=== PATIENT | female | born 1940 | race Caucasian/White ===

== ENCOUNTER → 2017-08-20 09:57 | Outpatient (CLI) | payer MEDICARE, BC, SELFPAY ==
[2017-08-20 11:43] LABS: AST(SGOT) 16 U/L (15-37); Alanine Aminotransfer ALT/SGPT 16 U/L (12-78); Albumin, Serum 3.6 g/dL (3.4-5.0); Alkaline Phosphatase 76 U/L (45-117); Anion Gap 8 (5-15); BUN 19 mg/dL (7-18); BUN/Creat Ratio 19.6 RATIO (10-20); Bilirubin, Direct 0.24 mg/dL (0.00-0.30); Calcium,Total 8.6 mg/dL (8.5-10.1); Chloride 110 mmol/L (98-107); Cholesterol 121 mg/dL (200); Creatinine, Serum 0.97 mg/dL (0.55-1.02); EST Glomerular Filtration Rate 59 mL/min (>60); Est Glom Filt Rate - Afr Amer 72 mL/min (>60); Glucose 93 mg/dL (70-110); High Density Lipoprotein 52 mg/dL; Potassium 3.4 mmol/L (3.5-5.1); Protein, Total 6.6 g/dL (6.4-8.2); Sodium Level 145 mmol/L (136-145); Triglycerides 177 mg/dL; Very Low Density Lipoprotein 35 mg/dL (5-40)
== END ==
PROVIDERS: Family Provider Family Medicine; PCP Family Medicine; Visit Provider Physician Assistant Medical
DX: I25.10 Atherosclerotic heart disease of native coronary artery without angina pectoris (principal); I25.5 Ischemic cardiomyopathy; I10 Essential (primary) hypertension; E78.5 Hyperlipidemia, unspecified; I25.2 Old myocardial infarction; I21.3 ST elevation (STEMI) myocardial infarction of unspecified site; Z95.5 Presence of coronary angioplasty implant and graft
CPT/HCPCS: 36415; 80048; 80061; 80076; 93798

== ENCOUNTER → 2017-09-30 09:55 | Outpatient (CLI) | payer MEDICARE, BC, SELFPAY ==
[2017-08-19 15:29] VITALS: BP 180/94; BMI 28.8
== END ==
PROVIDERS: Family Provider Family Medicine; PCP Family Medicine; Visit Provider Physician Assistant Medical
DX: Q21.1 Atrial septal defect (principal); R93.1 Abnormal findings on diagnostic imaging of heart and coronary circulation; I25.5 Ischemic cardiomyopathy
CPT/HCPCS: 93312; 93320; 93325; A4216

== ENCOUNTER → 2017-10-16 05:57 | Outpatient (CLI) | payer MEDICARE, BC, SELFPAY ==
--- NOTE | 2017-10-16 10:03 | STRESSREP ---
Stress Test Report Date: 10/16/2017 Procedure: Exercise tolerance test/imaging study Indications: Shortness of breath/dyspnea; CAD; status post MN; status post PCI Consent: Per the patient Procedure: The patient exercised on a Modified Willie protocol for 10 minutes 30 seconds completing stage III and I minute 30 seconds of stage IV minutes achieving a peak heart rate of 120 bpm (85 % predicted maximal heart rate) with a peak blood pressure 174/76 mmHg and a peak MET capacity of 6 METs. The baseline ECG demonstrated sinus rhythm; anterior MN of indeterminate age; nonspecific T-wave abnormality. The peak exercise ECG demonstrated somatic/motion artifact with no obvious ECG changes. There was a rare PAC, PVC, and ventricular couplet during exercise and a rare PAC/PVC during recovery. The functional capacity was considered average. There was [no complaint of chest discomfort during exercise or recovery]. The examination was discontinued secondary to dyspnea. Impression: 1. Technically adequate (percent predicted maximal heart rate greater than 85%) exercise tolerance test 2. Peak exercise ECG with somatic/motion artifact with no obvious ECG changes 3. Rare PAC, PVC, and ventricular couplet during exercise and rare PAC/PVC during recovery. 4. Nuclear images pending Myocardial perfusion imaging study: Technique: The patient was injected with 11.5 mCi of technetium 99m Cardiolite and subsequently rest SPECT Cardiolite nuclear imaging was obtained in the horizontal long, vertical long, and short axis views. The patient exercised on a Modified Willie protocol for 10 minutes 30 seconds minutes completing stage 3 and 1 minute 30 seconds of stage IV achieving a peak heart rate of 120 bpm (85 % predicted maximal heart rate) with a peak blood pressure 174/76 mmHg and a peak MET capacity of 6 METs. The patient was injected with 32.6 mCi of technetium 99m Cardiolite and subsequently stress SPECT Cardiolite nuclear imaging was obtained in the horizontal long, vertical long, and short axis views. A gated Cardiolite study at peak stress was obtained. Interpretation: Rest and stress SPECT Cardiolite nuclear imaging status post realignment, normalization, and attenuation correction, demonstrates the appearance of diminished absence of myocardial perfusion/tracer uptake in portions of the distal anterior, mid to distal anteroseptal, and apical segments without significant change between rest and stress. There is diminished end systolic thickening and brightening in the aforementioned areas. The gated Cardiolite study demonstrates diminished myocardial thickening and inward wall motion in the aforementioned areas. The reported LVEF is 53 %. Impression: 1. Rest and stress SPECT Cardiolite nuclear imaging demonstrate a cardio perfusion changes appearing compatible with an area of previous myocardial injury/infarction involving portions of the distal anterior, mid to distal anteroseptal, and apical segments with no myocardial perfusion changes consider diagnostic for associated stress-induced myocardial ischemia. 2. The gated Cardiolite study reports an LVEF of 53 %. This note was generated with better[employer]ation software. It may contain incorrect words, spelling, and punctuation that were not noted in checking the note before signing.
--- NOTE | 2017-10-16 10:09 | STRESSREP_ITS ---
Stress Test Report Date: 10/16/2017 Procedure: Exercise tolerance test/imaging study Indications: Shortness of breath/dyspnea; CAD; status post MT; status post PCI Consent: Per the patient Procedure: The patient exercised on a Modified Willie protocol for 10 minutes 30 seconds completing stage III and I minute 30 seconds of stage IV minutes achieving a peak heart rate of 120 bpm (85 % predicted maximal heart rate) with a peak blood pressure 174/76 mmHg and a peak MET capacity of 6 METs. The baseline ECG demonstrated sinus rhythm; anterior MT of indeterminate age; nonspecific T-wave abnormality. The peak exercise ECG demonstrated somatic/ motion artifact with no obvious ECG changes. There was a rare PAC, PVC, and ventricular couplet during exercise and a rare PAC/PVC during recovery. The functional capacity was considered average. There was [no complaint of chest discomfort during exercise or recovery]. The examination was discontinued secondary to dyspnea. Impression: 1. Technically adequate (percent predicted maximal heart rate greater than 85% ) exercise tolerance test 2. Peak exercise ECG with somatic/motion artifact with no obvious ECG changes 3. Rare PAC, PVC, and ventricular couplet during exercise and rare PAC/PVC during recovery. 4. Nuclear images pending Myocardial perfusion imaging study: Technique: The patient was injected with 11.5 mCi of technetium 99m Cardiolite and subsequently rest SPECT Cardiolite nuclear imaging was obtained in the horizontal long, vertical long, and short axis views. The patient exercised on a Modified Willie protocol for 10 minutes 30 seconds minutes completing stage 3 and 1 minute 30 seconds of stage IV achieving a peak heart rate of 120 bpm (85 % predicted maximal heart rate) with a peak blood pressure 174/76 mmHg and a peak MET capacity of 6 METs. The patient was injected with 32.6 mCi of technetium 99m Cardiolite and subsequently stress SPECT Cardiolite nuclear imaging was obtained in the horizontal long, vertical long, and short axis views. A gated Cardiolite study at peak stress was obtained. Interpretation: Rest and stress SPECT Cardiolite nuclear imaging status post realignment, normalization, and attenuation correction, demonstrates the appearance of diminished absence of myocardial perfusion/tracer uptake in portions of the distal anterior, mid to distal anteroseptal, and apical segments without significant change between rest and stress. There is diminished end systolic thickening and brightening in the aforementioned areas. The gated Cardiolite study demonstrates diminished myocardial thickening and inward wall motion in the aforementioned areas. The reported LVEF is 53 %. Impression: 1. Rest and stress SPECT Cardiolite nuclear imaging demonstrate a cardio perfusion changes appearing compatible with an area of previous myocardial injury/infarction involving portions of the distal anterior, mid to distal anteroseptal, and apical segments with no myocardial perfusion changes consider diagnostic for associated stress-induced myocardial ischemia. 2. The gated Cardiolite study reports an LVEF of 53 %. This note was generated with [employer] software. It may contain incorrect words, spelling, and punctuation that were not noted in checking the note before signing.
== END ==
PROVIDERS: Family Provider Family Medicine; PCP Family Medicine; Visit Provider Internal Medicine Cardiovascular Disease
DX: I25.10 Atherosclerotic heart disease of native coronary artery without angina pectoris (principal); R06.02 Shortness of breath; R53.83 Other fatigue
CPT/HCPCS: 78452; 93017; A9500; A4216

== ENCOUNTER → 2018-04-14 09:13 | Outpatient (CLI) | payer MEDICARE, BC, SELFPAY ==
[2018-04-14 10:34] LABS: BUN 22 mg/dL (7-18); Creatinine, Serum 1.13 mg/dL (0.55-1.02); Glucose 94 mg/dL (74-106)
[2018-04-14 10:35] LABS: ALB/GLOB Ratio 1.1 RATIO (0.9-2.4); AST(SGOT) 18 U/L (15-37); Alanine Aminotransfer ALT/SGPT 17 U/L (13-56); Albumin, Serum 3.4 g/dL (3.2-5.0); Alkaline Phosphatase 79 U/L (45-117); Anion Gap 10 (5-15); BUN/Creat Ratio 19.5 RATIO (10-20); Bilirubin, Direct 0.15 mg/dL (0.00-0.30); Chloride 111 mmol/L (98-107); Cholesterol 212 mg/dL (200); EST Glomerular Filtration Rate 49 mL/min (>60); Est Glom Filt Rate - Afr Amer 60 mL/min (>60); Globulin 3.2 g/dL (2.2-4.2); High Density Lipoprotein 39 mg/dL; Potassium 3.9 mmol/L (3.5-5.1); Protein, Total 6.6 g/dL (6.4-8.2); Sodium Level 145 mmol/L (136-145); Triglycerides 309 mg/dL; Very Low Density Lipoprotein 62 mg/dL (5-40)
== END ==
PROVIDERS: Family Provider Family Medicine; PCP Family Medicine; Visit Provider Physician Assistant Medical
DX: I10 Essential (primary) hypertension (principal); I21.3 ST elevation (STEMI) myocardial infarction of unspecified site; I25.10 Atherosclerotic heart disease of native coronary artery without angina pectoris; I25.5 Ischemic cardiomyopathy; E78.5 Hyperlipidemia, unspecified
CPT/HCPCS: 36415; 80053; 80061; 82248

== ENCOUNTER 2018-08-23 13:36 | Emergency (ER) | payer MEDICARE, BC, SELFPAY ==
[2018-08-23 13:37] VITALS: BP 169/79; PULSE 61; RESP 14; TEMP 37; O2SAT 98; BMI 27.3
--- NOTE | 2018-08-23 13:49 | CT_ITS ---
STUDY: CT ABDOMEN AND PELVIS WITHOUT CONTRAST REASON FOR EXAM: Female, 78 years old. Right lower quadrant abdominal pain. History of colon and uterine cancer. Multiple small bowel obstruction secondary to adhesions. Radiation therapy. Partial colectomy. Appendectomy. Hernia repair with patch. Cholecystectomy. Hysterectomy. RADIATION DOSAGE (If Supplied By Facility): CTDIvol = ( 11.73 ) mGy, DLP = ( 562.46 ) mGycm TECHNIQUE: Transaxial images were obtained from the dome of the diaphragm to the symphysis pubis without oral contrast, and without intravenous contrast. Sagittal and coronal images were reconstructed. Individualized dose optimization techniques were used for this CT. COMPARISON: CT abdomen and pelvis 05/18/2017. FINDINGS: Body wall soft tissues: There are 2 small fat filled ventral midline abdominal wall hernias supraumbilical. Containing a small amount of omental fat. Healed midline ventral abdominal wall incision infraumbilical. Osseous structures: Multilevel lumbar degenerative disc disease, associated with at least mild foraminal narrowing at several levels. Mild scoliosis. No acute osseous process. Inferior chest: Lung bases clear. Mild elevation of left hemidiaphragm. Normal distal esophagus. Mild cardiomegaly without pericardial effusion. Mild aortic valve calcifications and RCA calcifications are visible. Hepatobiliary: No acute process. Pancreas: Moderately severe pancreatic atrophy. Spleen: Normal. Adrenal glands: Normal. Urogenital: Unremarkable kidneys, collecting systems, ureters, urinary bladder. Uterus is absent. There is no adnexal mass or cyst. No cul-de-sac free fluid. Pelvic floor and sidewalls and retroperitoneum: No mass or adenopathy. Vasculature: Mild atherosclerosis. Stomach: No acute process. Small bowel and mesentery: There is dilatation of a cluster of small bowel loops in the lower abdomen and pelvis, ileum distribution, proximal to mid. Associated with mild wall thickening. Greatest diameter 4.9 cm. Associated with mild induration/hyperemia in the adjacent mesenteric fat. Associated with more than one focus of bird beaking in the bowel, suggesting adhesions. Associated with 2 unusual oval foreign bodies within adjacent dilated loops of small bowel. These foreign bodies are oval, smoothly circumscribed, measuring 3.6 x 3.6 x 2.6 cm, and 4.1 x 3.1 x 2.3 cm. In the center of each of these, there are longitudinal radiodensities measuring approximately 15 mm in length. Surrounding this, a homogeneous soft tissue density. Uncertain etiology but I suspect these reflect intact pieces of fruit containing pits, ingested whole. Other etiology is not excluded. These do not appear to be causing the partial small bowel obstruction. The distal ileum is decompressed and normal. Large bowel: The appendix is surgically absent. The large bowel exhibits no acute unreality. Free fluid or free air: None. CT/Abdomen/Pelvis without Cont IMPRESSION: Partial small bowel obstruction involving the proximal to mid ileum, with an appearance favoring adhesive disease. Foreign bodies within the dilated loops of ileum are discussed above, uncertain etiology. These are centered on axial image 96 and axial image 130. Electronically Signed: Aric Osorio MD at 16:08 EST Tel , Service support ,
[2018-08-23 13:55] VITALS: BP 169/79; PULSE 61; RESP 14; TEMP 37; O2SAT 98
[2018-08-23 14:33] LABS: Absolute Lymphocyte Count 0.86 X10^3/ul (0.83-4.51); Absolute Neutrophil Count 5.2 X10^3/uL (2.0-7.7); Basophil# 0.03 X10^3/uL; Basophil% 0.5 % (0-1); Eosinophil# 0.05 X10^3/uL; Eosinophils% 0.8 % (0-5); Hematocrit 40.2 % (37-47); Hemoglobin 12.9 g/dl (12.0-15.0); Lymphocyte # 0.86 X10^3/ul (4.0); Lymphocyte % 13.5 % (19-41); Mean Corp Hgb Conc 32.1 g/gl (32-36); Mean Corpuscular Hgb 27.8 pg (27.0-32.0); Mean Corpuscular Volume 86.6 fL (81-99); Mean Platelet Vol. 10.3 fl (6.2-12.0); Monocyte# 0.28 X10^3/uL; Monocyte% 4.4 % (0-10); Neutrophil # 5.16 X10^3/uL (2.7-7.7); Neutrophil % 80.6 % (47-70); Platelet Count 241 K/mm3 (150-450); RBC Distribution Width CV 15.2 % (11.6-14.6); RBC Distribution Width SD 47.8 fl (35.1-43.9); Red Blood Count 4.64 M/mm3 (4.2-5.4); White Blood Count 6.4 K/mm3 (4.4-11.0)
[2018-08-23 14:34] LABS: POSITIVE COUNT NO; POSITIVE DIFFERENTIAL NO; POSITIVE MORPHOLOGY NO
[2018-08-23 14:45] LABS: ALB/GLOB Ratio 1.1 RATIO (0.9-2.4); AST(SGOT) 15 U/L (15-37); Alanine Aminotransfer ALT/SGPT 18 U/L (13-56); Albumin, Serum 3.5 g/dL (3.2-5.0); Alkaline Phosphatase 90 U/L (45-117); Anion Gap 8 (5-15); BUN 15 mg/dL (7-18); BUN/Creat Ratio 14.2 RATIO (10-20); Calcium,Total 8.9 mg/dL (8.5-10.1); Chloride 109 mmol/L (98-107); Creatinine, Serum 1.06 mg/dL (0.55-1.02); EST Glomerular Filtration Rate 53 mL/min (>60); Est Glom Filt Rate - Afr Amer 64 mL/min (>60); Estimated Creatinine Clearance 37.16 ml/min; Globulin 3.3 g/dL (2.2-4.2); Glucose 111 mg/dL (74-106); Lipase 81 U/L (73-393); Potassium 3.3 mmol/L (3.5-5.1); Protein, Total 6.8 g/dL (6.4-8.2); Sodium Level 144 mmol/L (136-145)
[2018-08-23 15:25] LABS: Bacteria 0 SEEN /hpf (None Seen)
[2018-08-23] MEDS: Morphine 4 MG/ML Syringe IV ×2 (15:26→18:37)
[2018-08-23] MEDS: Ondansetron 4 MG/2 ML Vial IV (15:27)
[2018-08-23 15:28] VITALS: BP 189/72; PULSE 51; RESP 18; TEMP 37; O2SAT 100
[2018-08-23 15:33] LABS: Color, Urine Yellow (Yellow); Glucose, Dipstick Normal (Normal); Ketone-Dipstick 5 mg/dl (Negative); Leukocyte Esterase-Dipstick 100 /ul (Negative); Nitrite-Dipstick Negative (Negative); Occult Blood-Urine 25 /ul (Negative); Protein-Dipstick 30 mg/dl (Negative); Specific Gravity, Urine 1.025 (1.002-1.030); Urine Bilirubin Dipstick 1 mg/dL (Negative); Urine Clarity Clear (Clear); Urine Urobilinogen 1 mg/dl (Normal)
[2018-08-23 15:43] LABS: Red Blood Cells-Urine 0-5 SEEN /hpf (0-5); Squamous Epithelial Cells - UA 0-5 SEEN /hpf (5-10); White Blood Cells 0-5 SEEN /hpf (0-5)
[2018-08-23 15:44] LABS: Hyaline Cast 0-5 SEEN /lpf (0-5); Mucous, Urine 2+ /hpf (<or=2+)
--- NOTE | 2018-08-23 15:47 | ED.DCSUM_ITS ---
- ER Visit Summary Date of Service: 08/23/18 Chief Complaint: Abdominal pain History of Present Illness: The patient is a 78 F with abdominal pain for the past 6 days. It is described as cramping, had some loose stools up until yesterday, she has some nausea and she passed gas last night but not this morni ng. She has no noted fever or chills no urinary symptoms or flank pain. Pain is mild to moderate. Physical Examination: Not appear in acute distress. She does not appear toxic. Moist mucous membranes, no obvious facial deformity No C-spine tenderness supple neck. Regular rate and rhythm without any obvious murmurs Clear lungs bilaterally speaking in full sentences without any obvious respiratory distress Abdomen soft, she has diffuse tenderness throughout her entire abdomen, no focal tenderness. There is no guarding or rebound. She has bowel sounds but there is slightly decreased. No CVA tenderness. Moves all extremities without any difficulty or pain. Skin does not show any obvious rashes or lesions, no trauma. Alert oriented ?3 with no gross focal deficit Emergency Department Course and Treatment: Patient is found to have a partial small bowel obstruction. There is no leukocytosis. She does not appear toxic. She is does have bowel sounds although they are somewhat diminished. Patient had seen Dr. Veloz and Dr. Lowe in the past. I discussed the patient with Dr. Rosalie Garcia, as well as Dr. Washington. Apparent believe patient has a very complicated surgical course, and both surgeons preferred on admitting the patient saying he was too complicated for this institution, I will attempt to transfer her. Disposition: Transfer in guarded condition Impression: partial small bowel obstruction This note was generated with [employer] dictation software. It may contain incorrect words, spelling, and punctuation that were not noted in review of the chart prior to signing ED Disposition - Plan for ED Patient: Chief Complaint: Abd Pain Referrals: Dominic Solis DO [Primary Care Provider] -
[2018-08-23 18:09] VITALS: BP 176/75; PULSE 64; RESP 18; O2SAT 95
--- NOTE | 2018-08-23 18:28 | ED.RN ---
After a long discussion, PT wants to hold off on NG placement now. Pros and cons were discussed. PT has not vomited during her stay.
[2018-08-23 19:18] VITALS: BP 176/75; PULSE 65; RESP 14; O2SAT 97
== END 2018-08-23 19:19 | disposition short-term general hospital (02) ==
PROVIDERS: Emergency Provider Emergency Medicine; Family Provider Family Medicine; PCP Family Medicine
DX: K56.600 Partial intestinal obstruction, unspecified as to cause (principal); I25.10 Atherosclerotic heart disease of native coronary artery without angina pectoris; I10 Essential (primary) hypertension; Z85.038 Personal history of other malignant neoplasm of large intestine; Z79.82 Long term (current) use of aspirin; Z79.899 Other long term (current) drug therapy
CPT/HCPCS: 74176; 80053; 81001; 83690; 85025; 96374; 96375; 96376; 99285; A4216; J2405

== ENCOUNTER → 2018-09-09 10:51 | Outpatient (CLI) | payer MEDICARE, BC, SELFPAY ==
[2018-08-23 13:37] VITALS: BMI 27.3
[2018-09-09 12:26] LABS: Anion Gap 8 (5-15); BUN 27 mg/dL (7-18); BUN/Creat Ratio 23.7 RATIO (10-20); Calcium,Total 8.9 mg/dL (8.5-10.1); Chloride 103 mmol/L (98-107); Creatinine, Serum 1.14 mg/dL (0.55-1.02); EST Glomerular Filtration Rate 49 mL/min (>60); Est Glom Filt Rate - Afr Amer 59 mL/min (>60); Glucose 118 mg/dL (74-106); Sodium Level 142 mmol/L (136-145)
--- OUTSIDE RECORDS SUMMARY | 2018-11-14 06:36 | XMS RPT_ITS ---
:1940 Author Organization [place] Support Name Relationship Address Phone SAMIR WAYNE Unavailable [address] + [place] [address] JUANITA ROTH Unavailable Unavailable + [place] [address] R Unavailable Unavailable Unavailable DOMERMARCIASAMIR Unavailable [address] + [place] [address] MARCO ROTHIN Unavailable Unavailable + [place] [address] R Unavailable Unavailable Unavailable DOMER SAMIR Unavailable [address] + [place] [address] ELDERMARCOIN Unavailable 1 + [place] [address] R Unavailable Unavailable Unavailable DOMER SAMIR Unavailable [address] + [place] [address] ELDERMARCOIN Unavailable Unavailable + [place] [address] R Unavailable Unavailable Unavailable DOMER, SAMIR Unavailable [address] + [place] [address] ELDERMARCOIN Unavailable / + [place] [address] R Unavailable Unavailable Unavailable DOMER SAMIR Unavailable [address] + [place] [address] ELDER JUANITA Unavailable / + [place] [address] R Unavailable Unavailable Unavailable DOMER, SAMIR Unavailable [address] + [place] [address] ELDERMARCOIN Unavailable / + [place] [address] R Unavailable Unavailable Unavailable DOMER, SAMIR Unavailable [address] + [place] [address] JUANITA ROTH Unavailable / + [place] [address] R Unavailable Unavailable Unavailable SAMIR WAYNE Unavailable [address] + [place] [address] JUANITA ROTH Unavailable / + [place] [address] R Unavailable Unavailable Unavailable SAMIR WAYNE Unavailable NA + [place], [place] JUANITA ROTH Unavailable NA + [place], [place] R Unavailable Unavailable Unavailable Care Team Providers Name Role Phone Carolynn Lala Attending Unavailable Carolynn Lala Referring Unavailable Dominic Solis Primary Care Unavailable MoodCarlos min Attending Unavailable Will, Dominic Primary Care Unavailable MoodCarlos min Referring Unavailable MoodCarlos min Attending Unavailable Carlos Greene Referring Unavailable Carlos Greene Attending Unavailable Carlos Greene Referring Unavailable Carolynn Lala Attending Unavailable Dominic Solis Referring Unavailable Will, Dominic Primary Care Unavailable Carolynn Lala Attending Unavailable Carolynn Lala Referring Unavailable Will, Dominic Primary Care Unavailable Carolynn Lala Attending Unavailable WillDominic hutchins Referring Unavailable Will, Dominic Primary Care Unavailable Will, Dominic Primary Care Unavailable Carlos Duncan Attending Unavailable WillDominic Attending Unavailable Will, Dominic Primary Care Unavailable Carolynn Lala Attending Unavailable WillDominic hutchins Referring Unavailable Will, Dominic Primary Care Unavailable VINCENT VOERT S Admitting Unavailable AWENDERVINCENTJORGE S Attending Unavailable CARLOS DUNCAN Referring Unavailable AWENDER, H S Admitting Unavailable AWENDER, H S Attending Unavailable MD CARLOS DUNCAN Referring Unavailable IMCA Primary Care Unavailable PROBLEMS PROBLEMS DATE TYPE CONDITION / CODE ATTENDING STATUS SOURCE 09/09/2018 Unknown E87.6 - Hypokalemia Dominic Solis Active [facility] / E87.6(ICD-10) [facility] Hospital Repository 08/23/2018 Active Unknown / AWENDER, Active [place] UNK(Unknown) JORGE S [facility] Other [place] Repository 08/23/2018 Admitting Unknown / AWENDER, H S Active [place] Pool General diagnosis UNK(Unknown) Health System Repository 04/14/2018 Unknown I21.3 - ST elevation Dai, Active [facility] (STEMI) myocardial [facility] infarction of Hospital unspecified site / Repository I21.3(ICD-10) 04/14/2018 Unknown E78.5 - Dai, Active [facility] Hyperlipidemia, Carolynn Pending Sale To [facility] unspecified / Hospital E78.5(ICD-10) Repository 04/14/2018 Unknown I10 - Essential Dai, Active Pool (primary) [facility] hypertension / Hospital I10(ICD-10) Repository 04/14/2018 Unknown I25.2 - Old Dai, Active [facility] myocardial [facility] infarction / Hospital I25.2(ICD-10) Repository 11/13/2017 Unknown Q21.1 - Atrial Dai, Active [facility] septal defect / [facility] Q21.1(ICD-10) Hospital Repository 11/13/2017 Unknown 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 R06.02(ICD-10) Hospital Repository PROCEDURES PROCEDURES No Procedure Records FoundRESULTS RESULTS BASIC METABOLIC Collected: 09/09/2018 Status: F Source: POOL PROFILE (BMP) 10:53 AM [facility] HOSPITAL REPOSITORY TYPE CODE TESTS RESULT OUT OF RANGE REFERENCE UNITS LAB L501.0100 74-106 mg/dL High GLU 118 Result Comment: Fasting Glucose result from 100 to 125 mg/dL suggests IMPAIRED HOMEOSTASIS per A.D.A. criteria. Please note revised GLUCOSE reference range effective 2017. LAB L501.1000 7-18 mg/dL High BUN 27 LAB L501.1100 0.55-1.02 mg/dL High CREAT,SERUM 1.14 Result Comment: The validity of the calculated GFR AND GFRAA in patients over 70 years has not been determined. Clinical correlation is essential. LAB L501.1110 >60 mL/min Low EST GFR 49 Result Comment: Non- GFR Calc LAB L501.1115 >60 mL/min Low EST GFR - AA 59 Result Comment: GFR Calc LAB L501.1300 10-20 RATIO High BUN/CRE 23.7 LAB L501.2200 8.5-10.1 mg/dL CA Normal 8.9 LAB L501.5300 136-145 mmol/L NA Normal 142 LAB L501.5600 3.5-5.1 mmol/L Low K 3.0 LAB L501.5900 98-107 mmol/L CL Normal 103 LAB L501.6100 21.0-32.0 mmol/L Normal CO2 31.0 LAB L501.6200 5-15 Normal GAP 8 Performed By: #### L500.2500 #### [facility] [address] [place], [address] EDWARDO Observed: 08/31/2018 Status: COMPLETED Source: [facility] 12:00 AM CLINIC OTHER CAMPUS REPOSITORY Telephone (AKPRAD) CLEMENCIA WAYNE ([id number]) 1940 F Date Time Provider Department 08/31/18 ILSA KIMBLE (SUNI) KARLA During your visit today, we recorded the following information about you: Ilsa Kimble APRN.CNP 08/31/2018 4:36 PM Signed A second attempt to call and speak with Ms. Wayne this evening to answer any questions or concerns regarding her recent hospitalization. A message was left on her voice mail. Pt advised to call her physician if she has any questions. No further attempts to call will be made at this time. Ilsa Kimble APRN.CNP Emergency General Surgery 4:36 PM 08/31/2018 Allergies As of Date: 08/31/2018 (No Known Allergies) Date Reviewed: 08/23/2018 Reviewed by: Itzel Pino) CHARO Espinal - Fully Assessed Reason for Visit: Post-hospitalization follow-up [Other] Prescriptions as of 08/31/2018 Sig: ATORVASTATIN 80 MG TABLET LOSARTAN 50 MG TABLET once daily. METOPROLOL TARTRATE 50 MG TAB* twice daily. ASPIRIN 81 MG TABLET,DELAYED * Take 81 mg by mouth once luis* Problem List As Of Date 08/31/2018 Noted Resolved Pure Hypercholesterolemia [E78.00] 05/01/2012 Malignant Neoplasm of Uterus, Part Unspecified * More... 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 Blood in Stool [K92.1] 12/15/2009 Diarrhea [R19.7] 12/15/2009 More... Routine Gynecological Examination [Z01.419] INVALID FOR* Class: Chronic More... Radiation Proctitis [K62.7] INVALID FOR* More... Hx SBO [Z87.19] INVALID FOR* More... 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 Wayne this evening to follow up after her recent hospitalization. Left message, will attempt to call again in near future. Ilsa Kimble APRN.CNP Emergency General Surgery 4:02 PM 08/29/2018 Allergies As of Date: 08/29/2018 (No Known Allergies) Date Reviewed: 08/23/2018 Reviewed by: Itzel SandovalRn) CHARO sEpinal - Fully Assessed Reason for Visit: Post hospitalization follow up [Other] Prescriptions as of 08/29/2018 Sig: ATORVASTATIN 80 MG TABLET LOSARTAN 50 MG TABLET once daily. METOPROLOL TARTRATE 50 MG TAB* twice daily. ASPIRIN 81 MG TABLET,DELAYED * Take 81 mg by mouth once luis* Problem List As Of Date 08/29/2018 Noted Resolved Pure Hypercholesterolemia [E78.00] 05/01/2012 Malignant Neoplasm of Uterus, Part Unspecified * More... 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 Blood in Stool [K92.1] 12/15/2009 Diarrhea [R19.7] 12/15/2009 More... Routine Gynecological Examination [Z01.419] INVALID FOR* Class: Chronic More... Radiation Proctitis [K62.7] INVALID FOR* More... Hx SBO [Z87.19] INVALID FOR* More... 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 Patient to use [facility] Bedside Delivery - YES 2. If fax, patient would like us to fax prescriptions to Pharmacy of choice a. Pharmacy: b. Location: c. Phone: 3. Insurance card on file - NO 4. Credit card for payment - N/A No prescriptions yet. Please call Pharmacy Bedside Delivery at extension [phone] or [phone] upon discharge. CNDS Observed: 08/26/2018 Status: COMPLETED Source: [facility] 12:14 PM [facility] REPOSITORY HNO ID: [id number] Author: Ilsa ([facility]) Patricio Service: General Surgery Author Type: Nurse Practitioner Type: Discharge Summaries Filed: 08/26/2018 12:16 PM Note Text: DISCHARGE SUMMARY PATIENT NAME: Clemencia Wayne Code Status: Not on file Highest Readmission Risk Score: 8 The 30 day readmissions risk score is derived from an internally validated risk model which evaluates patient level characteristics, utilization history, medication orders and lab results up until the day of discharge. Patients with a score of 40 or above are considered highest risk for readmission. Specific patient level drivers will be listed at the bottom of the summary. Admission Information Admission Information ADMIT DATE: 08/23/2018 DISCHARGE DATE: 08/26/2018 MY DOCTORS AND MEDICAL TEAM: My Main Hospital Doctor: Joshua Vo Primary Care Provider: Dominic Solis DO My Medical Team Members: Treatment Team: Attending Provider: Joshua Vo MY CONDITION AT DISCHARGE: Stable REASON I WAS IN THE HOSPITAL: Small bowel obstruction (SBO) SUMMARY OF WHAT HAPPENED WHILE I WAS IN THE HOSPITAL: Ms. Wayne presented with RLQ abdominal pain and was diagnosed with a partial SBO at [facility]. She has an extensive past medical and surgical history including but not limited to: Appendectomy 1998: Sigmoidectomy 2/2 sigmoid s/p chemo/radiation and resection, 2003: TAHBSO s/p uterine cancer 2004: Laparoscopic Kugel mesh repair (mesh from pubis to xyphoid) 2006: Lap mal 2011: Ex lap with release of SBO and partial removal of mesh 2013: multiple admissions for pSBOs but no surgical intervention 2014: Dr Dino Knight at [facility] main performed exploratory laparotomy with very extensive lysis of adhesions and removal pf previous kugel mesh. 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 DATA: Radiology: CT AP: There is a dilation of a cluster of a small bowel loops in the lower abdomen and pelvis, ileum distribution, proximal to mid. Associated with mild wall thickening. Greatest diameter 4.9cm. Associated with mild induration/hyperemia in the adjacent mesenteric fat. Associated with more than one focus of bird beaking in the bowel suggesting adhesions. Associated with 2 unusual foreign bodies within adjacent dilated loops of small bowel. These foreign bodies are oval, smoothly circumscribed, measuring 3.6 x 3.6x 2.6cm and 4.1 x 3.1x 2.3cm. In the center of each of these, there are longitudinal radiodensities measuring 15mm in length. Surrounding this, a homogenous soft tissue density. Uncertain etiology but I suspect these reflect intact pieces of fruit containing pits, ingested whole. Other etiology is not excluded. These do not appear to be causing the partial small bowel obstruction. The distal ileum is decompressed and normal. Ms. Wayne was provided pain and nausea control, NG tube was not utilized during this admission. Small bowel follow through xray on 08/25/2018 revealed normal gas pattern, no dilated loops of small bowel. Diet slowly advanced and Ms. Wayne was passing multiple bowel movements. Ms. Wayne has complete resolution of abdominal symptoms and is stable for discharge on hospital day #308/26/2018. OTHER PROBLEMS/DIAGNOSIS: Active Problems: * No active hospital problems. * Resolved Problems: SBO (small bowel obstruction) (HCC) OPERATIONS PERFORMED WHILE IN THE HOSPITAL: None IMPORTANT TEST/PROCEDURES: No procedures performed TEST RESULTS NOT AVAILABLE AT THIS TIME: No pending results Discharge Disposition Discharge Disposition: Home With Self Care Discharge Disposition Discharge Disposition: Home With Self Care Activity When You Leave the Hospital No prolonged bedrest, longer than 8 hours in a 24 hour period Resume pre-hospital activity Diet Instructions Resume your pre-hospital diet Call Your Doctor If Other: Return of abdominal symptoms. Follow Up Appointments Follow-Up Appointment With: Primary Care provider When: In 1 week Patient/Parents to call for appointment?: Yes Additional Provider to Provider Information: No notes on file Transitions of Care Critical Issues: None LABS AND PROCEDURES PENDING AT DISCHARGE: No pending results. FOLLOW-UP APPOINTMENTS ALREADY SCHEDULED WITH A [facility] PROVIDER: No future appointments. ALLERGIES No Known Allergies DISCHARGE MEDICATION: Current Discharge Medication List CONTINUE these medications which have NOT CHANGED aspirin, enteric coated (ASPIRIN, ENTERIC COATED) 81 mg Take 81 mg by mouth once daily. losartan (COZAAR) 50 mg tablet once daily. metoprolol tartrate, short acting, (LOPRESSOR) 50 mg tablet twice daily. atorvastatin (LIPITOR) 80 mg tablet Exam: GENERAL: No distress, Alert NEURO: AANDOx3, CN II-XII grossly intact HEENT: normocephalic, atraumatic LUNGS: Unlabored breathing CARDIAC: Regular rate and rhythm as above ABDOMEN: Soft, non-tender, non-distended EXTREMITIES: ARREDONDO, No deformities, No edema SKIN: Skin color, texture, turgor normal, No rashes or lesions The patient's risk for 30-day readmission is determined using the following contributing factors: Pt variables contributing to increased readmission risk: 12 Active Medication Orders 9 Most Recent BUN Result 7.7 First Resulted Calcium During Admission 1 Insurance - Medicare 1 Discharge Disposition - Home 1 Active Anticoagulant TIME OF CARE: Discharge Management: I personally spent greater than 30 minutes involved in the discharge management of this patient. SIGNATURE: Ilsa Kimble APRN.CNP PAGER/CONTACT #: DATE: August 26, 2018 TIME: 12:15 PM PROGRESS Observed: 08/26/2018 Status: COMPLETED Source: [facility] 7:32 AM CLINIC OTHER CAMPUS REPOSITORY HNO ID: [id number] Author: Ilsa Kimble Service: General Surgery Author Type: Nurse Practitioner Type: Progress Notes Filed: 08/26/2018 7:36 AM Note Text: Emergency General Surgery Progress Note SERVICE DATE: 08/26/2018 Time: 0645 SUBJECTIVE: Feeling well this morning. No N/V. Passing flatus with multiple bowel movements. Feels bowel obstruction has resolved. Feels ready for discharge. Tolerating diet DIET GASTRO INTESTINAL Nausea No Emesis No Flatus Yes Bowel movement Yes Pain Controlled Yes Ambulating Yes OBJECTIVE: Vitals: Temp (24hrs), Av.3 ?C (97.4 ?F), Min:36 ?C (96.8 ?F), Max:36.8 ?C (98.2 ?F) BP 176/63 Pulse (!) 53 Temp 36 ?C (96.8 ?F) (Temporal Artery) Resp 18 Ht 162.6 cm (5' 4) Wt 73.7 kg (162 lb 8 oz) SpO2 96% BMI 27.89 kg/m? O2 Therapy: Room Air IANDO: Date 08/25/18699 - 08/26/1865808/26/18699 - 08/27/18 0659 Shift 4094-2725 7491-9183 0461-2306 24 Hour Total 7325-8699 4147-4525 5844-3962 24 Hour Total I N T A K E IV 250 250 Potassium Phosphate 250 250 Shift Total 250 250 O U T P U T Shift Total Weight (kg) 73.7 73.7 73.7 73.7 73.7 73.7 73.7 73.7 MEDICATIONS Current Facility-Administered Medications: acetaminophen 650 mg tab(s) (TYLENOL) 650 mg ORAL q 4 H PRN aspirin, enteric coated 81 mg tab(s) 81 mg ORAL DAILY atorvastatin 80 mg tab(s) (LIPITOR) 80 mg ORAL AT BEDTIME enoxaparin 40 mg injection (LOVENOX) 40 mg SUBCUTANEOUS DAILY hydrALAZINE 25 mg tab(s) (APRESOLINE) 25 mg ORAL q 6 H PRN losartan 50 mg tab(s) (COZAAR) 50 mg ORAL DAILY metoprolol tartrate (short acting) 50 mg tab(s) (LOPRESSOR) 50 mg ORAL q 12 H morphine 2 mg injection 2 mg INTRAVENOUS q 4 H PRN NaCl 0.9% 3-5 mL 3-5 mL INTRAVENOUS q 12 H ondansetron 4 mg tab(s) (ZOFRAN) 4 mg ORAL q 6 H PRN Or ondansetron (PF) 4 mg injection (ZOFRAN) 4 mg INTRAVENOUS q 6 H PRN oxyCODONE IR 5-10 mg tab(s) (ROXICODONE) 5-10 mg ORAL q 6 H PRN Labs: Recent Labs 08/26/18 0406 08/25/18 0339 08/24/18 0508 NA 143 147* 146* K 3.6 3.2* 3.2* CHLOR 113* 116* 111* CO2 24 26 29 BUN 9 7 13 CREAT 0.85 0.85 1.01* GLUC 89 113* 130* ANION 10 8 9 CA 8.3* 7.9* 7.7* MG -- -- 2.0 P -- -- 3.3 WBC 5.08 4.13 4.07 HB 11.2 10.7* 11.7 HCT 36.8 34.8 37.1 PLT 125* 208 220 LACT -- -- 1.5 Exam: GENERAL: No distress, Alert NEURO: AANDOx3, CN II-XII grossly intact HEENT: normocephalic, atraumatic LUNGS: Unlabored breathing CARDIAC: Regular rate and rhythm as above ABDOMEN: Soft, non-tender, non-distended EXTREMITIES: ARREDONDO, No deformities, No edema SKIN: Skin color, texture, turgor normal, No rashes or lesions ASSESSMENT AND PLAN: Active Hospital Problems Diagnosis Date Noted - SBO (small bowel obstruction) (HCC) 08/23/2018 78 year old female with SBO - GI soft diet - DVT ppx: Lovenox, SCD's, ambulation - Discharge home today Will discuss assessment and plan with attending, Dr. Kirk. SIGNATURE: Ilsa Kimble APRN.CNP PATIENT NAME: Clemencia Wayne DATE: August 26, 2018 TIME: 7:32 AM Pager: Emergency General Surgery Service Pager: For questions or concerns Mon-Fri 6a-5p please page [phone]. After 5pm and on Weekends and Holidays, please page [phone] if in ICU or [phone] if on RNF. MDRD GFR Collected: 08/26/2018 Status: F Source: [facility] 4:06 AM HEALTH SYSTEM REPOSITORY TYPE CODE TESTS RESULT OUT OF RANGE REFERENCE UNITS LAB GFRFN(LOINC >60mL/min/1.73m ) 2 eGFR >60 Result Comment: If the patient is , multiply the result by 1.210. Performed By: #### GFR #### [place] [address] HEMOGRAM Collected: 08/26/2018 Status: F Source: [facility] 4:06 AM HEALTH SYSTEM REPOSITORY TYPE CODE TESTS RESULT OUT OF REFERENCE UNITS RANGE LAB WBC(LOINC) 3.98-10.04 thou/cmm WBC 5.08 LAB RBC(LOINC) 3.93-5.22 mil/cmm RBC 4.03 LAB HGB(LOINC) 11.2-15.7 g/dL Hgb 11.2 LAB HCT(LOINC) 34.1-44.9 % Hct 36.8 LAB MCV(LOINC) 79.4-94.8 fl MCV 91.3 LAB MCH(LOINC) 25.6-32.2 pg MCH 27.8 LAB MCHC(LOINC) 31.6-34.8 % Low MCHC 30.4 LAB RDW(LOINC) 11.7-14.4 % High RDW 15.2 LAB RDWSD(LOINC 36.4-46.3 fl ) High RDW SD 50.7 LAB PLT(LOINC) 182-369 thou/cmm Low Platelet 125 LAB MPV(LOINC) 9.4-12.3 fl MPV 11.3 Performed By: #### CBC1 #### [place] [id number] BASIC PANEL Collected: 08/26/2018 Status: F Source: [facility] 4:06 [facility] SYSTEM REPOSITORY TYPE CODE TESTS RESULT OUT OF REFERENCE UNITS RANGE LAB NA(LOINC) 136-145 mEq/L Sodium Blood 143 LAB K(LOINC) 3.5-5.1 mEq/L Potassium Blood 3.6 LAB CL(LOINC) 98-107 mEq/L Chloride High Blood 113 LAB CO2(LOINC) 21-32 mEq/L CO2 Blood 24 LAB GLU(LOINC) 70-99 mg/dL Glucose Blood 89 LAB BUN(LOINC) 7-18 mg/dL BUN Blood 9 LAB CREA(LOINC 0.51-0.95 mg/dL ) Creatinine Blood 0.85 LAB CA(LOINC) 8.5-10.1 mg/dL Low Calcium Blood 8.3 LAB ANGAP(LOIN 8-16 C) Anion Gap 10 Performed By: #### P8 #### [facility] [address] [place], [place] [address] NURSING PROG Observed: 08/25/2018 Status: COMPLETED Source: [facility] 9:14 PM CLINIC OTHER CAMPUS REPOSITORY HNO ID: [id number] Author: Adriana SandovalRn) CHARO Soliman Service: Nursing Author Type: Registered Nurse Type: Nursing Progress Note Filed: 08/25/2018 9:19 PM Note Text: This nurse paged surgery doctor regarding elevated blood pressure low heart rate awaiting call back. [phone] Werner regarding above will order medication for elevated blood pressure. NURSING PROG Observed: 08/25/2018 Status: COMPLETED Source: [facility] 4:59 PM [facility] REPOSITORY HNO ID: [id number] Author: Loyda (Rn) CHARO Mead Service: (none) Author Type: Registered Nurse Type: Nursing Progress Note Filed: 08/25/2018 5:01 PM Note Text: Nursing Progress Note Patient Name: Clemencia Wayne Patient Location: [place] [address] [address]* RN notified Dr. Werner that patient's blood pressure is 187/72. HR-55. Dr. Werner states he will enter new orders. This note was completed by: Loyda Mead RN ABDOMEN 1 VIEW Observed: 08/25/2018 Status: F Source: [facility] 9:05 AM HEALTH SYSTEM REPOSITORY Performed at [facility] APPROVED BY: Koffi Mcdoanld MD EXAM TITLE: ABDOMEN 1 VIEW DATE: 08/25/2018 08:58 COMPARISON: August 24, 2018 CLINICAL INDICATION/HISTORY: The patient is a 78-year-old female with nausea and vomiting. The patient is had previous findings of small bowel obstruction which were subsequently relieved on most recent abdominal film. TECHNIQUE: A single view of the abdomen is presented. FINDINGS: No abnormality dilated bowel loops are noted. Right-sided surgical clips are unchanged. Contrast opacifies the left: Which is decompressed. There is no abnormal calcifications. Lumbar spondylosis is evident. IMPRESSION: The abdominal bowel gas pattern remains normal. PROGRESS Observed: 08/25/2018 Status: COMPLETED Source: [facility] 8:05 AM CLINIC OTHER CAMPUS REPOSITORY O ID: [id number] Author: Gi Kirk Service: General Surgery Author Type: Physician Type: Progress Notes Filed: 08/25/2018 3:30 PM Note Text: Emergency General Surgery (EGS) Progress Note SERVICE DATE: 08/25/2018 Emergency General Surgery Service Pager: For questions or concerns Mon-Fri 6a-5p please page [phone]. After 5pm and on Weekends and Holidays, please page [phone] if in ICU or [phone] if on RNF. SUBJECTIVE: Feeling well Multiple BMs yesterday Tolerating diet DIET NPO Nausea No Emesis No Flatus Yes Bowel movement Yes Pain Controlled Yes Ambulating Yes OBJECTIVE: Vitals: Temp (24hrs), Av.4 ?C (97.6 ?F), Min:36.3 ?C (97.3 ?F), Max:36.6 ?C (97.9 ?F) BP 142/50 Pulse (!) 51 Temp 36.3 ?C (97.3 ?F) (Temporal Artery) Resp 16 Ht 162.6 cm (5' 4) Wt 73.7 kg (162 lb 8 oz) SpO2 94% BMI 27.89 kg/m? O2 Therapy: Room Air IANDO: Date 08/24/18699 - 08/25/18 0659 08/25/18 07 - 08/26/18 0659 Shift 1680-1428 4240-6336 1804-5481 24 Hour Total 1831-8643 5861-4995 6691-8813 24 Hour Total I N T A K E IV 800 1000 1800 D5 NS 800 1000 1800 Shift Total 800 1000 1800 O U T P U T Urine 225 225 Void (ml) 225 225 Urine Not Saved. 3 x 2 x 5 x # of BMs Stool Incontinence 3 x 3 x Number of BMs 1 x 1 x Shift Total 225 225 Weight (kg) 72.8 72.8 73.7 73.7 73.7 73.7 73.7 73.7 MEDICATIONS Current Facility-Administered Medications: aspirin, enteric coated 81 mg tab(s) 81 mg ORAL DAILY atorvastatin 80 mg tab(s) (LIPITOR) 80 mg ORAL AT BEDTIME dextrose 5% in LR infusion (D5-LR) 75 mL/hr INTRAVENOUS CONTINUOUS enoxaparin 40 mg injection (LOVENOX) 40 mg SUBCUTANEOUS DAILY losartan 50 mg tab(s) (COZAAR) 50 mg ORAL DAILY metoprolol tartrate (short acting) 50 mg tab(s) (LOPRESSOR) 50 mg ORAL q 12 H morphine 2-4 mg injection 2-4 mg INTRAVENOUS q 2 H PRN NaCl 0.9% 3-5 mL 3-5 mL INTRAVENOUS q 12 H ondansetron 4 mg tab(s) (ZOFRAN) 4 mg ORAL q 6 H PRN Or ondansetron (PF) 4 mg injection (ZOFRAN) 4 mg INTRAVENOUS q 6 H PRN potassium phosphate 30 mmol in NaCl 0.9% 250 mL 30 mmol INTRAVENOUS ONCE Labs: Recent Labs 08/25/18 0339 08/24/18 0508 NA 147* 146* K 3.2* 3.2* CHLOR 116* 111* CO2 26 29 BUN 7 13 CREAT 0.85 1.01* GLUC 113* 130* ANION 8 9 CA 7.9* 7.7* MG -- 2.0 P -- 3.3 WBC 4.13 4.07 HB 10.7* 11.7 HCT 34.8 37.1 PLT 208 220 LACT -- 1.5 Exam: GENERAL: No distress, Alert NEURO: AANDOx3, CN II-XII grossly intact HEENT: normocephalic, atraumatic LUNGS: Unlabored breathing CARDIAC: Regular rate and rhythm as above ABDOMEN: Soft, non-tender, non-distended EXTREMITIES: ARREDONDO, No deformities, No edema SKIN: Skin color, texture, turgor normal, No rashes or lesions ASSESSMENT AND PLAN: Active Hospital Problems Diagnosis Date Noted - SBO (small bowel obstruction) (FORMERLY [facility]) 08/23/2018 78 year old female with SBO - pain control - CLD/IVF - labs stable - KUB yesterday with air in colon - dispo planning SIGNATURE: Gianluca Tovar MD PATIENT NAME: Clemencia Wayne DATE: August 25, 2018 TIME: 8:05 AM Pager: Emergency General Surgery Service Pager: For questions or concerns Mon-Fri 6a-5p, please page [phone]. After 5pm and on Weekends and Holidays, please page [phone] if in ICU or [phone] if on RNF. I saw and evaluated/examined the patient with the resident and personally participated in the garcía components. I have reviewed the resident's note and discussed the case and management of the patient's care with the resident. I agree with the above assessment and plan unless otherwise noted below. - The patient is progressing well. She is experiencing multiple bowel movements, endorses complete resolution of abdominal pain and tenderness. - FLD this AM, will allow soft mechanical diet for dinner if she tolerates FLD - Consider discharge home today or tomorrow if she continues to remain pain free with bowel function and diet advancement. EMERGENCY DEPARTMENT Observed: 08/25/2018 Status: F Source: [place] SUMMARY 7:03 AM [facility] [place], [place] REPOSITORY [facility] Medical Records Department [address] [place] [address] Emergency Department Summary 08/23/18 1546 MR#: [id number] Acct: [id number] Name: CLEMENCIA WAYNE Rep #: [id number] : [id number] 78 From: Carlos Duncan MD PCP: Dominic Solis DO Status: DEP ER - ER Visit Summary Date of Service: 08/23/18 Chief Complaint: Abdominal pain History of Present Illness: The patient is a 78 F with abdominal pain for the past 6 days. It is described as cramping, had some loose stools up until yesterday, she has some nausea and she passed gas last night but not this morning. She has no noted fever or chills no urinary symptoms or flank pain. Pain is mild to moderate. Physical Examination: Not appear in acute distress. She does not appear toxic. Moist mucous membranes, no obvious facial deformity No C-spine tenderness supple neck. Regular rate and rhythm without any obvious murmurs Clear lungs bilaterally speaking in full sentences without any obvious respiratory distress Abdomen soft, she has diffuse tenderness throughout her entire abdomen, no focal tenderness. There is no guarding or rebound. She has bowel sounds but there is slightly decreased. No CVA tenderness. Moves all extremities without any difficulty or pain. Skin does not show any obvious rashes or lesions, no trauma. Alert oriented 3 with no gross focal deficit Emergency Department Course and Treatment: Patient is found to have a partial small bowel obstruction. There is no leukocytosis. She does not appear toxic. She is does have bowel sounds although they are somewhat diminished. Patient had seen Dr. Veloz and Dr. Lowe in the past. I discussed the patient with Dr. Rosalie Garcia, as well as Dr. Washington. Apparent believe patient has a very complicated surgical course, and both surgeons preferred on admitting the patient saying he was too complicated for this institution, I will attempt to transfer her. Disposition: Transfer in guarded condition Impression: partial small bowel obstruction This note was generated with Surfingbird dictation software. It may contain incorrect words, spelling, and punctuation that were not noted in review of the chart prior to signing ED Disposition - Plan for ED Patient: Chief Complaint: Abd Pain Referrals: Dominic Solis, DO [Primary Care Provider] - What to do if you have Problems For any increased pain, shortness of breath, bleeding, nausea or vomiting, chest pain, or any unexpected problems, contact your Primary Care Provider. Call [facility] ([phone]) or report to the closest Emergency Room. Call 911 if necessary. 08/25/18 0703 <Electronically signed by Carlos Duncan MD> Date Carlos Duncan MD Cosigner Signature (If Indicated): Date CC: Dominic Solis DO HEMOGRAM Collected: 08/25/2018 Status: F Source: [facility] 3:39 AM HEALTH SYSTEM REPOSITORY TYPE CODE TESTS RESULT OUT OF REFERENCE UNITS RANGE LAB WBC(LOINC) 3.98-10.04 thou/cmm WBC 4.13 LAB RBC(LOINC) 3.93-5.22 mil/cmm Low RBC 3.90 LAB HGB(LOINC) 11.2-15.7 g/dL Low Hgb 10.7 LAB HCT(LOINC) 34.1-44.9 % Hct 34.8 LAB MCV(LOINC) 79.4-94.8 fl MCV 89.2 LAB MCH(LOINC) 25.6-32.2 pg MCH 27.4 LAB MCHC(LOINC) 31.6-34.8 % Low MCHC 30.7 LAB RDW(LOINC) 11.7-14.4 % High RDW 15.2 LAB RDWSD(LOINC 36.4-46.3 fl ) High RDW SD 50.0 LAB PLT(LOINC) 182-369 thou/cmm Platelet 208 LAB MPV(LOINC) 9.4-12.3 fl MPV 10.8 Performed By: #### CBC1 #### [facility] [address] [address] BASIC PANEL Collected: 08/25/2018 Status: F Source: [facility] 3:39 AM HEALTH SYSTEM REPOSITORY TYPE CODE TESTS RESULT OUT OF REFERENCE UNITS RANGE LAB NA(LOINC) 136-145 mEq/L Sodium High Blood 147 LAB K(LOINC) 3.5-5.1 mEq/L Low Potassium Blood 3.2 LAB CL(LOINC) 98-107 mEq/L Chloride High Blood 116 LAB CO2(LOINC) 21-32 mEq/L CO2 Blood 26 LAB GLU(LOINC) 70-99 mg/dL Glucose High Blood 113 LAB BUN(LOINC) 7-18 mg/dL BUN Blood 7 LAB CREA(LOINC 0.51-0.95 mg/dL ) Creatinine Blood 0.85 LAB CA(LOINC) 8.5-10.1 mg/dL Low Calcium Blood 7.9 LAB ANGAP(LOIN 8-16 C) Anion Gap 8 Performed By: #### P8 #### [place] [address] NUTRITION Observed: 08/24/2018 Status: COMPLETED Source: [facility] 4:09 PM CLINIC OTHER CAMPUS REPOSITORY HNO ID: [id number] Author: Anjelica Downey RD Service: Nutrition Therapy Author Type: Registered Dietitian Type: Nutrition Filed: 08/24/2018 4:19 PM Note Text: NUTRITION THERAPY SCREENING NOTE SERVICE DATE: 08/24/2018 SERVICE TIME: 4:10 PM Screening referral for MST of 2. NUTRITION CARE PLAN Current wts are not available. She is currently NPO. Patient is at mild risk for malnutrition at this time. Intervention: Will follow up once diet starts or on 08/26/18. Per HPI: This is a 78 year old female who presents with RLQ abdominal pain and a pSBO diagnosed at [facility]. She has seen Dr Kebede in the past for this issue. She has an extensive past medical and surgical history including but not limited to: Appendectomy 1998: Sigmoidectomy 2/2 sigmoid s/p chemo/radiation and resection, 2003: TAHBSO s/p uterine cancer 2004: Laparoscopic Kugel mesh repair (mesh from pubis to xyphoid) 2006: Lap mal 2011: Ex lap with release of SBO and partial removal of mesh 2013: multiple admissions for pSBOs but no surgical intervention 2014: Dr Dino Knight at [facility] main performed exploratory laparotomy with very extensive lysis of adhesions and removal pf previous kugel mesh. 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 ? Noted by Dr Kebede 05/2017: She has been evaluated by all three surgeons in the past and our recommendation has been to avoid surgical intervention given the presumed complexity and risks. ?She currently states that her quality of life is significantly worsening with the increasing frequency and severity of her symptoms. ?She is asking again about possible removal of the mesh. ? This evening she admits to RLQ pain worse with motion, better with rest and medication. She denies fevers/chills/n/v/c/d/cp/sob/palp muscle weakness paresthesias, urinary difficulty. She states she had two normal BM on Tuesday 08/21 and was passing flatus yesterday 08/22. Denies flatus or BM today. Current Diet Order DIET NPO Order Specific Question: NPO Restrictions Answer: EXCEPT MEDS Nutritional Intake Prior to Admission: 0-25% estimated energy needs over the past 2 day(s) Anthropometrics: Height: 162.6 cm (5' 4) Admission Weight: 72.8 kg (160 lb 9.6 oz) Current Weight: 72.8 kg (160 lb 9.6 oz) Body mass index is 27.57 kg/m?. normal Weight: unable to determine weight loss; not enough current records. Last Wt 08/23/18 : 72.8 kg (160 lb 9.6 oz) 02/23/15 : 78.2 kg (172 lb 6.4 oz) 09/08/14 : 73.9 kg (163 lb) 09/01/14 : 73.5 kg (162 lb) 08/09/14 : 82.2 kg (181 lb 3.5 oz) 07/11/14 : 74.6 kg (164 lb 7.4 oz) 07/11/14 : 74.6 kg (164 lb 8 oz) 06/02/14 : 76.5 kg (168 lb 9.6 oz) 01/04/14 : 78.5 kg (173 lb) 10/04/13 : 78.5 kg (173 lb) 09/06/13 : 81.2 kg (179 lb) 06/23/13 : 80.7 kg (178 lb) 10/06/12 : 82.1 kg (181 lb) 09/28/12 : 81.6 kg (180 lb) 09/21/12 : 81.6 kg (180 lb) 08/31/12 : 81.2 kg (179 lb) 05/01/12 : 83.5 kg (184 lb) 03/31/12 : 80.7 kg (178 lb) 01/24/12 : 81.6 kg (180 lb) 11/22/11 : 81 kg (178 lb 8 oz) Recent Labs 08/24/18 0508 GLUC 130* BUN 13 CREAT 1.01* NA 146* K 3.2* CHLOR 111* CO2 29 P 3.3 HB 11.7 HCT 37.1 WBC 4.07 MG 2.0 MNT Billing Type: Initial Assess/15 min 1 unit SIGNATURE: Anjelica Downey RD PATIENT NAME: Clemencia Wayne DATE: August 24, 2018 TIME: 4:10 PM PAGER: [phone] ABDOMEN 1 VIEW Observed: 08/24/2018 Status: F Source: [facility] 8:53 AM HEALTH SYSTEM REPOSITORY Performed at [facility] APPROVED BY: VISHAL JASSO MD ABDOMEN , ONE VIEW DATE: 08/24/2018 08:42 HISTORY: Nausea and vomiting. ENCOUNTER: Not applicable COMPARISON: CT examination of the abdomen and pelvis without contrast from outside hospital dated 08/23/2018. TECHNIQUE: Supine abdomen, 1 image(s) FINDINGS: No discrete dilated bowel loops noted on present examination. No discrete intraperitoneal gas. Again noted are scattered surgical clips within the abdomen and pelvis. Surgical anastomotic material compatible with colorectal anastomosis again noted at the mid aspect of the pelvis. No suspicious calcifications. Previously identified indeterminate small bowel intraluminal radiopaque foci on CT examination dated 08/23/2018 likely contributing to patient's small bowel obstruction not well-visualized on this examination. Multilevel degenerative changes of the lower thoracic and lumbar spine. Sacroiliac and hip joint spaces appear to be maintained. IMPRESSION: INTERVAL IMPROVEMENT IN SMALL BOWEL DILATION SUGGESTIVE OF OBSTRUCTION SINCE PREVIOUS EXAMINATION. NO DISCRETE DILATED SMALL BOWEL LOOPS CURRENTLY IDENTIFIED. PROGRESS Observed: 08/24/2018 Status: COMPLETED Source: [facility] 6:51 AM CLINIC OTHER CAMPUS REPOSITORY HNO ID: [id number] Author: Gi Kirk Service: General Surgery Author Type: Physician Type: Progress Notes Filed: 08/24/2018 2:42 PM Note Text: Emergency General Surgery Progress Note SERVICE DATE: 08/24/2018 SUBJECTIVE: Pt monitored overnight without any actute events documented. Pt reports her pain has improved greatly. She has been up to the bathroom to urinate multiple times. Tolerating diet DIET NPO Nausea No Emesis No Flatus No Bowel movement No Pain Controlled Yes Ambulating Yes OBJECTIVE: Vitals: Temp (24hrs), Av.1 ?C (97 ?F), Min:36 ?C (96.8 ?F), Max:36.2 ?C (97.2 ?F) BP 139/50 Pulse (!) 54 Temp 36 ?C (96.8 ?F) (Temporal Artery) Resp 16 Ht 162.6 cm (5' 4) Wt 72.8 kg (160 lb 9.6 oz) SpO2 95% BMI 27.57 kg/m? O2 Therapy: Room Air IANDO: Date 08/23/18 0700 - 08/24/18 0659 08/24/18 0700 - 08/25/18 0659 Shift 4432-8283 5270-0585 2274-5308 24 Hour Total 3839-0226 9042-4489 7805-5480 24 Hour Total I N T A K E Shift Total O U T P U T Urine Urine Not Saved. 1 x 1 x Shift Total Weight (kg) 72.8 72.8 72.8 72.8 72.8 72.8 72.8 MEDICATIONS Current Facility-Administered Medications: aspirin, enteric coated 81 mg tab(s) 81 mg ORAL DAILY atorvastatin 80 mg tab(s) (LIPITOR) 80 mg ORAL AT BEDTIME dextrose 5% in NaCl 0.9% iv infusion 100 mL/hr INTRAVENOUS CONTINUOUS enoxaparin 40 mg injection (LOVENOX) 40 mg SUBCUTANEOUS DAILY losartan 50 mg tab(s) (COZAAR) 50 mg ORAL DAILY metoprolol tartrate (short acting) 50 mg tab(s) (LOPRESSOR) 50 mg ORAL q 12 H morphine 2-4 mg injection 2-4 mg INTRAVENOUS q 2 H PRN NaCl 0.9% 3-5 mL 3-5 mL INTRAVENOUS q 12 H ondansetron 4 mg tab(s) (ZOFRAN) 4 mg ORAL q 6 H PRN Or ondansetron (PF) 4 mg injection (ZOFRAN) 4 mg INTRAVENOUS q 6 H PRN potassium chloride iv piggyback 20 mEq/100 mL 20 mEq INTRAVENOUS ONCE Labs: Recent Labs 08/24/18 0508 NA 146* K 3.2* CHLOR 111* CO2 29 BUN 13 CREAT 1.01* GLUC 130* ANION 9 CA 7.7* MG 2.0 P 3.3 WBC 4.07 HB 11.7 HCT 37.1 PLT 220 LACT 1.5 Exam: GENERAL: No distress, Alert NEURO: AANDOx3, CN II-XII grossly intact HEENT: normocephalic, atraumatic LUNGS: Unlabored breathing CARDIAC: Regular rate and rhythm as above ABDOMEN: Soft, generalized tenderness greater centrally, non-distended. No rebound, no guarding EXTREMITIES: ARREDONDO, No deformities, No edema SKIN: Skin color, texture, turgor normal, No rashes or lesions ASSESSMENT AND PLAN: Active Hospital Problems Diagnosis Date Noted - SBO (small bowel obstruction) ([facility]) 08/23/2018 78 year old female with adhesive small bowel obstruction ? - Continue NPO/IVF - Placement of NGT to LIWS if develops emesis - Pain control - AM labs - Hypokalemia - repleting - Serial exams - SBFT after decompressed - Surgical admission - Discussed with Dr. Kirk who agrees with plan SIGNATURE: Esequiel Aguilar MD PATIENT NAME: Clemencia Wayne DATE: August 24, 2018 TIME: 6:51 AM Pager: [phone] I saw and evaluated/examined the patient with the resident and personally participated in the garcía components. I have reviewed the resident's note and discussed the case and management of the patient's care with the resident. I agree with the above assessment and plan unless otherwise noted below. Upon exam the patient demonstrates very minimal abdominal tenderness - overall, much improved from her admission exam. She endorses multiple episodes of explosive bowel movements in the last few hours. She is currently drinking dye in preparation for her SBFT. Will continue to monitor serial abdominal exams. HEMOGRAM Collected: 08/24/2018 Status: F Source: [facility] 5:08 AM HEALTH SYSTEM REPOSITORY TYPE CODE TESTS RESULT OUT OF REFERENCE UNITS RANGE LAB WBC(LOINC) 3.98-10.04 thou/cmm WBC 4.07 LAB RBC(LOINC) 3.93-5.22 mil/cmm RBC 4.18 LAB HGB(LOINC) 11.2-15.7 g/dL Hgb 11.7 LAB HCT(LOINC) 34.1-44.9 % Hct 37.1 LAB MCV(LOINC) 79.4-94.8 fl MCV 88.8 LAB MCH(LOINC) 25.6-32.2 pg MCH 28.0 LAB MCHC(LOINC) 31.6-34.8 % Low MCHC 31.5 LAB RDW(LOINC) 11.7-14.4 % High RDW 15.0 LAB RDWSD(LOINC 36.4-46.3 fl ) High RDW SD 48.8 LAB PLT(LOINC) 182-369 thou/cmm Platelet 220 LAB MPV(LOINC) 9.4-12.3 fl MPV 10.3 Performed By: #### CBC1 #### [place] [address] BASIC PANEL Collected: 08/24/2018 Status: F Source: [facility] 5:08 HEALTH SYSTEM REPOSITORY TYPE CODE TESTS RESULT OUT OF REFERENCE UNITS RANGE LAB NA(LOINC) 136-145 mEq/L Sodium High Blood 146 LAB K(LOINC) 3.5-5.1 mEq/L Low Potassium Blood 3.2 LAB CL(LOINC) 98-107 mEq/L Chloride High Blood 111 LAB CO2(LOINC) 21-32 mEq/L CO2 Blood 29 LAB GLU(LOINC) 70-99 mg/dL Glucose High Blood 130 LAB BUN(LOINC) 7-18 mg/dL BUN Blood 13 LAB CREA(LOINC 0.51-0.95 mg/dL ) High Creatinine Blood 1.01 LAB CA(LOINC) 8.5-10.1 mg/dL Low Calcium Blood 7.7 LAB ANGAP(LOIN 8-16 C) Anion Gap 9 Performed By: #### P8 #### [facility] [address] [address] MAGNESIUM BLOOD Collected: 08/24/2018 Status: F Source: [facility] 5:08 HEALTH SYSTEM REPOSITORY TYPE CODE TESTS RESULT OUT OF REFERENCE UNITS RANGE LAB MAG(LOINC) 1.6-2.6 mg/dL Magnesium Blood 2.0 Performed By: #### MAG #### [facility] [address] [address] PHOSPHORUS BLOOD Collected: 08/24/2018 Status: F Source: [facility] 5:08 AM HEALTH SYSTEM REPOSITORY TYPE CODE TESTS RESULT OUT OF REFERENCE UNITS RANGE LAB PHOS(LOINC 2.5-4.9 mg/dL ) Phosphorus Blood 3.3 Performed By: #### PHOS #### [place] [address] LACTIC ACID Collected: 08/24/2018 Status: F Source: [facility] 5:[facility] REPOSITORY TYPE CODE TESTS RESULT OUT OF REFERENCE UNITS RANGE LAB LAC(LOINC) 0.4-2.0 mEq/L Lactic Acid 1.5 Performed By: #### LAC #### [place] [address] PROCALCITONIN Collected: 08/24/2018 Status: F Source: [facility] 5:[facility] REPOSITORY TYPE CODE TESTS RESULT OUT OF REFERENCE UNITS RANGE LAB PRCAS(LOIN ng/mL C) Procalcitonin 0.11 Result Comment: Levels <0.50 ng/mL represent a low risk of severe sepsis and/or septic shock, while levels >2.00 ng/mL represent an elevated risk of severe sepsis and/or septic shock. Levels <0.50 ng/mL do not exclude infection, as infections or systemic infections in early stages (<6hrs) can be associated with low concentrations. Levels between 0.50-2.00 ng/mL should be interpreted in the clinical context of the patient, as a variety of conditions such as garner, trauma, surgery and severe cardiogenic shock can cause procalcitonin elevations. Performed By: #### PRCAS #### [place] [address] HISTORY PHYSICAL Observed: 08/23/2018 Status: COMPLETED Source: [facility] 9:14 PM CLINIC OTHER CAMPUS REPOSITORY HNO ID: [id number] Author: Alex Werner DO Service: General Surgery Author Type: Resident Type: HANDP Filed: 08/23/2018 10:48 PM Note Text: Attestation signed by Evelio Ram at 08/24/2018 12:54 PM Discussed with the resident and agree with resident's findings and plan as documented in the resident's note. Evelio Ram MD, FACS August 24, 2018 12:54 PM SURGERY HANDP #SBO PROTOCOL Patient: Clemencia Wayne : 1940 SUBJECTIVE CHIEF COMPLAINT: SBO HPI: This is a 78 year old female who presents with RLQ abdominal pain and a pSBO diagnosed at [facility]. She has seen Dr Kebede in the past for this issue. She has an extensive past medical and surgical history including but not limited to: Appendectomy 1998: Sigmoidectomy 2/2 sigmoid s/p chemo/radiation and resection, 2003: TAHBSO s/p uterine cancer 2004: Laparoscopic Kugel mesh repair (mesh from pubis to xyphoid) 2006: Lap mal 2011: Ex lap with release of SBO and partial removal of mesh 2013: multiple admissions for pSBOs but no surgical intervention 2014: Dr Dino Knight at [facility] main performed exploratory laparotomy with very extensive lysis of adhesions and removal pf previous kugel mesh. 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 Noted by Dr Kebede 05/2017: She has been evaluated by all three surgeons in the past and our recommendation has been to avoid surgical intervention given the presumed complexity and risks. She currently states that her quality of life is significantly worsening with the increasing frequency and severity of her symptoms. She is asking again about possible removal of the mesh. ? This evening she admits to RLQ pain worse with motion, better with rest and medication. She denies fevers/chills/n/v/c/d/cp/sob/palp muscle weakness paresthesias, urinary difficulty. She states she had two normal BM on Tuesday 08/21 and was passing flatus yesterday 08/22. Denies flatus or BM today. PAST SURGICAL HISTORY Procedure Laterality Date - COLONOSCOP W/ OR W/O BRSH SPEC 02/21/00 Colonoscopy - COLONOSCOP W/ OR W/O BRSH SPEC 09/19/03 Colonoscopy - COLONOSCOP W/ OR W/O BRSH SPEC 09/27/03 Colonoscopy - COLONOSCOP W/ OR W/O BRSH SPEC 04/21/06 [place] - DOBUTAMINE STRESS ECHO_*FL 10/25 - FREEING BOWEL ADHESION,ENTEROLYSIS 07-08-11 - LAP CHOLECYSTECT/CHOLANGIOGRAPHY 07/01/06 - PART REMOVAL COLON W ANASTOMOSIS 05/04/99 Excision, large bowel - PAST SURGICAL HISTORY OF 2003 hernia repair - REMOVAL MESH ABD WALL 08/09/2014 - REPAIR INCISIONAL HERNIA,REDUCIBLE 10/11/03 Hernia repair, incisional - STEREO LOC FOR CORE BRST BX LT 5-4-10 BILATERAL - TOTAL ABDOM HYSTERECTOMY 2002 Hysterectomy, VERO/USO -- for cervical cancer PAST MEDICAL HISTORY Diagnosis Date - Abdominal pain, unspecified site - Blood in stool - Bowel obstruction (HCC) - Chest pain, unspecified - Diarrhea - HTN (hypertension) - Malignant neoplasm of colon, unspecified site SIGMOID - Malignant neoplasm of corpus uteri, except isthmus (HCC) Uterine cancer 2002 - Malignant neoplasm of rectosigmoid junction (HCC) 1998 - Nausea and vomiting - Nonspecific (abnormal) findings on radiological and other examination of lung field - Partial small bowel obstruction (HCC) 2016 - Pure hypercholesterolemia - Severe vulvar dysplasia FAMILY HISTORY Problem Relation Age of Onset - Diabetes Mother - Diabetes Sister X-2 - Heart Father CHF - Heart Mother CHF - Heart Sister - Hypertension Mother - Hypertension Father - other (Lung Cancer [Other]) Brother Social History Marital status: Spouse name: Samir Years of education: 12 Number of children: 2 Occupational History Occupation Employer Comment Retired Social History Main Topics Smoking status: Never Smoker Smokeless tobacco: Never Used Alcohol use: No Drug use: No Sexual activity: Yes Partners with: Male control/protection: Surgical Comment: hysterectomy Review of Systems: 10 point review of systems was performed and negative unless otherwise noted in the HPI. No current facility-administered medications for this encounter. ALLERGIES No Known Allergies OBJECTIVE PHYSICAL EXAM: VITALS: BP 178/78 Pulse 70 Temp (Src) 97.2 (Temporal Artery) Resp 18 Ht 5' 4 (1.63m) Wt 160 lb 9.6 oz (72.8kg) SpO2 97% BMI 27.55 kg/(m2). GENERAL: resting comfortably, NAD HEENT: normocephaic atraumatic EOMI CHEST: RRR no MGR ABD: soft minimal tenderness RLQ no rebound or guarding, masses or organomegaly. Well healed surgical scars. No peritoneal signs. Facial sutures palpated midline and lower quadrants - umbilical or inguinal hernia not present EXT: ARREDONDO no edema DATA: Radiology: CT AP: There is a dilation of a cluster of a small bowel loops in the lower abdomen and pelvis, ileum distribution, proximal to mid. Associated with mild wall thickening. Greatest diameter 4.9cm. Associated with mild induration/hyperemia in the adjacent mesenteric fat. Associated with more than one focus of bird beaking in the bowel suggesting adhesions. Associated with 2 unusual foreign bodies within adjacent dilated loops of small bowel. These foreign bodies are oval, smoothly circumscribed, measuring 3.6 x 3.6x 2.6cm and 4.1 x 3.1x 2.3cm. In the center of each of these, there are longitudinal radiodensities measuring 15mm in length. Surrounding this, a homogenous soft tissue density. Uncertain etiology but I suspect these reflect intact pieces of fruit containing pits, ingested whole. Other etiology is not excluded. These do not appear to be causing the partial small bowel obstruction. The distal ileum is decompressed and normal. Laboratory: CBC, Coags, BMP, Mg, Phos Lactate: (p) Procalcitonin: (p) ASSESSMENT AND PLAN 78 year old female with adhesive small bowel obstruction - NPO/IVF - Placement of NGT to LIWS if develops emesis - Pain control - AM labs - Serial exams - SBFT after decompressed - Surgical admission - Discussed with the staff surgeon, Dr. Ram SIGNATURE: Alex Werner DO PATIENT NAME: Clemencia Wayne DATE: August 23, 2018 TIME: 9:16 PM Pager: below Emergency General Surgery Service Pager: For questions or concerns Mon-Fri 6a-5p please page [phone]. After 5pm and on Weekends and Holidays, please page [phone]. Adhesive Small Bowel Obstruction Protocol Presentation: Plan Obstipation: No passage of gas or bowel movements>24 hours Abdominal surgical history AND any of the following ? Nausea/Vomiting ? Distension ? Abdominal pain CBC, CMP, Magnesium, Phosphate, Lactate Procalcitonin Acute Abdominal Series: KUB, lateral decubitus, upright CXR vs CT with IV contrast Surgical consult Placement of Nasogastric Tube per surgical discretion (No evidence to show benefit in a patient without active vomiting) Armenta catheter per surgical discretion to monitor for adequate resuscitation Surgical evaluation to decide appropriateness for surgical admission Day 1 (0-24 hours) Admission for surgical observation and non-operative management if clinically appropriate* Consider placement of NGT to LIWS for distension and or vomiting Consider placement of armenta for strict I/O Pain and nausea control, limit narcotics if possible Update MRF including replacement of critical PO meds by IV route Serial abdominal exams Day 2 (24-48 hours) Assuming clinical condition NOT worsening* Repeat laboratory testing: CBC, CMP, Magnesium, Phosphate, Lactate (if abnormal) Monitor NGT output, confirm position and functionality if necessary Monitor for adequate resuscitation via UOP Water soluble contrast follow through: Administer 100 cc WSCA (gastrografin preferred) mixed with 50 cc NS then clamp NG (unless vomiting). KUB at 12 and 24 hours looking for transit of contrast into cecum Day 3 (48-72 hours) Clinical improvement as evidenced by passage of gas or bowel movement or radiographic evidence of contrast in the colon at or before 24 hours Repeat laboratory testing: CBC, CMP, Magnesium, Phosphate, Lactate (if abnormal) IF NGT adequately functioning/placed and output is accurate: ? Consider NGT removal if output <200 cc/24 hours ? Consider clamping trial if >200 but <500 cc/24 hours ? May need continued decompression if > 500 cc/24 hours IF NGT DCed: Start liquid diet ADAT IF: No gas or bowel movements. No passage of contrast to the colon after 24 hours or worsening clinical condition * Strongly consider CT imaging if not yet completed and/or early surgical intervention Continue NG decompression *Any of the following criteria Possible Surgical Intervention Pain and/or distension > 24 hours Fever Peritonitis Tachycardia Acidosis History of IBD, abdominal trauma No prior abdominal surgery History of RNY gastric bypass, intestinal transplant, radiation enteritis, known malignancy, abdominal surgery <30 days Abdominal series negative for SBO Consider CT scan with IV and PO contrast as initial study May need emergent operative intervention, especially with the following findings: ? Volvulus or internal hernia ? Portal venous gas ? Mesenteric thrombus ? Pneumoperitoneum NURSING PROG Observed: 08/23/2018 Status: COMPLETED Source: [place] 9:13 PM [facility] REPOSITORY HNO ID: [id number] Author: Alex Werner DO Service: General Surgery Author Type: Resident Type: Nursing Progress Note Filed: 08/24/2018 12:03 AM Note Text: 2112 - General Surgery paged to notify that the patient is on the floor and awaiting admission orders. 2113 - General Surgery called back and was notified. No orders received. Orders received after I thoroughly evaluated the patient, formulated an assessment and plan, and staffed patient with eduardo resident and attending. Alex Werner DO PGY-1 General Surgery 08/24/2018 12:02 AM URINALYSIS, COMPLETE Collected: 08/23/2018 Status: F Source: [place] 3:15 PM [facility] [place], [place] REPOSITORY Order Comment: Order Date: 08/23/18 How was Urine Obtained? CLEAN CATCH TYPE CODE TESTS RESULT OUT OF RANGE REFERENCE UNITS LAB L400.3000 Yellow COLOR Normal Yellow LAB L400.3050 Clear Normal CLARITY Clear LAB L400.3200 Normal mg/dl Normal GLUCOSE, UR Normal LAB L400.3300 Negative mg/dL High BILIRUBIN URINE 1 Result Comment: COLOR OF URINE MAY AFFECT DIPSTICK RESULTS. LAB L400.3400 Negative mg/dl High KETONE UR 5 LAB L400.3465 1.002-1.030 Normal SP.GR. DIPSTX 1.025 LAB L400.3550 5.0 - 8.0 pH Normal UR 5.0 LAB L400.3600 Negative mg/dl High PROT DIPSTX 30 LAB L400.3700 Normal mg/dl High UROBILI 1 LAB L400.3750 Negative Normal NITRITE UR Negative LAB L400.3780 Negative /ul High OCCULT 25 BLOOD-UR LAB L400.3800 Negative /ul High LEUK ESTERASE 100 LAB L400.4050 0-5 /hpf Normal WBC 0-5 SEEN LAB L400.4100 0-5 /hpf Normal RBC-UA 0-5 SEEN LAB L400.4150 5-10 /hpf Normal SQUAM EPI 0-5 SEEN LAB L400.4300 None Seen /hpf Normal BACTERIA 0 SEEN LAB L400.4350 <or=2+ /hpf Normal MUCUS, URINE 2+ LAB L400.4400 0-5 /lpf Normal HYALINE CAST 0-5 SEEN Performed By: #### L400.0001 #### [facility] [address] [place], [address] CBC W/DIFF, AUTOMATED Collected: 08/23/2018 Status: F Source: [place] 2:20 PM [facility] [place] [place] REPOSITORY TYPE CODE TESTS RESULT OUT OF RANGE REFERENCE UNITS LAB L100.1000 4.4-11.0 K/mm3 Normal WBC 6.4 LAB L100.1200 4.2-5.4 M/mm3 Normal RBC 4.64 LAB L100.1300 12.0-15.0 g/dl Normal HGB 12.9 LAB L100.1400 37-47 % Normal HCT 40.2 LAB L100.1500 81-99 fL Normal MCV 86.6 LAB L100.1600 27.0-32.0 pg Normal MCH 27.8 LAB L100.1700 32-36 g/gl Normal MCHC 32.1 LAB L100.1810 11.6-14.6 % High RDW CV 15.2 LAB L100.1820 35.1-43.9 fl High RDW SD 47.8 LAB L100.1900 150-450 K/mm3 Normal PLT 241 LAB L100.2000 6.2-12.0 fl Normal MPV 10.3 LAB L100.2100 47-70 % High NEUT% 80.6 LAB L100.2200 19-41 % Low LY% 13.5 LAB L100.2300 0-10 % Normal MONO% 4.4 LAB L100.2400 0-5 % Normal EO% 0.8 LAB L100.2500 0-1 % Normal BASO% 0.5 LAB L100.2550 0.0-0.9 % Normal IM GRAN % 0.200 Result Comment: IG% - Immature Granulocytes (promyelocytes, myelocytes and metamyelocytes) > 1% indicates that a LEFT SHIFT is Present. LAB L100.2620 2.0-7.7 X10 3/uL Normal Absolute Neut 5.2 LAB L100.2720 0.83-4.51 X10 3/ul Normal Absolute Lymph 0.86 Performed By: #### L100.0100 #### [facility] [address] [place], [address] COMPREHENSIVE METABOLIC Collected: 08/23/2018 Status: F Source: [facility] 2:20 PM [facility] [place] [place] REPOSITORY TYPE CODE TESTS RESULT OUT OF RANGE REFERENCE UNITS LAB L501.0100 74-106 mg/dL High GLU 111 Result Comment: Fasting Glucose result from 100 to 125 mg/dL suggests IMPAIRED HOMEOSTASIS per A.D.A. criteria. Please note revised GLUCOSE reference range effective 2017. LAB L501.1000 7-18 mg/dL Normal BUN 15 LAB L501.1100 0.55-1.02 mg/dL High CREAT,SERUM 1.06 Result Comment: The validity of the calculated GFR AND GFRAA in patients over 70 years has not been determined. Clinical correlation is essential. LAB L501.1110 >60 mL/min Low EST GFR 53 Result Comment: Non- GFR Calc LAB L501.1115 >60 mL/min Normal EST GFR - AA 64 Result Comment: GFR Calc LAB L501.1255 ml/min Normal Estimated CRCL 37.16 LAB L501.1300 10-20 RATIO Normal BUN/CRE 14.2 LAB L501.1500 6.4-8. g/dL Normal 2 T PROT 6.8 LAB L501.1800 3.2-5. g/dL Normal 0 ALB 3.5 LAB L501.1950 2.2-4. g/dL Normal 2 GLOB 3.3 LAB L501.2000 0.9-2. RATIO Normal 4 A/G 1.1 LAB L501.2200 8.5-10 mg/dL Normal .1 CA 8.9 LAB L501.4100 15-37 U/L Normal AST 15 LAB L501.4305 45-117 U/L Normal ALK P 90 LAB L501.4405 13-56 U/L Normal ALT 18 LAB L501.4600 0.20-1 mg/dL Normal .00 T BILI 1.00 LAB L501.5300 136-14 mmol/L Normal 5 NA 144 LAB L501.5600 3.5-5. mmol/L Low 1 K 3.3 LAB L501.5900 98-107 mmol/L High CL 109 LAB L501.6100 21.0-3 mmol/L Normal 2.0 CO2 27.0 LAB L501.6200 5-15 Normal GAP 8 Performed By: #### L500.4050, L501.2450 #### [facility] [address] [place], [address] LIPASE Collected: 08/23/2018 Status: F Source: [place] 2:20 PM [facility] [place] [place] REPOSITORY TYPE CODE TESTS RESULT OUT OF RANGE REFERENCE UNITS LAB L501.2450 73-393 U/L Normal LIPASE 81 Performed By: #### L500.4050, L501.2450 #### [facility] [address] [place], [address] ABDOMEN/PELVIS WITHOUT Observed: 08/23/2018 Status: F Source: [place] 1:49 PM [facility] [place] [place] REPOSITORY [facility] [address] [place] [address] Abdomen/Pelvis without Cont MR#: [id number] Acct: [id number] Name: CLEMENCIA WAYNE Rep #: [id number] : 1940 F 78 From: Aric Osorio MD PCP: Dominic Solis DO Status: REG ER Study: Abdomen/Pelvis without Cont Date of Exam: 08/23/18 Exam# [id number] Ordering Dr: Carlos Duncan MD STUDY: CT ABDOMEN AND PELVIS WITHOUT CONTRAST REASON FOR EXAM: Female, 78 years old. Right lower quadrant abdominal pain. History of colon and uterine cancer. Multiple small bowel obstruction secondary to adhesions. Radiation therapy. Partial colectomy. Appendectomy. Hernia repair with patch. Cholecystectomy. Hysterectomy. RADIATION DOSAGE (If Supplied By Facility): CTDIvol = ( 11.73 ) mGy, DLP = ( 562.46 ) mGycm TECHNIQUE: Transaxial images were obtained from the dome of the diaphragm to the symphysis pubis without oral contrast, and without intravenous contrast. Sagittal and coronal images were reconstructed. Individualized dose optimization techniques were used for this CT. COMPARISON: CT abdomen and pelvis 05/18/2017. FINDINGS: Body wall soft tissues: There are 2 small fat filled ventral midline abdominal wall hernias supraumbilical. Containing a small amount of omental fat. Healed midline ventral abdominal wall incision infraumbilical. Osseous structures: Multilevel lumbar degenerative disc disease, associated with at least mild foraminal narrowing at several levels. Mild scoliosis. No acute osseous process. Inferior chest: Lung bases clear. Mild elevation of left hemidiaphragm. Normal distal esophagus. Mild cardiomegaly without pericardial effusion. Mild aortic valve calcifications and RCA calcifications are visible. Hepatobiliary: No acute process. Pancreas: Moderately severe pancreatic atrophy. Spleen: Normal. Adrenal glands: Normal. Urogenital: Unremarkable kidneys, collecting systems, ureters, urinary bladder. Uterus is absent. There is no adnexal mass or cyst. No cul-de-sac free fluid. Pelvic floor and sidewalls and retroperitoneum: No mass or adenopathy. Vasculature: Mild atherosclerosis. Stomach: No acute process. Small bowel and mesentery: There is dilatation of a cluster of small bowel loops in the lower abdomen and pelvis, ileum distribution, proximal to mid. Associated with mild wall thickening. Greatest diameter 4.9 cm. Associated with mild induration/hyperemia in the adjacent mesenteric fat. Associated with more than one focus of bird beaking in the bowel, suggesting adhesions. Associated with 2 unusual oval foreign bodies within adjacent dilated loops of small bowel. These foreign bodies are oval, smoothly circumscribed, measuring 3.6 x 3.6 x 2.6 cm, and 4.1 x 3.1 x 2.3 cm. In the center of each of these, there are longitudinal radiodensities measuring approximately 15 mm in length. Surrounding this, a homogeneous soft tissue density. Uncertain etiology but I suspect these reflect intact pieces of fruit containing pits, ingested whole. Other etiology is not excluded. These do not appear to be causing the partial small bowel obstruction. The distal ileum is decompressed and normal. Large bowel: The appendix is surgically absent. The large bowel exhibits no acute unreality. Free fluid or free air: None. CT/Abdomen/Pelvis without Cont IMPRESSION: Partial small bowel obstruction involving the proximal to mid ileum, with an appearance favoring adhesive disease. Foreign bodies within the dilated loops of ileum are discussed above, uncertain etiology. These are centered on axial image 96 and axial image 130. Electronically Signed: Aric Osorio MD at 16:08 EST Tel , Service support , CC: Dominic Solis DO; Carlos Duncan MD Machine Veneer Repairer: Signed CARDIOLOGY VISIT Observed: 04/28/2018 Status: F Source: [place] RE[place] 1:05 PM [facility] [place] [place] REPOSITORY [facility] [address] [place] [address]. [address] [place] [address] OFFICE VISIT Date of Service: 04/28/18 MR#: [id number] Acct: [id number] Name: CLEMENCIA WAYNE Rep #: [id number] : 1940 Provider: Carolynn Lala Age/Sex: 77/F Location: [facility] [place] Status: Signed HPI HPI Details: CLEMENCIA WAYNE, is a 77 F who presents to the office today for a history of coronary artery disease with stenting to her LAD in April 2017. She was also noted to have nonischemic cardiomyopathy at the time of her myocardial infarction. She also has a history of hypertension, PFO and chronic SOB. From a cardiac standpoint, patient is doing well. She does not have any chest discomfort/heaviness/tightness. Her exercise tolerance is stable for her age. She does not have any worsening symptoms of shortness of breath. She does not have any orthopnea. She denies PND. She does not have any symptoms of congestive heart failure. She does not have any palpitations that she is aware of. She does not have any lightheadedness or dizziness. She does not have any near-syncope or syncope. She does not have any lower extremity edema. She does not have any symptoms of claudication. She does complain of being fatigued. She does feel that this is related to depression. She notes that she has significant body aches, she does take her statin every other day. When she stopped if for a few weeks she did feel better. She would like to stop her prasugrel as it is expensive and she had her stent one year ago. Intake Vital Signs04/28/18 Height 5 ft 4 in 04/28/18 Weight: 167 lb 04/28/18 Body Mass Index (BMI) 28.6 04/28/18 Blood Pressure 128/58 04/28/18 Blood Pressure Location Lt brachial Intake Visit Reasons: 6 M Manager Graphic Required: No Accompanied by: Is patient in pain?: No Allergies clopidogrel [From Plavix] Allergy (Severe, Verified 04/28/18 10:00) hives ragweed pollen Allergy (Verified 04/28/18 10:00) sneezing lisinopril Adverse Reaction (Severe, Verified 04/28/18 10:00) nausea ticagrelor [From Brilinta] Adverse Reaction (Severe, Verified 04/28/18 10:00) sob, eye bled Medications Aspirin E.C. [Ecotrin] 81 mg PO DAILY@0800 tab 04/28/17 [Rx Confirmed 04/28/18] losartan 100 mg tablet 100 mg PO QDAY #90 tab 11/27/17 [Rx Confirmed 04/28/18] amlodipine 5 mg tablet 5 mg PO QDAY #90 tab 04/28/18 [Rx Confirmed 04/28/18] metoprolol tartrate 25 mg tablet 25 mg PO BID #180 tab 04/28/18 [Rx Confirmed 04/28/18] simvastatin 20 mg tablet 20 mg PO QPM #90 tab 04/28/18 [Rx Confirmed 04/28/18] Ejection fraction %: 50 to 54 PFSH Medical History Patent foramen ovale (Chronic) Acute ST elevation myocardial infarction (Resolved) Hyperlipidemia (Chronic) Atherosclerotic heart disease of [place] coronary artery without angina pectoris (Chronic) Hypokalemia (Acute) Ischemic cardiomyopathy (Chronic) History of endometrial cancer (Chronic) History of colon cancer (Chronic) H/O small bowel obstruction (Inactive) HTN (hypertension) (Chronic) STEMI (ST elevation myocardial infarction) (Chronic) Surgical History History of PTCA (Chronic 04/25/17) Status post partial colectomy (Inactive) H/O hernia repair (Chronic) History of cholecystectomy (Resolved) History of hysterectomy (Resolved) Family History Father Heart disease Mother Heart disease Brother Heart disease Sister Heart disease Social History Smoking Status: Never smoker alcohol intake: never substance use type: does not use caffeine: Yes Type: coffee Number of servings: 1 what type of physical activity do you participate in: none seatbelt use: always do you feel safe at home: Yes ROS Const Const: Negative for weakness, fatigue, fever(s) or headache(s) Eyes Eyes: Negative for blind spots, loss of peripheral vision or transient loss of vision ENT ENT: Negative for headache(s), dizziness, tinnitus or Nosebleed/epistaxis Cardio Chest Pain: No Palpitations: No Edema: None Muscle aches with walking: None Resp Respiratory: Negative for SOB with activity, SOB at rest, SOB orthopnea\SOB lying down or Cough GI GI: Negative nausea, vomiting, heartburn or vomiting blood/hematemesis : Negative for hematuria Musc Musc: Negative for muscle aches/ myalgia Neuro Neuro: Negative for weakness, headache(s), dizziness, near syncope, syncope, lightheadedness or orthostatic symptoms Richard Hematologic/Lymphatic: Negative for easy bleeding Endo Endo: Negative for fatigue Cardiology Exam Const Appearance: cooperative, no acute distress and well developed Orientation: alert, awake and oriented x3 Head Head: normocephalic and atraumatic Mouth: moist mucous membranes Eyes General: appearance normal, both eyes and all related structures Conjunctivae: conjunctivae normal Pupils: PERRL EOM: EOM intact bilaterally Neck Neck: normal visual inspection, no lymphadenopathy and no JVD Carotids: Negative bruit Neck Mass: Negative Neck mass Chest Chest inspection: normal inspection of the chest and symmetric chest movement Auscultation: Bilateral: Clear to Auscultation Cardio Palpation: normal PMI Rate: regular rate Rhythm: regular rhythm Heart sounds: S1 normal and S2 normal; negative rub, gallop or murmur GI GI: normal to inspection, soft, no hepatosplenomegaly and bowel sounds present; negative tender Neuro General: alert, awake, oriented x3, CN's II-XI intact bilaterally and moves all extremities Extremities Pulses: Normal: Right Posterior Tibial Pulse, Left Posterior Tibial Pulse, Right Radial Pulse, Left Radial Pulse Lower Extremity Edema: None: Bilateral Psych Psychological: normal affect Supplemental Info Echocardiogram in August 2017 demonstrated mild segmental systolic dysfunction (see wall motion). The estimated ejection fraction is 40 %. The left atrium is mildly enlarged. Trivial mitral valve insufficiency. Trivial tricuspid valve insufficiency. Mild focal aortic valve thickening. Right ventricular systolic pressure estimated to be 35 mmHg. Color flow doppler appearing c/w a left to right interatrial shunt c/w a PFO vs. ASD. Bubble contrast study negative for right to left interatrial shunt. Consider further evaluation of interatrial septal anatomy with ZOEY if clinically indicated. ZOEY was done which did demonstrate an ejection fraction of 50% with a PFO. Stress test in September 2017 done for shortness of breath demonstrated cardio perfusion changes appearing compatible with an area of previous myocardial injury/infarction involving portions of the distal anterior, mid to distal anteroseptal, and apical segments with no myocardial perfusion changes consider diagnostic for associated stress- induced myocardial ischemia. Assessment AND Plan 1. Atherosclerosis of [place] coronary artery of [place] heart without angina pectoris I25.10 Plan Stable, from a cardiac standpoint patient does not have any symptoms of angina. We recommend that they continue with current aggressive medical management and risk factor modification. It has been greater than 1 year since patient has had her procedure done. She was intolerant to Brilinta and Plavix. Prasugrel will is expensive for her. She would like to discontinue this. Okay to discontinue and instructed to remain on aspirin Patient Instructions Stop the prasugrel and remain on your ASA. 2. Pure hypercholesterolemia E78.00 Plan Recent lipid profile demonstrates a total cholesterol 212, HDL 39, LDL 111. These are less than ideal. Patient does admit to stopping her lovastatin prior to having her labs completed. She did this because of myalgias. We will switch her to simvastatin. She was instructed to take this on an every other day basis Patient Instructions When you have finished the lovastatin, we will switch you to Simvastatin 20 mg every other day. Look at [facility] for all your prescriptions for coupons 3. Essential hypertension I10 Plan Adequately controlled on current medications. Will not make any adjustments. Plan Detail Other Medications New: Refilled: Discontinued: Additional Comments In regards to patient's depression did encourage her to establish with a primary care doctor. She declines at this time. Thank you for allowing us to participate in patient's plan of care, if you have any questions please do not hesitate to call. This note was generated using a voice recognition system and there may be incorrect words, spelling or punctuation errors that were not noted when reviewing the office note prior to saving. Follow Up 6 Months (MMM) 1 Year (PFM) Coding Level of Care Code Off vis,est,level 3 Diagnoses Atherosclerosis of [place] coronary artery of [place] heart without angina pectoris I25.10 [place] vs. transplanted heart: [place] heart Pure hypercholesterolemia E78.00 Hyperlipidemia type: pure hypercholesterolemia Essential hypertension I10 Hypertension type: essential hypertension Coding Level of Care Code Off vis,est,level 3 Diagnoses Atherosclerosis of [place] coronary artery of [place] heart without angina pectoris I25.10 [place] vs. transplanted heart: [place] heart Pure hypercholesterolemia E78.00 Hyperlipidemia type: pure hypercholesterolemia Essential hypertension I10 Hypertension type: essential hypertension 04/28/18 1305 <Electronically signed by Carolynn GIPSON> Date Carolynn GIPSON Cosigner Signature: Date (if applicable) CC: Dominic Solis DO COMPREHENSIVE METABOLIC Collected: 04/14/2018 Status: F Source: [place] 9:27 AM [facility] [place], [place] REPOSITORY TYPE CODE TESTS RESULT OUT OF RANGE REFERENCE UNITS LAB L501.0100 74-106 mg/dL Normal GLU 94 Result Comment: Please note revised GLUCOSE reference range effective 2017. LAB L501.1000 7-18 mg/dL High BUN 22 LAB L501.1100 0.55-1.02 mg/dL High CREAT,SERUM 1.13 Result Comment: The validity of the calculated GFR AND GFRAA in patients over 70 years has not been determined. Clinical correlation is essential. LAB L501.1110 >60 mL/min Low EST GFR 49 Result Comment: Non- GFR Calc LAB L501.1115 >60 mL/min Normal EST GFR - AA 60 Result Comment: GFR Calc LAB L501.1300 10-20 RATIO Normal BUN/CRE 19.5 LAB L501.1500 6.4-8.2 g/dL T Normal PROT 6.6 LAB L501.1800 3.2-5.0 g/dL Normal ALB 3.4 LAB L501.1950 2.2-4.2 g/dL Normal GLOB 3.2 LAB L501.2000 0.9-2.4 RATIO Normal A/G 1.1 LAB L501.2200 8.5-10.1 mg/dL CA Normal 9.0 LAB L501.4100 15-37 U/L Normal AST 18 LAB L501.4305 45-117 U/L Normal ALK P 79 LAB L501.4405 13-56 U/L Normal ALT 17 LAB L501.4600 0.20-1.00 mg/dL T Normal BILI 0.90 LAB L501.5300 136-145 mmol/L NA Normal 145 LAB L501.5600 3.5-5.1 mmol/L K Normal 3.9 LAB L501.5900 98-107 mmol/L High CL 111 LAB L501.6100 21.0-32.0 mmol/L Normal CO2 24.0 LAB L501.6200 5-15 Normal GAP 10 Performed By: #### L500.4050, L500.4100, L501.4700 #### [facility] [address] [place], [address] LIPID PROFILE Collected: 04/14/2018 Status: F Source: [place] 9:27 AM [facility] [place] [place] REPOSITORY TYPE CODE TESTS RESULT OUT OF RANGE REFERENCE UNITS LAB L501.4900 200 mg/dL High CHOL 212 Result Comment: <200 mg/dL Desirable 200-240 mg/dL Borderline >240 mg/dL High Risk LAB L501.5000 mg/dL High TRIG 309 Result Comment: The drugs N-Acetylcysteine and Metamizole may falsely depress this assay. Serum Triglycerides Reference Interval Normal <150 mg/dL Borderline high 150 - 199 mg/dL High 200 - 499 mg/dL Very High > or = 500 mg/dL LAB L501.6400 mg/dL Low HDL 39 Result Comment: The drugs N-Acetylcysteine and Metamizole may falsely depress this assay. Reference Range HDL <40 mg/dL Low HDL Cholesterol HDL >or= 60 mg/dL High HDL Cholesterol LAB L501.6500 0-130 mg/dL Normal LDL 111 LAB L501.6600 5-40 mg/dL High VLDL 62 Performed By: #### L500.4050, L500.4100, L501.4700 #### [facility] [address] [place], [address] BILIRUBIN, DIRECT Collected: 04/14/2018 Status: F Source: POOL 9:27 AM [facility] - [place], [place] REPOSITORY TYPE CODE TESTS RESULT OUT OF RANGE REFERENCE UNITS LAB L501.4700 0.00-0.30 mg/dL Normal D BILI 0.15 Performed By: #### L500.4050, L500.4100, L501.4700 #### [facility] [address] [place], [address] CARDIOLOGY VISIT Observed: 11/13/2017 Status: F Source: POOL REPORT 1:31 PM [facility] [place], [place] REPOSITORY [facility] [address] [place] [address] OFFICE VISIT Date of Service: 11/13/17 MR#: [id number] Acct: [id number] Name: CLEMENCIA WAYNE Rep #: [id number] : 1940 Provider: Carolynn Lala Age/Sex: 77/F Location: [facility] [place] Status: Signed HPI HPI Details: CLEMENCIA WAYNE, is a 77 F who presents to the office today for a history of coronary artery disease with stenting to her LAD in April 2017. She was also noted to have nonischemic cardiomyopathy at the time of her myocardial infarction. She also has a history of hypertension, PFO and chronic SOB. At her last office visit we adjusted her medications for her high blood pressure. Pt does continue to have SOB but feels that this is now worse that previous. It has been ongoing for years. She does not have any chest pain/heaviness/tightness. She does not have have any palpitations. She does not have any lightheadedness/dizziness/syncope. She does not have any edema. She does not have any claudication. Since patient was in last she had multiple tests done. It did review all testing with patient. Intake Vital Signs11/13/17 Height 5 ft 4 in 11/13/17 Weight: 166 lb 11/13/17 Body Mass Index (BMI) 28.5 11/13/17 Blood Pressure 120/54 11/13/17 Blood Pressure Location Lt brachial Intake Visit Reasons: 3 M FU Manager Graphic Required: No Accompanied by: Is patient in pain?: No Allergies clopidogrel [From Plavix] Allergy (Severe, Verified 11/13/17 11:16) hives ragweed pollen Allergy (Verified 11/13/17 11:16) sneezing lisinopril Adverse Reaction (Severe, Verified 11/13/17 11:16) nausea ticagrelor [From Brilinta] Adverse Reaction (Severe, Verified 11/13/17 11:16) sob, eye bled Medications Aspirin E.C. [Ecotrin] 81 mg PO DAILY@0800 tab 04/28/17 [Rx Confirmed 11/13/17] prasugrel 10 mg tablet 10 mg PO QDAY 08/14/17 [History Confirmed 11/11/17] famotidine 20 mg tablet 20 mg PO QDAY #30 tab 08/19/17 [Rx Confirmed 11/13/17] methylprednisolone 4 mg tablet 4 mg PO .Take as Directed tab 11/11/17 [History Confirmed 11/11/17] amlodipine 5 mg tablet 5 mg PO QDAY #90 tab 11/13/17 [Rx Confirmed 11/13/17] losartan 100 mg tablet 100 mg PO QDAY #90 tab 11/13/17 [Rx Confirmed 11/13/17] lovastatin 20 mg tablet 20 mg PO QPM #90 tab 11/13/17 [Rx Confirmed 11/13/17] metoprolol tartrate 25 mg tablet 25 mg PO BID #180 tab 11/13/17 [Rx Confirmed 11/13/17] Ejection fraction %: 50 to 54 PFSH Medical History SOB (shortness of breath) (Acute) Fatigue (Acute) Acute ST elevation myocardial infarction (Resolved) Hyperlipidemia (Chronic) Atherosclerotic heart disease of [place] coronary artery without angina pectoris (Chronic) Hypokalemia (Acute) Ischemic cardiomyopathy (Chronic) History of endometrial cancer (Chronic) History of colon cancer (Chronic) H/O small bowel obstruction (Inactive) HTN (hypertension) (Chronic) STEMI (ST elevation myocardial infarction) (Chronic) Surgical History History of PTCA (Chronic 04/25/17) Status post partial colectomy (Inactive) H/O hernia repair (Chronic) History of cholecystectomy (Resolved) Family History Father Heart disease Mother Heart disease Brother Cancer Sister Cancer Social History Smoking Status: Never smoker alcohol intake: never substance use type: does not use caffeine: Yes Type: coffee what type of physical activity do you participate in: none seatbelt use: always do you feel safe at home: Yes ROS Const Const: Negative for weakness, fatigue, fever(s) or headache(s) Eyes Eyes: Negative for blind spots, loss of peripheral vision or transient loss of vision ENT ENT: Negative for headache(s), dizziness, tinnitus or Nosebleed/epistaxis Cardio Chest Pain: No Palpitations: No Edema: None Muscle aches with walking: None Resp Respiratory: Positive for SOB with activity; negative for SOB at rest, SOB orthopnea\SOB lying down or Cough GI GI: Negative nausea, vomiting, heartburn or vomiting blood/hematemesis : Negative for hematuria Musc Musc: Negative for muscle aches/ myalgia Neuro Neuro: Negative for weakness, headache(s), dizziness, near syncope, syncope, lightheadedness or orthostatic symptoms Richard Hematologic/Lymphatic: Negative for easy bleeding Endo Endo: Negative for fatigue Cardiology Exam Const Appearance: cooperative, no acute distress and well developed Orientation: alert, awake and oriented x3 Head Head: normocephalic and atraumatic Mouth: moist mucous membranes Eyes General: appearance normal, both eyes and all related structures Conjunctivae: conjunctivae normal Pupils: PERRL EOM: EOM intact bilaterally Neck Neck: normal visual inspection, no lymphadenopathy and no JVD Carotids: Negative bruit Neck Mass: Negative Neck mass Chest Chest inspection: normal inspection of the chest and symmetric chest movement Auscultation: Bilateral: Clear to Auscultation Cardio Palpation: normal PMI Rate: regular rate Rhythm: regular rhythm Heart sounds: S1 normal and S2 normal; negative rub, gallop or murmur GI GI: normal to inspection, soft, no hepatosplenomegaly and bowel sounds present; negative tender Neuro General: alert, awake, oriented x3, CN's II-XI intact bilaterally and moves all extremities Extremities Pulses: Normal: Right Posterior Tibial Pulse, Left Posterior Tibial Pulse, Right Radial Pulse, Left Radial Pulse Lower Extremity Edema: None: Bilateral Psych Psychological: normal affect Supplemental Info Echocardiogram in August 2017 demonstrated mild segmental systolic dysfunction (see wall motion). The estimated ejection fraction is 40 %. The left atrium is mildly enlarged. Trivial mitral valve insufficiency. Trivial tricuspid valve insufficiency. Mild focal aortic valve thickening. Right ventricular systolic pressure estimated to be 35 mmHg. Color flow doppler appearing c/w a left to right interatrial shunt c/w a PFO vs. ASD. Bubble contrast study negative for right to left interatrial shunt. Consider further evaluation of interatrial septal anatomy with ZOEY if clinically indicated. ZOEY was done which did demonstrate an ejection fraction of 50% with a PFO. Stress test in September 2017 done for shortness of breath demonstrated cardio perfusion changes appearing compatible with an area of previous myocardial injury/infarction involving portions of the distal anterior, mid to distal anteroseptal, and apical segments with no myocardial perfusion changes consider diagnostic for associated stress- induced myocardial ischemia. Assessment AND Plan 1. Atherosclerosis of [place] coronary artery of [place] heart without angina pectoris I25.10 Mele - BRANDAN Huitron Patient does not have any symptoms of angina. She is completed cardiac rehab. Will continue with aggressive medical management. Will consider stopping her Prasugrel at her next office visit since her annual been 1 year since her procedure as this medication is costly for her. Orders Orders: 2. Cardiomyopathy, ischemic I25.5 BRANDAN Walker Recent ZOEY demonstrated an ejection fraction of 50%. Patient will continue with aggressive medical management. We will continue to monitor by history, exam and echocardiograms as deemed appropriate Orders Orders: 3. Essential hypertension I10 BRANDAN Walker Blood pressure is well controlled on current medications, we do not recommend any changes at this time. Orders Orders: 4. Hyperlipidemia LDL goal <70 E78.5 Plan - BRANDAN Huitron Patient will continue with current medical management. Recent lipid profile demonstrates total cholesterol 121, HDL 52, LDL 34. Will not make any adjustments. Orders Orders: 5. Patent foramen ovale Q21.1 Plan - BRANDAN Huitron We will continue to monitor with periodic echocardiograms. 6. Hypokalemia E87.6 Plan - BRANDAN Huitron Patient does have a history of hypokalemia. She is hesitant to start the medication that I gave her. Did discuss dietary modifications that she can make to increase her potassium. We will continue to monitor. If it is still low she is agreeable to resume her potassium. Plan Detail Other Orders Orders: Other Medications Changed: Refilled: Additional Comments - BRANDAN Huitron The above patient was discussed with Dr. Gregorio in Dr. Greene's absence, he agrees with plan of care. Thank you for allowing us to participate in patient's plan of care, if you have any questions please do not hesitate to call. This note was generated using a voice recognition system and there may be incorrect words, spelling or punctuation errors that were not noted when reviewing the office note prior to saving. Follow Up 6 Months (MMM) Coding Level of Care Code Off vis,est,level 4 Diagnoses Atherosclerosis of [place] coronary artery of [place] heart without angina pectoris I25.10 [place] vs. transplanted heart: stockbridge heart Cardiomyopathy, ischemic I25.5 Essential hypertension I10 Hypertension type: essential hypertension Hyperlipidemia LDL goal <70 E78.5 Patent foramen ovale Q21.1 Hypokalemia E87.6 Coding Level of Care Code Off vis,est,level 4 Diagnoses Atherosclerosis of [place] coronary artery of [place] heart without angina pectoris I25.10 [place] vs. transplanted heart: [place] heart Cardiomyopathy, ischemic I25.5 Essential hypertension I10 Hypertension type: essential hypertension Hyperlipidemia LDL goal <70 E78.5 Patent foramen ovale Q21.1 Hypokalemia E87.6 11/13/17 1308 <Electronically signed by Carolynn GIPSON> Date Carolynn GIPSON 11/13/17 1331<Electronically signed by Juan Gregorio MD> Cosigner Signature: Date (if applicable) Juan Gregorio MD CC: Dominic Solis DO STRESS REPORT Observed: 10/16/2017 Status: F Source: [place] 10:09 AM [facility] - [place], [place] REPOSITORY [facility] [address] [place] [address] MR#: [id number] Acct: [id number] Name: CLEMENCIA WAYNE Rep #: [id number] : 1940 77 From: Carlos Greene MD Primary Care: Dominic Solis DO Status: REG CLI Ordering Dr: Sex: F C Stress Test Report Date: 10/16/2017 Procedure: Exercise tolerance test/imaging study Indications: Shortness of breath/dyspnea; CAD; status post VA; status post PCI Consent: Per the patient Procedure: The patient exercised on a Modified Willie protocol for 10 minutes 30 seconds completing stage III and I minute 30 seconds of stage IV minutes achieving a peak heart rate of 120 bpm (85 % predicted maximal heart rate) with a peak blood pressure 174/76 mmHg and a peak MET capacity of 6 METs. The baseline ECG demonstrated sinus rhythm; anterior VA of indeterminate age; nonspecific T-wave abnormality. The peak exercise ECG demonstrated somatic/motion artifact with no obvious ECG changes. There was a rare PAC, PVC, and ventricular couplet during exercise and a rare PAC/PVC during recovery. The functional capacity was considered average. There was [no complaint of chest discomfort during exercise or recovery]. The examination was discontinued secondary to dyspnea. Impression: 1. Technically adequate (percent predicted maximal heart rate greater than 85%) exercise tolerance test 2. Peak exercise ECG with somatic/motion artifact with no obvious ECG changes 3. Rare PAC, PVC, and ventricular couplet during exercise and rare PAC/PVC during recovery. 4. Nuclear images pending Myocardial perfusion imaging study: Technique: The patient was injected with 11.5 mCi of technetium 99m Cardiolite and subsequently rest SPECT Cardiolite nuclear imaging was obtained in the horizontal long, vertical long, and short axis views. The patient exercised on a Modified Willie protocol for 10 minutes 30 seconds minutes completing stage 3 and 1 minute 30 seconds of stage IV achieving a peak heart rate of 120 bpm (85 % predicted maximal heart rate) with a peak blood pressure 174/76 mmHg and a peak MET capacity of 6 METs. The patient was injected with 32.6 mCi of technetium 99m Cardiolite and subsequently stress SPECT Cardiolite nuclear imaging was obtained in the horizontal long, vertical long, and short axis views. A gated Cardiolite study at peak stress was obtained. Interpretation: Rest and stress SPECT Cardiolite nuclear imaging status post realignment, normalization, and attenuation correction, demonstrates the appearance of diminished absence of myocardial perfusion/tracer uptake in portions of the distal anterior, mid to distal anteroseptal, and apical segments without significant change between rest and stress. There is diminished end systolic thickening and brightening in the aforementioned areas. The gated Cardiolite study demonstrates diminished myocardial thickening and inward wall motion in the aforementioned areas. The reported LVEF is 53 %. Impression: 1. Rest and stress SPECT Cardiolite nuclear imaging demonstrate a cardio perfusion changes appearing compatible with an area of previous myocardial injury/infarction involving portions of the distal anterior, mid to distal anteroseptal, and apical segments with no myocardial perfusion changes consider diagnostic for associated stress- induced myocardial ischemia. 2. The gated Cardiolite study reports an LVEF of 53 %. This note was generated with [employer] Interactive[employer] software. It may contain incorrect words, spelling, and punctuation that were not noted in checking the note before signing. 10/16/17 1009 <Electronically signed by Carlos Greene MD> Date Carlos Greene MD CC: Dominic Solis DO; Carlos Greene MD Date Dictated: 10/16/171002 Date Transcribed: 10/16/17 100 Machine Veneer Repairer: PM Signed CARDIOLOGY VISIT Observed: 10/06/2017 Status: F Source: POOL REPORT 4:47 PM [facility] [place], [place] REPOSITORY [facility] [address] [place] [address] OFFICE VISIT Date of Service: 08/19/17 MR#: [id number] Acct: [id number] Name: CLEMENCIA WAYNE Rep #: [id number] : 1940 Provider: Carolynn Lala Age/Sex: 77/F Location: [facility] Status: Signed HPI 3 M FU: Details: CLEMENCIA WAYNE, is a 77 F who presents to the office today for a history of coronary artery disease with stenting to her LAD in April 2017. She was also noted to have nonischemic cardiomyopathy at the time of her myocardial infarction. She also has a history of hypertension. Pt does complain of being fatigued. She sts that this has been going on since her VA. She is in cardiac rehab. She also has an upset stomach. She is not having any chest pain/heaviness. She does not have any worsening SOB. She does not have orthopnea. She does not have any palpitations. She does not have any near syncope/syncope. She does not have any claudication or edema. 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 Patient's blood pressure is elevated today. She is notes it is been elevated in cardiac rehab. She is also concerned about the cost of her medications and wonders if we could adjust some of them. Intake Vital Signs08/19/17 Height 5 ft 4 in 08/19/17 Weight: 168 lb 08/19/17 Body Mass Index (BMI) 28.8 08/19/17 Blood Pressure 180/94 08/19/17 Blood Pressure Location Lt brachial 08/19/17 Pulse Rate 72 Intake Visit Reasons: 3 M FU Allergies clopidogrel [From Plavix] Allergy (Severe, Verified 08/14/17 17:37) hives ragweed pollen Allergy (Verified 08/15/17 19:57) sneezing lisinopril Adverse Reaction (Severe, Verified 08/14/17 17:33) nausea ticagrelor [From Brilinta] Adverse Reaction (Severe, Verified 08/14/17 17:33) sob, eye bled Medications Aspirin E.C. [Ecotrin] 81 mg PO DAILY@0800 tab 04/28/17 [Rx Confirmed 08/15/17] Ondansetron [Zofran Odt] 4 mg PO Q6H PRN PRN #10 tab.rapdis 05/21/17 [Rx Confirmed 08/15/17] losartan 50 mg tablet 50 mg PO BID tab 08/14/17 [History Confirmed 08/19/17] metoprolol tartrate 50 mg tablet 25 mg PO BID tab 08/14/17 [History Confirmed 08/15/17] prasugrel 10 mg tablet 10 mg PO QDAY 08/14/17 [History Confirmed 08/15/17] famotidine 20 mg tablet 20 mg PO QDAY #30 tab 08/19/17 [Rx Confirmed 08/19/17] lovastatin 20 mg tablet 20 mg PO QPM #30 tab 08/19/17 [Rx Confirmed 08/19/17] potassium chloride ER 10 mEq tablet,extended release 10 meq PO QDAY #30 tab 08/21/17 [Rx] amlodipine 5 mg tablet 5 mg PO QDAY #30 tab 09/01/17 [Rx] Ejection fraction %: 45 to 49 PFSH Medical History SOB (shortness of breath) (Acute) Fatigue (Acute) Acute ST elevation myocardial infarction (Resolved) Hyperlipidemia (Chronic) Atherosclerotic heart disease of stock[place] coronary artery without angina pectoris (Chronic) Hypokalemia (Acute) Ischemic cardiomyopathy (Chronic) History of endometrial cancer (Chronic) History of colon cancer (Chronic) H/O small bowel obstruction (Inactive) HTN (hypertension) (Chronic) STEMI (ST elevation myocardial infarction) (Chronic) Surgical History History of PTCA (Chronic 04/25/17) Status post partial colectomy (Inactive) H/O hernia repair (Chronic) Family History Father Heart disease Mother Heart disease Brother Cancer Sister Cancer Social History Smoking Status: Never smoker alcohol intake: never substance use type: does not use what type of physical activity do you participate in: none ROS Const Const: Positive for fatigue; negative for weakness, fever(s) or headache(s) Eyes Eyes: Negative for blind spots, loss of peripheral vision or transient loss of vision ENT ENT: Negative for headache(s), Negative for dizziness, Negative for tinnitus, Negative for Nosebleed/epistaxis Cardio Chest Pain: No Palpitations: Positive for No Edema: None Muscle aches with walking: None Resp Respiratory: Negative for SOB with activity, SOB at rest or SOB orthopnea\SOB lying down GI GI: Positive for nausea and heartburn; negative vomiting or vomiting blood/hematemesis : Negative for hematuria Musc Musc: Negative for muscle aches/ myalgia Neuro Neuro: Negative for weakness, Negative for headache(s), Negative for dizziness, Negative for near syncope, Negative for syncope, Negative for lightheadedness Richard Hematologic/Lymphatic: Negative for easy bleeding Endo Endo: Positive for fatigue Assessment AND Plan 1. Coronary artery disease involving stockbridge coronary artery of [place] heart without angina pectoris I25.10; I25.10; I25.10 Plan - BRANDAN Huitron Stable, from a cardiac standpoint patient does not have any symptoms of angina. We recommend that they continue with current aggressive medical management and risk factor modification. With all patients medications she may be having an upset stomach with this. We will start her on Famotidine. Orders Orders: 2. Essential hypertension I10; I10; I10 Plan - BRANDAN Huitron Blood pressure is elevated today. Will start patient on Norvasc. She does have a history of hypokalemia. Hesitant to start her on hydrochlorothiazide. Patient does have a history of frequent small bowel obstructions. If this gives her GI upset will consider switching this to Coreg and stopping her metoprolol. Would also consider starting her on isosorbide. She will call us in 2 weeks with an update on what her blood pressure readings have been. Patient Instructions - BRANDAN Huitron I am starting Norvasc for your BP, call us in 2 weeks with an update on what they are running. If the medication is costly, let us know and I try to change it. Orders Orders: 3. Cardiomyopathy, ischemic I25.5 Plan - BRANDAN Huitron Would like to obtain an echocardiogram to reevaluate LV function. It has been greater than 3 months since she has had this assessed from her myocardial infarction. Orders Orders: 4. Pure hypercholesterolemia E78.00; E78.00; E78.00; E78.0 Plan - BRANDAN Huitron Due to cost, will switch her atorvastatin to a less expensive medication. We will continue to monitor labs. Patient Instructions - BRANDAN Huitron Stop your Atorvastatin and start Lovastatin. Plan Detail Other Orders Orders: Other Medications New: Discontinued: Additional Comments - BRANDAN Huitron The above patient was discussed with Dr. Gregorio in Dr. Greene's absence, he agrees with plan of care. Thank you for allowing us to participate in patient's plan of care, if you have any questions please do not hesitate to call. This note was generated using a voice recognition system and there may be incorrect words, spelling or punctuation errors that were not noted when reviewing the office note prior to saving. Follow Up 3 Months (MMM) Coding Level of Care Code Off vis,est,level 4 Diagnoses Coronary artery disease involving [place] coronary artery of [place] heart without angina pectoris I25.10; I25.10; I25.10 Associated angina: without angina Coronary Disease-Associated Artery/Lesion type: [place] artery [place] vs. transplanted heart: [place] heart Essential hypertension I10; I10; I10 Hypertension type: essential hypertension Cardiomyopathy, ischemic I25.5 Pure hypercholesterolemia E78.00; E78.00; E78.00; E78.0 Hyperlipidemia type: pure hypercholesterolemia Coding Level of Care Code Off vis,est,level 4 Diagnoses Coronary artery disease involving [place] coronary artery of [place] heart without angina pectoris I25.10; I25.10; I25.10 Associated angina: without angina Coronary Disease-Associated Artery/Lesion type: [place] artery [place] vs. transplanted heart: [place] heart Essential hypertension I10; I10; I10 Hypertension type: essential hypertension Cardiomyopathy, ischemic I25.5 Pure hypercholesterolemia E78.00; E78.00; E78.00; E78.0 Hyperlipidemia type: pure hypercholesterolemia 10/06/17 1635 <Electronically signed by Carolynn GIPSON> Date Carolynn GIPSON 10/06/17 1647<Electronically signed by Juan Gregorio MD> Cosigner Signature: Date (if applicable) Juan Gregorio MD CC: Dominic Solis DO ALLERGIES ALLERGIES DATE TYPE / CODE NAME / CODE REACTION SEVERITY SOURCE 08/23/2018 Drug lisinopril/F0060 Nausea [facility] Allergy/416 48208(RXNORM) Hospital 816866(SNOM Repository ED CT) 08/23/2018 Drug clopidogrel/F006 Hives [facility] Allergy/416 293076(RXNORM) Hospital 281922(SNOM Repository ED CT) 08/23/2018 Drug ticagrelor/F0060 sob, eye bled [facility] Allergy/416 16335(RXNORM) Hospital 454163(SNOM Repository ED CT) 08/23/2018 Drug ragweed SNEEZING Unknown [facility] Allergy/416 pollen/[id number] Hospital 899009(SNOM 2(RXNORM) Repository ED CT) Drug NO KNOWN [facility] Class/69057 ALLERGIES Other [place] 1003(SNOMED Repository CT) [id number] NO KNOWN [place] [facility] 6(SNOMED ALLERGIES Health [facility] CT) Repository ENCOUNTERS ENCOUNTERS ADMIT/DISCHARGE ACCOUNT NUMBER ADMITTING ENCOUNTER LOCATION SOURCE CLASS 09/09/2018 [id number] Ambulatory [facility] ding:[facility] Repository 08/23/2018/08/26/19 [id number] AWENDER, Inpatient [place] 19 JORGE S Encounter Clinic Other [place] Repository 08/23/2018/08/26/19 [id number] AWENDER, H S Inpatient [place] [facility]counter [facility] Repository [facility] nRoom: 5108Bed: 08/23/2018/08/23/20 [id number] Emergency [address] ding:ED Repository 04/28/2018/04/28/20 [id number] Ambulatory [facility] Repository 04/14/2018 [id number] Ambulatory [facility] ding:LAB Repository 11/13/2017/11/14/19 [id number] Ambulatory [facility]: [facility] Repository 10/16/2017 [id number] Ambulatory [facility] ding:[facility] Repository 10/16/2017 [id number] Ambulatory [facility] Repository 09/30/2017 [id number] Ambulatory [facility] ding:[facility] Repository 09/30/2017 [id number] Ambulatory [facility] Repository 08/19/2017/08/19/20 [id number] Ambulatory [facility]: [facility] Repository PAYERS PAYERS ENCOUNTER GUARANTOR PAYER SUBSCRIBER SOURCE 09/09/2018 CLEMENCIA Ba Primary CLEMENCIA Ba [place] [id number] Insurance:MEDICARE DOMERDOB: [facility] PART A BPolicy Number: [id number] [id number] Repository 21817Lns: 330) Date:2018-09-09 [phone] ([phone]) 09/09/2018 Secondary CLEMENCIA Lanza Insurance:ANTHEMPolicy DOMERDOB: [facility] Number: [id number] Hospital [id number] Repository Date:0592-65-48SL[address] [address]IM: 09/09/2018 Tertiary NOT GIVENUNK [place] Insurance:SELF PAY [facility] Number: Effective Repository Date:2018-09-09 08/23/2018 CLEMENCIA Ba Primary CLEMENCIA Ba [place] Pool General DOMERDOB: Insurance:MEDICARE A DOMERDOB: [facility] [id number] AND BPolicy Number: [id number] [facility] [id number] [facility] Date: [address]Pos: () 08/23/2018 Secondary CLEMENCIA [facility] Insurance:ANTHEM DOMERDOB: [facility] MEDICARE [id number] Repository SUPPLEMENTPolicy Number: [id number] Date: 08/23/2018 CLEMENCIA Ba Primary CLEMENCIA [place] [id number] Insurance:MEDICARE DOMERDOB: [facility] PART A BPolicy Number: [id number] Rehabilitation HospitalKevinjenner, [place] [id number] Repository [address]Zis: 330) Date:2018-08-23 [phone] () 08/23/2018 Secondary CLEMENCIA Lanza Insurance:ANTHEMPolicy DOMERDOB: [facility] Number: [id number] Hospital [id number] Repository Date:7200-21-62[address], [place] [address]WR: 08/23/2018 Tertiary NOT GIVENUNK Pool Insurance:SELF PAY [facility]: Effective Repository Date:2018-08-23 04/28/2018 CLEMENCIA Ba Primary CLEMENCIA Ba Pool [id number] Insurance:MEDICARE DOMERDOB: [facility] PART A BPolicy Number: [id number], [place] [id number] Repository 33434Bvt: ([phone]) Date:2017-11-13 [phone] () 04/28/2018 Secondary CLEMENCIA Ba Pool Insurance:ANTHEMPolicy DOMERDOB: [facility] Number: [id number] Hospital [id number] Repository Date:1092-05-97[address], [place] [address]EE: 04/28/2018 Tertiary NOT GIVENUNK Pool Insurance:SELF PAY [facility] Number: Effective Repository Date:2018-04-28 04/14/2018 CLEMENCIA Ba Primary CLEMENCIA Ba [place] [id number] Insurance:MEDICARE DOMERDOB: [facility] [place] PART A BPolicy Number: [id number], [place] [id number] Repository [address]Nja: ([phone]) Date:2018-04-14 [phone] () 04/14/2018 Secondary CLEMENCIA Ba Pool Insurance:ANTHEMPolicy DOMERDOB: [facility] Number: [id number] Hospital [id number] Repository Date:6191-60-53[address] [address]RW: 04/14/2018 Tertiary NOT GIVENUNK Pool Insurance:SELF PAY [facility] Number: Effective Repository Date:2018-04-14 11/13/2017 CLEMENCIA Ba Primary CLEMENCIA Ba Pool [id number] Insurance:MEDICARE DOMERDOB: [facility] [place] PART A BPolicy Number: [id number], [place] [id number] Repository [address]Sod: (330) Date:2017-08-19 [phone] () 11/13/2017 Secondary CLEMENCIA Lanza Insurance:ANTHEMPolicy DOMERDOB: Community Number: [id number] Hospital [id number] Repository Date:2116-92-47[address]X, [place] [address]QG: 11/13/2017 Tertiary NOT GIVENUNK [place] Insurance:SELF PAY [facility] Number: Effective Repository Date:2017-11-13 10/16/2017 CLEMENCIA Ba Primary CLEMENCIA Lanza [id number] Insurance:MEDICARE DOMERDOB: [facility] [place] PART A BPolicy Number: [id number], [place] [id number] Repository [address]Pey: (330) Date:2017-10-02 [phone] () 10/16/2017 Secondary CLEMENCIA Lanza Insurance:ANTHEMPolicy DOMERDOB: [facility] Number: [id number][facility] [id number] Repository Date:2349-19-86[address] [address]DI: 10/16/2017 Tertiary NOT GIVENUNK Pool Insurance:SELF PAY [facility] Number: Effective Repository Date:2017-10-02 10/16/2017 CLEMENCIA Ba Primary CLEMENCIA Cavazososter [id number] Insurance:MEDICARE DOMERDOB: [facility] [place] PART A BPolicy Number: [id number], [place] [id number] Repository [address]Pwa: (330) Date:2017-10-02 [phone] () 10/16/2017 Secondary CLEMENCIA Ba Pool Insurance:ANTHEMPolicy DOMERDOB: [facility] Number: [id number]' Colfax Medical [id number] Repository Date:5042-91-11[address], [place] [address]BR: 10/16/2017 Tertiary NOT GIVENUNK [place] Insurance:SELF PAY [facility] Number: Effective Repository Date:2017-10-16 09/30/2017 CLEMENCIA Ba Primary CLEMENCIA Lanza [id number] Insurance:MEDICARE DOMERDOB: [facility] [place] PART A BPolicy Number: [id number], [place] [id number] Repository [address]Akp: (330) Date:2017-09-01 [phone] () 09/30/2017 Secondary CLEMENCIA Lanza Insurance:ANTHEMPolicy DOMERDOB: Community Number: [id number]' Colfax Medical [id number] Repository Date:7525-96-92[address], [place] [address]AY: 09/30/2017 Tertiary NOT GIVENUNK Pool Insurance:SELF PAY [facility] Number: Effective Repository Date:2017-09-01 09/30/2017 CLEMENCIA Ba Primary CLEMENCIA Cavaz[place]oster [id number] Insurance:MEDICARE DOMERDOB: [facility] [place] PART A BPolicy Number: [id number], [place] [id number] Repository [address]Iez: (330) Date:2017-09-01 [phone] () 09/30/2017 Secondary CELMENCIA Lanza Insurance:ANTHEMPolicy DOMERDOB: Community Number: [id number]' Colfax Medical [id number] Repository Date:5987-68-36VY [address]AEHJQYB, [place] [address]XA: 09/30/2017 Tertiary NOT GIVENUNK [place] Insurance:SELF PAY [facility] Number: Effective Repository Date:2017-09-30 08/19/2017 CLEMENCIA Ba Primary CLEMENCIA Lanza [id number] Insurance:MEDICARE DOMERDOB: [facility] [place] PART A olicy Number: [id number], [place] [id number] Repository [address]Rxg: (330) Date:2017-07-26 [phone] () 08/19/2017 Secondary CLEMENCIA Lanza Insurance:ANTHEMPolicy DOMERDOB: Community Number: [id number]' Colfax Medical [id number] Repository Date:1386-80-30[address]KBCJRIQ, [place] [address]FQ: 08/19/2017 Tertiary NOT GIVENUNK Pool Insurance:SELF PAY [facility] Number: Effective Repository Date:2017-07-26
== END ==
PROVIDERS: Family Provider Family Medicine; PCP Family Medicine; Visit Provider Family Medicine
DX: E87.6 Hypokalemia (principal)
CPT/HCPCS: 36415; 80048

== ENCOUNTER → 2018-09-26 11:50 | Outpatient (CLI) | payer MEDICARE, BC, SELFPAY ==
[2018-09-26 13:21] LABS: AST(SGOT) 16 U/L (15-37); Alanine Aminotransfer ALT/SGPT 16 U/L (13-56); Albumin, Serum 3.3 g/dL (3.2-5.0); Alkaline Phosphatase 83 U/L (45-117); Bilirubin, Direct 0.19 mg/dL (0.00-0.30); Cholesterol 185 mg/dL (200); Globulin 3.6 g/dL (2.2-4.2); High Density Lipoprotein 40 mg/dL; Protein, Total 6.9 g/dL (6.4-8.2); Triglycerides 348 mg/dL; Very Low Density Lipoprotein 70 mg/dL (5-40)
[2018-09-28 11:46] LABS: Anion Gap 9 (5-15); BUN 28 mg/dL (7-18); BUN/Creat Ratio 19.3 RATIO (10-20); Chloride 105 mmol/L (98-107); Creatinine, Serum 1.45 mg/dL (0.55-1.02); EST Glomerular Filtration Rate 37 mL/min (>60); Est Glom Filt Rate - Afr Amer 45 mL/min (>60); Glucose 110 mg/dL (74-106); Potassium 3.7 mmol/L (3.5-5.1); Sodium Level 140 mmol/L (136-145)
== END ==
PROVIDERS: Physician Assistant Medical; Family Provider Family Medicine; PCP Family Medicine; Referring Provider Family Medicine; Visit Provider Family Medicine
DX: I10 Essential (primary) hypertension (principal); E78.5 Hyperlipidemia, unspecified; I25.10 Atherosclerotic heart disease of native coronary artery without angina pectoris; I25.5 Ischemic cardiomyopathy
CPT/HCPCS: 36415; 80048; 80061; 80076

== ENCOUNTER 2018-11-02 12:21 | Inpatient (IN) | payer MEDICARE, BC, SELFPAY ==
[2018-10-26 10:56] VITALS: BP 151/68; PULSE 49; RESP 17; TEMP 37.3; O2SAT 99; BMI 25.5
--- NOTE | 2018-10-26 11:23 | SDCEKG_ITS ---
Test Reason : Blood Pressure : / mmHG Vent. Rate : 048 BPM Atrial Rate : 048 BPM P-R Int : 174 ms QRS Dur : 096 ms QT Int : 460 ms P-R-T Axes : 095 -31 111 degrees QTc Int : 410 ms Marked sinus bradycardia Left axis deviation Pulmonary disease pattern Nonspecific ST and T wave abnormality Abnormal ECG Confirmed by MARY ANN MENDES, YOAN ([id number]), school photograph editor ANA ZAMORANO ([id number]) on 10/27/2018 12:56:35 PM Referred By: Aric Kebede Confirmed By:YOAN REESE MD
[2018-10-26 13:52] VITALS: BMI 25.5
--- NOTE | 2018-10-31 09:43 | HP.PCM_ITS ---
History and Physical Date of Admission: 11/02/18 HISTORY AND PHYSICAL ? Clemencia Wayne 1940 ? ? ? CHIEF COMPLAINT:???Recurrent SBO ? HPI:?Clemencia is a patient I am following for ?increasingly frequent recurring small bowel obstructions and increasingly frequent pain episodes. ?The patient had a large laparoscopic Kugel mesh repair in [address] Sam Lowe. ??Her mesh extends from just above the pubis to nearly the xyphoid area. ? ? She had a previous history of sigmoid cancer treated in 1998 with resection followed with chemotherapy and radiation. ?In 2002 she had uterine cancer with a total hysterectomy. ???She had a laparoscopic cholecystectomy by Dr Dennis in 2005 which was noted to be quite difficult ? She was having intermittent symptoms of abdominal distention, pain, nausea and vomiting starting in the mid 2005 period. ?Recently, she notes abdominal distention, nausea, vomiting almost weekly. ?She has multiple admissions for recurrent small bowel obstructions. ? ? CT scan demonstrated the large mesh to be in place, but curled at both lateral margins. ?The right colon seems to be in contact with the mesh. ?The left margin seems to be contacting only fat. ?There does not seem to be separation inferiorly, but on prior CT scans, this seems to be the area of small bowel transition during her partial SBO episodes. ? She has been evaluated by all three surgeons in the past and our recommendation has been to avoid surgical intervention given the presumed complexity and risks. ?She currently states that her quality of life is significantly worsening with the increasing frequency and severity of her symptoms. ?She is asking again about possible removal of the mesh. ? On July 08, 2011, she underwent an exploratory laparotomy with release of small bowel obstruction and removal of fraying and partial excision of mesh by Dr. Sam Lowe with me assisting. ?I recall this being quite challenging but the patient did well postoperatively. ? More recently, she's had recurrent hospital admissions for intermittent small bowel obstructions. ?She notes she has symptoms every third to every other day. ?She is at the point where she is ready for repeat surgical intervention. ? She was admitted on June 07, 2013 to [facility]. 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 ?She was discharged on June 10, 2013. ?She noted additional episodes of abdominal discomfort and distention every other day since discharge ? She had seen a wildfire prevention specialist at [facility]. ?He recommended medicines for constipation predominant IBS. ?She read that this was not recommended for patients with intestinal obstruction and did not take this medication. ?She does have an appointment to see a surgeon at [facility]-Dr. Price. ? I obtained a CT enteroclysis in June 2013 given her previous reading of potential radiation changes in the small bowel. ?This study was read as normal small bowel. ? She has had additional admissions for abdominal pain/bowel obstruction which have resolved with conservative treatment in [place], but she generally notes abdominal pain and bloating more days and not. 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 ?Given the challenges of her previous surgical intervention locally, were recommending referral to a tertiary care center. ?I had spoken with Dr. Dino Knight at [facility] who is willing to evaluate the patient. ? On August 09, 2014 Dr. Knight performed an exploratory laparotomy with a very extensive lysis of adhesions and removal of the previous Kugel mesh. ?He noted: ? we spent well over 2-1/2 hours doing on this. Once we freed up the entire small bowel, we had no enterotomies. There were two small serosal injuries and these had occurred as inherent to the disease, as we had to resect part of this as it had guarded part of the polypropylene mesh that had rolled over onto the bowel. 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 The bowel was about 50% in diameter. In the remaining bowel, there was really no obvious proximal dilatation and I was able to get contents through. I spent a lot of time considering whether or not to resect this. Unfortunately, if I did resect this, it would require two anastomosis. Just to reiterate, the most proximal stricture was 180 cm from the ligament of Treitz and 120 cm to the next structure, which was the terminal ileum, ? The patient presented to [facility] on August 26 with a recurrent partial small bowel obstruction. ?She responded to conservative treatment and was able to be discharged on August 29. ?She noted a large bowel movement a day or 2 after discharge and noted improvement in her symptoms. ?She followup with Dr. Knight on September 01. ?She noted abdominal pain last night again but this seems to have improved today. ? She then noted she was doing well for most of last year area did she follow up with Dr. Knight in February and had no specific complaints at that time. ?For the last few months, she is noted episodic abdominal discomfort and a bloating sensation. ?She has not had to present to the hospital with a true obstruction but notes milder but similar symptoms to her previous issues. ?She recalls that she was told by Dr. Knight that she would likely need a small bowel resection in the future. ? I obtained a CT scan of the abdomen and pelvis when she wasn't having symptoms to assess her small bowel. ?CT scan of the abdomen and pelvis from October 05, 2015 demonstrated: ? ? IMPRESSION: 1. There is thickening of the folds in the distal small bowel probably due to previous radiation. See discussion under results. 2. There are 2 anterior abdominal wall hernias as discussed 3. Rounded soft tissue density with rim-like calcification adjacent to the hernia in the epigastric region. This is probably postsurgical in nature. It appears slightly smaller than on the previous study. 4. There is be some thickening of the rectal wall and the urinary bladder may be due to previous radiation. 5. 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 ? Results-Findings? ? * * *Final Report* * * DATE OF EXAM: Oct 05 2015 10:17AM [facility] 0425 - CT ABD PEL W CONTRAST / PROCEDURE REASON: * * * * Physician Interpretation * * * * CT abdomen and pelvis with oral and IV contrast: HISTORY: 75 years old Clinical information: hx of colon obstruction, prior colon and uterine cancer, colon resection appy,mal,umb hernia repair,chris,bso, post rad tx,chemo TECHNIQUE: Images: Multiplanar reconstructed images at 3 mm thickness in the axial and coronal planes were provided. Contrast information: Contrast1: Omnipaque 300 Contrast Dose1: 145 ContrastAdminRoute1: IV Contrast2: 50ML Omnipaque 240 W 850ML Water ContrastDose2 : 900 ContrastAdminRoute2: Oral CT Ionizing Radiation: CT Dose-Length Product (DLP): 534 mGy*cm CT Dose Reduction Employed: Yes Comparison: 08/26/2012 outside study RESULT: FINDINGS: Lung bases: Unremarkable CT ABDOMEN FINDINGS: The liver or spleen and pancreas are unremarkable. No intrahepatic bile duct dilatation is seen. Postsurgical scar in the midline abdomen and pelvis midline. There is a anterior wall epigastric hernia containing fat image 51. There is an adjacent soft tissue nodule with peripheral calcification adjacent to this area has a calcific rim. Probably postsurgical scar It measures 1.2 cm. There is also an umbilical hernia containing a loop of colon The adrenal glands are normal in size. Marked atherosclerotic changes throughout the abdominal aorta. Multiple peripelvic cysts are seen in the LEFT kidney. Both kidneys are seen to function and show no obstruction. Marked degenerative changes lower lumbar spine. CT PELVIS FINDINGS: There is thickening of the rectal wall. This also thickening of the bladder wall. Findings similar to the previous study The thickening of the folds in the distal small bowel is also some moderate dilatation of several loops. No definite site of transition is seen. Bone findings:No acute changes. ? ?The patient still has recurring episodes of lower abdominal pain and obstructive-type symptoms. ?She was most recently admitted to [facility] with a recurrent SBO on November 04, 2016. ?The patient did have resolution of her symptoms and improvement when she was tolerating oral liquids. ?She had an additional admission for bowel obstruction on May 20, 2017 this resolved promptly with conservative treatment. - That was the last time I had seen her until today. ? The patient notes she is still having intermittent small bowel obstructions and these are happening now more frequently. ?She presented to [facility] emergency department on August 23. ?I was out of town at that time and she was transferred to [facility]. ?CT scan imaging was obtained which again demonstrated initially a partial small bowel obstruction. ?Of interest, the patient now has 2 areas that appeared to be consistent with enteroliths/small bowel bezoars. ??- The more proximal appearing 1 measures 24 x 38 mm, ?apparently more distal measures 37 x 35 mm. ?These seem partially calcified and somewhat laminated in appearance. ? The patient states that since discharge in early August, she had persistent abdominal discomfort and is poorly tolerating anything other than liquids. ?She understands in the past that we have discussed that she would likely eventually need a procedure possibly including a bowel resection but that given her degree of radiation enteritis?at previous operative procedures, they were trying to avoid this as much as possible. ? I discussed the patient's findings with surgeons a tertiary care centers in [facility] in [place] and all agreed she should have an exploration with removal of these enteroliths and likely resection of the stenosed segments. ?It was felt to be no difference in surgical risk or differing abilities at a tertiary care center versus local operation. ?In discussion with the patient she would prefer to have this procedure performed locally. ? PAST?MEDICAL?HISTORY PAST MEDICAL HISTORY Diagnosis Date ? Abdominal pain, unspecified site ? ? Blood in stool ? ? Bowel obstruction (HCC) ? ? Chest pain, unspecified ? ? Diarrhea ? ? HTN (hypertension) ? ? Malignant neoplasm of colon, unspecified site ? ? SIGMOID ? Malignant neoplasm of corpus uteri, except isthmus (HCC) ? ? Uterine cancer 2002 ? 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 Nausea and vomiting ? ? Nonspecific (abnormal) findings on radiological and other examination of lung field ? ? Partial small bowel obstruction (HCC) 2016 ? Pure hypercholesterolemia ? ? Severe vulvar dysplasia ? ? ? PAST?SURGICAL?HISTORY PAST SURGICAL HISTORY Procedure Laterality Date ? COLONOSCOP W/ OR W/O BRSH SPEC ? 02/21/00 ? Colonoscopy ? COLONOSCOP W/ OR W/O BRSH SPEC ? 09/19/03 ? Colonoscopy ? COLONOSCOP W/ OR W/O BRSH SPEC ? 09/27/03 ? Colonoscopy ? COLONOSCOP W/ OR W/O BRSH SPEC ? 04/21/06 ? [place] ? DOBUTAMINE STRESS ECHO_*FL ? 10/25 ? FREEING BOWEL ADHESION,ENTEROLYSIS ? 07-08-11 ? LAP CHOLECYSTECT/CHOLANGIOGRAPHY ? 07/01/06 ? PART REMOVAL COLON W ANASTOMOSIS ? 05/04/99 ? Excision, large bowel ? PAST SURGICAL HISTORY OF ? 2003 ? hernia repair ? REMOVAL MESH ABD WALL ? 08/09/2014 ? REPAIR INCISIONAL HERNIA,REDUCIBLE ? 2/17/04 ? Hernia repair, incisional ? STEREO LOC FOR CORE BRST BX LT ? 5-4-10 ? ?BILATERAL ? TOTAL ABDOM HYSTERECTOMY ? 2002 ? Hysterectomy, CHRIS/USO -- for cervical cancer ? ? CURRENT?MEDICATIONS ? Current Outpatient Medications: hydroCHLOROthiazide (HYDRODIURIL, ESIDRIX) 25 mg tablet Take 25 mg by mouth once daily. amLODIPine (NORVASC) 5 mg tablet Take 5 mg by mouth once daily. simvastatin (ZOCOR) 20 mg tablet Take 20 mg by mouth daily at bedtime. ondansetron orally disintegrating (ZOFRAN ODT) 4 mg disintegrating tablet Take 1 tablet by mouth every 4 hours as needed for Nausea/Vomiting. (Patient not taking: Reported on 10/15/2018 ) atorvastatin (LIPITOR) 80 mg tablet ? losartan (COZAAR) 50 mg tablet once daily. metoprolol tartrate, short acting, (LOPRESSOR) 50 mg tablet twice daily. aspirin, enteric coated (ASPIRIN, ENTERIC COATED) 81 mg EC tablet Take 81 mg by mouth once daily. ? No current facility-administered medications for this visit.? ? ALLERGIES:?Plavix [Clopidogrel Bisulfate] ? PERSONAL HISTORY:? SOCIAL?HISTORY Social History ??Socioeconomic History ?Marital status: ?Spouse name: Carmelo ?Number of children: 2 ?Years of education: 12 ?Highest education level: Not on file ??Social Needs ?Financial resource strain: Not on file ?Food insecurity - worry: Not on file ?Food insecurity - inability: Not on file ?Transportation needs - medical: Not on file ?Transportation needs - non-medical: Not on file ??Occupational History ?Occupation: Retired ??Tobacco Use ?Smoking status: Never Smoker ?Smokeless tobacco: Never Used ??Substance and Sexual Activity ?Alcohol use: No ?Drug use: No ?Sexual activity: Yes ?Partners: Male ? control/protection: Surgical ?Comment: hysterectomy ??Other Topics ?Concerns: ?Not on file ??Social History Narrative ?Not on file ? FAMILY HISTORY:? FAMILY?HISTORY FAMILY HISTORY Problem Relation Age of Onset ? Diabetes Mother ? ? Heart Mother ?CHF ? Hypertension Mother ? ? Heart Father ?CHF ? Hypertension Father ? ? Diabetes Sister ?X-2 ? Heart Sister ? other (Lung Cancer) Brother ? ? REVIEW OF SYMPTOMS: ??The review of systems data was entered by the nurse and reviewed by me ? There are no exam notes on file for this visit. ? ? PHYSICAL EXAMINATION: ? General: ?The patient is 78 year old female, well nourished, well hydrated in no acute distress. ?The patient is oriented to time, place, and person. ? VITALS:?There were no vitals taken for this visit. ? HEENT: ?Normal cephalic, ataumatic, pupils are equally round, sclera are anicteric, mucous membranes are moist, oropharynx is clear. ?Neck has no masses, asymmetry or lymphadenopathy. ?Thyroid is unremarkable. ? Respiratory: ?Clear to auscultation and percussion. ?Normal respiratory excursion and pattern. ? Cardiac: ?Examination is regular rate and rhythm. ? Abdominal exam: ?Soft, nontender, ?With no?palpable masses. ?No hepatosplenomegaly. ??palpable midline incisional hernias. ? Rectal exam:?exam deferred ? Extremities: ?no clubbing, cyanosis or edema. ?No adenopathy. ? Other: ? ? LABORATORY VALUES: As Noted ? RADIOLOGIC STUDIES: ?As Noted ? Assessment ? 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 PLAN: ??My plan is to perform exploratory laparotomy with resection versus bypass of this no segments and removal of the 2 anterolisthesis. ? The planned surgical procedure was discussed extensively with the patient. The risks, benefits and anticipated outcomes of the procedure, the risks and benefits of the alternatives to the procedure, and the roles and tasks of the personnel to be involved, were discussed with the patient. ?My staff has also explained the procedure in understandable terms and the patient was given the option to take printed material concerning the planned procedure. ?The patient had the opportunity to ask questions concerning the planned procedure. ?The patient freely consents to the planned procedure. ?She again understands that this is a generally risky procedure given her surgical history of multiple complicated procedures and radiation injury. ?We agreed the best and perform this procedure is between obstructed events. ? The patient can continue her enteric aspirin.?? ? Anticipated Surgical Procedure/ CPT Code:?Laparotomy - Resection of Small Bowel - 26909 and Laparotomy - Multiple Resections of Small Bowel - 08323 ? Anticipated Anesthetic:?General ? Patient weight:??There were no vitals taken for this visit.?BMI: ?There is no height or weight on file to calculate BMI. ? Planned antibiotic:?clindamycin 900mg IVPB electrical & instrumentation supervisor to OR ? SCDs needed -?Yes ? Gifted Teacher Needed -?Yes ? 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 My findings have been communicated to Dr.??Dominic Solis, DO?via shared medical record. ?This note will be forwarded to Dr. Dominic Solis, DO. ? Return to Clinic: The patient is instructed to follow-up with me?1 week post operatively. ? This note was partially generated using [employer] voice recognition system, and there may be some incorrect words, spellings, and punctuation that were not noted in checking the note before saving.? Aric Kebede MD
[2018-11-02] VITALS (10 sets, daily range): BP systolic 104–156; BP diastolic 46–68; PULSE 43–52; RESP 16–18; TEMP 36–36.9; O2SAT 96–100; BMI 24.7; BMI 26.4; BMI 26.5
--- NOTE | 2018-11-02 20:34 | PCM.OPRPT ---
Report of Operation Date of Procedure: 11/02/18 Pre-Operative Diagnosis: recurrent small bowel obstruction - entroliths x2 Post-Operative Diagnosis: recurrent small bowel obstruction - entroliths x2 - very dense adhesions Surgery/Procedure Performed:: exploratory laparotomy, extensive3 lysis of adhesions >2.5, small bowel resection tube cutter: Debra Chadwick Type of Anesthesia:: General Anesthesiologist: Keven Diop ASA3 Specimen's removed: small bowel with entroliths Drains: NG, Layne 400cc Estimated Blood Loss (mL): 150 Fluids Replaced: 1700 Description of Procedure: The patient was brought to the operating suite. Sign in was performed verifying patient, site, procedure, position, and DVT prophylaxis with SCDs. Patient received Clindamycin 900mg antibiotic prophylaxis. CT scan was reviewed which demonstrated the two area in the RLQ with dilated bowel and 4 cm enteroliths. Following induction of general anesthetic, the patient?s abdomen was prepped and draped in the usual fashion. A Layne catheter was placed. Timeout was performed verifying patient, site, position. A linear incision was made in the midline below the umbilicus along the infraumbilical incision and dissection carried down to the posterior sheath. The peritoneal cavity was carefully entered and then extension of the incision was made both sharply and using electrocautery. The patient was found very dense adhesions within the midline and all quadrants. Great care was taken dissecting bowel off the midline and then dissection extended sharply to the right lower quadrant right upper quadrant and beyond the midline in the lower abdomen. Total dissection time was approximately 2 and after hours. The palpable aenteroliths were able to be palpated after extensive dissection and the loops of bowel that were grossly distended with the pelvis were freed up and brought in the operative field. Enterotomies were made in those sections during the act of dissecting and these were temporally closed with 3-0 Vicryl sutures. Once this area of bowel was fully mobilized and nondistended bowel going into and out of the area of abnormality was identified, windows were made in the mesentery. the small bowel mesentery. The planned resection margin was sequentially divided and ligated with 0 Vicryl stick ties. Once this was completed, bowel clamps were placed proximal and distal in the small bowel small bowel was transected. A handsewn 2 layer anastomosis with interrupted 3-0 silk sutures and running 3-0 Vicryl suture was completed. the remaining areas of dissected bowel were examined and no injuries were noted. Due to very dense adhesions, no dissection was performed in the extended left lower quadrant or upper abdomen. A nasogastric tube was placed. This was in a motor vehicle examined by palpation. Following this, the abdominal cavity was irrigated with copious amounts of saline. Fascia was closed with interrupted [id number] 0 PDS sutures. Subcutaneous site was irrigated. Skin was closed with mahesh. After all sponge and instrument counts were correct. Dressing was applied. - Admit VTE Documentation VTE Present on Admission: No VTE Mechan Device Prophylaxis: SCD's VTE Pharm Prophylaxis ordered?: No
--- NOTE | 2018-11-02 20:38 | OP.PCM_ITS ---
Report of Operation Date of Procedure: 11/02/18 Pre-Operative Diagnosis: recurrent small bowel obstruction - entroliths x2 Post-Operative Diagnosis: recurrent small bowel obstruction - entroliths x2 - very dense adhesions Surgery/Procedure Performed:: exploratory laparotomy, extensive3 lysis of adhesions >2.5, small bowel resection vamp marker: Debra Chadwick Type of Anesthesia:: General Anesthesiologist: Keven Diop ASA3 Specimen's removed: small bowel with entroliths Drains: NG, Layne 400cc Estimated Blood Loss (mL): 150 Fluids Replaced: 1700 Description of Procedure: The patient was brought to the operating suite. Sign in was performed verifying patient, site, procedure, position, and DVT prophylaxis with SCDs. Patient received Clindamycin 900mg antibiotic prophylaxis. CT scan was reviewed which demonstrated the two area in the RLQ with dilated bowel and 4 cm enteroliths. Following induction of general anesthetic, the patient?s abdomen was prepped and draped in the usual fashion. A Layne catheter was placed. Timeout was performed verifying patient, site, position. A linear incision was made in the midline below the umbilicus along the infraumbilical incision and dissection carried down to the posterior sheath. The peritoneal cavity was carefully entered and then extension of the incision was made both sharply and using electrocautery. The patient was found very dense adhesions within the midline and all quadrants. Great care was taken dissecting bowel off the midline and then dissection extended sharply to the right lower quadrant right upper quadrant and beyond the midline in the lower abdomen. Total dissection time was approximately 2 and after hours. The palpable aenteroliths were able to be palpated after extensive dissection and the loops of bowel that were grossly distended with the pelvis were freed up and brought in the operative field. Enterotomies were made in those sections during the act of dissecting and these were temporally closed with 3-0 Vicryl sutures. Once this area of bowel was fully mobilized and nondistended bowel going into and out of the area of abnormality was identified, windows were made in the mesentery. the small bowel mesentery. The planned resection margin was sequentially divided and ligated with 0 Vicryl stick ties. Once this was completed, bowel clamps were placed proximal and distal in the small bowel small bowel was transected. A handsewn 2 layer anastomosis with interrupted 3-0 silk sutures and running 3-0 Vicryl suture was completed. the remaining areas of dissected bowel were examined and no injuries were noted. Due to very dense adhesions, no dissection was performed in the extended left lower quadrant or upper abdomen. A nasogastric tube was placed. This was in a motor vehicle examined by palpation. Following this, the abdominal cavity was irrigated with copious amounts of saline. Fascia was closed with interrupted [id number] 0 PDS sutures. Subcutaneous site was irrigated. Skin was closed with mahseh. After all sponge and instrument counts were correct. Dressing was applied. - Admit VTE Documentation VTE Present on Admission: No VTE Mechan Device Prophylaxis: SCD's VTE Pharm Prophylaxis ordered?: No
--- NOTE | 2018-11-02 20:40 | RAD_ITS ---
HISTORY: ng tube placement EXAM:KUB COMPARISON: CT abdomen and pelvis 08/23/2018 FINDINGS: XR Abdomen 1 View: Portable NG tube in place with the tube tip within the stomach. Nonobstructive bowel gas pattern. Small and large bowel are nondilated. MAGO anastomotic mahesh within the pelvis. Right lower quadrant vertical row of skin mahesh. Atherosclerotic calcifications. RAD/Abdomen Single View (Portable) IMPRESSION: 1. Good position of the NG tube. 2. Nonobstructive bowel gas pattern. at 2311 Reported and signed by: Td Garcia MD Electronically Signed: Td Garcia, at 23:10 EDT Tel , Service support ,
[2018-11-02] MEDS: Morphine 2 MG/ML Syringe IV ×2 (21:32→22:35)
[2018-11-02] MEDS: Lactated Ringers 1,000 ML 100 ML IV (22:44)
[2018-11-03] VITALS (15 sets, daily range): BP systolic 102–166; BP diastolic 48–77; PULSE 47–80; RESP 16; TEMP 36.6–37; O2SAT 93–100; BMI 26.5
--- NOTE | 2018-11-03 | MISC_PTH ---
PATIENT: DANAE HALL LOC: MS2 U#:[id number] AGE/SX: 78/F ROOM: MS213 RE11/02/[address]: Dr. Aric Kebede MD : [id number] BED: 1 DIS: 11/10/2018 SPEC #: [id number] RECD: 11/03/18 14:31 STATUS: BERNABE REPayton #: [id number] JOSEFINA: 11/03/18 00:[address]: Aric Kebede DEPT: SURGICAL PATHOLOGY RECD BY: Marcelo Barnes ENTERED: 11/03/18 14:31 SP TYPE: MISC EDGAR DR: Dr. Dominic Solis, Tissues: Small intestine biopsy Procedures: Surgery Specimen Level V HEADER OPERATION: Laparotomy, small bowel resection PRE-OP DIAGNOSIS: Recurrent SBO TISSUE SUBMITTED: Small bowel MICROSCOPIC DIAGNOSIS Small bowel, segmental resection: Serosal fibrous adhesions with fibrinoid material and vascular ectasia. Focal mucosal ischemic change with associated denudation of mucosa and mild acute inflammation. Three out of three lymph nodes with no pathologic change. Fecaliths. AM:collin 11/05/18 MICROSCOPIC DESCRIPTION Slides are reviewed. GROSS DESCRIPTION Received in fixative is one container labeled with the patient's name and designated small bowel. The specimen consists of a segment of small bowel measuring 55 cm in length. The attached mesentery measures up to 4 cm in width. Both resection margins are not stapled. The serosal surface is ragged. A focal area of congestion is also noted. Focally they are covered with atkinson, purulent material. A focal area in the middle also shows adjacent loop with adhesions. No mucosal lesion is identified. Also present in the container are four yellowish pieces of stone consistent with fecalith measuring in aggregate 8 x 6 x 4 cm and 3 to 4 cm in greatest dimension. A focal area of linear defect is also noted in the bowel wall 15 cm away from the one margin. Sections of the mesenteric tissue show a focal area of hemorrhage. Records Management Director sections are submitted in six cassettes as follows: 1 - resection margin, 2-4 - small bowel full thickness section (cassette 4 contains the section adjacent to the area of defect), 5 & 6 - mesenteric tissue. / POONAM:collin 11/04/18 TC: 2 CPT: 06154
[2018-11-03] MEDS: Morphine 4 MG/ML Syringe IV ×6 (01:08→06:37)
[2018-11-03 06:29] LABS: Absolute Lymphocyte Count 0.51 X10^3/ul (0.83-4.51); Absolute Neutrophil Count 9.3 X10^3/uL (2.0-7.7); Hematocrit 37.6 % (37-47); Hemoglobin 12.1 g/dl (12.0-15.0); Lymphocyte # 0.51 X10^3/ul (4.0); Lymphocyte % 4.9 % (19-41); Mean Corp Hgb Conc 32.2 g/gl (32-36); Mean Corpuscular Hgb 28.3 pg (27.0-32.0); Mean Corpuscular Volume 87.9 fL (81-99); Mean Platelet Vol. 10.3 fl (6.2-12.0); Monocyte# 0.47 X10^3/uL; Monocyte% 4.5 % (0-10); Neutrophil # 9.34 X10^3/uL (2.7-7.7); Neutrophil % 90.5 % (47-70); Platelet Count 203 K/mm3 (150-450); RBC Distribution Width CV 14.8 % (11.6-14.6); RBC Distribution Width SD 47.2 fl (35.1-43.9); Red Blood Count 4.28 M/mm3 (4.2-5.4); White Blood Count 10.3 K/mm3 (4.4-11.0)
[2018-11-03 06:42] LABS: ALB/GLOB Ratio 1.1 RATIO (0.9-2.4); AST(SGOT) 23 U/L (15-37); Alanine Aminotransfer ALT/SGPT 21 U/L (13-56); Albumin, Serum 2.7 g/dL (3.2-5.0); Alkaline Phosphatase 79 U/L (45-117); Anion Gap 13 (5-15); BUN 11 mg/dL (7-18); BUN/Creat Ratio 11.2 RATIO (10-20); Chloride 108 mmol/L (98-107); Creatinine, Serum 0.99 mg/dL (0.55-1.02); EST Glomerular Filtration Rate 58 mL/min (>60); Est Glom Filt Rate - Afr Amer 70 mL/min (>60); Estimated Creatinine Clearance 39.79 ml/min; Globulin 2.5 g/dL (2.2-4.2); Glucose 146 mg/dL (74-106); Potassium 3.6 mmol/L (3.5-5.1); Protein, Total 5.2 g/dL (6.4-8.2); Sodium Level 147 mmol/L (136-145)
[2018-11-03 06:47] LABS: Differential Indicated SCAN CRITERIA MET; POSITIVE COUNT NO; POSITIVE DIFFERENTIAL YES; POSITIVE MORPHOLOGY NO
[2018-11-03] MEDS: 0.9% NaCl Peripheral Flush Adult/Peds IV ×4 (08:15→23:09)
[2018-11-03] MEDS: Ondansetron 4 MG/2 ML Vial IV (08:15)
[2018-11-03] MEDS: Lactated Ringers 1,000 ML 100 ML IV ×2 (08:15→18:35)
[2018-11-03] MEDS: HYDROmorphone 1 MG/ML Syringe IV ×5 (08:16→23:10)
--- NOTE | 2018-11-03 11:20 | CASEMGMT ---
RN CM Face to Face with patient for initial transition planning/care coordination assessment. RN CM introduced self and role at [facility]. Patient lying in bed, alert and oriented, at bedside. Patient willing to participate in assessment and is able to answer all questions appropriately. Care providers, pharmacy, and demographics verified. Patient wishes to discharge home, denies need for home health at this time, may like outpatient therapy if needed. Patient states she has no further needs or concerns at this time. CM to follow for discharge planning needs that may arise. PCP: Will Specialists: Yandy, surgeon; Jc, data migration lead Preferred Pharmacy: [facility] Insurance: [employer] Prescription Benefit: None Living Will/HPOA: Yes, Carmelo Wayne LNOK: Living Arrangements: Patient lives with in 2 story home with bed and bath on first floor. 3 steps with railing to enter the home. Patient states she was independent at home. Transportation: Self/ DME/HHC: Patient states she has raised toilet and cane. Disposition Plan: Patient to discharge home with family support and follow-up plans in place. Becki JOHNSON, RN, CM
--- NOTE | 2018-11-03 12:17 | NURSING ---
daughter Kylee Reddy provided phone number for any further updates. [phone]
--- NOTE | 2018-11-03 18:26 | PCM.PN.SRG ---
Subjective: incisional pain, Dilaudid worked better than morphine in the past - Physical Exam General: Alert, Oriented x3, Cooperative Lungs: Clear to auscultation, Normal air movement Cardiovascular: Regular rate, No murmurs Abdomen: Soft, Bowel Sounds Not Present, Tender - along the incisions Vital Signs Temp Pulse Resp BP Pulse Ox 98.4 F 67 16 102/48 L 99 11/03/18 12:21 11/03/18 18:00 11/03/18 12:21 11/03/18 12:21 11/03/18 12:21 Oxygen Flow Rate (L/min) 2 Oxygen Delivery Method Room Air Weight: 70.3 kg Body Mass Index (BMI) 26.4 Intake and Output for Last 24 Hours 11/01/18 11/02/18 11/03/18 23:59 23:59 23:59 Intake Total 2700 / 2700 1363 / 1363 Output Total 540 / 540 675 / 675 Balance 2160 / 2160 688 / 688 Laboratory Tests Past 24 Hrs 11/03/18 11/03/18 05:25 05:25 WBC 10.3 RBC 4.28 Hgb 12.1 Hct 37.6 MCV 87.9 MCH 28.3 MCHC 32.2 RDW 14.8 H RDW Differential 47.2 H Plt Count 203 MPV 10.3 Immature Gran % (Auto) 0.100 Neut % (Auto) 90.5 H Lymph % (Auto) 4.9 L [place] % (Auto) 4.5 Eos % (Auto) 0.0 Baso % (Auto) 0.0 Absolute Neuts (auto) 9.3 H Absolute Lymphs (auto) 0.51 L Total Counted Not Reportable Sodium 147 H Potassium 3.6 Chloride 108 H Carbon Dioxide 26.0 Anion Gap 13 BUN 11 Creatinine 0.99 Estim Creat Clear Calc 39.79 Est GFR (MDRD) Af Amer 70 Est GFR (MDRD) Non-Af 58 L BUN/Creatinine Ratio 11.2 Glucose 146 H Calcium 8.0 L Total Bilirubin 1.40 H AST 23 ALT 21 Alkaline Phosphatase 79 Total Protein 5.2 L Albumin 2.7 L Globulin 2.5 Albumin/Globulin Ratio 1.1 Medical Necessity - Tobacco Use Smoking Status: Never smoker Assessment/Plan All Active Problems (Last Reviewed 11/13/17 @ 11:13 by Harumi DeFinis) SOB (shortness of breath) (Acute) Fatigue (Acute) Acute ST elevation myocardial infarction (Resolved) Hypokalemia (Acute) recurring small bowel obstructions-postoperative day #1 status post 3 hour lysis of adhesions and resection of chronically involved bowel with 2 - 4 cm enteroliths/bowel stones felt to be causing her obstructive symptoms. Patient overall is doing well. She notes incisional pain which is controlled with pain medication. We will maintain Layne catheter until ambulating better and to follow urinary output. Continue IV fluids. Encourage incentive spirometry. 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
[2018-11-03] MEDS: Lactated Ringers 500 ML 999 ML IV (19:42)
[2018-11-04] VITALS (12 sets, daily range): BP systolic 125–153; BP diastolic 45–61; PULSE 70–87; RESP 16–18; TEMP 37.1–38.1; O2SAT 87–97
[2018-11-04] MEDS: HYDROmorphone 1 MG/ML Syringe IV ×3 (04:10→21:24)
[2018-11-04] MEDS: 0.9% NaCl Peripheral Flush Adult/Peds IV ×2 (04:10→09:24)
[2018-11-04] MEDS: Lactated Ringers 1,000 ML 100 ML IV ×2 (05:57→15:22)
--- NOTE | 2018-11-04 09:16 | NURSING ---
armenta catheter removed at this time. Pt encouraged to ambulate. Refused yesterday 11/03 due to pain but states she is going to get up more today.
--- NOTE | 2018-11-04 11:43 | CASEMGMT ---
LW/POA forms in echart, stating Carmelo Wayne is POA, forms from 2013. SW reported to admitting RN her POA is indeed Carmelo Wayne. SW printed forms and placed in paper chart. TAWANDA Beauchamp, ACCOUNTS PAYABLE PROCESSOR
[2018-11-04 17:01] LABS: Bedside Glucose 70 mg/dL (70-110)
--- NOTE | 2018-11-04 17:25 | RAD_ITS ---
STUDY: X-RAY CHEST REASON FOR EXAM: Female, 78 years old. Fever TECHNIQUE: Single frontal view COMPARISON: May 08, 2017 FINDINGS: Nasogastric tube extends into the abdomen. The lungs are expanded. Focal right basilar infiltrate/atelectasis. Left basilar infiltrate and mild effusion. A left retrocardiac spiculated lesion cannot be excluded Normal size heart. Normal mediastinum and jaye. Normal visualized pulmonary arteries. Normal visualized aortic arch and descending thoracic aorta. Mild degenerative changes of the thoracic spine. Normal visualized ribs, clavicles, and shoulders. There is no demonstrated abnormality of the visualized soft tissue structures of the upper abdomen. RAD/Chest 1 View (Portable) IMPRESSION: Bibasilar infiltrates/atelectasis. Small left effusion. Possible spiculated lesion in the left retrocardiac space. Correlate with CT is recommended. Electronically Signed: Shar Ramos DO at 23:59 EDT Tel [phone], Service support ,
[2018-11-04 18:11] LABS: Absolute Lymphocyte Count 0.54 X10^3/ul (0.83-4.51); Absolute Neutrophil Count 7.5 X10^3/uL (2.0-7.7); Basophil# 0.02 X10^3/uL; Basophil% 0.2 % (0-1); Eosinophil# 0.02 X10^3/uL; Eosinophils% 0.2 % (0-5); Hematocrit 31.8 % (37-47); Hemoglobin 9.9 g/dl (12.0-15.0); Lymphocyte # 0.54 X10^3/ul (4.0); Lymphocyte % 6.4 % (19-41); Mean Corp Hgb Conc 31.1 g/gl (32-36); Mean Corpuscular Hgb 27.8 pg (27.0-32.0); Mean Corpuscular Volume 89.3 fL (81-99); Mean Platelet Vol. 9.9 fl (6.2-12.0); Monocyte# 0.44 X10^3/uL; Monocyte% 5.2 % (0-10); Neutrophil # 7.45 X10^3/uL (2.7-7.7); Neutrophil % 87.9 % (47-70); Platelet Count 152 K/mm3 (150-450); RBC Distribution Width CV 15.6 % (11.6-14.6); RBC Distribution Width SD 50.5 fl (35.1-43.9); Red Blood Count 3.56 M/mm3 (4.2-5.4); White Blood Count 8.5 K/mm3 (4.4-11.0)
[2018-11-04 18:13] LABS: Differential Indicated SCAN CRITERIA MET; POSITIVE COUNT NO; POSITIVE DIFFERENTIAL YES; POSITIVE MORPHOLOGY NO
[2018-11-04 18:21] LABS: Bacteria 0 SEEN /hpf (None Seen); Mucous, Urine 0 SEEN /hpf (<or=2+)
[2018-11-04 18:25] LABS: Differential Comment SCANNED
[2018-11-04 18:34] LABS: ALB/GLOB Ratio 0.8 RATIO (0.9-2.4); AST(SGOT) 13 U/L (15-37); Alanine Aminotransfer ALT/SGPT 12 U/L (13-56); Albumin, Serum 2.2 g/dL (3.2-5.0); Alkaline Phosphatase 70 U/L (45-117); Anion Gap 6 (5-15); BUN 14 mg/dL (7-18); BUN/Creat Ratio 16.6 RATIO (10-20); Calcium,Total 7.9 mg/dL (8.5-10.1); Chloride 106 mmol/L (98-107); Creatinine, Serum 0.84 mg/dL (0.55-1.02); EST Glomerular Filtration Rate 69 mL/min (>60); Est Glom Filt Rate - Afr Amer 84 mL/min (>60); Estimated Creatinine Clearance 46.89 ml/min; Globulin 2.6 g/dL (2.2-4.2); Glucose 86 mg/dL (74-106); Potassium 3.6 mmol/L (3.5-5.1); Protein, Total 4.8 g/dL (6.4-8.2); Sodium Level 139 mmol/L (136-145)
[2018-11-04 18:49] LABS: Color, Urine Yellow (Yellow); Glucose, Dipstick Normal (Normal); Ketone-Dipstick 50 mg/dl (Negative); Leukocyte Esterase-Dipstick 25 /ul (Negative); Nitrite-Dipstick Negative (Negative); Occult Blood-Urine 10 /ul (Negative); Protein-Dipstick 15 mg/dl (Negative); Urine Bilirubin Dipstick Negative (Negative); Urine Clarity Sl. Cloudy (Clear); Urine Urobilinogen Normal (Normal)
[2018-11-04 19:13] LABS: Red Blood Cells-Urine 0-5 SEEN /hpf (0-5); Squamous Epithelial Cells - UA 0-5 SEEN /hpf (5-10); White Blood Cells 0-5 SEEN /hpf (0-5)
[2018-11-05] VITALS (12 sets, daily range): BP systolic 120–164; BP diastolic 50–60; PULSE 63–70; RESP 18; TEMP 36.8–37.4; O2SAT 94–100
[2018-11-05] MEDS: HYDROmorphone 1 MG/ML Syringe IV ×3 (00:33→21:09)
--- NOTE | 2018-11-05 17:06 | PN.SURG_ITS ---
Subjective: no flatus - Physical Exam General: Alert, Oriented x3, Cooperative Lungs: Clear to auscultation, Diminished Cardiovascular: Regular rate, Regular Rhythm Abdomen: Bowel Sounds Present, Soft, Hypoactive Bowel Sounds, Tender - at incisions Vital Signs Temp Pulse Resp BP Pulse Ox 98.6 F 65 18 146/50 H 94 11/05/18 13:45 11/05/18 14:00 11/05/18 13:45 11/05/18 13:45 11/05/18 13:45 Oxygen Flow Rate (L/min) 2 Oxygen Delivery Method Nasal Cannula Weight: 70.3 kg Body Mass Index (BMI) 26.4 Intake and Output for Last 24 Hours 11/03/18 11/04/18 11/05/18 23:59 23:59 23:59 Intake Total 3168 / 3168 2268 / 2268 1508 / 1508 Output Total 1050 / 1050 815 / 815 615 / 615 Balance 2118 / 2118 1453 / 1453 893 / 893 Laboratory Tests Past 24 Hrs 11/04/18 11/04/18 11/04/18 17:55 17:55 18:00 WBC 8.5 RBC 3.56 L Hgb 9.9 L Hct 31.8 L MCV 89.3 MCH 27.8 MCHC 31.1 L RDW 15.6 H RDW Differential 50.5 H Plt Count 152 MPV 9.9 Immature Gran % (Auto) 0.100 Neut % (Auto) 87.9 H Lymph % (Auto) 6.4 L [place] % (Auto) 5.2 Eos % (Auto) 0.2 Baso % (Auto) 0.2 Absolute Neuts (auto) 7.5 Absolute Lymphs (auto) 0.54 L Total Counted Not Reportable Differential Comment SCANNED Sodium 139 Potassium 3.6 Chloride 106 Carbon Dioxide 27.0 Anion Gap 6 BUN 14 Creatinine 0.84 Estim Creat Clear Calc 46.89 Est GFR (MDRD) Af Amer 84 Est GFR (MDRD) Non-Af 69 BUN/Creatinine Ratio 16.6 Glucose 86 Calcium 7.9 L Total Bilirubin 1.40 H AST 13 L ALT 12 L Alkaline Phosphatase 70 Total Protein 4.8 L Albumin 2.2 L Globulin 2.6 Albumin/Globulin Ratio 0.8 L Urine Color Yellow Urine Clarity Sl. Cloudy Urine pH 6.0 Ur Specific [place] 1.020 Urine Protein 15 H Urine Glucose (UA) Normal Urine Ketones 50 H Urine Occult Blood 10 H Urine Nitrite Negative Urine Bilirubin Negative Urine Urobilinogen Normal Ur Leukocyte Esterase 25 H Urine RBC 0-5 SEEN Urine WBC 0-5 SEEN Ur Squamous Epith Cells 0-5 SEEN Urine Bacteria 0 SEEN Urine Mucus 0 SEEN Medical Necessity - Tobacco Use Smoking Status: Never smoker Assessment/Plan All Active Problems (Last Reviewed 11/13/17 @ 11:13 by Austin Lee) SOB (shortness of breath) (Acute) Fatigue (Acute) Acute ST elevation myocardial infarction (Resolved) Hypokalemia (Acute) recurring small bowel obstructions-postoperative day #3 status post 3 hour lysis of adhesions and resection of chronically involved bowel with 2 - 4 cm e nteroliths/bowel stones felt to be causing her obstructive symptoms. Patient overall is doing well. She notes incisional pain which is controlled with pain medication. We will maintain Layne catheter until ambulating better and to follow urinary output. Continue IV fluids. Encourage incentive spirometry. 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
--- NOTE | 2018-11-05 17:09 | PN.SURG_ITS ---
Subjective: missed note for 11/04 - some fatigue - Physical Exam General: Alert, Oriented x3 Lungs: Clear to auscultation, Diminished Cardiovascular: Regular rate, Regular Rhythm Abdomen: Bowel Sounds Not Present, Tender Vital Signs Temp Pulse Resp BP Pulse Ox 98.6 F 65 18 146/50 H 94 11/05/18 13:45 11/05/18 14:00 11/05/18 13:45 11/05/18 13:45 11/05/18 13:45 Oxygen Flow Rate (L/min) 2 Oxygen Delivery Method Nasal Cannula Weight: 70.3 kg Body Mass Index (BMI) 26.4 Intake and Output for Last 24 Hours 11/03/18 11/04/18 11/05/18 23:59 23:59 23:59 Intake Total 3168 / 3168 2268 / 2268 1508 / 1508 Output Total 1050 / 1050 815 / 815 615 / 615 Balance 2118 / 2118 1453 / 1453 893 / 893 Laboratory Tests Past 24 Hrs 11/04/18 11/04/18 11/04/18 17:55 17:55 18:00 WBC 8.5 RBC 3.56 L Hgb 9.9 L Hct 31.8 L MCV 89.3 MCH 27.8 MCHC 31.1 L RDW 15.6 H RDW Differential 50.5 H Plt Count 152 MPV 9.9 Immature Gran % (Auto) 0.100 Neut % (Auto) 87.9 H Lymph % (Auto) 6.4 L [place] % (Auto) 5.2 Eos % (Auto) 0.2 Baso % (Auto) 0.2 Absolute Neuts (auto) 7.5 Absolute Lymphs (auto) 0.54 L Total Counted Not Reportable Differential Comment SCANNED Sodium 139 Potassium 3.6 Chloride 106 Carbon Dioxide 27.0 Anion Gap 6 BUN 14 Creatinine 0.84 Estim Creat Clear Calc 46.89 Est GFR (MDRD) Af Amer 84 Est GFR (MDRD) Non-Af 69 BUN/Creatinine Ratio 16.6 Glucose 86 Calcium 7.9 L Total Bilirubin 1.40 H AST 13 L ALT 12 L Alkaline Phosphatase 70 Total Protein 4.8 L Albumin 2.2 L Globulin 2.6 Albumin/Globulin Ratio 0.8 L Urine Color Yellow Urine Clarity Sl. Cloudy Urine pH 6.0 Ur Specific [place] 1.020 Urine Protein 15 H Urine Glucose (UA) Normal Urine Ketones 50 H Urine Occult Blood 10 H Urine Nitrite Negative Urine Bilirubin Negative Urine Urobilinogen Normal Ur Leukocyte Esterase 25 H Urine RBC 0-5 SEEN Urine WBC 0-5 SEEN Ur Squamous Epith Cells 0-5 SEEN Urine Bacteria 0 SEEN Urine Mucus 0 SEEN Medical Necessity - Tobacco Use Smoking Status: Never smoker Assessment/Plan All Active Problems (Last Reviewed 11/13/17 @ 11:13 by Austin Lee) SOB (shortness of breath) (Acute) Fatigue (Acute) Acute ST elevation myocardial infarction (Resolved) Hypokalemia (Acute) recurring small bowel obstructions-postoperative day #2 status post 3 hour lysis of adhesions and resection of chronically involved bowel with 2 - 4 cm enteroliths/bowel stones felt to be causing her obstructive symptoms. Patient overall is doing well. She notes incisional pain which is controlled with pain medication. We will maintain Layne catheter until ambulating better a nd to follow urinary output. Continue IV fluids. Encourage incentive spirometry. 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
[2018-11-05] MEDS: Lactated Ringers 500 ML IV (19:28)
[2018-11-06] VITALS (12 sets, daily range): BP systolic 134–169; BP diastolic 68–79; PULSE 55–81; RESP 18; TEMP 36.9–37.2; O2SAT 93–99
[2018-11-06] MEDS: HYDROmorphone 1 MG/ML Syringe IV ×2 (10:02→15:18)
--- NOTE | 2018-11-06 14:45 | CASEMGMT ---
RN CM Note: Intro role of CM to patient. Discussed PT/OT recommendation for further therapy with patient. She states she ambulated around [facility] and thought weaker than baseline, does not feel she will need therapy. Declining home health at this time. Nita PAYNEN RN ACM
[2018-11-07] VITALS (11 sets, daily range): BP systolic 153–164; BP diastolic 63–84; PULSE 60–159; RESP 16–18; TEMP 36.9–37.2; O2SAT 93–96
--- NOTE | 2018-11-07 06:01 | PN.SURG_ITS ---
Subjective: missed note 11/06 - feeling somewhat better - Physical Exam General: Alert, Oriented x3, Cooperative Lungs: Clear to auscultation, Normal air movement Cardiovascular: Regular rate, Regular Rhythm Abdomen: Soft, Hypoactive Bowel Sounds, Tender - at incision Vital Signs Temp Pulse Resp BP Pulse Ox 99 F 74 18 155/68 H 93 11/07/18 02:20 11/07/18 02:46 11/07/18 02:20 11/07/18 02:20 11/07/18 02:20 Oxygen Flow Rate (L/min) 2 Oxygen Delivery Method Room Air Weight: 70.3 kg Body Mass Index (BMI) 26.4 Intake and Output for Last 24 Hours 11/05/18 11/06/18 11/07/18 23:59 23:59 23:59 Intake Total 2017 2945 / 2945 163 / 163 Output Total 995 / 995 1600 / 1600 350 / 350 Balance 1023 / 1023 1345 / 1345 -187 / -187 Medical Necessity - Tobacco Use Smoking Status: Never smoker Assessment/Plan All Active Problems (Last Reviewed 11/13/17 @ 11:13 by Austin Lee) SOB (shortness of breath) (Acute) Fatigue (Acute) Acute ST elevation myocardial infarction (Resolved) Hypokalemia (Acute) recurring small bowel obstructions-postoperative day #4 status post 3 hour lysis of adhesions and resection of chronically involved bowel with 2 - 4 cm enteroliths/bowel stones felt to be causing her obstructive symptoms. Patient overall is doing well. She notes incisional pain which is controlled with pain medication. We will maintain Layne catheter until ambulating better and to follow urinary output. Continue IV fluids. Encourage incentive spirome try. 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
--- NOTE | 2018-11-07 07:16 | PCM.PN.SRG ---
Subjective: past flatus 4 times overnight - Physical Exam General: Alert, Oriented x3, Cooperative Lungs: Clear to auscultation, Normal air movement Cardiovascular: Regular rate, No murmurs Abdomen: Bowel Sounds Present, Soft, Passing Flatus, Tender - at incisions Vital Signs Temp Pulse Resp BP Pulse Ox 99 F 74 18 155/68 H 93 11/07/18 02:20 11/07/18 02:46 11/07/18 02:20 11/07/18 02:20 11/07/18 02:20 Oxygen Flow Rate (L/min) 2 Oxygen Delivery Method Room Air Weight: 70.3 kg Body Mass Index (BMI) 26.4 Intake and Output for Last 24 Hours 11/05/18 11/06/18 11/07/18 23:59 23:59 23:59 Intake Total 2017 / 2017 2945 / 2945 667 / 667 Output Total 995 / 995 1600 / 1600 1000 / 1000 Balance 1023 / 1023 1345 / 1345 -333 / -333 Medical Necessity - Tobacco Use Smoking Status: Never smoker Assessment/Plan All Active Problems (Last Reviewed 11/13/17 @ 11:13 by Austin Lee) SOB (shortness of breath) (Acute) Fatigue (Acute) Acute ST elevation myocardial infarction (Resolved) Hypokalemia (Acute) recurring small bowel obstructions-postoperative day #5 status post 3 hour lysis of adhesions and resection of chronically involved bowel with 2 - 4 cm enteroliths/bowel stones felt to be causing her obstructive symptoms. Patient overall is doing well. She notes incisional pain which is controlled with pain medication. passing flatus currently improved bowel sounds. 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 Encourage ambulation.
[2018-11-07] MEDS: Ensure Clear 120 ML Liquid PO ×4 (08:44→20:48)
[2018-11-07] MEDS: oxyCODONE 5 MG Tablet PO ×3 (08:44→19:15)
[2018-11-07] MEDS: Pantoprazole Sodium 40 MG Tablet PO (08:44)
[2018-11-08] VITALS (7 sets, daily range): BP systolic 151–184; BP diastolic 52–81; PULSE 65–68; RESP 16–18; TEMP 36.7–37.3; O2SAT 94–100
[2018-11-08] MEDS: oxyCODONE 5 MG Tablet PO (06:07)
[2018-11-08 06:08] LABS: ALB/GLOB Ratio 0.6 RATIO (0.9-2.4); AST(SGOT) 15 U/L (15-37); Alanine Aminotransfer ALT/SGPT 12 U/L (13-56); Albumin, Serum 1.8 g/dL (3.2-5.0); Alkaline Phosphatase 57 U/L (45-117); Anion Gap 4 (5-15); BUN 4 mg/dL (7-18); BUN/Creat Ratio 4.9 RATIO (10-20); Calcium,Total 7.6 mg/dL (8.5-10.1); Chloride 107 mmol/L (98-107); Creatinine, Serum 0.82 mg/dL (0.55-1.02); EST Glomerular Filtration Rate 71 mL/min (>60); Est Glom Filt Rate - Afr Amer 86 mL/min (>60); Estimated Creatinine Clearance 48.04 ml/min; Globulin 3.1 g/dL (2.2-4.2); Glucose 111 mg/dL (74-106); Potassium 3.3 mmol/L (3.5-5.1); Protein, Total 4.9 g/dL (6.4-8.2); Sodium Level 141 mmol/L (136-145)
[2018-11-08 06:09] LABS: Absolute Lymphocyte Count 0.71 X10^3/ul (0.83-4.51); Absolute Neutrophil Count 3.8 X10^3/uL (2.0-7.7); Basophil# 0.02 X10^3/uL; Basophil% 0.4 % (0-1); Eosinophil# 0.28 X10^3/uL; Eosinophils% 5.3 % (0-5); Hematocrit 28.4 % (37-47); Hemoglobin 8.9 g/dl (12.0-15.0); Lymphocyte # 0.71 X10^3/ul (4.0); Lymphocyte % 13.4 % (19-41); Mean Corp Hgb Conc 31.3 g/gl (32-36); Mean Corpuscular Hgb 27.2 pg (27.0-32.0); Mean Corpuscular Volume 86.9 fL (81-99); Mean Platelet Vol. 9.9 fl (6.2-12.0); Monocyte# 0.46 X10^3/uL; Monocyte% 8.7 % (0-10); Neutrophil % 71.8 % (47-70); Platelet Count 179 K/mm3 (150-450); Red Blood Count 3.27 M/mm3 (4.2-5.4); White Blood Count 5.3 K/mm3 (4.4-11.0)
[2018-11-08 06:18] LABS: POSITIVE COUNT NO; POSITIVE DIFFERENTIAL NO; POSITIVE MORPHOLOGY NO
[2018-11-08] MEDS: Pantoprazole Sodium 40 MG Tablet PO (08:18)
[2018-11-08] MEDS: Ensure Clear 120 ML Liquid PO ×4 (08:18→21:09)
--- NOTE | 2018-11-08 09:51 | PN.SURG_ITS ---
Subjective: passing flatus and bowel movement feeling more energy today - Physical Exam General: Alert, Oriented x3, Cooperative Lungs: Clear to auscultation, Normal air movement Cardiovascular: Regular rate, No murmurs Abdomen: Bowel Sounds Present, Soft, Tender - at incisions Vital Signs Temp Pulse Resp BP Pulse Ox 98.1 F 68 18 151/75 H 96 11/08/18 08:14 11/08/18 09:28 11/08/18 08:14 11/08/18 08:14 11/08/18 08:14 Oxygen Flow Rate (L/min) 2 Oxygen Delivery Method Room Air Weight: 70.3 kg Body Mass Index (BMI) 26.4 Intake and Output for Last 24 Hours 11/06/18 11/07/18 11/08/18 23:59 23:59 23:59 Intake Total 2945 / 2945 2003 / 2003 522 / 522 Output Total 1600 / 1600 2151 / 2151 1200 / 1200 Balance 1345 / 1345 -147 / -147 -678 / -678 Laboratory Tests Past 24 Hrs 11/08/18 11/08/18 05:18 05:18 WBC 5.3 RBC 3.27 L Hgb 8.9 L Hct 28.4 L MCV 86.9 MCH 27.2 MCHC 31.3 L RDW 15.0 H RDW Differential 48.0 H Plt Count 179 MPV 9.9 Immature Gran % (Auto) 0.400 Neut % (Auto) 71.8 H Lymph % (Auto) 13.4 L [place] % (Auto) 8.7 Eos % (Auto) 5.3 H Baso % (Auto) 0.4 Absolute Neuts (auto) 3.8 Absolute Lymphs (auto) 0.71 L Total Counted Not Reportable Sodium 141 Potassium 3.3 L Chloride 107 Carbon Dioxide 30.0 Anion Gap 4 L BUN 4 L Creatinine 0.82 Estim Creat Clear Calc 48.04 Est GFR (MDRD) Af Amer 86 Est GFR (MDRD) Non-Af 71 BUN/Creatinine Ratio 4.9 L Glucose 111 H Calcium 7.6 L Total Bilirubin 1.20 H AST 15 ALT 12 L Alkaline Phosphatase 57 Total Protein 4.9 L Albumin 1.8 L Globulin 3.1 Albumin/Globulin Ratio 0.6 L Medical Necessity - Tobacco Use Smoking Status: Never smoker Assessment/Plan All Active Problems (Last Reviewed 11/13/17 @ 11:13 by Austin Lee) SOB (shortness of breath) (Acute) Fatigue (Acute) Acute ST elevation myocardial infarction (Resolved) Hypokalemia (Acute) recurring small bowel obstructions-postoperative day #6 status post 3 hour lysis of adhesions and resection of chronically involved bowel with 2 - 4 cm enteroliths/bowel stones felt to be causing her obstructive symptoms. Patient overall is doing well. She notes incisional pain which is controlled with pain medication. passing flatus and bowel movements. Tolerating clear liquids and ensure clear. we will advance to low residue diet due to patient's history of radiation enteritis Encourage incentive spirometry. Encourage ambulation.
[2018-11-09 02:40] VITALS: BP 153/58; PULSE 65; RESP 18; TEMP 37.2; O2SAT 98
[2018-11-09 06:14] LABS: Absolute Lymphocyte Count 0.69 X10^3/ul (0.83-4.51); Basophil# 0.02 X10^3/uL; Basophil% 0.4 % (0-1); Eosinophil# 0.29 X10^3/uL; Eosinophils% 5.2 % (0-5); Hemoglobin 9.1 g/dl (12.0-15.0); Lymphocyte # 0.69 X10^3/ul (4.0); Lymphocyte % 12.5 % (19-41); Mean Corp Hgb Conc 31.4 g/gl (32-36); Mean Corpuscular Volume 89.2 fL (81-99); Mean Platelet Vol. 10.3 fl (6.2-12.0); Monocyte# 0.53 X10^3/uL; Monocyte% 9.6 % (0-10); Neutrophil # 3.97 X10^3/uL (2.7-7.7); Neutrophil % 71.8 % (47-70); Platelet Count 203 K/mm3 (150-450); RBC Distribution Width CV 14.8 % (11.6-14.6); RBC Distribution Width SD 47.4 fl (35.1-43.9); Red Blood Count 3.25 M/mm3 (4.2-5.4); White Blood Count 5.5 K/mm3 (4.4-11.0)
[2018-11-09 06:27] LABS: POSITIVE COUNT NO; POSITIVE DIFFERENTIAL NO; POSITIVE MORPHOLOGY NO
[2018-11-09 06:39] LABS: ALB/GLOB Ratio 0.6 RATIO (0.9-2.4); AST(SGOT) 14 U/L (15-37); Alanine Aminotransfer ALT/SGPT 12 U/L (13-56); Albumin, Serum 1.9 g/dL (3.2-5.0); Alkaline Phosphatase 56 U/L (45-117); Anion Gap 6 (5-15); BUN 5 mg/dL (7-18); BUN/Creat Ratio 5.7 RATIO (10-20); Calcium,Total 7.9 mg/dL (8.5-10.1); Chloride 108 mmol/L (98-107); Creatinine, Serum 0.88 mg/dL (0.55-1.02); EST Glomerular Filtration Rate 66 mL/min (>60); Est Glom Filt Rate - Afr Amer 80 mL/min (>60); Estimated Creatinine Clearance 44.76 ml/min; Globulin 3.1 g/dL (2.2-4.2); Glucose 92 mg/dL (74-106); Potassium 3.2 mmol/L (3.5-5.1); Sodium Level 142 mmol/L (136-145)
[2018-11-09 07:30] VITALS: BP 147/68; PULSE 60; RESP 18; TEMP 36.9; O2SAT 94
[2018-11-09] MEDS: Pantoprazole Sodium 40 MG Tablet PO (09:21)
[2018-11-09] MEDS: Ensure Clear 120 ML Liquid PO ×3 (09:22→20:51)
[2018-11-09] MEDS: oxyCODONE 5 MG Tablet PO (09:26)
[2018-11-09 14:00] VITALS: BP 150/70; PULSE 61; RESP 18; TEMP 37.1; O2SAT 97
--- NOTE | 2018-11-09 16:36 | PCM.PN.SRG ---
Subjective: still feeling somewhat weak, appetite improving but still poor - Physical Exam General: Alert, Oriented x3 Lungs: Clear to auscultation, Normal air movement Cardiovascular: Regular rate, No murmurs Abdomen: Bowel Sounds Present, Soft, Tender - at incisions Vital Signs Temp Pulse Resp BP Pulse Ox 98.8 F 61 18 150/70 H 97 11/09/18 14:00 11/09/18 14:00 11/09/18 14:00 11/09/18 14:00 11/09/18 14:00 Oxygen Flow Rate (L/min) 2 Oxygen Delivery Method Room Air Weight: 70.3 kg Body Mass Index (BMI) 26.4 Intake and Output for Last 24 Hours 11/07/18 11/08/18 11/09/18 23:59 23:59 23:59 Intake Total 2003 2230 / 2230 640 / 640 Output Total 2151 / 2151 3300 / 3300 1200 / 1200 Balance -147 / -147 -1070 / -1070 -560 / -560 Laboratory Tests Past 24 Hrs 11/09/18 11/09/18 05:25 05:25 WBC 5.5 RBC 3.25 L Hgb 9.1 L Hct 29.0 L MCV 89.2 MCH 28.0 MCHC 31.4 L RDW 14.8 H RDW Differential 47.4 H Plt Count 203 MPV 10.3 Immature Gran % (Auto) 0.500 Neut % (Auto) 71.8 H Lymph % (Auto) 12.5 L [place] % (Auto) 9.6 Eos % (Auto) 5.2 H Baso % (Auto) 0.4 Absolute Neuts (auto) 4.0 Absolute Lymphs (auto) 0.69 L Total Counted Not Reportable Sodium 142 Potassium 3.2 L Chloride 108 H Carbon Dioxide 28.0 Anion Gap 6 BUN 5 L Creatinine 0.88 Estim Creat Clear Calc 44.76 Est GFR (MDRD) Af Amer 80 Est GFR (MDRD) Non-Af 66 BUN/Creatinine Ratio 5.7 L Glucose 92 Calcium 7.9 L Total Bilirubin 1.20 H AST 14 L ALT 12 L Alkaline Phosphatase 56 Total Protein 5.0 L Albumin 1.9 L Globulin 3.1 Albumin/Globulin Ratio 0.6 L Medical Necessity - Tobacco Use Smoking Status: Never smoker Assessment/Plan All Active Problems (Last Reviewed 11/13/17 @ 11:13 by Austin Lee) SOB (shortness of breath) (Acute) Fatigue (Acute) Acute ST elevation myocardial infarction (Resolved) Hypokalemia (Acute) recurring small bowel obstructions-postoperative day #7 status post 3 hour lysis of adhesions and resection of chronically involved bowel with 2 - 4 cm enteroliths/bowel stones felt to be causing her obstructive symptoms. Patient overall is doing well. She notes incisional pain which is controlled with pain medication. passing flatus and bowel movements. 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 Encourage ambulation.
[2018-11-09 20:39] VITALS: BP 141/56; PULSE 60; RESP 17; TEMP 37; O2SAT 97
[2018-11-10 05:00] VITALS: BP 163/60; PULSE 53; RESP 17; TEMP 36.8; O2SAT 98
--- NOTE | 2018-11-10 06:24 | DCINST_ITS ---
You will use the following diet at home:: Other - low reidue, advance as tolerated May shower in (days): 0 May resume sexual activity in: No Restrictions Call your doctor if your incision/area has: Continuous Slow Oozing, Increased Pain/ Swelling, Increased Redness, Foul Smelling Discharge, Swelling at the incision site Call your doctor if you observe: Fever of 101 or Higher, Inability to have a bowel movement Allergies/Adverse Reactions: Allergies clopidogrel [From Plavix] Allergy (Severe, Verified 11/02/18 13:07) hives ragweed pollen Allergy (Verified 11/02/18 13:07) sneezing ticagrelor [From Brilinta] Adverse Reaction (Severe, Verified 11/02/18 13:07) sob, eye bled lisinopril Adverse Reaction (Mild, Verified 11/02/18 13:07) Other COUGH Medications to take at Discharge Amlodipine Besylate [Norvasc] 5 mg PO QDAY 10/26/18 Aspirin E.C. [Ecotrin] 81 mg PO DAILY@0800 10/26/18 Metoprolol Tartrate 25 mg PO BID 10/26/18 Oxycodone [Oxyir] 5 mg PO Q6H PRN PRN 7 Days #12 tab 11/10/18 The following prescriptions were given: Oxycodone [Oxyir] 5 mg PO Q6H PRN PRN 7 Days #12 tab PRN Reason: Severe Pain (6-06/03) Primary Care Physician: Dominic Solis DO [Primary Care Provider] - Test Results: Test results from this visit will be discussed in further detail at your follow- up appointment, if applicable. Please Follow Up With: Aric Kebede MD - one week
[2018-11-10 07:31] VITALS: BP 161/57; PULSE 60; RESP 18; TEMP 36.8; O2SAT 98
[2018-11-10] MEDS: Ensure Clear 120 ML Liquid PO (08:38)
[2018-11-10] MEDS: oxyCODONE 5 MG Tablet PO (08:38)
[2018-11-10] MEDS: Pantoprazole Sodium 40 MG Tablet PO (08:40)
[2018-11-10 09:10] VITALS: BP 161/57; PULSE 60; RESP 18; TEMP 36.8; O2SAT 98
--- NOTE | 2018-11-11 16:34 | CASEMGMT ---
CHARO OROPEZA Discharge Follow-Up Phone Call. [place]: Karl Strata: 3 Discharge Date: 11/10/18 Adm Dx: SP SB resection for recurring SBO Call to pt to inquire about how she has been doing since being discharged from the hospital. Pt states she is recovering slowly. States she is taking it easy. Pt states she has the prescription for the Oxy but has not filled it yet, stating she has been taking Tylenol for now but that she plans to get the Oxy soon. She states she has made an appt with Dr Kebede for 11/12. She states she has no questions about the discharge instructions, stating, they're pretty simple. Denies having any other questions or concerns. Instructed to contact her PCP or Dr Kebede if she would have any further concerns. Also made aware she can contact CM @ [facility] for further questions as well. She voices understanding. CHARO OROPEZA thanked pt for choosing [facility]. Sasha JOHNSON RN, CM
--- NOTE | 2018-11-13 11:45 | DS.PCM_ITS ---
Discharge Date and Diagnosis Date of Admission: 11/02/18 Date of Discharge: 11/10/18 - Primary Discharge Diagnosis recurrent small bowel obstruction - Secondary Discharge Diagnosis Chronic Problems (Last Reviewed 11/13/17 @ 11:13 by Austin Lee) Patent foramen ovale (Chronic) Hyperlipidemia (Chronic) Atherosclerotic heart disease of [place] coronary artery without angina pectoris (Chronic) Ischemic cardiomyopathy (Chronic) History of PTCA (Chronic 04/25/17) PTCA/LOPEZ to LAD History of endometrial cancer (Chronic) History of colon cancer (Chronic) HTN (hypertension) (Chronic) STEMI (ST elevation myocardial infarction) (Chronic) Hospital Course and Treatment Operations: - - exploratory laparotomy with extensive lysis of adhesions and resection of small bowel with impacted enteroliths Summary of Care Provided: The patient is a 78 year old F with a prior history of 2 courses of pelvic radiation who 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 The patient also had multiple incisional hernia repairs vomiting with a large 20 x 30 cm piece of mesh placed. The mesh was removed in 2013 but the patient started recurring bowel obstructions. Serial CAT scans demonstrated 2 areas of chronic stenosis with what appeared to be increasing sized stones/anterolisthesis prior to those areas. With her most recent obstruction and CAT scan the patient had approximately 4 cm stones prior to this chronically narrowed areas area She is brought to the operative suite on November 02 and with extensive greater than throughout her lysis of adhesions the affected areas were able to be isolated and resected with a primary anastomosis. Postoperatively the patient had a prolonged ileus as expected. She had return of bowel function and ability be discharged on November 10. - Physical Exam General: Alert, Oriented x3, Cooperative Lungs: Clear to auscultation, Normal air movement Cardiovascular: Regular rate, No murmurs Abdomen: Bowel Sounds Present, Soft, Non Tender, Passing Flatus Vital Signs Temp Pulse Resp BP Pulse Ox 98.2 F 60 18 161/57 H 98 11/10/18 09:10 11/10/18 09:10 11/10/18 09:10 11/10/18 09:10 11/10/18 09:10 Oxygen Flow Rate (L/min) 2 Oxygen Delivery Method Room Air Weight: 70.3 kg Body Mass Index (BMI) 26.4 Discharge Diet: Light diet - advance as tolerated May shower in (days): 0 May resume sexual activity in: No Restrictions Call your doctor if your incision/area has: Continuous Slow Oozing, Increased Pain/ Swelling, Increased Redness, Foul Smelling Discharge, Swelling at the incision site Call your doctor if you observe: Fever of 101 or Higher, Inability to have a bowel movement Home Medications: Medications to take at Discharge Amlodipine Besylate [Norvasc] 5 mg PO QDAY 10/26/18 Aspirin E.C. [Ecotrin] 81 mg PO DAILY@0800 10/26/18 Metoprolol Tartrate 25 mg PO BID 10/26/18 Oxycodone [Oxyir] 5 mg PO Q6H PRN PRN 7 Days #12 tab 11/10/18 Following Prescrptions Were Given to Patient: Oxycodone [Oxyir] 5 mg PO Q6H PRN PRN 7 Days #12 tab PRN Reason: Severe Pain (-06/03) Primary Care Physician: Dominic Solis DO [Primary Care Provider] - Please Follow Up With: Aric Kebede MD - one week Medical Necessity - Tobacco Use Smoking Status: Never smoker Meaningful Use Info Meaningful Use Diagnoses (Choose all that apply): None applicable
== END 2018-11-10 09:10 | disposition home or self-care (01) | DRG 330 ==
LOC: ACINP 12:22 → MS2 12:47
PROVIDERS: Admitting Provider Surgery; Family Provider Family Medicine; PCP Family Medicine; Referring Provider Surgery; Visit Provider Surgery
PROC: 0DT80ZZ Resection of Small Intestine, Open Approach (ICD-10-PCS; CPT 49000; principal; 2018-11-02 13:45)
DX: K56.50 Intestinal adhesions [bands], unspecified as to partial versus complete obstruction (principal); K52.0 Gastroenteritis and colitis due to radiation; Q21.1 Atrial septal defect; K56.49 Other impaction of intestine; K56.7 Ileus, unspecified; I25.10 Atherosclerotic heart disease of native coronary artery without angina pectoris; Y84.2 Radiological procedure and radiotherapy as the cause of abnormal reaction of the patient, or of later complication, without mention of misadventure at the time of the procedure; I10 Essential (primary) hypertension; E78.5 Hyperlipidemia, unspecified; Z85.42 Personal history of malignant neoplasm of other parts of uterus; Z85.038 Personal history of other malignant neoplasm of large intestine; Z92.21 Personal history of antineoplastic chemotherapy; Z92.3 Personal history of irradiation; Z90.49 Acquired absence of other specified parts of digestive tract; I25.2 Old myocardial infarction; Z95.5 Presence of coronary angioplasty implant and graft; I25.5 Ischemic cardiomyopathy
CPT/HCPCS: 36415; 71045; 74018; 80053; 81001; 82962; 85025; 88305; 88307; 93005; 97110; 97116; 97162; 97166; 97530; 97535; J7120; A4216; J2405

== ENCOUNTER 2019-06-13 16:30 | Inpatient (IN) | payer MEDICARE, BC, SELFPAY ==
[2019-04-07 11:18] VITALS: BMI 25.9
[2019-06-13 16:31] VITALS: BP 164/63; PULSE 80; RESP 15; TEMP 36.7; O2SAT 97; BMI 30.8
[2019-06-13 16:35] VITALS: BP 164/63; PULSE 82; RESP 16; O2SAT 100
--- NOTE | 2019-06-13 16:40 | CT_ITS ---
STUDY: CT BRAIN WITHOUT CONTRAST REASON FOR EXAM: Female, 78 years old. Fall. No loss of consciousness. RADIATION DOSAGE (If Supplied By Facility): CTDIvol = ( 44.99 ) mGy, DLP = ( 745.49 ) mGycm TECHNIQUE: Transaxial CT imaging of the brain was performed without administration of intravenous contrast material. Individualized dose optimization techniques were used for this CT. COMPARISON: No relevant priors. FINDINGS: Normal soft tissue structures. Normal calvarium. Normal size ventricles and extra-axial spaces for the patient's age. Normal white matter tracts of the cerebral hemispheres. Normal basal ganglia and thalami. Normal brainstem. Normal cerebellum. There is no intracranial hemorrhage. There are no findings of an acute ischemic infarction. Normal visualized paranasal sinuses. CT/Brain/Head without Contrast IMPRESSION: No acute intracranial or calvarial abnormality. Electronically Signed: Liam Avelar DO at 17:31 EDT Tel [phone], Service support ,
--- NOTE | 2019-06-13 16:40 | EKG12_ITS ---
Test Reason : HEAD INJRY Blood Pressure : / mmHG Vent. Rate : 073 BPM Atrial Rate : 073 BPM P-R Int : 174 ms QRS Dur : 076 ms QT Int : 370 ms P-R-T Axes : 048 -26 117 degrees QTc Int : 407 ms Normal sinus rhythm Left ventricular hypertrophy with repolarization abnormality Abnormal ECG Confirmed by MARY ANN MENDES, YOAN ([id number]), website/blog editor ANA ZAMORANO ([id number]) on 06/18/2019 10:21:48 AM Referred By: Confirmed By:YOAN REESE MD
--- NOTE | 2019-06-13 16:41 | RAD_ITS ---
STUDY: X-RAY - PELVIS REASON FOR EXAM: Female, 78 years old. TECHNIQUE: One view of the pelvis was obtained. COMPARISON: Left femur, June 13, 2019. FINDINGS: There is a non-specific bowel gas pattern. Normal visualized soft tissue structures. Normal bilateral iliac wings, sacroiliac joints and visualized sacrum. Normal visualized bilateral superior and inferior pubic rami. Normal pubic symphysis. Normal ischial tuberosities. Normal visualized right femoral head. There is osteoarthritic spur formation of the right acetabular rim. There is mild articular joint space narrowing of the right hip. There is a displaced intertrochanteric fracture left hip. The femoral head remains in normal alignment with the acetabulum. Normal left acetabulum. There is mild articular joint space narrowing of the left hip. RAD/Pelvis 1 or 2 Views IMPRESSION: 1. Displaced intratrochanteric fracture of the left femur. 2. Degenerative changes of bilateral hips. Electronically Signed: Liam Avelar DO at 18:16 EDT Tel [phone], Service support ,
--- NOTE | 2019-06-13 16:41 | RAD_ITS ---
STUDY: X-RAY - LEFT FEMUR REASON FOR STUDY: Female, 78 years old. Fall. TECHNIQUE: 4 view(s) of the femur. COMPARISON: Pelvis, June 13, 2019. FINDINGS: There is a displaced intertrochanteric fracture of the left hip. The remainder of the femoral shaft appears intact. There are degenerative changes of both the hip and knee. Normal visualized soft tissue structure. RAD/Femur Min 2 Views IMPRESSION: Displaced intertrochanteric fracture of the left femur. Electronically Signed: Liam Avelar DO at 18:14 EDT Tel [phone], Service support ,
[2019-06-13] MEDS: HYDROmorphone 1 MG/ML Syringe IV ×2 (16:51→18:08)
[2019-06-13 17:06] LABS: Absolute Lymphocyte Count 1.16 X10^3/uL (0.83-4.51); Absolute Neutrophil Count 9.6 X10^3/uL (2.0-7.7); Basophil# 0.08 X10^3/uL; Basophil% 0.7 % (0-1); Eosinophil# 0.15 X10^3/uL; Eosinophils% 1.3 % (0-5); Hematocrit 40.5 % (37-47); Hemoglobin 12.6 g/dL (12.0-15.0); Lymphocyte # 1.16 X10^3/ul (4.0); Mean Corp Hgb Conc 31.1 g/dL (32-36); Mean Corpuscular Hgb 28.1 pg (27.0-32.0); Mean Corpuscular Volume 90.2 fL (81-99); Mean Platelet Vol. 10.7 fl (6.2-12.0); Monocyte# 0.54 X10^3/uL; Monocyte% 4.7 % (0-10); NRBC Flagged by Analyzer 0 % (0-5); Neutrophil # 9.55 X10^3/uL (2.7-7.7); Neutrophil % 82.4 % (47-70); Platelet Count 189 K/mm3 (150-450); RBC Distribution Width CV 16.4 % (11.6-14.6); RBC Distribution Width SD 54.4 fl (35.1-43.9); Red Blood Count 4.49 M/mm3 (4.2-5.4); White Blood Count 11.6 K/mm3 (4.4-11.0)
[2019-06-13 17:23] LABS: AST(SGOT) 18 U/L (15-37); Alanine Aminotransfer ALT/SGPT 20 U/L (13-56); Albumin, Serum 3.2 g/dL (3.2-5.0); Alkaline Phosphatase 80 U/L (45-117); Anion Gap 7 (5-15); BUN 28 mg/dL (7-18); BUN/Creat Ratio 26.7 RATIO (10-20); Calcium,Total 8.5 mg/dL (8.5-10.1); Chloride 113 mmol/L (98-107); Creatinine, Serum 1.05 mg/dL (0.55-1.02); EST Glomerular Filtration Rate 54 mL/min (>60); Est Glom Filt Rate - Afr Amer 65 mL/min (>60); Estimated Creatinine Clearance 37.52 ml/min; Globulin 3.1 g/dL (2.2-4.2); Glucose 124 mg/dL (74-106); Potassium 3.9 mmol/L (3.5-5.1); Protein, Total 6.3 g/dL (6.4-8.2); Sodium Level 143 mmol/L (136-145)
[2019-06-13 17:29] LABS: Prothrombin Time (Protime)PT. 12.6 SECONDS (11.7-14.9)
--- NOTE | 2019-06-13 17:37 | ED.DCSUM_ITS ---
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 Patient states that she was carrying wan through her garage. States that her garage door was long-term up and she did not notice. She hit the door and then fell to the ground. She landed on her left side. She struck her head but did not lose consciousness. She was unable to get herself up. She had significant pain in the left hip and difficulty moving. Prior similar symptoms: No Recent Illness/Hospitalization: Yes Past Medical History - Allergies and Home Meds Allergies/Adverse Reactions: Allergies clopidogrel [From Plavix] Adverse Reaction (Severe, Verified 06/13/19 16:35) hives ragweed pollen Adverse Reaction (Severe, Verified 06/13/19 16:35) Other cough lisinopril Adverse Reaction (Mild, Verified 06/13/19 16:35) Other COUGH Prior records reviewed: Yes Past Medical History: - Surgical History: cholecystectomy, colectomy, herniorrhaphy, hysterectomy Smoking Status: Never smoker - Family History Paternal Family History: Family History (Last Updated 04/07/19 @ 11:15 by Disha Yuan) Father Heart disease Mother Heart disease Brother Heart disease Lung cancer Sister Heart disease Sister Lung cancer Family History: Reports: No pertinent history Maternal Family History: Family History (Last Updated 04/07/19 @ 11:15 by Disha Yuan) Father Heart disease Mother Heart disease Brother Heart disease Lung cancer Sister Heart disease Sister Lung cancer Family History: Reports: No pertinent history Review of Systems General: Denies: Chills, Fever, Sweats Eyes: Denies: Visual changes - bilaterally, Diplopia ENT: Denies: Rhinorrhea, Sore throat Cardiovascular: Denies: Chest pain, Palpitations Respiratory: Denies: Dyspnea, Cough, Dyspnea on exertion Gastrointestinal: Denies: Abdominal pain, Nausea, Vomiting, Diarrhea, Melena, Hematochezia Genitourinary: Denies: Dysuria, Hematuria, Frequency Musculoskeletal: Denies: Back pain, Extremity Pain Skin: Denies: Rash, Wounds Neurological: Denies: Headache, Weakness, Numbness Physical Exam Vital Signs/Narrative: Vital Signs Temp Pulse Resp BP Pulse Ox 06/13/19 16:35 82 16 164/63 H 100 06/13/19 16:31 98.1 F 80 15 164/63 H 97 Inital Vital Signs reviewed: Yes General: Well nourished, Well developed, No Acute Distress Head: Normocephalic, Atraumatic Eyes: Perrl, EOMI ENT: Moist mucous membranes, No rhinorrhea Neck: Supple, Nontender Cardiovascular: Regular rate, Regular rhythm, No murmurs Respiratory: No distress, CTA bilaterally, Chest nontender Abdomen: Soft, Nontender, Nondistended, Normal bowel sounds Back: Nontender, Normal Inspection Extremities: No edema, Tenderness - Positive logroll of the left hip. Normal pulses. Sensation preserved to light touch. Skin intact. Skin: Normal color, No rash Neurological: Alert, Oriented x3, Cranial nerves II-XII grossly intact, Normal Strength, Normal Sensation Psychological: Normal affect, Normal Mood Diagnostic/Tx/Re-eval Clinical Impression(s) from Imaging Studies Brain CT 06/13/19 16:40 IMPRESSION: No acute intracranial or calvarial abnormality. Electronically Signed: Liam Avelar DO at 17:31 EDT Tel [phone], Service support , Femur X-Ray 06/13/19 16:41 IMPRESSION: Displaced intertrochanteric fracture of the left femur. Electronically Signed: Liam Avelar DO at 18:14 EDT Tel [phone], Service support , Pelvis X-Ray 06/13/19 16:41 IMPRESSION: 1. Displaced intratrochanteric fracture of the left femur. 2. Degenerative changes of bilateral hips. Electronically Signed: Liam Avelar DO at 18:16 EDT Tel [phone], Service support , Chest X-Ray 06/13/19 17:39 IMPRESSION: Borderline cardiomegaly without acute pulmonary disease. Electronically Signed: Lima Avelar DO at 18:16 EDT Tel [phone], Service support , Abnormal Lab Results 06/13/19 06/13/19 06/13/19 16:50 16:50 16:50 WBC 11.6 H RBC 4.49 Hgb 12.6 Hct 40.5 MCV 90.2 MCH 28.1 MCHC 31.1 L RDW Std Deviation 54.4 H RDW Coeff of Sam 16.4 H Plt Count 189 MPV 10.7 Immature Gran % (Auto) 0.900 Neut % (Auto) 82.4 H Lymph % (Auto) 10.0 L [place] % (Auto) 4.7 Eos % (Auto) 1.3 Baso % (Auto) 0.7 Absolute Neuts (auto) 9.6 H Absolute Lymphs (auto) 1.16 Nucleated RBC % 0 PT 12.6 INR 1.0 Sodium 143 Potassium 3.9 Chloride 113 H Carbon Dioxide 23.0 Anion Gap 7 BUN 28 H Creatinine 1.05 H Estim Creat Clear Calc 37.52 Est GFR (MDRD) Af Amer 65 Est GFR (MDRD) Non-Af 54 L BUN/Creatinine Ratio 26.7 H Glucose 124 H Calcium 8.5 Total Bilirubin 0.50 AST 18 ALT 20 Alkaline Phosphatase 80 Total Protein 6.3 L Albumin 3.2 Globulin 3.1 Albumin/Globulin Ratio 1.0 - Medical Decision Making The patient presents after mechanical fall. She does have pain in her left hip. She has shortening and external rotation. She was given analgesics. X-rays do confirm intertrochanteric hip fracture. The patient was discussed with Dr. Mayo. Metabolic work-up was unremarkable. She will be admitted to the hospitalist for pain control, medical clearance and operative fixation. Impression 1. Closed left displaced intertrochanteric hip fracture ED Disposition - Plan for ED Patient: Disposition: Acute Care [facility]
--- NOTE | 2019-06-13 17:39 | RAD_ITS ---
STUDY: X-RAY CHEST REASON FOR EXAM: Female, 78 years old. Pre-op. Fall. TECHNIQUE: Single AP portable view of the chest. COMPARISON: November 04, 2018. FINDINGS: There is absence of the NG tube noted on the prior study. The lungs are mildly hypoexpanded. There is no focal mass or infiltrate. There is continued mild elevation of the right hemidiaphragm. There is no demonstrated pleural abnormality. There is borderline cardiomegaly. Normal mediastinum and jaye. Normal visualized pulmonary arteries. Normal visualized aortic arch and descending thoracic aorta. There are diffuse degenerative changes of the visualized thoracic spine. There is degenerative osteoarthritis of the bilateral shoulders. There is no demonstrated abnormality of the visualized soft tissue structures of the upper abdomen. RAD/Chest 1 View IMPRESSION: Borderline cardiomegaly without acute pulmonary disease. Electronically Signed: Liam Avelar DO at 18:16 EDT Tel [phone], Service support ,
[2019-06-13 18:48] VITALS: BP 156/71; PULSE 72; RESP 16; O2SAT 98
--- NOTE | 2019-06-13 19:26 | PCM.HP.STD ---
Problem List (1) Presence of stent in coronary artery Status: Chronic Comment: PTCA/LOPEZ to LAD 04/25/17 (2) Essential hypertension Status: Chronic (3) Sarcoma of vulva Status: Acute (4) Hyperlipidemia Status: Chronic Qualifiers: Hyperlipidemia type: pure hypercholesterolemia Qualified Code(s): E78.00 - Pure hypercholesterolemia, unspecified; E78.00 - Pure hypercholesterolemia, unspecified; E78.00 - Pure hypercholesterolemia, unspecified; E78.0 - Pure hypercholesterolemia (5) Atherosclerotic heart disease of [place] coronary artery without angina pectoris Status: Chronic Qualifiers: [place] vs. transplanted heart: [place] heart Qualified Code(s): I25.10 - Atherosclerotic heart disease of [place] coronary artery without angina pectoris (6) History of endometrial cancer Status: Chronic (7) History of colon cancer Status: Chronic (8) Femoral fracture Status: Acute Qualifiers: Encounter type: initial encounter Femur location: intertrochanteric Fracture type: closed Fracture alignment: displaced Laterality: left Qualified Code(s): S72.142A - Displaced intertrochanteric fracture of left femur, initial encounter for closed fracture History of Present Illness Date of Admission: 06/13/19 Chief Complaint: Fall, left hip pain - 1 day The patient is a 78 year old F with past medical history of colon CA, status post chemotherapy, endometrial CA status post total abdominal hysterectomy, bilateral salpingectomy, left oophorectomy, status post adjuvant radiotherapy, history of vulvar CA, recent recurrent small bowel obstruction status post surgery comes in after a fall and sustained left hip pain. Patient was bringing some plants in from the outside to get ready to send them to the cemetry when she bumped into her half-open garage door. She felt relatively well prior to this incident. Denied any dizziness or palpitations. She had recently had a biopsy for her vulvar CA as well as cauterization for vaginal bleeding. This was done by her oncology group in [place]. At the time of the exam, patient complains of pain in her left hip being 8 out of 10, worse with movement. She also complains of some substernal chest pain that is intermittent, sometimes is worse with exertion. Vitals in the ED showed temperature 98.1 F, heart rate 80, blood pressure 164/63, respiratory rate is 15, SPO2 is 97% on room air. BC count is 11.6, hemoglobin 12.6, platelet count is 189, INR is 1.0, sodium 143, potassium 3.9, chloride 113, bicarbonate 20, BUN 28, creatinine 1.05, baseline creatinine 0.88. LFTs are unremarkable. Chest x-ray shows borderline cardiomegaly without acute pulmonary disease. Past Medical History Past Medical History (Chronic Problems): Chronic Problems (Last Updated 05/10/19 @ 11:05 by Carolynn Nicole) Presence of stent in coronary artery (Chronic ~04/25/17) PTCA/LOPEZ to LAD 04/25/17 Essential hypertension (Chronic) Patent foramen ovale (Chronic) Hyperlipidemia (Chronic) Atherosclerotic heart disease of [place] coronary artery without angina pectoris (Chronic) Ischemic cardiomyopathy (Chronic) History of endometrial cancer (Chronic) History of colon cancer (Chronic) Medical History: Medical History (Last Updated 05/10/19 @ 11:05 by Carolynn Nicole) Presence of stent in coronary artery (Chronic) Onset Date: ~04/25/17 Z95.5 PTCA/LOPEZ to LAD 04/25/17 Essential hypertension (Chronic) I10 Patent foramen ovale (Chronic) Q21.1 Hyperlipidemia (Chronic) E78.5 Atherosclerotic heart disease of [place] coronary artery without angina pectoris (Chronic) I25.10 Ischemic cardiomyopathy (Chronic) I25.5 History of endometrial cancer (Chronic) Z85.42 History of colon cancer (Chronic) Z85.038 Colon cancer C18.[address] elevation myocardial infarction I21.3 H/O small bowel obstruction Z87.19 Hypokalemia (Resolved) E87.6 Allergies clopidogrel [From Plavix] Adverse Reaction (Severe, Verified 06/13/19 16:35) hives ragweed pollen Adverse Reaction (Severe, Verified 06/13/19 16:35) Other cough lisinopril Adverse Reaction (Mild, Verified 06/13/19 16:35) Other COUGH Home Medications: Ambulatory Orders Medication Instructions Recorded Amlodipine Besylate [Norvasc] 5 mg PO DAILY 10/26/18 Aspirin E.C. 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, endometrial cancer - Status post hysterectomy in remission Lives: Spouse/ Significant Other Smoking Status: Never smoker Tobacco Use: Non-smoker Alcohol: None Drugs: None - *Family History Paternal Family History: Family History (Last Updated 04/07/19 @ 11:15 by Disha Yuan) Father Heart disease Mother Heart disease Brother Heart disease Lung cancer Sister Heart disease Sister Lung cancer History Items: Heart Disease Maternal Family History: Family History (Last Updated 04/07/19 @ 11:15 by Disha Yuan) Father Heart disease Mother Heart disease Brother Heart disease Lung cancer Sister Heart disease Sister Lung cancer History Items: Heart Disease Review of Systems Constitutional: Denies: Anorexia, Chills, Fever, Malaise, Weakness, Weight Change Eyes: Denies: Blurred vision, Cataracts, Conjunctivae Inflammation, Double vision HEENT: Reports: Nasal Congestion. Denies: Difficulty Hearing, Difficulty Swallowing, Dysphasia, Head Aches, Hearing Changes, Nasal bleeding, Sinus Congestion, Sinus Drainage Cardiovascular: Denies: Chest Pain, Claudication, Orthopnea, Palpitations, Paroxysmal Noc. Dyspnea Respiratory: Denies: Cough, Hemoptysis, Shortness of breath at rest, Shortness of breath upon exertion, Sputum production Gastrointestinal: Denies: Abdominal Pain, Constipation, Hematemesis, Hematochezia, Nausea, Melena, Vomiting Genitourinary: Denies: Dysuria, Incontinence Gynecological: Denies: Breast symptoms, Excessively long or heavy periods Musculoskeletal: Reports: Joint Pain - hip, Joint swelling, Joint Tenderness Skin: Denies: Rash, Wounds Neurological: Denies: Numbness, Tingling, Focal weakness Psychiatric: Denies: Anxiety, Depression, Homicidal Ideations, Suicidal Ideations Hematologic/ Lymphatic: Denies: Easy Bruising, Easy Bleeding VTE Information - Inpt Only VTE Present on Admission: No VTE Pharm Prophylaxis ordered?: Yes Patient Problems: Active and Suspected Problems (Last Updated 05/10/19 @ 11:05 by Carolynn Nicole) Femoral fracture (Acute) - Physical Exam General: Alert, Oriented x3, Cooperative, No apparent distress HEENT: Atraumatic, PERRLA, EOMI, Normocephalic Oral: Moist Mucosa Neck: Supple Lungs: Clear to auscultation, Normal air movement Cardiovascular: Regular rate, Regular Rhythm, Normal S1, Normal S2, No murmurs Abdomen: Bowel Sounds Present, Soft, Non Tender, Non-Distended, No Hepato-splenomegaly Extremities: No edema Skin: No rashes, No breakdown Musculoskeletal: No Tenderness to Palpation of Joints or Extremities Lymphatic: No Cervical, Supraclavicular, or Inguinal Adenopathy Neurological: Cranial nerves II-XII grossly intact, Neuro grossly intact Psych/Mental Status: Normal Affect, Appropriate Vital Signs Temp Pulse Resp BP Pulse Ox 98.1 F 72 16 156/71 H 98 06/13/19 16:31 06/13/19 18:48 06/13/19 18:48 06/13/19 18:48 06/13/19 18:48 Oxygen Flow Rate (L/min) 2 Oxygen Delivery Method Nasal Cannula Weight: 81.4 kg Body Mass Index (BMI) 30.8 Intake and Output for Last 24 Hours 06/11/19 06/12/19 06/13/19 23:59 23:59 23:59 Intake Total 500 / 500 Balance 500 / 500 Laboratory Tests Past 24 Hrs 06/13/19 06/13/19 06/13/19 16:50 16:50 16:50 WBC 11.6 H RBC 4.49 Hgb 12.6 Hct 40.5 MCV 90.2 MCH 28.1 MCHC 31.1 L RDW Std Deviation 54.4 H RDW Coeff of Sam 16.4 H Plt Count 189 MPV 10.7 Immature Gran % (Auto) 0.900 Neut % (Auto) 82.4 H Lymph % (Auto) 10.0 L [place] % (Auto) 4.7 Eos % (Auto) 1.3 Baso % (Auto) 0.7 Absolute Neuts (auto) 9.6 H Absolute Lymphs (auto) 1.16 Nucleated RBC % 0 PT 12.6 INR 1.0 Sodium 143 Potassium 3.9 Chloride 113 H Carbon Dioxide 23.0 Anion Gap 7 BUN 28 H Creatinine 1.05 H Estim Creat Clear Calc 37.52 Est GFR (MDRD) Af Amer 65 Est GFR (MDRD) Non-Af 54 L BUN/Creatinine Ratio 26.7 H Glucose 124 H Calcium 8.5 Total Bilirubin 0.50 AST 18 ALT 20 Alkaline Phosphatase 80 Total Protein 6.3 L Albumin 3.2 Globulin 3.1 Albumin/Globulin Ratio 1.0 Assessment/Plan All Active Problems (Last Updated 05/10/19 @ 11:05 by Carolynn Nicole) Femoral fracture (Acute) Thyroid nodule (Acute) Sarcoma of vulva (Acute) Fatigue (Acute) SOB (shortness of breath) (Acute) Hypokalemia (Resolved) 78 year old F with past medical history of colon CA, status post chemotherapy, endometrial CA status post total abdominal hysterectomy, bilateral salpingectomy, left oophorectomy, status post adjuvant radiotherapy, history of vulvar CA, recent recurrent small bowel obstruction status post surgery comes in after a fall and sustained left hip pain. 1. Acute left displaced femoral fracture, traumatic, secondary to fall Patient's pain is uncontrolled Orthopedics consulted from the ED Patient has history of CAD status post OK/stents in 2017; with Dr. Greene in the outpatient Patient complains of intermittent chest discomfort. EKG shows no acute ST-T changes. Will request for cardiology consult for preoperative risk stratification, 2D echo Plan: Admit to MedSurg, pain control, follow-up on orthopedics recommendations, PT and OT to evaluate 2. CAD status post OK/stents,continue on aspirin, metoprolol 3. Hypertension, controlled, on metoprolol and amlodipine, continue with home regimen, continue to monitor vitals 4. History of colon CA, endometrial CA, s/p surgery and radiation therapy Current vulvar CA status post biopsy, radiation therapy Will need to follow-up with oncology in the outpatient 5. Dehydration, elevation of creatinine to 1.05 from baseline 0.88 We will continue on IV fluids, labs in a.m. 6. DVT Prophylaxis with heparin subcu Code Visit Inpatient E&M: 14141 Init Hosp L2
[2019-06-13 19:30] VITALS: BP 170/71; PULSE 71; RESP 18; TEMP 37.1; O2SAT 98
[2019-06-13 19:38] VITALS: BMI 27.4
[2019-06-13 19:57] VITALS: BMI 27.5
[2019-06-13] MEDS: 0.9% Normal Saline 1,000 ML 100 ML IV (20:50)
[2019-06-13] MEDS: Morphine 2 MG/ML Syringe IV (20:51)
[2019-06-13] MEDS: Ondansetron 4 MG/2 ML Vial IV (22:17)
[2019-06-13] MEDS: Heparin Injection (Vial) 5,000 UNIT/ML VIAL 5000 UNIT SC (23:09)
[2019-06-13] MEDS: Acetaminophen 500 MG Tablet 1000 MG PO (23:10)
[2019-06-13 23:11] VITALS: BP 175/75; PULSE 73
[2019-06-13] MEDS: Metoprolol Tartrate 25 MG Tablet PO (23:11)
[2019-06-14] VITALS (18 sets, daily range): BP systolic 138–167; BP diastolic 52–82; PULSE 52–72; RESP 16–18; TEMP 36.4–37.3; O2SAT 92–100; BMI 27.4; BMI 27.5
[2019-06-14] MEDS: Morphine 2 MG/ML Syringe IV ×5 (01:05→20:01)
[2019-06-14 06:05] LABS: Absolute Lymphocyte Count 1.01 X10^3/uL (0.83-4.51); Absolute Neutrophil Count 4.9 X10^3/uL (2.0-7.7); Basophil# 0.03 X10^3/uL; Basophil% 0.5 % (0-1); Eosinophil# 0.03 X10^3/uL; Eosinophils% 0.5 % (0-5); Hematocrit 33.5 % (37-47); Hemoglobin 10.4 g/dL (12.0-15.0); Lymphocyte # 1.01 X10^3/ul (4.0); Lymphocyte % 15.5 % (19-41); Mean Corpuscular Volume 90.3 fL (81-99); Mean Platelet Vol. 10.6 fl (6.2-12.0); Monocyte# 0.54 X10^3/uL; Monocyte% 8.3 % (0-10); NRBC Flagged by Analyzer 0 % (0-5); Neutrophil # 4.87 X10^3/uL (2.7-7.7); Neutrophil % 74.9 % (47-70); Platelet Count 159 K/mm3 (150-450); RBC Distribution Width CV 16.3 % (11.6-14.6); RBC Distribution Width SD 54.3 fl (35.1-43.9); Red Blood Count 3.71 M/mm3 (4.2-5.4); White Blood Count 6.5 K/mm3 (4.4-11.0)
[2019-06-14 06:24] LABS: AST(SGOT) 14 U/L (15-37); Alanine Aminotransfer ALT/SGPT 16 U/L (13-56); Albumin, Serum 2.7 g/dL (3.2-5.0); Alkaline Phosphatase 64 U/L (45-117); Anion Gap 5 (5-15); BUN 22 mg/dL (7-18); BUN/Creat Ratio 23.1 RATIO (10-20); Chloride 115 mmol/L (98-107); Creatinine, Serum 0.95 mg/dL (0.55-1.02); EST Glomerular Filtration Rate 60 mL/min (>60); Est Glom Filt Rate - Afr Amer 72 mL/min (>60); Estimated Creatinine Clearance 41.46 ml/min; Globulin 2.7 g/dL (2.2-4.2); Glucose 119 mg/dL (74-106); Potassium 4.2 mmol/L (3.5-5.1); Protein, Total 5.4 g/dL (6.4-8.2); Sodium Level 145 mmol/L (136-145)
[2019-06-14 06:38] LABS: Partial Thromboplast Time 30.8 Seconds (24.1-36.2)
[2019-06-14] MEDS: 0.9% Normal Saline 1,000 ML 100 ML IV (06:56)
--- NOTE | 2019-06-14 07:00 | ECHOCS_ITS ---
Reason For Study: Preop Procedure This was a 2D Doppler, Color Flow transthoracic echocardiogram. The study was technically difficult. Contrast injection was performed. Patient was scanned supine due to left hip fracture. Exam performed portable in patient room. Left Ventricle Normal LV size. The estimated ejection fraction is 40 %. Moderate segmental systolic dysfunction (see wall motion). Cranks : Akinetic. Mid-Anterior : Hypokinetic. Mid-Inferior: Hypokinetic. Anterio- Basal: Normal. Posterior-Basal: Normal. Right Ventricle Normal RV size. Normal systolic function. Atria Normal left atrium. Normal right atrium. Tricuspid Valve Normal tricuspid valve. Mild (1+) tricuspid valve insufficiency. Pulmonary artery systolic pressure is 45 mmHg. Aortic Valve Trisinus/trileaflet aortic valve. Moderate diffuse aortic valve calcification. Lambls excrescence. Pulmonic Valve Normal pulmonic valve. Great Vessels Normal aortic root. The pulmonary artery is normal size. Normal inferior vena cava. Pericardium/Pleural No pericardial effusion. Medication Diluted definity 4ml given slow IV push to enhance endocardial definition. MMode/2D Measurements & Calculations LVIDd: 4.8 cm IVSd: 1.5 cm Ao root diam: 2.9 cm LVIDs: 3.1 cm LVPWd: 1.1 cm RVDd: 3.9 cm FS: 36.2 % LAV(MOD-bp): 52.6 ml LVAd ap4: 28.5 cm2 SV(MOD-sp4): 36.8 ml LAV(MOD-bp) Indexed: 29.5 ml/m2 EDV(MOD-sp4): 82.4 ml LAV(MOD-sp2): 55.1 ml EDV(sp4-el): 84.4 ml LAV(MOD-sp4): 48.0 ml LVAs ap4: 20.5 cm2 ESV(MOD-sp4): 45.6 ml ESV(sp4-el): 47.8 ml EF(MOD-sp4): 44.6 % EF(sp4-el): 43.4 % SV(sp4-el): 36.6 ml LA A4 area: 19.8 cm2 LA dimension(2D): 3.7 cm RA A4 area: 17.9 cm2 Doppler Measurements & Calculations MV E max charlie: 64.2 cm/sec Lat Peak E' Charlie: 6.9 cm/sec Med Peak E' Charlie: 5.2 cm/sec MV A max charlie: 112.5 cm/sec E/E' lat: 9.3 E/E' med: 12.4 MV E/A: 0.57 Ao V2 max: 174.7 cm/sec LV V1 max: 126.1 cm/sec PA V2 max: 103.5 cm/sec Ao max P.2 mmHg LV V1 max P.4 mmHg Ao V2 mean: 119.1 cm/sec Ao mean P.2 mmHg Ao V2 VTI: 41.8 cm TR max charlie: 320.7 cm/sec TR max P.1 mmHg Interpretation Summary Normal LV size. The estimated ejection fraction is 40 %. Moderate segmental systolic dysfunction (see wall motion). Moderate diffuse aortic valve calcification. Lambls excrescence Compared to previous study, the left ventricular systolic function is the same.. Ordering Physician: Wendi Mcelroy Referring Physician: Dominic Solis Performed By: Jing Bush, JONI, RVT
[2019-06-14] MEDS: amLODIPine 5 MG Tablet PO (09:20)
[2019-06-14] MEDS: Metoprolol Tartrate 25 MG Tablet PO ×2 (09:21→22:03)
--- NOTE | 2019-06-14 10:30 | CASEMGMT ---
RN CM Face to Face with patient for initial transition planning/care coordination assessment. RN CM introduced self and role at [facility]. Patient lying in bed, alert and oriented, at bedside. Patient willing to participate in assessment and is able to answer all questions appropriately. Care providers, pharmacy, and demographics verified. Patient unsure of disposition at discharge, reviewed options of SNF vs HHC. Will re-evaluate after surgery. Patient states she has no further needs or concerns at this time. CM to follow for discharge planning needs that may arise. PCP: Will Specialists: Yandy, surgeon; Jc, remanufacturing technician; Gentry, oncologist Preferred Pharmacy: [facility] Insurance: [facility] Prescription Benefit: no Living Will/HPOA: yes, Carmelo Wayne LNOK: Living Arrangements: Patient lives with in 2 story home with bed and bath on the first floor. 2 steps and railing to enter the home. Transportation: self/ DME/HHC: Patient denies any DME at home. No previous HHC or SNF. Disposition Plan: SNF vs HHC. Will monitor after surgery Becki JOHNSON, RN, CM
--- NOTE | 2019-06-14 11:05 | PN_ITS ---
Patient Problems: Active and Suspected Problems (Last Updated 05/10/19 @ 11:05 by Carolynn Nicole) Femoral fracture (Acute) Subjective: CC left hip pain Patient is a 78-year-old lady who presented to the emergency department following a traumatic fall. She was apparently knocked down by her garage door. She did sustain hip pain imaging studies demonstrated acute Displaced intertrochanteric fracture of the left femur. Consult placed orthopedic surgery patient scheduled to undergo intervention this afternoon Objective: GENERAL: cooperative HEENT: Atraumatic; EYES; Anicteric, Normal Conjunctiva NECK; supple, normal thyroid, . RESPIRATORY: Diminished to auscultation CARDIOVASCULAR: Regular S1 S2, GI: soft, non-tender, normoactive bowel sounds, : No Renal angle tenderness; EXTREMITIES: No edema, no clubbing, MUSCULOSKELETAL: Restricted in the left hip NEURO: Awake; no lateralizing signs. SKIN: No Rash PSYCH; Normal affect Vitals/I&O's: Vital Signs Temp Pulse Resp BP Pulse Ox 98.2 F 56 L 16 138/82 H 96 06/14/19 07:51 06/14/19 09:21 06/14/19 07:51 06/14/19 07:51 06/14/19 09:00 Oxygen Flow Rate (L/min) 2 Oxygen Delivery Method Room Air Weight: 73 kg Body Mass Index (BMI) 27.4 Intake and Output for Last 24 Hours 06/12/19 06/13/19 06/14/19 23:59 23:59 23:59 Intake Total 500 / 700 1400 / 1400 Output Total 1675 / 1675 Balance 500 / 0 -275 / -275 Laboratory Results 06/13/19 16:50: WBC 11.6 H, RBC 4.49, Hgb 12.6, Hct 40.5, MCV 90.2, MCH 28.1, MCHC 31.1 L, RDW Std Deviation 54.4 H, RDW Coeff of Sam 16.4 H, Plt Count 189, MPV 10.7, Immature Gran % (Auto) 0.900, Neut % (Auto) 82.4 H, Lymph % (Auto) 10.0 L, [place] % (Auto) 4.7, Eos % (Auto) 1.3, Baso % (Auto) 0.7, Absolute Neuts (auto) 9.6 H, Absolute Lymphs (auto) 1.16, Nucleated RBC % 0 06/13/19 16:50: PT 12.6, INR 1.0 06/13/19 16:50: Sodium 143, Potassium 3.9, Chloride 113 H, Carbon Dioxide 23.0, Anion Gap 7, BUN 28 H, Creatinine 1.05 H, Estim Creat Clear Calc 37.52, Est GFR (MDRD) Af Amer 65, Est GFR (MDRD) Non-Af 54 L, BUN/Creatinine Ratio 26.7 H, Glucose 124 H, Calcium 8.5, Total Bilirubin 0.50, AST 18, ALT 20, Alkaline Phosphatase 80, Total Protein 6.3 L, Albumin 3.2, Globulin 3.1, Albumin/Globulin Ratio 1.0 06/14/19 05:46: WBC 6.5, RBC 3.71 L, Hgb 10.4 L, Hct 33.5 L, MCV 90.3, MCH 28.0, MCHC 31.0 L, RDW Std Deviation 54.3 H, RDW Coeff of Sam 16.3 H, Plt Count 159, MPV 10.6, Immature Gran % (Auto) 0.300, Neut % (Auto) 74.9 H, Lymph % (Auto) 15.5 L, [place] % (Auto) 8.3, Eos % (Auto) 0.5, Baso % (Auto) 0.5, Absolute Neuts (auto) 4.9, Absolute Lymphs (auto) 1.01, Nucleated RBC % 0 06/14/19 05:46: Sodium 145, Potassium 4.2, Chloride 115 H, Carbon Dioxide 25.0, Anion Gap 5, BUN 22 H, Creatinine 0.95, Estim Creat Clear Calc 41.46, Est GFR (MDRD) Af Amer 72, Est GFR (MDRD) Non-Af 60, BUN/Creatinine Ratio 23.1 H, Glucose 119 H, Calcium 8.0 L, Total Bilirubin 0.90, AST 14 L, ALT 16, Alkaline Phosphatase 64, Total Protein 5.4 L, Albumin 2.7 L, Globulin 2.7, Albumin/Gl obulin Ratio 1.0 06/14/19 05:46: Blood Type A NEGATIVE, Antibody Screen NEGATIVE 06/14/19 05:46: APTT 30.8 06/14/19 05:46: Crossmatch See Detail Current Medications Acetaminophen (Tylenol) 1,000 mg PO TID [facility] Last Admin: 06/14/19 05:59 Dose: Not Given Documented by: Albuterol Sulfate (Ventolin Aerosols) 2.5 mg INHALATION Q2H PRN PRN PRN Reason: Shortness of Breath/Wheezing Amlodipine Besylate (Norvasc) 5 mg PO DAILY [facility] Last Admin: 06/14/19 09:20 Dose: 5 mg Documented by: Heparin Sodium (Porcine) (Heparin Na) 5,000 unit SC Q8 [facility] Last Admin: 06/14/19 07:21 Dose: Not Given Documented by: Sodium Chloride () 1,000 mls @ 100 mls/hr IV .Q10H [facility] Stop: 06/14/19 11:18 Last Admin: 06/14/19 06:56 Dose: 100 mls/hr Documented by: Metoprolol Tartrate (Lopressor (Beta Imani)) 25 mg PO BID [facility] Last Admin: 06/14/19 09:21 Dose: 25 mg Documented by: Morphine Sulfate () 2 mg IV Q3H PRN PRN PRN Reason: Severe pain (7-10/10) Last Admin: 06/14/19 09:15 Dose: 2 mg Documented by: Ondansetron HCl (Zofran) 4 mg IV Q8H PRN PRN PRN Reason: NAUSEA/VOMITING Last Admin: 06/13/19 22:17 Dose: 4 mg Documented by: Oxycodone HCl (Oxyir) 5 mg PO Q4H PRN PRN PRN Reason: Moderate Pain (4-6/10) STROKE Vital Signs/Narrative: Vital Signs Temp Pulse Resp BP Pulse Ox 06/14/19 09:21 56 L 06/14/19 09:00 57 L 96 06/14/19 07:51 98.2 F 52 L 16 138/82 H 98 Medical Necessity - Tobacco Use Smoking Status: Never smoker Tobacco Use: Non-smoker Assessment/Plan All Active Problems (Last Updated 05/10/19 @ 11:05 by Carolynn Nicole) Femoral fracture (Acute) Thyroid nodule (Acute) Sarcoma of vulva (Acute) Fatigue (Acute) SOB (shortness of breath) (Acute) Hypokalemia (Resolved) Patient is a 78-year-old lady who presented to the emergency department following a traumatic fall. She was apparently knocked down by her garage door. She did sustain hip pain imaging studies demonstrated acute Displaced intertrochanteric fracture of the left femur. 1. Acute Displaced intertrochanteric fracture of the left femur. - Admitted to regular nursing floor currently being managed with immobilization. Consult placed orthopedic surgery plan is for patient to undergo intervention later on this afternoon. Patient has history of CAD with previous stent placement in 2016. EKG on admission did not demonstrate any ST T segment changes. Consult was placed to cardiology on admission to assist with risk stratification. 2D echo was also ordered prior to patient's procedure 2. Coronary artery disease ?With previous MA with subsequent stent placement patient is on aspirin and metoprolol. EKG obtained on admission was unremarkable 3. Hypertension - blood pressure controlled, home medications continued with dose adjustment as needed 4. 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 5. History of endometrial CA status - status post total abdominal hysterectomy, bilateral salpingectomy and left oophorectomy followed by adjuvant radiation therapy: 2002. 6. History of colon CA ?patient underwent low anterior resection with subsequent chemotherapy in 1998 7. DVT prophylaxis - SC heparin for now Active Medications Acetaminophen (Tylenol) 1,000 mg PO TID [facility] Last Admin: 06/14/19 05:59 Dose: Not Given Documented by: Albuterol Sulfate (Ventolin Aerosols) 2.5 mg INHALATION Q2H PRN PRN PRN Reason: Shortness of Breath/Wheezing Amlodipine Besylate (Norvasc) 5 mg PO DAILY [facility] Last Admin: 06/14/19 09:20 Dose: 5 mg Documented by: Heparin Sodium (Porcine) (Heparin Na) 5,000 unit SC Q8 [facility] Last Admin: 06/14/19 07:21 Dose: Not Given Documented by: Sodium Chloride () 1,000 mls @ 100 mls/hr IV .Q10H [facility] Stop: 06/14/19 11:18 Last Admin: 06/14/19 06:56 Dose: 100 mls/hr Documented by: Metoprolol Tartrate (Lopressor (Beta Imani)) 25 mg PO BID [facility] Last Admin: 06/14/19 09:21 Dose: 25 mg Documented by: Morphine Sulfate () 2 mg IV Q3H PRN PRN PRN Reason: Severe pain (7-10/10) Last Admin: 06/14/19 09:15 Dose: 2 mg Documented by: Ondansetron HCl (Zofran) 4 mg IV Q8H PRN PRN PRN Reason: NAUSEA/VOMITING Last Admin: 06/13/19 22:17 Dose: 4 mg Documented by: Oxycodone HCl (Oxyir) 5 mg PO Q4H PRN PRN PRN Reason: Moderate Pain (4-6/10) Clinical Impression(s) from Imaging Studies Brain CT 06/13/19 16:40 IMPRESSION: No acute intracranial or calvarial abnormality. Electronically Signed: Liam Avelar DO at 17:31 EDT Tel [phone], Service support , Femur X-Ray 06/13/19 16:41 IMPRESSION: Displaced intertrochanteric fracture of the left femur. Electronically Signed: Liam Avelar DO at 18:14 EDT Tel [phone], Service support , Pelvis X-Ray 06/13/19 16:41 IMPRESSION: 1. Displaced intratrochanteric fracture of the left femur. 2. Degenerative changes of bilateral hips. Electronically Signed: Liam Avelar DO at 18:16 EDT Tel [phone], Service support , Chest X-Ray 06/13/19 17:39 IMPRESSION: Borderline cardiomegaly without acute pulmonary disease. Electronically Signed: Liam Avelar DO at 18:16 EDT Tel [phone], Service support , Code Visit Inpatient E&M: 84990 Subs Hosp L3
--- NOTE | 2019-06-14 12:05 | CASEMGMT ---
Social Work Note RN SANDIP Richardson updated this worker that pt's discharge plan is TBD pending pt's surgery and PT/OT. PT may be good candidate for RU as pt was previously independent at home. SW placed a call to referral line and provided referral to [facility]. [facility] states she has one bed and will put pt on RU list. Plan: TBD pending surgery and PT/OT Becki [place] FLATCAR WHACKER, PERSONAL CLOTHING LAUNDRY AIDE
--- NOTE | 2019-06-14 14:00 | NURSING ---
Off unit to OR.
--- NOTE | 2019-06-14 15:15 | HIP_PTH ---
PATIENT: DANAE HALL LOC: MS3 U#:[id number] AGE/SX: 78/F ROOM: [facility] RE06/13/[address]: Dr. Brery Ellison MD : 1940 BED: 1 DIS: 06/16/2019 SPEC #: [id number] RECD: 06/15/19 11:31 STATUS: BERNABE REQ #: [id number] JOSEFINA: 06/14/19 15:[address]: Dino Mayo DEPT: SURGICAL PATHOLOGY RECD BY: Kathy Rivera ENTERED: 06/15/19 11:59 SP TYPE: TOTAL HIP OTHR DR: MD Dr. Berry Burgess MD Dr. Mark Stutzman, DO Tissues: Hip, NOS Procedures: Decalcification bone/plaque Surgery Specimen Level IV HEADER OPERATION: ORIF, hip, gamma nail PRE-OP DIAGNOSIS: Fractured left hip TISSUE SUBMITTED: Left femoral bone reamings MICROSCOPIC DIAGNOSIS Left femoral bone reamings: Pieces of bone, fibroadipose tissue, fibroconnective tissue and skeletal muscle tissue with focal hemorrhage. Negative for malignancy. POONAM:collin 06/18/19 MICROSCOPIC DESCRIPTION Slides are reviewed. GROSS DESCRIPTION Received in fixative is one container labeled with the patient's name and designated left femoral bone reamings. The specimen consists of multiple fragments of bone reaming that in aggregate measure 3 x 2.5 x 0.3 cm. The entire specimen is submitted in one cassette after decalcification. / Rosy 06/15/19 TC: 5 CPT: 81219, 44989
--- NOTE | 2019-06-14 15:20 | RAD_ITS ---
STUDY: X-RAY - PELVIS AND LEFT HIP REASON FOR EXAM: Female, 78 years old. Left hip fracture. TECHNIQUE: 5 intraoperative views of the pelvis and hip. COMPARISON: Pelvic abscess, June 13, 2019. FINDINGS: The initial image demonstrates realignment of the intertrochanteric fracture. Subsequent images demonstrate placement of this short medullary ochoa within the femoral shaft. There is a transfixing gamma nail extending into the femoral head and neck. Please refer to the operative report for further details. RAD/Hip Min 2 Views (Portable) IMPRESSION: Internal fixation of a left intertrochanteric fracture in the OR. Electronically Signed: Liam Avelar DO at 16:58 EDT Tel [phone], Service support ,
[2019-06-14] MEDS: Cefazolin 2 GM in 0.9% Normal Saline 100 ML IV (15:40)
--- NOTE | 2019-06-14 16:28 | PCM.OPRPT ---
Report of Operation Date of Procedure: 06/14/19 Pre-Operative Diagnosis: Intertrochanteic fracture left hip Post-Operative Diagnosis: same Surgery/Procedure Performed:: Gamma nail internal fixation left hip service coordinator elderly facility: [facility] Type of Anesthesia:: General Anesthesiologist: Moiz Healy Estimated Blood Loss (mL): 75 cc - Admit VTE Documentation VTE Present on Admission: No VTE Mechan Device Prophylaxis: SCD's VTE Pharm Prophylaxis ordered?: Yes
[2019-06-14] MEDS: Acetaminophen 500 MG Tablet 1000 MG PO (22:04)
[2019-06-14] MEDS: 0.9% Saline Lock 10 ML Syringe IV (22:04)
[2019-06-15] VITALS (7 sets, daily range): BP systolic 121–139; BP diastolic 51–65; PULSE 59–68; RESP 16–18; TEMP 36.7–37.2; O2SAT 93–97
[2019-06-15] MEDS: oxyCODONE 5 MG Tablet PO ×3 (02:53→18:49)
[2019-06-15] MEDS: Enoxaparin 40 MG/0.4 ML Syringe SC (05:45)
[2019-06-15] MEDS: Acetaminophen 500 MG Tablet 1000 MG PO ×3 (05:45→21:28)
--- NOTE | 2019-06-15 07:27 | PCM.PN.HOSP ---
Patient Problems: Active and Suspected Problems (Last Updated 05/10/19 @ 11:05 by Carolynn Nicole) Femoral fracture (Acute) Subjective: CC left hip pain Patient underwent Gamma nail internal fixation left hip on 06/14/2019 on account of Intertrochanteic fracture left hip Objective: GENERAL: cooperative HEENT: Atraumatic; EYES; Anicteric, Normal Conjunctiva NECK; supple, normal thyroid, . RESPIRATORY: Diminished to auscultation CARDIOVASCULAR: Regular S1 S2, GI: soft, non-tender, normoactive bowel sounds, : No Renal angle tenderness; EXTREMITIES: No edema, no clubbing, MUSCULOSKELETAL: Restricted in the left hip NEURO: Awake; no lateralizing signs. SKIN: No Rash PSYCH; Normal affect Vitals/I&O's: Vital Signs Temp Pulse Resp BP Pulse Ox 98.0 F 59 L 16 121/51 H 93 06/15/19 02:46 06/15/19 02:46 06/15/19 02:46 06/15/19 02:46 06/15/19 02:46 Oxygen Flow Rate (L/min) 2 Oxygen Delivery Method Room Air Weight: 73 kg Body Mass Index (BMI) 27.4 Intake and Output for Last 24 Hours 06/13/19 06/14/19 06/15/19 23:59 23:59 23:59 Intake Total 500 / 700 2295.75 / 2295.75 150 / 150 Output Total 2525 / 2525 150 / 150 Balance 500 / 0 -229.25 / -229.25 0 / 0 Laboratory Results 06/14/19 05:46: Blood Type A NEGATIVE, Antibody Screen NEGATIVE 06/14/19 05:46: Crossmatch See Detail Current Medications Acetaminophen (Tylenol) 1,000 mg PO TID [facility] Last Admin: 06/15/19 05:45 Dose: 1,000 mg Documented by: Albuterol Sulfate (Ventolin Aerosols) 2.5 mg INHALATION Q2H PRN PRN PRN Reason: Shortness of Breath/Wheezing Amlodipine Besylate (Norvasc) 5 mg PO DAILY [facility] Last Admin: 06/14/19 09:20 Dose: 5 mg Documented by: Enoxaparin Sodium (Lovenox) 40 mg SC DAILY@0600 [facility] Last Admin: 06/15/19 05:45 Dose: 40 mg Documented by: Sodium Chloride () 250 mls @ 15 mls/hr IV .[id number] PRN PRN Reason: Saline Flush Metoprolol Tartrate (Lopressor (Beta Imani)) 25 mg PO BID [facility] Last Admin: 06/14/19 22:03 Dose: 25 mg Documented by: Morphine Sulfate () 2 mg IV Q3H PRN PRN PRN Reason: Severe pain (7-10/10) Last Admin: 06/14/19 20:01 Dose: 2 mg Documented by: Ondansetron HCl (Zofran) 4 mg IV Q8H PRN PRN PRN Reason: NAUSEA/VOMITING Last Admin: 06/13/19 22:17 Dose: 4 mg Documented by: Oxycodone HCl (Oxyir) 5 mg PO Q4H PRN PRN PRN Reason: Moderate Pain (4-6/10) Last Admin: 06/15/19 02:53 Dose: 5 mg Documented by: Sodium Chloride () 5 - 15 ml IV UD PRN PRN Reason: SALINE FLUSH Last Admin: 06/14/19 22:04 Dose: 10 ml Documented by: Medical Necessity - Tobacco Use Smoking Status: Never smoker Tobacco Use: Non-smoker Assessment/Plan All Active Problems (Last Updated 05/10/19 @ 11:05 by Carolynn Nicole) Femoral fracture (Acute) Thyroid nodule (Acute) Sarcoma of vulva (Acute) Fatigue (Acute) SOB (shortness of breath) (Acute) Hypokalemia (Resolved) Patient is a 78-year-old lady who presented to the emergency department following a traumatic fall. She was apparently knocked down by her garage door. She did sustain hip pain imaging studies demonstrated acute Displaced intertrochanteric fracture of the left femur. 1. Acute Displaced intertrochanteric fracture of the left femur. - Admitted to regular nursing floor currently being managed with immobilization. Consult placed orthopedic surgery plan is for patient to undergo intervention later on this afternoon. Patient has history of CAD with previous stent placement in 2017. EKG on admission did not demonstrate any ST T segment changes. Consult was placed to cardiology on admission to assist with risk stratification. 2D echo was also ordered prior to patient's procedure ~06/15/2019; patient underwent gamma nail internal fixation left hip on 06/14/2019 on account of Intertrochanteic fracture left hip 2. Coronary artery disease ?With previous AK with subsequent stent placement patient is on aspirin and metoprolol. EKG obtained on admission was unremarkable 3. Hypertension - blood pressure controlled, home medications continued with dose adjustment as needed 4. 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 5. History of endometrial CA status - status post total abdominal hysterectomy, bilateral salpingectomy and left oophorectomy followed by adjuvant radiation therapy: 2002. 6. History of colon CA ?patient underwent low anterior resection with subsequent chemotherapy in 1998 7. DVT prophylaxis - SC lovenox Advance planning; did discuss with the patient and family ()regarding advanced directives as well as CODE STATUS. Did explain the various scenarios involved ( FULL CODE, DNR CCA, DNR CCA with no intubation, and DNR CC and what each meant) patient elected to be DNR CCA no intubation. Order was placed. Time spent on discussion 18 minutes. Code Visit Inpatient E&M: 81727 Subs Hosp L2 Procedures: 01360 Advncd Care Plan 30 Min
--- NOTE | 2019-06-15 07:35 | PCM.PN.ORT ---
Patient Problems: Active and Suspected Problems (Last Updated 05/10/19 @ 11:05 by Carolynn Nicole) Femoral fracture (Acute) Subjective: Patient sleeping comfortably in bed. Patient easy to awake. Patient is alert and oriented. Patient states her pain is well controlled. Patient denies chest pain, shortness of breath, calf pain, nausea vomiting. Patient has no other complaints. Patient states that she would like to return home after discharge, and possibly do outpatient therapy. Objective: Dressing is clean dry intact. Patient's vitals and labs within normal limits. Patient is afebrile. Patient has good plantar flexion dorsiflexion of the left foot. No signs and symptoms of DVT, no calf pain. Patient is in no respiratory distress, speaking in full sentences. - Physical Exam Vitals/I&O's: Vital Signs Temp Pulse Resp BP Pulse Ox 98.0 F 59 L 16 121/51 H 93 06/15/19 02:46 06/15/19 02:46 06/15/19 02:46 06/15/19 02:46 06/15/19 02:46 Oxygen Flow Rate (L/min) 2 Oxygen Delivery Method Room Air Weight: 73 kg Body Mass Index (BMI) 27.4 Intake and Output for Last 24 Hours 06/13/19 06/14/19 06/15/19 23:59 23:59 23:59 Intake Total 500 / 700 2295.75 / 2295.75 150 / 150 Output Total 2525 / 2525 150 / 150 Balance 500 / 0 -229.25 / -229.25 0 / 0 General: Alert, Oriented x3, Cooperative HEENT: PERRLA Oral: Moist Mucosa Cardiovascular: Regular rate Neurological: Cranial nerves II-XII grossly intact Psych/Mental Status: Normal Affect, Alert and oriented to time, place, person, mood and affect Laboratory Results 06/14/19 05:46: Blood Type A NEGATIVE, Antibody Screen NEGATIVE 06/14/19 05:46: Crossmatch See Detail Current Medications Acetaminophen (Tylenol) 1,000 mg PO TID [facility] Last Admin: 06/15/19 05:45 Dose: 1,000 mg Documented by: Albuterol Sulfate (Ventolin Aerosols) 2.5 mg INHALATION Q2H PRN PRN PRN Reason: Shortness of Breath/Wheezing Amlodipine Besylate (Norvasc) 5 mg PO DAILY [facility] Last Admin: 06/14/19 09:20 Dose: 5 mg Documented by: Enoxaparin Sodium (Lovenox) 40 mg SC DAILY@0600 [facility] Last Admin: 06/15/19 05:45 Dose: 40 mg Documented by: Sodium Chloride () 250 mls @ 15 mls/hr IV .[id number] PRN PRN Reason: Saline Flush Metoprolol Tartrate (Lopressor (Beta Imani)) 25 mg PO BID [facility] Last Admin: 06/14/19 22:03 Dose: 25 mg Documented by: Morphine Sulfate () 2 mg IV Q3H PRN PRN PRN Reason: Severe pain (7-10/10) Last Admin: 06/14/19 20:01 Dose: 2 mg Documented by: Ondansetron HCl (Zofran) 4 mg IV Q8H PRN PRN PRN Reason: NAUSEA/VOMITING Last Admin: 06/13/19 22:17 Dose: 4 mg Documented by: Oxycodone HCl (Oxyir) 5 mg PO Q4H PRN PRN PRN Reason: Moderate Pain (4-6/10) Last Admin: 06/15/19 02:53 Dose: 5 mg Documented by: Sodium Chloride () 5 - 15 ml IV UD PRN PRN Reason: SALINE FLUSH Last Admin: 06/14/19 22:04 Dose: 10 ml Documented by: Medical Necessity - Tobacco Use Smoking Status: Never smoker Tobacco Use: Non-smoker Assessment/Plan All Active Problems (Last Updated 05/10/19 @ 11:05 by Carolynn Nicole) Femoral fracture (Acute) Thyroid nodule (Acute) Sarcoma of vulva (Acute) Fatigue (Acute) SOB (shortness of breath) (Acute) Hypokalemia (Resolved) Status post ORIF left hip subtrochanteric fracture, with a short gamma nail. Plan 1. Continue all pain medications as prescribed 2. Continue anticoagulation as directed by medicine. 3. Begin physical therapy, 50% weightbearing with walker. 4. Encourage incentive spirometry 5. Possible discharge tomorrow to [facility] rehab unit versus discharge home with outpatient therapy.
[2019-06-15] MEDS: Metoprolol Tartrate 25 MG Tablet PO ×2 (10:30→21:28)
[2019-06-15] MEDS: amLODIPine 5 MG Tablet PO (10:30)
--- NOTE | 2019-06-15 11:59 | CASEMGMT ---
Addendum entered by Becki [place] 06/15/19 13:09: SW attempted to meet with pt and pt's still not at [facility]. Pt states her should be at [facility] after 3:00pm Original Note: Social Work Note SW spoke with PT/OT who are recommending pt go to [facility] at discharge. SW met with pt and introduced self and role at [facility]. Pt is alert and orientated x3. SW explained to pt that PT/OT are recommending [facility] at discharge and educated pt on RU. Pt states that this worker will need to come back and talk to her when her is present so he can give the ok. Pt states that her Carmelo will be at [facility] later today. SW informed pt that this worker will stop back later today. Becki Colorado CRANE CHASER, HARNESS TIER
--- NOTE | 2019-06-15 14:59 | CHAPLAIN ---
Type of Pastoral Visit _x__ Initial Visit ___ Follow-up Visit ___ On-call Visit ___ General Patient Visit ___ Spiritual Assessment ___ Family Conference ___ Bereavement ___ Rapid Response ___ Code Blue ___ Other (describe below) Pastoral Care Referral From _x__ Patient ___ Family ___ Nurse ___ Physician ___ Pool Nurse ___ Pattern Changer ___ Other (describe below) Sacrament/Intervention _x__ Active listening ___ Anointing ___ Holiness ___ Bereavement ___ Communion ___ Viviane exploration ___ ___ Life review _x__ Prayer ___ Reconciliation ___ Sacrament of Sick ___ Supportive presence ___ Wedding ___ Other (describe below) Pastoral Comments
--- NOTE | 2019-06-15 15:11 | CASEMGMT ---
Addendum entered by Becki [place] 06/15/19 15:30: DR. Valencia not Dr. Barnett Original Note: Social Work Note SW met with pt and pt's Carmelo. SW introduced self and role at [facility]. SW educated Carmelo on RU. Pt and Carmelo are agreeable to RU at discharge. RICKIE placed a call to Diana with RU and updated her that pt and pt's are agreeable to RU and physician is hoping for discharge tomorrow. Diana states understanding and will discuss case with Dr. Bronson. Plan: RU tomorrow Becki Colorado VERIFIER OPERATOR, RECOOPERER
[2019-06-16 02:47] VITALS: BP 127/60; PULSE 65; RESP 18; TEMP 37.1; O2SAT 95
[2019-06-16] MEDS: Acetaminophen 500 MG Tablet 1000 MG PO (05:39)
[2019-06-16] MEDS: Enoxaparin 40 MG/0.4 ML Syringe SC (05:40)
--- NOTE | 2019-06-16 07:22 | PCM.PN.HOSP ---
Patient Problems: Active and Suspected Problems (Last Updated 05/10/19 @ 11:05 by Carolynn Nicole) Femoral fracture (Acute) Subjective: CC follow-up femoral neck fracture next Patient seen postoperative day 1 pain is tolerable plan is for patient to be transferred to the inpatient rehab unit Objective: GENERAL: cooperative HEENT: Atraumatic; EYES; Anicteric, Normal Conjunctiva NECK; supple, normal thyroid, . RESPIRATORY: Diminished to auscultation CARDIOVASCULAR: Regular S1 S2, GI: soft, non-tender, normoactive bowel sounds, : No Renal angle tenderness; EXTREMITIES: No edema, no clubbing, MUSCULOSKELETAL: Restricted in the left hip NEURO: Awake; no lateralizing signs. SKIN: No Rash PSYCH; Normal affect Vitals/I&O's: Vital Signs Temp Pulse Resp BP Pulse Ox 98.7 F 65 18 127/60 H 95 06/16/19 02:47 06/16/19 02:47 06/16/19 02:47 06/16/19 02:47 06/16/19 02:47 Oxygen Flow Rate (L/min) 2 Oxygen Delivery Method Room Air Weight: 73 kg Body Mass Index (BMI) 27.4 Intake and Output for Last 24 Hours 06/14/19 06/15/19 06/16/19 23:59 23:59 23:59 Intake Total 2295.75 / 2295.75 1525 / 1525 300 / 300 Output Total 2525 / 2525 1000 / 1000 450 / 450 Balance -229.25 / -229.25 525 / 525 -150 / -150 Current Medications Acetaminophen (Tylenol) 1,000 mg PO TID [facility] Last Admin: 06/16/19 05:39 Dose: 1,000 mg Documented by: Albuterol Sulfate (Ventolin Aerosols) 2.5 mg INHALATION Q2H PRN PRN PRN Reason: Shortness of Breath/Wheezing Amlodipine Besylate (Norvasc) 5 mg PO DAILY [facility] Last Admin: 06/15/19 10:30 Dose: 5 mg Documented by: Enoxaparin Sodium (Lovenox) 40 mg SC DAILY@0600 [facility] Last Admin: 06/16/19 05:40 Dose: 40 mg Documented by: Sodium Chloride () 250 mls @ 15 mls/hr IV .[id number] PRN PRN Reason: Saline Flush Metoprolol Tartrate (Lopressor (Beta Imani)) 25 mg PO BID [facility] Last Admin: 06/15/19 21:28 Dose: 25 mg Documented by: Morphine Sulfate () 2 mg IV Q3H PRN PRN PRN Reason: Severe pain (7-10/10) Last Admin: 06/14/19 20:01 Dose: 2 mg Documented by: Ondansetron HCl (Zofran) 4 mg IV Q8H PRN PRN PRN Reason: NAUSEA/VOMITING Last Admin: 06/13/19 22:17 Dose: 4 mg Documented by: Oxycodone HCl (Oxyir) 5 mg PO Q4H PRN PRN PRN Reason: Moderate Pain (4-6/10) Last Admin: 06/15/19 18:49 Dose: 5 mg Documented by: Sodium Chloride () 5 - 15 ml IV UD PRN PRN Reason: SALINE FLUSH Last Admin: 06/14/19 22:04 Dose: 10 ml Documented by: Medical Necessity - Tobacco Use Smoking Status: Never smoker Tobacco Use: Non-smoker Assessment/Plan All Active Problems (Last Updated 05/10/19 @ 11:05 by Carolynn Nicole) Femoral fracture (Acute) Thyroid nodule (Acute) Sarcoma of vulva (Acute) Fatigue (Acute) SOB (shortness of breath) (Acute) Hypokalemia (Resolved) Patient is a 78-year-old lady who presented to the emergency department following a traumatic fall. She was apparently knocked down by her garage door. She did sustain hip pain imaging studies demonstrated acute Displaced intertrochanteric fracture of the left femur. 1. Acute Displaced intertrochanteric fracture of the left femur. - Admitted to regular nursing floor currently being managed with immobilization. Consult placed orthopedic surgery plan is for patient to undergo intervention later on this afternoon. Patient has history of CAD with previous stent placement in 2017. EKG on admission did not demonstrate any ST T segment changes. Consult was placed to cardiology on admission to assist with risk stratification. 2D echo was also ordered prior to patient's procedure ~06/15/2019; patient underwent gamma nail internal fixation left hip on 06/14/2019 on account of Intertrochanteic fracture left hip 2. Coronary artery disease ?With previous [place] with subsequent stent placement patient is on aspirin and metoprolol. EKG obtained on admission was unremarkable 3. Hypertension - blood pressure controlled, home medications continued with dose adjustment as needed 4. 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 5. History of endometrial CA status - status post total abdominal hysterectomy, bilateral salpingectomy and left oophorectomy followed by adjuvant radiation therapy: 2002. 6. History of colon CA ?patient underwent low anterior resection with subsequent chemotherapy in 1998 7. DVT prophylaxis - SC lovenox Advance planning; did discuss with the patient and family ()regarding advanced directives as well as CODE STATUS. Did explain the various scenarios involved ( FULL CODE, DNR CCA, DNR CCA with no intubation, and DNR CC and what each meant) patient elected to be DNR CCA no intubation. Order was placed. Time spent on discussion 18 minutes. Code Visit Inpatient E&M: 95280 Subs Hosp L2
[2019-06-16 07:50] VITALS: BP 126/47; PULSE 68; RESP 14; TEMP 37.2; O2SAT 94
--- NOTE | 2019-06-16 07:50 | DCINST_ITS ---
- Discharge Diagnoses Current Active Problems: Current Active and Chronic Problems (Last Updated 05/10/19 @ 11:05 by Carolynn Nicole) Femoral fracture (Acute) You will use the following diet at home:: No restrictions Discharge Activity: May not drive while taking narcotic pain medications. Allergies/Adverse Reactions: Allergies clopidogrel [From Plavix] Adverse Reaction (Severe, Verified 06/13/19 16:35) hives ragweed pollen Adverse Reaction (Severe, Verified 06/13/19 16:35) Other cough lisinopril Adverse Reaction (Mild, Verified 06/13/19 16:35) Other COUGH Medications to take at Discharge Amlodipine Besylate [Norvasc] 5 mg PO DAILY 10/26/18 Aspirin E.C. [Ecotrin] 81 mg PO DAILY 10/26/18 Metoprolol Tartrate 25 mg PO BID 10/26/18 Acetaminophen [Tylenol] 1,000 mg PO TID tab 06/16/19 Enoxaparin [Lovenox] 40 mg SUBCUT DAILY@0600 syringe 06/16/19 Oxycodone [Oxyir] 5 mg PO Q4H PRN PRN 1 Days #1 tab 06/16/19 Primary Care Physician: Dominic Solis DO [Primary Care Provider] - Please follow up with your Primary Care Physician in: when discharged from Rehab Test Results: Test results from this visit will be discussed in further detail at your follow- up appointment, if applicable. Please Follow Up With: Dino Mayo DO When: in 2-3 weeks Proposed Discharge Date: 06/16/19
--- NOTE | 2019-06-16 07:55 | DS.PCM_ITS ---
Discharge Date and Diagnosis - Problem List Patient Problems: Active and Suspected Problems (Last Updated 05/10/19 @ 11:05 by Carolynn Nicole) Femoral fracture (Acute) Date of Admission: 06/13/19 Date of Discharge: 06/16/19 - Primary Discharge Diagnosis Active and Suspected Problems (Last Updated 05/10/19 @ 11:05 by Carolynn Nicole) Femoral fracture (Acute) - Secondary Discharge Diagnosis Chronic Problems (Last Updated 05/10/19 @ 11:05 by Carolynn Nicole) Presence of stent in coronary artery (Chronic ~04/25/17) PTCA/LOPEZ to LAD 04/25/17 Essential hypertension (Chronic) Patent foramen ovale (Chronic) Hyperlipidemia (Chronic) Atherosclerotic heart disease of [place] coronary artery without angina pectoris (Chronic) Ischemic cardiomyopathy (Chronic) History of endometrial cancer (Chronic) History of colon cancer (Chronic) Hospital Course and Treatment Imaging Results: Clinical Impression(s) from Imaging Studies Brain CT 06/13/19 16:40 IMPRESSION: No acute intracranial or calvarial abnormality. Electronically Signed: Liam Avelar DO at 17:31 EDT Tel [phone], Service support , Femur X-Ray 06/13/19 16:41 IMPRESSION: Displaced intertrochanteric fracture of the left femur. Electronically Signed: Liam Avelar DO at 18:14 EDT Tel [phone], Service support , Pelvis X-Ray 06/13/19 16:41 IMPRESSION: 1. Displaced intratrochanteric fracture of the left femur. 2. Degenerative changes of bilateral hips. Electronically Signed: Liam Avelar DO at 18:16 EDT Tel [phone], Service support , Chest X-Ray 06/13/19 17:39 IMPRESSION: Borderline cardiomegaly without acute pulmonary disease. Electronically Signed: Liam Avelar DO at 18:16 EDT Tel [phone], Service support , Hip X-Ray 06/14/19 15:20 IMPRESSION: Internal fixation of a left intertrochanteric fracture in the OR. Electronically Signed: Liam Avelar DO at 16:58 EDT Tel [phone], Service support , Operations: - - exploratory laparotomy with extensive lysis of adhesions and resection of small bowel with impacted enteroliths Summary of Care Provided: Patient is a 78-year-old lady who presented to the emergency department following a traumatic fall. She was apparently knocked down by her garage door. She did sustain hip pain imaging studies demonstrated acute Displaced intertrochanteric fracture of the left femur. 1. Acute Displaced intertrochanteric fracture of the left femur. - Admitted to regular nursing floor currently being managed with immobilization. Consult placed orthopedic surgery plan is for patient to undergo intervention later on this afternoon. Patient has history of CAD with previous stent placement in 2016. EKG on admission did not demonstrate any ST T segment changes. Patient underwent gamma nail internal fixation left hip on 06/14/2019 on account of Intertrochanteic fracture left hip 2. Coronary artery disease ?With previous MD with subsequent stent placement patient is on aspirin and metoprolol. EKG obtained on admission was unremarkable 3. Hypertension - blood pressure controlled, home medications continued with dose adjustment as needed 4. 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 5. History of endometrial CA status - status post total abdominal hysterectomy, bilateral salpingectomy and left oophorectomy followed by adjuvant radiation therapy: 2002. 6. History of colon CA ?patient underwent low anterior resection with subsequent chemotherapy in 1998 7. DVT prophylaxis - SC lovenox Patient Problems: Active and Suspected Problems (Last Updated 05/10/19 @ 11:05 by Carolynn Nicole) Femoral fracture (Acute) Objective: GENERAL: cooperative HEENT: Atraumatic; EYES; Anicteric, Normal Conjunctiva NECK; supple, normal thyroid, RESPIRATORY: Diminished to auscultation CARDIOVASCULAR: Regular S1 S2, NEURO: Awake; no lateralizing signs. SKIN: No Rash PSYCH; Flat affect - Physical Exam Vitals/I&O's: Vital Signs Temp Pulse Resp BP Pulse Ox 99.0 F 68 14 126/47 H 94 06/16/19 07:50 06/16/19 07:50 06/16/19 07:50 06/16/19 07:50 06/16/19 07:50 Oxygen Flow Rate (L/min) 2 Oxygen Delivery Method Room Air Weight: 73 kg Body Mass Index (BMI) 27.4 Intake and Output for Last 24 Hours 06/14/19 06/15/19 06/16/19 23:59 23:59 23:59 Intake Total 2295.75 / 2295.75 1525 / 1525 300 / 300 Output Total 2525 / 2525 1000 / 1000 450 / 450 Balance -229.25 / -229.25 525 / 525 -150 / -150 Current Medications Acetaminophen (Tylenol) 1,000 mg PO TID [facility] Last Admin: 06/16/19 05:39 Dose: 1,000 mg Documented by: Albuterol Sulfate (Ventolin Aerosols) 2.5 mg INHALATION Q2H PRN PRN PRN Reason: Shortness of Breath/Wheezing Amlodipine Besylate (Norvasc) 5 mg PO DAILY [facility] Last Admin: 06/15/19 10:30 Dose: 5 mg Documented by: Enoxaparin Sodium (Lovenox) 40 mg SC DAILY@0600 [facility] Last Admin: 06/16/19 05:40 Dose: 40 mg Documented by: Sodium Chloride () 250 mls @ 15 mls/hr IV .[id number] PRN PRN Reason: Saline Flush Metoprolol Tartrate (Lopressor (Beta Imani)) 25 mg PO BID [facility] Last Admin: 06/15/19 21:28 Dose: 25 mg Documented by: Morphine Sulfate () 2 mg IV Q3H PRN PRN PRN Reason: Severe pain (7-10/10) Last Admin: 06/14/19 20:01 Dose: 2 mg Documented by: Ondansetron HCl (Zofran) 4 mg IV Q8H PRN PRN PRN Reason: NAUSEA/VOMITING Last Admin: 06/13/19 22:17 Dose: 4 mg Documented by: Oxycodone HCl (Oxyir) 5 mg PO Q4H PRN PRN PRN Reason: Moderate Pain (4-6/10) Last Admin: 06/15/19 18:49 Dose: 5 mg Documented by: Sodium Chloride () 5 - 15 ml IV UD PRN PRN Reason: SALINE FLUSH Last Admin: 06/14/19 22:04 Dose: 10 ml Documented by: Discharge Diet: No Restrictions Discharge Activity: May not drive while taking narcotic pain medications. Home Medications: Medications to take at Discharge Amlodipine Besylate [Norvasc] 5 mg PO DAILY 10/26/18 Aspirin E.C. [Ecotrin] 81 mg PO DAILY 10/26/18 Metoprolol Tartrate 25 mg PO BID 10/26/18 Acetaminophen [Tylenol] 1,000 mg PO TID tab 06/16/19 Enoxaparin [Lovenox] 40 mg SUBCUT DAILY@0600 syringe 06/16/19 Oxycodone [Oxyir] 5 mg PO Q4H PRN PRN 1 Days #1 tab 06/16/19 Primary Care Physician: Dominic Solis DO [Primary Care Provider] - Please follow up with your Primary Care Physician in: when discharged from Rehab Please Follow Up With: Dino Mayo DO When: in 2-3 weeks Disposition: Inpt Rehab Unit/Facility Minutes spent on discharge:: 40 Patient Condition:: Stable Medical Necessity - Tobacco Use Smoking Status: Never smoker Tobacco Use: Non-smoker Meaningful Use Info Meaningful Use Diagnoses (Choose all that apply): None applicable Code Visit Inpatient E&M: 50615 Disch Hosp
[2019-06-16 08:01] LABS: Basophil# 0.03 X10^3/uL; Basophil% 0.4 % (0-1); Eosinophil# 0.28 X10^3/uL; Eosinophils% 4.1 % (0-5); Hematocrit 26.1 % (37-47); Hemoglobin 8.4 g/dL (12.0-15.0); Lymphocyte % 13.2 % (19-41); Mean Corp Hgb Conc 32.2 g/dL (32-36); Mean Corpuscular Hgb 28.6 pg (27.0-32.0); Mean Corpuscular Volume 88.8 fL (81-99); Mean Platelet Vol. 10.4 fl (6.2-12.0); Monocyte# 0.61 X10^3/uL; NRBC Flagged by Analyzer 0 % (0-5); Neutrophil # 4.95 X10^3/uL (2.7-7.7); Neutrophil % 72.9 % (47-70); Platelet Count 143 K/mm3 (150-450); RBC Distribution Width CV 16.3 % (11.6-14.6); RBC Distribution Width SD 52.9 fl (35.1-43.9); Red Blood Count 2.94 M/mm3 (4.2-5.4); White Blood Count 6.8 K/mm3 (4.4-11.0)
[2019-06-16 08:11] LABS: Anion Gap 5 (5-15); BUN 18 mg/dL (7-18); BUN/Creat Ratio 20.4 RATIO (10-20); Chloride 111 mmol/L (98-107); Creatinine, Serum 0.88 mg/dL (0.55-1.02); EST Glomerular Filtration Rate 65 mL/min (>60); Est Glom Filt Rate - Afr Amer 79 mL/min (>60); Estimated Creatinine Clearance 44.76 ml/min; Glucose 126 mg/dL (74-106); Magnesium 1.8 mg/dL (1.6-2.6); Potassium 3.7 mmol/L (3.5-5.1); Sodium Level 141 mmol/L (136-145)
[2019-06-16] MEDS: oxyCODONE 5 MG Tablet PO (08:44)
[2019-06-16] MEDS: amLODIPine 5 MG Tablet PO (08:44)
[2019-06-16 08:45] VITALS: PULSE 68
[2019-06-16] MEDS: Metoprolol Tartrate 25 MG Tablet PO (08:45)
--- NOTE | 2019-06-16 08:58 | CASEMGMT ---
Addendum entered by Becki [place] 06/16/19 09:42: RICKIE received call from Diana with stating [facility] is able to accept pt today. Original Note: Social Work Note Pt is discharging to today. SW placed a call to Diana with and left her a message informing her that pt will be discharge to today. Plan: [facility] today Becki Colorado BRICK MACHINE OPERATOR, NATURAL SCIENCES PROFESSOR
--- NOTE | 2019-06-16 09:20 | CASEMGMT ---
LW/POA form in summary tab of e-chart. Pt's medical POA is Carmelo Wayne. TAWANDA Beauchamp
--- NOTE | 2019-06-16 10:07 | HP.PCM_ITS ---
History of Present Illness Date of Admission: 06/16/19 Chief Complaint: debility s/p left hip fx/orif The patient is a 78 year old F admitted to rehab after a fall due to mechanical factors, not usually fall risk. lives at home with , lives on first floor of house with 3 steps. now admitted to rehab after left hip fx/orif performed by dr freitas, uneventful procedure and postop course. 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 per no exercise and 10lb lifting restriction. procedure was 06/02/19. per admit note:The patient is a 78 year old F with past medical history of colon CA, status post chemotherapy, endometrial CA status post total abdominal hysterectomy, bilateral salpingectomy, left oophorectomy, status post adjuvant radiotherapy, history of vulvar CA, recent recurrent small bowel obstruction status post surgery comes in after a fall and sustained left hip pain. Patient was bringing some plants in from the outside to get ready to send them to the cemetry when she bumped into her half-open garage door. She felt relatively well prior to this incident. Denied any dizziness or palpitations. She had recently had a biopsy for her vulvar CA as well as cauterization for vaginal bleeding. This was done by her oncology group in [place]. At the time of the exam, patient complains of pain in her left hip being 8 out of 10, worse with movement. She also complains of some substernal chest pain that is intermittent, sometimes is worse with exertion. Vitals in the ED showed temperature 98.1 F, heart rate 80, blood pressure 1 64/63, respiratory rate is 15, SPO2 is 97% on room air. BC count is 11.6, hemoglobin 12.6, platelet count is 189, INR is 1.0, sodium 143, potassium 3.9, chloride 113, bicarbonate 20, BUN 28, creatinine 1.05, baseline creatinine 0.88. LFTs are unremarkable. Chest x-ray shows borderline cardiomegaly without acute pulmonary disease. Past Medical History Past Medical History (Chronic Problems): Chronic Problems (Last Updated 05/10/19 @ 11:05 by Carolynn Nicole) Presence of stent in coronary artery (Chronic ~04/25/17) PTCA/LOPEZ to LAD 04/25/17 Essential hypertension (Chronic) Patent foramen ovale (Chronic) Hyperlipidemia (Chronic) Atherosclerotic heart disease of [place] coronary artery without angina pectoris (Chronic) Ischemic cardiomyopathy (Chronic) History of endometrial cancer (Chronic) History of colon cancer (Chronic) Medical History: Medical History (Last Reviewed 06/16/19 @ 10:15 by Jayjay Valencia MD) Presence of stent in coronary artery (Chronic) Onset Date: ~04/25/17 Z95.5 PTCA/LOPEZ to LAD 04/25/17 Essential hypertension (Chronic) I10 Patent foramen ovale (Chronic) Q21.1 Hyperlipidemia (Chronic) E78.5 Atherosclerotic heart disease of [place] coronary artery without angina pectoris (Chronic) I25.10 Ischemic cardiomyopathy (Chronic) I25.5 History of endometrial cancer (Chronic) Z85.42 History of colon cancer (Chronic) Z85.038 Colon cancer C18.[address] elevation myocardial infarction I21.3 H/O small bowel obstruction Z87.19 Hypokalemia (Resolved) E87.6 Allergies clopidogrel [From Plavix] Adverse Reaction (Severe, Verified 06/13/19 16:35) hives ragweed pollen Adverse Reaction (Severe, Verified 06/13/19 16:35) Other cough lisinopril Adverse Reaction (Mild, Verified 06/13/19 16:35) Other COUGH Home Medications: Ambulatory Orders Medication Instructions Recorded Amlodipine Besylate [Norvasc] 5 mg PO DAILY 10/26/18 Aspirin E.C. [Ecotrin] 81 mg PO DAILY 10/26/18 Metoprolol Tartrate 25 mg PO BID 10/26/18 Acetaminophen [Tylenol] 1,000 mg PO TID tab 06/16/19 Enoxaparin [Lovenox] 40 mg SUBCUT DAILY@0600 syringe 06/16/19 Oxycodone [Oxyir] 5 mg PO Q4H PRN PRN 1 Days #1 tab 06/16/19 Surgical History: Surgical History (Last Reviewed 06/16/19 @ 10:15 by Jayjay Valencia MD) H/O hernia repair Z98.890, Z87.19 2003 Presence of coronary angioplasty implant and graft Onset Date: ~04/25/17 Z95.5 PTCA/LOPEZ to LAD 04/25/17 History of cholecystectomy Z90.49 History of hysterectomy Z90.710 uterine cancer Status post partial colectomy Z90.49 Surgical History: cholecystectomy, colectomy, herniorrhaphy, hysterectomy, - - CAD s/p stent Psychiatric History: No pertinent psych hx 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 SCRAPER 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: No pertinent WALLPAPER SCRAPER history, endometrial cancer - Status post hysterectomy in remission Lives: Spouse/ Significant Other Smoking Status: Never smoker Tobacco Use: Non-smoker Alcohol: None Drugs: None - *Family History Paternal Family History: Family History (Last Updated 04/07/19 @ 11:15 by Disha Yuan) Father Heart disease Mother Heart disease Brother Heart disease Lung cancer Sister Heart disease Sister Lung cancer History Items: No pertinent history Maternal Family History: Family History (Last Updated 04/07/19 @ 11:15 by Disha Yuan) Father Heart disease Mother Heart disease Brother Heart disease Lung cancer Sister Heart disease Sister Lung cancer History Items: Heart Disease Review of Systems Constitutional: Denies: Chills, Fever, Weight Change HEENT: Denies: Head Aches, Sinus Congestion, Sinus Drainage Cardiovascular: Denies: Chest Pain, Palpitations Respiratory: Denies: Cough, Shortness of breath at rest, Sputum production Gastrointestinal: Denies: Abdominal Pain, Nausea, Vomiting Genitourinary: Denies: Dysuria Musculoskeletal: Denies: Joint Pain, Joint Tenderness Skin: Denies: Rash, Wounds Neurological: Denies: Numbness, Tingling, Focal weakness Psychiatric: Denies: Anxiety, Depression, Homicidal Ideations, Suicidal Ideations Hematologic/ Lymphatic: Denies: Easy Bruising, Easy Bleeding VTE Information - Inpt Only VTE Present on Admission: Yes VTE Pharm Prophylaxis ordered?: Yes Patient Problems: Active and Suspected Problems (Last Updated 05/10/19 @ 11:05 by Carolynn Nicole) Femoral fracture (Acute) - Physical Exam Vitals/I&O's: Vital Signs Temp Pulse Resp BP Pulse Ox 36.6 C 70 16 111/57 L 94 06/16/19 10:00 06/16/19 10:00 06/16/19 10:00 06/16/19 10:00 06/16/19 10:00 Oxygen Flow Rate (L/min) 2 Oxygen Delivery Method Room Air Weight: 73 kg Body Mass Index (BMI) 27.4 Intake and Output for Last 24 Hours 06/14/19 06/15/19 06/16/19 23:59 23:59 23:59 Intake Total 2295.75 / 2295.75 1525 / 1525 300 / 300 Output Total 2525 / 2525 1000 / 1000 450 / 450 Balance -229.25 / -229.25 525 / 525 -150 / -150 General: Alert, Oriented x3, Cooperative, No apparent distress HEENT: PERRLA, EOMI Lungs: Clear to auscultation Cardiovascular: Regular rate Abdomen: Bowel Sounds Present Extremities: No clubbing Skin: No rashes Neurological: Cranial nerves II-XII grossly intact Psych/Mental Status: Normal Affect Laboratory Results 06/16/19 07:45: WBC 6.8, RBC 2.94 L, Hgb 8.4 L, Hct 26.1 L, MCV 88.8, MCH 28.6, MCHC 32.2, RDW Std Deviation 52.9 H, RDW Coeff of Sam 16.3 H, Plt Count 143 L, MPV 10.4, Immature Gran % (Auto) 0.400, Neut % (Auto) 72.9 H, Lymph % (Auto) 13.2 L, Slope % (Auto) 9.0, Eos % (Auto) 4.1, Baso % (Auto) 0.4, Absolute Neuts (auto) 5.0, Absolute Lymphs (auto) 0.90, Nucleated RBC % 0 06/16/19 07:45: Sodium 141, Potassium 3.7, Chloride 111 H, Carbon Dioxide 25.0, Anion Gap 5, BUN 18, Creatinine 0.88, Estim Creat Clear Calc 44.76, Est GFR (MDRD) Af Amer 79, Est GFR (MDRD) Non-Af 65, BUN/Creatinine Ratio 20.4 H, Glucose 126 H, Calcium 8.0 L, Magnesium 1.8 Current Medications Acetaminophen (Tylenol) 1,000 mg PO TID COUNT [facility] Last Admin: 06/16/19 05:39 Dose: 1,000 mg Documented by: Albuterol Sulfate (Ventolin Aerosols) 2.5 mg INHALATION Q2H PRN PRN PRN Reason: Shortness of Breath/Wheezing Amlodipine Besylate (Norvasc) 5 mg PO DAILY [facility] Last Admin: 06/16/19 08:44 Dose: 5 mg Documented by: Enoxaparin Sodium (Lovenox) 40 mg SC DAILY@0600 COUNT [facility] Last Admin: 06/16/19 05:40 Dose: 40 mg Documented by: Sodium Chloride () 250 mls @ 15 mls/hr IV .[id number] PRN PRN Reason: Saline Flush Metoprolol Tartrate (Lopressor (Beta Imani)) 25 mg PO BID COUNT [facility] Last Admin: 06/16/19 08:45 Dose: 25 mg Documented by: Morphine Sulfate () 2 mg IV Q3H PRN PRN PRN Reason: Severe pain (7-10/10) Last Admin: 06/14/19 20:01 Dose: 2 mg Documented by: Ondansetron HCl (Zofran) 4 mg IV Q8H PRN PRN PRN Reason: NAUSEA/VOMITING Last Admin: 06/13/19 22:17 Dose: 4 mg Documented by: Oxycodone HCl (Oxyir) 5 mg PO Q4H PRN PRN PRN Reason: Moderate Pain (4-6/10) Last Admin: 06/16/19 08:44 Dose: 5 mg Documented by: Sodium Chloride () 5 - 15 ml IV UD PRN PRN Reason: SALINE FLUSH Last Admin: 06/14/19 22:04 Dose: 10 ml Documented by: Assessment/Plan All Active Problems (Last Updated 05/10/19 @ 11:05 by Carolynn Nicole) Femoral fracture (Acute) Thyroid nodule (Acute) Sarcoma of vulva (Acute) Fatigue (Acute) SOB (shortness of breath) (Acute) Hypokalemia (Resolved) debility s/p left hip fx/orif, complicated by several cancers, one of which appears active. goal of rehab is congregation of prior level of functinal independenc plan pt for gait and balance ot for adls dvt prophylaxis bowel protocol prn analgesics verify restrictions from dr reed at [facility]
--- NOTE | 2019-06-16 10:19 | REHABEVAL_ITS ---
Admission Information Status Changes from Prescreening?: No changes Identified Actual Problem List:: Pain, ALteration in Cmfrt, Alteration in Nutrition, Mobility Impaired, Self Care Deficit, Ineffect.D/C Plan r/t Psy Potential Problem List:: DVT, Bleeding, Infection, UTI, Aspiration, Falls, Skin Integrity, Depression Risk of Complications DVT: LMWH, MAURISIO Hose, Sequential Compression Device Bleeding: Monitor Lab Values, Nursing to Teach Precautions for anti-coagulation therapy., Wound, if applicable, to be assessed every shift., Stroke patients assessed for lethargy or change in status. Infection: Clinical Staff to Monitor for S/S of infection:, S/S of infection include fever, redness, warmth, etc. Urinary Tract Infection: Monitor for frequency, burning, discomfort, or inco ntinence., Nursing will obtain urine sample for urinalysis and C&S when ordered. Aspiration: Clinical staff will monitor for coughing, drooling, congestion., Speech will evaluate swallowing and dsyphasia., Nursing will monitor patient swallowing during meals. Falls: Patient will be evaluated for Fall Precautions, Patient will be placed on Fall Precautions as indicated per protocol. Skin Breakdown: Nursing will assess skin daily using assessment tool., Nursing will place on Skin Breakdown Precautions as indicated. Pain: Clinical staff will assess patient's pain level per protocol., Medications will be given, if needed, and the pain level reassessed., Other methods: Massage, distraction, decrease stimulus, etc. used PRN. Plan of Care Patient requires physician specializing in physical medicine and rehab oversight to provide close medical supervision of rehab issues including: Pain Management, Sleep Problems, Bowel and Bladder, Medical and co-morbidity Management, DVT prophylaxis, Rehabilitation Leadership, Coordination of treatment team Patient needs Physical Therapy: For a minimum of 1 hour, At least 5 out of 7 days Patient needs Physical Therapy to improve:: Mobility, Mobility, Mobility, Str engthening, Transfers, Stretching, ROM, Endurance, Stairs, Gait, Balance Patient needs Occupational Therapy: For a minimum of 1 hour, At least 5 out of 7 days Patient needs Occupational Therapy to improve ADL's incl.: Eating, Grooming, Bathing, Dressing, Toileting, Toilet transfers, Community Reintegration, Higher functioning activities, Household tasks, Adaptive Equipment, Splinting, Other activities as determined Patient requires 24/ Rehabilitation Nursing for: Pain Issues, Identifying and preventing risk factors, Monitoring and reporting current medical conditions, Assisting with ambulation, transfer, and all ADL's, Teaching patients about disease process and medications, Family teaching, Providing safe environment, Bowel and Bladder Issues, Skin integrity, Medication Management Patient needs Jointer Machine/ Case Management for: Discharge Planning, Arranging Home Equipment or Services, Family Interventions Patient needs Dietary and Nutrition Services for: Adequate Nutrition, Nutritional Supplements, Nutritional Education Goals Patient will remain: free from falls, or injury at time of discharge. Patient will perform bed mobility at: MOD I level of assist. Patient will complete transfers from bed to chair at: MOD I level of assist. Patient will ambulate: 100 feet, with MOD I assist, with LRD Patient will complete upper body dressing at: MOD I level of assist. Patient will complete lower body dressing at: MOD I level of assist. Patient will complete toileting at: MOD I level of assist. Patient will perform bathing at: MOD I level of assist. Patient will complete grooming at: MOD I level of assist. Patient will complete home management skills at: MOD I level of assist. Patient will achieve: 12 stairs, at MOD I assist Patient will have pain level of: of 3 or less Patient's skin will: remain intact, free from infection. Patient will receive: adequate nutrition. Discharge Planning Pt Prognosis for Sig. Practical Improv. w/in Reasonable Time: Good Anticipated D/C Destination: Home with Outpt Therapy Was Preadmission Assessment Accurate?: Yes
--- NOTE | 2019-06-16 13:34 | NURSING ---
1050-report called to Kylee callahan in rehab
== END 2019-06-16 11:13 | DRG 481 ==
LOC: ED 17:19 → MS3 18:32
PROVIDERS: Anesthesiology; Orthopaedic Surgery; Admitting Provider Internal Medicine; Emergency Provider Emergency Medicine; Family Provider Family Medicine; PCP Family Medicine; Visit Provider Internal Medicine
PROC: 0QS704Z Reposition Left Upper Femur with Internal Fixation Device, Open Approach (ICD-10-PCS; CPT 27245; principal; 2019-06-14 15:00)
DX: S72.142A Displaced intertrochanteric fracture of left femur, initial encounter for closed fracture (principal); Q21.1 Atrial septal defect; C51.9 Malignant neoplasm of vulva, unspecified; W18.30XA Fall on same level, unspecified, initial encounter; Y93.01 Activity, walking, marching and hiking; Y92.008 Other place in unspecified non-institutional (private) residence as the place of occurrence of the external cause; Y99.8 Other external cause status; Z79.82 Long term (current) use of aspirin; Z95.5 Presence of coronary angioplasty implant and graft; I10 Essential (primary) hypertension; E78.5 Hyperlipidemia, unspecified; I25.10 Atherosclerotic heart disease of native coronary artery without angina pectoris; Z85.42 Personal history of malignant neoplasm of other parts of uterus; Z85.038 Personal history of other malignant neoplasm of large intestine; I25.5 Ischemic cardiomyopathy; I25.2 Old myocardial infarction; Z79.899 Other long term (current) drug therapy; E86.0 Dehydration; Z90.721 Acquired absence of ovaries, unilateral; Z90.710 Acquired absence of both cervix and uterus; Z92.21 Personal history of antineoplastic chemotherapy; Z92.3 Personal history of irradiation; Z66 Do not resuscitate
CPT/HCPCS: 36415; 70450; 71045; 72170; 73502; 73552; 76000; 80048; 80053; 83735; 85025; 85610; 85730; 86850; 86900; 86901; 86920; 88305; 88311; 93005; 93306; 97163; 97166; 97802; 99285; C1713; C1776; J7030; J7040; P9016; Q9957; A4216; C8929; J2405; J3490

== ENCOUNTER 2019-06-16 11:20 | Inpatient (IN) | payer MEDICARE, BC, SELFPAY ==
[2019-06-14 13:58] VITALS: BMI 27.4
[2019-06-16 11:36] VITALS: BP 127/65; PULSE 61; RESP 16; TEMP 36.7; O2SAT 95; BMI 28.3
[2019-06-16] MEDS: Acetaminophen 500 MG Tablet 1000 MG PO ×2 (12:53→21:36)
[2019-06-16] MEDS: oxyCODONE 5 MG Tablet PO (12:54)
--- NOTE | 2019-06-16 12:56 | NURSING ---
Addendum entered by Kylee Serrano 06/16/19 14:08: Received call for Margaret at Dr Dockery office. No straining or heavy lifting greater than 10lbs Original Note: Left message Pete DIAZ TUBE WASHER Dr Dockery [phone] to see if pt has any restrictions on exercise d/t recent Biopsy.
--- NOTE | 2019-06-16 12:58 | NURSING ---
left message Dr freitas office to verify how long pt is to be on Lovenox. also need dressing change orders.
[2019-06-16 13:00] VITALS: BMI 28.3
--- NOTE | 2019-06-16 13:34 | PN.ORTHO_ITS ---
Subjective: Patient lying in bed sleeping. Patient easy to awake. Patient states pain is much better after she just received her pain medication. States her pain was as high as a 7 before her pain meds. Patient denies chest pain, shortness of breath, calf pain, nausea vomiting. Patient was moved to the fourth floor rehab before I had the opportunity to see her on MedSurg 3. Objective: Dressings clean dry intact. Negative signs and symptoms of DVT. Vital signs labs within normal limits. Patient has good plantar flexion dorsiflexion of bilateral feet. Patient no respiratory distress, speaking in full sentences. - Physical Exam Vitals/I&O's: Vital Signs Temp Pulse Resp BP Pulse Ox 98.0 F 61 16 127/65 H 95 06/16/19 11:36 06/16/19 11:36 06/16/19 11:36 06/16/19 11:36 06/16/19 11:36 Oxygen Delivery Method Room Air Weight: 74.9 kg Body Mass Index (BMI) 28.3 Intake and Output for Last 24 Hours 06/14/19 06/15/19 06/16/19 23:59 23:59 23:59 Intake Total 180 / 180 Balance 180 / 180 General: Alert, Oriented x3, Cooperative HEENT: PERRLA Neurological: Cranial nerves II-XII grossly intact Psych/Mental Status: Normal Affect Current Medications Acetaminophen (Tylenol) 1,000 mg PO TID [facility] Last Admin: 06/16/19 12:53 Dose: 1,000 mg Documented by: Amlodipine Besylate (Norvasc) 5 mg PO DAILY [facility] Aspirin (Ecotrin) 81 mg PO DAILY@0800 [facility] Bisacodyl (Dulcolax) 10 mg RECTAL .PRN X 1 PRN PRN Reason: Constipation Enoxaparin Sodium (Lovenox) 40 mg SC DAILY@0600 [facility] Famotidine (Pepcid) 20 mg PO DAILY [facility] Magnesium Hydroxide (Milk Of Magnesia) 30 ml PO .PRN X 1 PRN PRN Reason: Constipation Metoprolol Tartrate (Lopressor (Beta Imani)) 25 mg PO BID [facility] Oxycodone HCl (Oxyir) 5 mg PO Q4H PRN PRN PRN Reason: Moderate Pain (4-6/10) Last Admin: 06/16/19 12:54 Dose: 5 mg Documented by: Senna/Docusate Sodium (Senokot-S, Sheree-Colace) 2 tablet PO BID [facility] Medical Necessity - Tobacco Use Smoking Status: Never smoker Tobacco Use: Non-smoker Assessment/Plan All Active Problems (Last Reviewed 06/16/19 @ 10:15 by Jayjay Valencia MD) Femoral fracture (Acute) Thyroid nodule (Acute) Sarcoma of vulva (Acute) Fatigue (Acute) SOB (shortness of breath) (Acute) Hypokalemia (Resolved) Post ORIF left sub-trochanteric hip fracture Plan 1. Continue all pain medication as prescribed 2. Continue physical therapy. Weight-bear at 50% with walker. 3. Discontinue Lovenox begin Xarelto 10 mg 1 p.o. daily for postop DVT prophylaxis 4. Encourage incentive spirometry 5. Patient can shower on 06/18/2019 6. Replace AG dressings, to stay in place until staple removal 7. Remove mahesh on 07/01/2019 8. Follow up with Dr. Hernandez 2 weeks
[2019-06-16 21:25] VITALS: BP 140/56; PULSE 74; RESP 16; TEMP 37; O2SAT 96
[2019-06-16 21:29] VITALS: BP 139/55; PULSE 74; RESP 16; TEMP 37.3; O2SAT 95
[2019-06-16 21:36] VITALS: PULSE 74
[2019-06-16] MEDS: Metoprolol Tartrate 25 MG Tablet PO (21:36)
[2019-06-16] MEDS: Senna/Docusate Sodium 1 Tablet 2 TABLET PO (21:36)
[2019-06-17] MEDS: oxyCODONE 5 MG Tablet PO ×4 (02:00→20:42)
[2019-06-17] MEDS: Acetaminophen 500 MG Tablet 1000 MG PO ×3 (05:45→20:39)
[2019-06-17 05:51] LABS: Basophil# 0.05 X10^3/uL; Basophil% 0.8 % (0-1); Eosinophil# 0.26 X10^3/uL; Eosinophils% 4.3 % (0-5); Hematocrit 25.8 % (37-47); Hemoglobin 8.1 g/dL (12.0-15.0); Mean Corp Hgb Conc 31.4 g/dL (32-36); Mean Corpuscular Hgb 28.4 pg (27.0-32.0); Mean Corpuscular Volume 90.5 fL (81-99); Mean Platelet Vol. 10.5 fl (6.2-12.0); Monocyte# 0.61 X10^3/uL; NRBC Flagged by Analyzer 0 % (0-5); Neutrophil # 4.04 X10^3/uL (2.7-7.7); Neutrophil % 66.1 % (47-70); Platelet Count 151 K/mm3 (150-450); RBC Distribution Width CV 16.3 % (11.6-14.6); RBC Distribution Width SD 53.9 fl (35.1-43.9); Red Blood Count 2.85 M/mm3 (4.2-5.4); White Blood Count 6.1 K/mm3 (4.4-11.0)
[2019-06-17 06:06] LABS: Anion Gap 5 (5-15); BUN 17 mg/dL (7-18); Calcium,Total 8.2 mg/dL (8.5-10.1); Chloride 110 mmol/L (98-107); EST Glomerular Filtration Rate 64 mL/min (>60); Est Glom Filt Rate - Afr Amer 78 mL/min (>60); Estimated Creatinine Clearance 43.77 ml/min; Glucose 100 mg/dL (74-106); Potassium 3.9 mmol/L (3.5-5.1); Sodium Level 142 mmol/L (136-145)
[2019-06-17 07:09] VITALS: BP 136/64; PULSE 66; RESP 16; TEMP 36.9; O2SAT 96
[2019-06-17] MEDS: Famotidine 20 MG Tablet PO (07:46)
[2019-06-17] MEDS: Senna/Docusate Sodium 1 Tablet 2 TABLET PO ×2 (07:46→20:39)
[2019-06-17 07:47] VITALS: BP 136/64; PULSE 66
[2019-06-17] MEDS: Aspirin E.C. 81 MG Tablet PO (07:47)
[2019-06-17] MEDS: amLODIPine 5 MG Tablet PO (07:47)
[2019-06-17] MEDS: Metoprolol Tartrate 25 MG Tablet PO ×2 (07:47→20:39)
--- NOTE | 2019-06-17 10:15 | PCM.PN.NEU ---
Subjective: Per nursing, no issues overnight. Pain is controlled and is tolerating therapies. Nursing contact Dr. Garcia at [facility] and verified no heavy lifting or straining no more than 10-15 pounds d/t vulvar biopsy. Clarification, d/c mahesh to left hip on 06/26/19. 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 - Physical Exam Vitals/I&O's: Vital Signs Temp Pulse Resp BP Pulse Ox 98.5 F 66 16 136/64 H 96 06/17/19 07:09 06/17/19 07:47 06/17/19 07:09 06/17/19 07:47 06/17/19 07:09 Oxygen Delivery Method Room Air Weight: 74.9 kg Body Mass Index (BMI) 28.3 Intake and Output for Last 24 Hours 06/15/19 06/16/19 06/17/19 23:59 23:59 23:59 Intake Total 360 / 360 Output Total 200 / 200 Balance 160 / 160 General: Alert, Oriented x3, Cooperative HEENT: Atraumatic, PERRLA, EOMI Oral: Moist Mucosa Neck: Supple, No JVD Lungs: Clear to auscultation, Normal air movement Cardiovascular: Regular rate, Regular Rhythm Abdomen: Bowel Sounds Present, Soft, Non Tender Extremities: No clubbing, No cyanosis, No edema Skin: Incision - AG drsg intact, without surrounding redness or drng to left hip Neurological: Cranial nerves II-XII grossly intact, Deep Tendon Reflexes 2+/4 and Symmetrical, Motor Exam 5/5 strength throughout Psych/Mental Status: Normal Affect, Appropriate, Alert and oriented to time, place, person, mood and affect Laboratory Results 06/17/19 05:35: WBC 6.1, RBC 2.85 L, Hgb 8.1 L, Hct 25.8 L, MCV 90.5, MCH 28.4, MCHC 31.4 L, RDW Std Deviation 53.9 H, RDW Coeff of Sam 16.3 H, Plt Count 151, MPV 10.5, Immature Gran % (Auto) 0.800, Neut % (Auto) 66.1, Lymph % (Auto) 18.0 L, [place] % (Auto) 10.0, Eos % (Auto) 4.3, Baso % (Auto) 0.8, Absolute Neuts (auto) 4.0, Absolute Lymphs (auto) 1.10, Nucleated RBC % 0 06/17/19 05:35: Sodium 142, Potassium 3.9, Chloride 110 H, Carbon Dioxide 27.0, Anion Gap 5, BUN 17, Creatinine 0.90, Estim Creat Clear Calc 43.77, Est GFR (MDRD) Af Amer 78, Est GFR (MDRD) Non-Af 64, BUN/Creatinine Ratio 19.0, Glucose 100, Calcium 8.2 L Current Medications Acetaminophen (Tylenol) 1,000 mg PO TID [facility] Last Admin: 06/17/19 05:45 Dose: 1,000 mg Documented by: Amlodipine Besylate (Norvasc) 5 mg PO DAILY [facility] Last Admin: 06/17/19 07:47 Dose: 5 mg Documented by: Aspirin (Ecotrin) 81 mg PO DAILY@0800 [facility] Last Admin: 06/17/19 07:47 Dose: 81 mg Documented by: Bisacodyl (Dulcolax) 10 mg RECTAL .PRN X 1 PRN PRN Reason: Constipation Famotidine (Pepcid) 20 mg PO DAILY [facility] Last Admin: 06/17/19 07:46 Dose: 20 mg Documented by: Magnesium Hydroxide (Milk Of Magnesia) 30 ml PO .PRN X 1 PRN PRN Reason: Constipation Metoprolol Tartrate (Lopressor (Beta Imani)) 25 mg PO BID [facility] Last Admin: 06/17/19 07:47 Dose: 25 mg Documented by: Oxycodone HCl (Oxyir) 5 mg PO Q4H PRN PRN PRN Reason: Moderate Pain (4-6/10) Last Admin: 06/17/19 07:46 Dose: 5 mg Documented by: Rivaroxaban (Xarelto) 10 mg PO DAILY@1700 [facility] Stop: 07/17/19 17:01 Senna/Docusate Sodium (Senokot-S, Sheree-Colace) 2 tablet PO BID [facility] Last Admin: 06/17/19 07:46 Dose: 2 tablet Documented by: STROKE Vital Signs/Narrative: Vital Signs Temp Pulse Resp BP Pulse Ox 06/17/19 07:47 66 136/64 H 06/17/19 07:09 98.5 F 66 16 136/64 H 96 Medical Necessity - Tobacco Use Smoking Status: Never smoker Tobacco Use: Non-smoker Assessment/Plan All Active Problems (Last Reviewed 06/16/19 @ 10:15 by Jayjay Valencia MD) Femoral fracture (Acute) Thyroid nodule (Acute) Sarcoma of vulva (Acute) Fatigue (Acute) SOB (shortness of breath) (Acute) Hypokalemia (Resolved) The patient is a 78 year old F with PMH of HTN, HLD, CAD, AK post stent placement, ischemic cardiomyopathy, HX of endometrial CA post total hysterectomy 2002, HX of colon CA post low anterior resection with chemotherapy 1998, HX of vulvar CA post partial vulvectomy 2012 with recent vulvar biopsy on 06/02/19, admitted to [facility] on 06/16/19 for greater of 3 hours of therapy daily with a goal of returning home at or near her prior level of independence. On 06/13/19, patient had fallen onto her left side and hit head without LOC. Patient was carrying wan and walked into the garage door, which was partially opened, which caused her fall. CT of brain showed no acute hemorrhage or infarct. Left pelvis and femur x-ray showed displaced intertrochanteric fracture of the left femur. On 06/13/19, Dr. Mayo performed a Gamma nail internal fixation left hip. Patient lives with spouse in a one level house with 3 steps to enter. Prior to hospitalization was independent with mobility, ADLs and driving. Plan - PT for mobility - OT for ADLs - Left hip fx post gamma nail internal fixation- replace AG drsg prn until mahesh are discontinued on 06/26/19, polar care as needed. o.k to shower - HTN on norvasc, lopressor Hold if SBP <110 or HR <55 - HLD diet control 09/26/18 LDL 75 - CAD post AK with stent placement on asa, norvasc, lopressor Hold if SBP <110 or HR <55 - Ischemic cardiomyopathy - HX of vulvar CA with partial vulvectomy in 2012- On 06/02/[address] Garcia at [facility] in [place], [place] no heavy lifting or straining >10-15 pounds. - HX of endometrial CA post total hysterectomy, bilateral salpingectomy, and left oophorectomy - radiation therapy 2002 - HX of Colon CA with anterior resection- chemotherapy 1998 - GI/DVT prophylaxis - pepcid/xeralto x 30 days with last dose on 07/17/19, knee high nikki mcneill - Medical management per hospitalist- consult - Analgesics as needed - Bowel protocol - Fall precautions - F/U with PCP, Dr. Mayo, Dr. Garcia
--- NOTE | 2019-06-17 10:59 | NURSING ---
message left for Dr freitas if ok change nikki hose to knee high d/t thigh high cutting into pt's legs causing discomfort
--- NOTE | 2019-06-17 13:22 | PN_ITS ---
Subjective: CC follow-up left hip fracture status post repair Patient is a 78-year-old lady who presented to the emergency department following a traumatic fall. She did sustain hip pain imaging studies demonstrated acute Displaced intertrochanteric fracture of the left femur; underwent ORIF on 06/14/2019 and subsequently transferred to the inpatient rehab unit for recuperation. Objective: GENERAL: cooperative HEENT: Atraumatic; EYES; Anicteric, Normal Conjunctiva NECK; supple, normal thyroid, . RESPIRATORY: Diminished to auscultation CARDIOVASCULAR: Regular S1 S2, GI: soft, non-tender, normoactive bowel sounds, : No Renal angle tenderness; EXTREMITIES: No edema, no clubbing, MUSCULOSKELETAL: Restricted in the left hip NEURO: Awake; no lateralizing signs. SKIN: No Rash PSYCH; Normal affect Vitals/I&O's: Vital Signs Temp Pulse Resp BP Pulse Ox 98.5 F 66 16 136/64 H 96 06/17/19 07:09 06/17/19 07:47 06/17/19 07:09 06/17/19 07:47 06/17/19 07:09 Oxygen Delivery Method Room Air Weight: 74.9 kg Body Mass Index (BMI) 28.3 Intake and Output for Last 24 Hours 06/15/19 06/16/19 06/17/19 23:59 23:59 23:59 Intake Total 360 / 360 Output Total 200 / 200 Balance 160 / 160 Laboratory Results 06/17/19 05:35: WBC 6.1, RBC 2.85 L, Hgb 8.1 L, Hct 25.8 L, MCV 90.5, MCH 28.4, MCHC 31.4 L, RDW Std Deviation 53.9 H, RDW Coeff of Sam 16.3 H, Plt Count 151, MPV 10.5, Immature Gran % (Auto) 0.800, Neut % (Auto) 66.1, Lymph % (Auto) 18.0 L, [place] % (Auto) 10.0, Eos % (Auto) 4.3, Baso % (Auto) 0.8, Absolute Neuts (auto) 4.0, Absolute Lymphs (auto) 1.10, Nucleated RBC % 0 06/17/19 05:35: Sodium 142, Potassium 3.9, Chloride 110 H, Carbon Dioxide 27.0, Anion Gap 5, BUN 17, Creatinine 0.90, Estim Creat Clear Calc 43.77, Est GFR (MDRD) Af Amer 78, Est GFR (MDRD) Non-Af 64, BUN/Creatinine Ratio 19.0, Glucose 100, Calcium 8.2 L Current Medications Acetaminophen (Tylenol) 1,000 mg PO TID [facility] Last Admin: 06/17/19 05:45 Dose: 1,000 mg Documented by: Amlodipine Besylate (Norvasc) 5 mg PO DAILY [facility] Last Admin: 06/17/19 07:47 Dose: 5 mg Documented by: Aspirin (Ecotrin) 81 mg PO DAILY@0800 [facility] Last Admin: 06/17/19 07:47 Dose: 81 mg Documented by: Bisacodyl (Dulcolax) 10 mg RECTAL .PRN X 1 PRN PRN Reason: Constipation Famotidine (Pepcid) 20 mg PO DAILY [facility] Last Admin: 06/17/19 07:46 Dose: 20 mg Documented by: Magnesium Hydroxide (Milk Of Magnesia) 30 ml PO .PRN X 1 PRN PRN Reason: Constipation Metoprolol Tartrate (Lopressor (Beta Imani)) 25 mg PO BID [facility] Last Admin: 06/17/19 07:47 Dose: 25 mg Documented by: Oxycodone HCl (Oxyir) 5 mg PO Q4H PRN PRN PRN Reason: Moderate Pain (4-6/10) Last Admin: 06/17/19 13:07 Dose: 5 mg Documented by: Rivaroxaban (Xarelto) 10 mg PO DAILY@1700 [facility] Stop: 07/17/19 17:01 Senna/Docusate Sodium (Senokot-S, Sheree-Colace) 2 tablet PO BID [facility] Last Admin: 06/17/19 07:46 Dose: 2 tablet Documented by: Medical Necessity - Tobacco Use Smoking Status: Never smoker Tobacco Use: Non-smoker Assessment/Plan All Active Problems (Last Reviewed 06/16/19 @ 10:15 by Jayjay Valencia MD) Femoral fracture (Acute) Thyroid nodule (Acute) Sarcoma of vulva (Acute) Fatigue (Acute) SOB (shortness of breath) (Acute) Hypokalemia (Resolved) Patient is a 78-year-old lady who presented to the emergency department following a traumatic fall. She did sustain hip pain imaging studies demonstrated acute Displaced intertrochanteric fracture of the left femur; underwent ORIF on 06/14/2019 and subsequently transferred to the inpatient rehab unit for recuperation. 1. Physical debility - following Acute Displaced intertrochanteric fracture of the left femur. For which patient underwent gamma nail internal fixation left hip on 06/14/2019 subsequently transferred to inpatient rehab unit where she is currently undergoing therapy 2. Coronary artery disease ?With previous OR with subsequent stent placement patient is on aspirin and metoprolol. EKG obtained on admission was unremarkable 3. Hypertension - blood pressure controlled, home medications continued with dose adjustment as needed 4. 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 5. History of endometrial CA status - status post total abdominal hysterectomy, bilateral salpingectomy and left oophorectomy followed by adjuvant radiation therapy: 2002. 6. History of colon CA ?patient underwent low anterior resection with subsequent chemotherapy in 1998 7. DVT prophylaxis - Rivaroxaban (Xarelto) Active Medications Acetaminophen (Tylenol) 1,000 mg PO TID [facility] Last Admin: 06/17/19 05:45 Dose: 1,000 mg Documented by: Amlodipine Besylate (Norvasc) 5 mg PO DAILY [facility] Last Admin: 06/17/19 07:47 Dose: 5 mg Documented by: Aspirin (Ecotrin) 81 mg PO DAILY@0800 [facility] Last Admin: 06/17/19 07:47 Dose: 81 mg Documented by: Bisacodyl (Dulcolax) 10 mg RECTAL .PRN X 1 PRN PRN Reason: Constipation Famotidine (Pepcid) 20 mg PO DAILY [facility] Last Admin: 06/17/19 07:46 Dose: 20 mg Documented by: Magnesium Hydroxide (Milk Of Magnesia) 30 ml PO .PRN X 1 PRN PRN Reason: Constipation Metoprolol Tartrate (Lopressor (Beta Imani)) 25 mg PO BID [facility] Last Admin: 06/17/19 07:47 Dose: 25 mg Documented by: Oxycodone HCl (Oxyir) 5 mg PO Q4H PRN PRN PRN Reason: Moderate Pain (4-6/10) Last Admin: 06/17/19 13:07 Dose: 5 mg Documented by: Rivaroxaban (Xarelto) 10 mg PO DAILY@1700 [facility] Stop: 07/17/19 17:01 Senna/Docusate Sodium (Senokot-S, Sheree-Colace) 2 tablet PO BID [facility] Last Admin: 06/17/19 07:46 Dose: 2 tablet Documented by: Code Visit Inpatient E&M: 74376 Subs Hosp L2
[2019-06-17] MEDS: Rivaroxaban 10 MG Tablet PO (16:38)
[2019-06-17 19:39] VITALS: BP 147/69; PULSE 65; RESP 18; TEMP 37; O2SAT 96
[2019-06-17 20:39] VITALS: PULSE 65
[2019-06-18 05:30] VITALS: BP 147/63; PULSE 66; RESP 18; TEMP 36.8; O2SAT 98
[2019-06-18] MEDS: oxyCODONE 5 MG Tablet PO ×3 (05:33→20:51)
[2019-06-18] MEDS: Acetaminophen 500 MG Tablet 1000 MG PO ×3 (05:34→20:53)
[2019-06-18 07:44] VITALS: PULSE 70
[2019-06-18] MEDS: Aspirin E.C. 81 MG Tablet PO (07:44)
[2019-06-18] MEDS: amLODIPine 5 MG Tablet PO (07:44)
[2019-06-18] MEDS: Senna/Docusate Sodium 1 Tablet 2 TABLET PO (07:44)
[2019-06-18] MEDS: Famotidine 20 MG Tablet PO (07:44)
[2019-06-18] MEDS: Metoprolol Tartrate 25 MG Tablet PO ×2 (07:44→20:53)
[2019-06-18 07:45] VITALS: BP 132/76
[2019-06-18 09:47] LABS: Hemoglobin 8.4 g/dL (12.0-15.0)
--- NOTE | 2019-06-18 10:38 | PN.NEURO_ITS ---
Subjective: Per nursing, no issues overnight. Patient tolerating therapies well and pain is controlled. - Physical Exam Vitals/I&O's: Vital Signs Temp Pulse Resp BP Pulse Ox 98.3 F 70 18 147/63 H 98 06/18/19 05:30 06/18/19 07:44 06/18/19 05:30 06/18/19 05:30 06/18/19 05:30 Oxygen Delivery Method Room Air Weight: 74.9 kg Body Mass Index (BMI) 28.3 Intake and Output for Last 24 Hours 06/16/19 06/17/19 06/18/19 23:59 23:59 23:59 Intake Total 360 / 360 240 / 240 360 / 360 Output Total 200 / 200 300 / 300 Balance 160 / 160 -60 / -60 360 / 360 General: Alert, Oriented x3, Cooperative HEENT: Atraumatic, PERRLA, EOMI Oral: Moist Mucosa Neck: Supple, No JVD Lungs: Clear to auscultation, Normal air movement Cardiovascular: Regular rate, Regular Rhythm Abdomen: Bowel Sounds Present, Soft, Non Tender Skin: Incision - left hip AG drsg intact, without redness or drng Neurological: Cranial nerves II-XII grossly intact, Deep Tendon Reflexes 2+/4 and Symmetrical, Motor Exam 5/5 strength throughout Psych/Mental Status: Normal Affect, Appropriate, Alert and oriented to time, place, person, mood and affect Laboratory Results 06/18/19 09:35: Hgb 8.4 L, Hct 27.0 L Current Medications Acetaminophen (Tylenol) 1,000 mg PO TID [facility] Last Admin: 06/18/19 05:34 Dose: 1,000 mg Documented by: Amlodipine Besylate (Norvasc) 5 mg PO DAILY [facility] Last Admin: 06/18/19 07:44 Dose: 5 mg Documented by: Aspirin (Ecotrin) 81 mg PO DAILY@0800 [facility] Last Admin: 06/18/19 07:44 Dose: 81 mg Documented by: Bisacodyl (Dulcolax) 10 mg RECTAL .PRN X 1 PRN PRN Reason: Constipation Famotidine (Pepcid) 20 mg PO DAILY [facility] Last Admin: 06/18/19 07:44 Dose: 20 mg Documented by: Magnesium Hydroxide (Milk Of Magnesia) 30 ml PO .PRN X 1 PRN PRN Reason: Constipation Metoprolol Tartrate (Lopressor (Beta Imani)) 25 mg PO BID [facility] Last Admin: 06/18/19 07:44 Dose: 25 mg Documented by: Oxycodone HCl (Oxyir) 5 mg PO Q4H PRN PRN PRN Reason: Moderate Pain (4-6/10) Last Admin: 06/18/19 10:35 Dose: 5 mg Documented by: Rivaroxaban (Xarelto) 10 mg PO DAILY@1700 [facility] Stop: 07/17/19 17:01 Last Admin: 06/17/19 16:38 Dose: 10 mg Documented by: Senna/Docusate Sodium (Senokot-S, Sheree-Colace) 2 tablet PO BID [facility] Last Admin: 06/18/19 07:44 Dose: 2 tablet Documented by: STROKE Vital Signs/Narrative: Vital Signs Pulse 06/18/19 07:44 70 Medical Necessity - Tobacco Use Smoking Status: Never smoker Tobacco Use: Non-smoker Assessment/Plan All Active Problems (Last Reviewed 06/16/19 @ 10:15 by Jayjay Valencia MD) Femoral fracture (Acute) Thyroid nodule (Acute) Sarcoma of vulva (Acute) Fatigue (Acute) SOB (shortness of breath) (Acute) Hypokalemia (Resolved) The patient is a 78 year old F with PMH of HTN, HLD, CAD, [place] post stent placement, ischemic cardiomyopathy, HX of endometrial CA post total hysterectomy 2002, HX of colon CA post low anterior resection with chemotherapy 1998, HX of vulvar CA post partial vulvectomy 2012 with recent vulvar biopsy on 06/02/19, a dmitted to [facility] on 06/16/19 for greater of 3 hours of therapy daily with a goal of returning home at or near her prior level of independence. On 06/13/19, patient had fallen onto her left side and hit head without LOC. Patient was carrying wan and walked into the garage door, which was partially opened, which caused her fall. CT of brain showed no acute hemorrhage or infarct. Left pelvis and femur x-ray showed displaced intertrochanteric fracture of the left femur. On 06/13/19, Dr. Mayo performed a Gamma nail internal fixation left hip. Patient lives with spouse in a one level house with 3 steps to enter. Prior to hospitalization was independent with mobility, ADLs and driving. Plan - PT for mobility - OT for ADLs - Left hip fx post gamma nail internal fixation- replace AG drsg prn until mahesh are discontinued on 06/26/19, polar care as needed. o.k to shower - HTN on norvasc, lopressor Hold if SBP <110 or HR <55 - HLD diet control 09/26/18 LDL 75 - CAD post OR with stent placement on asa, norvasc, lopressor Hold if SBP <110 or HR <55 - Ischemic cardiomyopathy - HX of vulvar CA with partial vulvectomy in 2012- On 06/02/[address] Philip at [facility] in [place], [place] no heavy lifting or straining >10- 15 pounds. - HX of endometrial CA post total hysterectomy, bilateral salpingectomy, and left oophorectomy - radiation therapy 2002 - HX of Colon CA with anterior resection- chemotherapy 1998 - post op anemia 24 H/H 25.8/8.1 recheck H/H 27.0/8.4 - asymptomatic - GI/DVT prophylaxis - pepcid/xeralto x 30 days with last dose on 07/17/19, knee high nikki hose - Medical management per hospitalist- consult - Analgesics as needed - Bowel protocol - Fall precautions - F/U with PCP, Dr. Mayo, Dr. Philip
--- NOTE | 2019-06-18 12:27 | PCM.PN.HOSP ---
Subjective: follow-up left hip fracture status post repair Patient seen currently undergoing physical therapy. Rates her pain at 7 out of 10. Patient hemoglobin this a.m. is 8.4 Objective: GENERAL: cooperative HEENT: Atraumatic; EYES; Anicteric, Normal Conjunctiva NECK; supple, normal thyroid, . RESPIRATORY: Diminished to auscultation CARDIOVASCULAR: Regular S1 S2, GI: soft, non-tender, normoactive bowel sounds, : No Renal angle tenderness; EXTREMITIES: No edema, no clubbing, MUSCULOSKELETAL: Restricted in the left hip NEURO: Awake; no lateralizing signs. SKIN: No Rash PSYCH; Normal affect Vitals/I&O's: Vital Signs Temp Pulse Resp BP Pulse Ox 98.3 F 70 18 147/63 H 98 06/18/19 05:30 06/18/19 07:44 06/18/19 05:30 06/18/19 05:30 06/18/19 05:30 Oxygen Delivery Method Room Air Weight: 74.9 kg Body Mass Index (BMI) 28.3 Intake and Output for Last 24 Hours 06/16/19 06/17/19 06/18/19 23:59 23:59 23:59 Intake Total 360 / 360 240 / 240 360 / 360 Output Total 200 / 200 300 / 300 Balance 160 / 160 -60 / -60 360 / 360 Laboratory Results 06/18/19 09:35: Hgb 8.4 L, Hct 27.0 L Current Medications Acetaminophen (Tylenol) 1,000 mg PO TID [facility] Last Admin: 06/18/19 05:34 Dose: 1,000 mg Documented by: Amlodipine Besylate (Norvasc) 5 mg PO DAILY [facility] Last Admin: 06/18/19 07:44 Dose: 5 mg Documented by: Aspirin (Ecotrin) 81 mg PO DAILY@0800 [facility] Last Admin: 06/18/19 07:44 Dose: 81 mg Documented by: Bisacodyl (Dulcolax) 10 mg RECTAL .PRN X 1 PRN PRN Reason: Constipation Famotidine (Pepcid) 20 mg PO DAILY [facility] Last Admin: 06/18/19 07:44 Dose: 20 mg Documented by: Magnesium Hydroxide (Milk Of Magnesia) 30 ml PO .PRN X 1 PRN PRN Reason: Constipation Metoprolol Tartrate (Lopressor (Beta Imani)) 25 mg PO BID [facility] Last Admin: 06/18/19 07:44 Dose: 25 mg Documented by: Oxycodone HCl (Oxyir) 5 mg PO Q4H PRN PRN PRN Reason: Moderate Pain (4-6/10) Last Admin: 06/18/19 10:35 Dose: 5 mg Documented by: Rivaroxaban (Xarelto) 10 mg PO DAILY@1700 [facility] Stop: 07/17/19 17:01 Last Admin: 06/17/19 16:38 Dose: 10 mg Documented by: Senna/Docusate Sodium (Senokot-S, Sheree-Colace) 2 tablet PO BID [facility] Last Admin: 06/18/19 07:44 Dose: 2 tablet Documented by: Medical Necessity - Tobacco Use Smoking Status: Never smoker Tobacco Use: Non-smoker Assessment/Plan All Active Problems (Last Reviewed 06/16/19 @ 10:15 by Jayjay Valencia MD) Femoral fracture (Acute) Thyroid nodule (Acute) Sarcoma of vulva (Acute) Fatigue (Acute) SOB (shortness of breath) (Acute) Hypokalemia (Resolved) Patient is a 78-year-old lady who presented to the emergency department following a traumatic fall. She did sustain hip pain imaging studies demonstrated acute Displaced intertrochanteric fracture of the left femur; underwent ORIF on 06/14/2019 and subsequently transferred to the inpatient rehab unit for recuperation. 1. Physical debility - following Acute Displaced intertrochanteric fracture of the left femur. For which patient underwent gamma nail internal fixation left hip on 06/14/2019 subsequently transferred to inpatient rehab unit where she is currently undergoing therapy ?06/18/2019; Patient seen currently undergoing physical therapy. Rates her pain at 7 out of 10. 2. Anemia - secondary to acute blood loss anemia from her recent surgery monitoring H&H hemoglobin on 06/18/2019 is 8.4 no indication for blood transfusion at this point patient was placed on parenteral iron 3. Coronary artery disease ?With previous MO with subsequent stent placement patient is on aspirin and metoprolol. EKG obtained on admission was unremarkable 4. Hypertension - blood pressure controlled, home medications continued with dose adjustment as needed 5. 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 6. History of endometrial CA status - status post total abdominal hysterectomy, bilateral salpingectomy and left oophorectomy followed by adjuvant radiation therapy: 2002. 7. History of colon CA ?patient underwent low anterior resection with subsequent chemotherapy in 1998 8. DVT prophylaxis - Rivaroxaban (Xarelto) Active Medications Acetaminophen (Tylenol) 1,000 mg PO TID [facility] Last Admin: 06/17/19 05:45 Dose: 1,000 mg Documented by: Amlodipine Besylate (Norvasc) 5 mg PO DAILY [facility] Last Admin: 06/17/19 07:47 Dose: 5 mg Documented by: Aspirin (Ecotrin) 81 mg PO DAILY@0800 [facility] Last Admin: 06/17/19 07:47 Dose: 81 mg Documented by: Bisacodyl (Dulcolax) 10 mg RECTAL .PRN X 1 PRN PRN Reason: Constipation Famotidine (Pepcid) 20 mg PO DAILY [facility] Last Admin: 06/17/19 07:46 Dose: 20 mg Documented by: Magnesium Hydroxide (Milk Of Magnesia) 30 ml PO .PRN X 1 PRN PRN Reason: Constipation Metoprolol Tartrate (Lopressor (Beta Imani)) 25 mg PO BID [facility] Last Admin: 06/17/19 07:47 Dose: 25 mg Documented by: Oxycodone HCl (Oxyir) 5 mg PO Q4H PRN PRN PRN Reason: Moderate Pain (4-6/10) Last Admin: 06/17/19 13:07 Dose: 5 mg Documented by: Rivaroxaban (Xarelto) 10 mg PO DAILY@1700 [facility] Stop: 07/17/19 17:01 Senna/Docusate Sodium (Senokot-S, Sheree-Colace) 2 tablet PO BID [facility] Last Admin: 06/17/19 07:46 Dose: 2 tablet Documented by: Code Visit Inpatient E&M: 65675 Subs Hosp L2
[2019-06-18 15:10] VITALS: O2SAT 90
[2019-06-18] MEDS: Rivaroxaban 10 MG Tablet PO (17:08)
[2019-06-18 18:56] VITALS: BP 152/72; PULSE 86; RESP 18; TEMP 36.6; O2SAT 98
[2019-06-18 20:53] VITALS: PULSE 76
[2019-06-19] MEDS: oxyCODONE 5 MG Tablet PO ×4 (01:47→21:16)
[2019-06-19] MEDS: Acetaminophen 500 MG Tablet 1000 MG PO ×3 (06:15→21:15)
[2019-06-19 07:00] VITALS: O2SAT 90
[2019-06-19 07:14] VITALS: BP 135/57; PULSE 67; RESP 16; TEMP 37; O2SAT 94
[2019-06-19 07:50] VITALS: PULSE 78
[2019-06-19] MEDS: amLODIPine 5 MG Tablet PO (07:50)
[2019-06-19] MEDS: Aspirin E.C. 81 MG Tablet PO (07:50)
[2019-06-19] MEDS: Metoprolol Tartrate 25 MG Tablet PO ×2 (07:50→21:14)
[2019-06-19] MEDS: Famotidine 20 MG Tablet PO (07:50)
[2019-06-19] MEDS: Senna/Docusate Sodium 1 Tablet 2 TABLET PO ×2 (07:50→21:14)
[2019-06-19] MEDS: Rivaroxaban 10 MG Tablet PO (16:20)
[2019-06-19 19:13] VITALS: BP 123/57; PULSE 64; RESP 17; TEMP 36.7; O2SAT 96
[2019-06-19 21:14] VITALS: BP 123/57; PULSE 64
[2019-06-19 22:00] VITALS: PULSE 64; RESP 17; O2SAT 96
[2019-06-20] MEDS: Acetaminophen 500 MG Tablet 1000 MG PO ×3 (06:46→21:21)
[2019-06-20] MEDS: oxyCODONE 5 MG Tablet PO ×4 (06:47→21:20)
[2019-06-20 07:00] VITALS: BP 139/71; PULSE 66; RESP 17; TEMP 36.8; O2SAT 92; O2SAT 96
[2019-06-20 07:52] VITALS: PULSE 70
[2019-06-20] MEDS: Aspirin E.C. 81 MG Tablet PO (07:52)
[2019-06-20] MEDS: Metoprolol Tartrate 25 MG Tablet PO ×2 (07:52→21:20)
[2019-06-20] MEDS: Famotidine 20 MG Tablet PO (07:53)
[2019-06-20] MEDS: amLODIPine 5 MG Tablet PO (07:53)
--- NOTE | 2019-06-20 10:41 | PCM.PN.HOSP ---
Subjective: follow-up left hip fracture status post repair Patient seen complaining of left foot pain imaging studies ordered to rule out occult fracture Objective: GENERAL: cooperative HEENT: Atraumatic; EYES; Anicteric, Normal Conjunctiva NECK; supple, normal thyroid, . RESPIRATORY: Diminished to auscultation CARDIOVASCULAR: Regular S1 S2, GI: soft, non-tender, normoactive bowel sounds, : No Renal angle tenderness; EXTREMITIES: No edema, no clubbing, MUSCULOSKELETAL: Restricted in the left hip NEURO: Awake; no lateralizing signs. SKIN: No Rash PSYCH; Normal affect Vitals/I&O's: Vital Signs Temp Pulse Resp BP Pulse Ox 98.2 F 70 17 139/71 H 96 06/20/19 07:00 06/20/19 07:52 06/20/19 07:00 06/20/19 07:00 06/20/19 07:00 Oxygen Delivery Method Room Air Weight: 74.9 kg Body Mass Index (BMI) 28.3 Intake and Output for Last 24 Hours 06/18/19 06/19/19 06/20/19 23:59 23:59 23:59 Intake Total 840 / 840 620 / 620 180 / 180 Balance 840 / 840 620 / 620 180 / 180 Current Medications Acetaminophen (Tylenol) 1,000 mg PO TID [facility] Last Admin: 06/20/19 06:46 Dose: 1,000 mg Documented by: Amlodipine Besylate (Norvasc) 5 mg PO DAILY [facility] Last Admin: 06/20/19 07:53 Dose: 5 mg Documented by: Aspirin (Ecotrin) 81 mg PO DAILY@0800 [facility] Last Admin: 06/20/19 07:52 Dose: 81 mg Documented by: Bisacodyl (Dulcolax) 10 mg RECTAL .PRN X 1 PRN PRN Reason: Constipation Famotidine (Pepcid) 20 mg PO DAILY [facility] Last Admin: 06/20/19 07:53 Dose: 20 mg Documented by: Magnesium Hydroxide (Milk Of Magnesia) 30 ml PO .PRN X 1 PRN PRN Reason: Constipation Metoprolol Tartrate (Lopressor (Beta Imani)) 25 mg PO BID [facility] Last Admin: 06/20/19 07:52 Dose: 25 mg Documented by: Oxycodone HCl (Oxyir) 5 mg PO Q4H PRN PRN PRN Reason: Moderate Pain (4-6/10) Last Admin: 06/20/19 06:47 Dose: 5 mg Documented by: Rivaroxaban (Xarelto) 10 mg PO DAILY@1700 [facility] Stop: 07/17/19 17:01 Last Admin: 06/19/19 16:20 Dose: 10 mg Documented by: Senna/Docusate Sodium (Senokot-S, Sheree-Colace) 2 tablet PO BID [facility] Last Admin: 06/20/19 07:54 Dose: Not Given Documented by: STROKE Vital Signs/Narrative: Vital Signs Temp Pulse Resp BP Pulse Ox 06/20/19 07:52 70 06/20/19 07:00 98.2 F 66 17 139/71 H 96 Medical Necessity - Tobacco Use Smoking Status: Never smoker Tobacco Use: Non-smoker Assessment/Plan All Active Problems (Last Reviewed 06/16/19 @ 10:15 by Jayjay Valencia MD) Femoral fracture (Acute) Thyroid nodule (Acute) Sarcoma of vulva (Acute) Fatigue (Acute) SOB (shortness of breath) (Acute) Hypokalemia (Resolved) Patient is a 78-year-old lady who presented to the emergency department following a traumatic fall. She did sustain hip pain imaging studies demonstrated acute Displaced intertrochanteric fracture of the left femur; underwent ORIF on 06/14/2019 and subsequently transferred to the inpatient rehab unit for recuperation. 1. Physical debility - following Acute Displaced intertrochanteric fracture of the left femur. For which patient underwent gamma nail internal fixation left hip on 06/14/2019 subsequently transferred to inpatient rehab unit where she is currently undergoing therapy ?06/18/2019; Patient seen currently undergoing physical therapy. Rates her pain at 7 out of 10. ?06/19/2019 patient has tolerated physical therapy well so far. 2. Anemia - secondary to acute blood loss anemia from her recent surgery monitoring H&H hemoglobin on 06/18/2019 is 8.4 no indication for blood transfusion at this point patient was placed on parenteral iron 3. Coronary artery disease ?With previous MD with subsequent stent placement patient is on aspirin and metoprolol. EKG obtained on admission was unremarkable 4. Hypertension - blood pressure controlled, home medications continued with dose adjustment as needed 5. 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 6. History of endometrial CA status - status post total abdominal hysterectomy, bilateral salpingectomy and left oophorectomy followed by adjuvant radiation therapy: 2002. 7. History of colon CA ?patient underwent low anterior resection with subsequent chemotherapy in 1998 8. DVT prophylaxis - Rivaroxaban (Xarelto) 9. Left foot pain ?Ordered plain x-rays to rule out occult fracture Code Visit Inpatient E&M: 50659 Subs Hosp L2
--- NOTE | 2019-06-20 11:08 | NURSING ---
ambulated in halls with walker and standby assist
--- NOTE | 2019-06-20 11:19 | RAD_ITS ---
STUDY: X-RAY - LEFT FOOT CLINICAL: Female, 78 years old. Left foot pain after falling on 06/13/2019, persistent pain TECHNIQUE: 3 view(s) of the foot. COMPARISON: None. FINDINGS: Calcaneal spur is noted. Normal visualized subtalar, talonavicular, calcaneocuboid, tarsal and tarsometatarsal articulations. Normal metatarsi. There is degenerative arthrosis of the metatarsophalangeal joint of the hallux . Normal tibial and fibular sesamoid bones. Normal interphalangeal joint of the great toe. Normal phalanges of the great toe. Normal second through fifth metatarsophalangeal joints. Normal interphalangeal joints and phalanges of the lesser toes. The soft tissue structures are unremarkable. RAD/Foot min 3 Views IMPRESSION: No demonstrated fracture or malalignment. Electronically Signed: Jason Nolasco MD ([place]) at 13:27 EDT , Service support ,
[2019-06-20] MEDS: Rivaroxaban 10 MG Tablet PO (17:15)
[2019-06-20 18:59] VITALS: BP 133/57; PULSE 72; RESP 16; TEMP 36.7; O2SAT 95
[2019-06-20 21:20] VITALS: BP 138/64; PULSE 72
[2019-06-20 22:00] VITALS: PULSE 90; RESP 17; O2SAT 95
[2019-06-21] MEDS: Acetaminophen 500 MG Tablet 1000 MG PO ×3 (06:10→21:11)
[2019-06-21 07:00] VITALS: O2SAT 92
[2019-06-21 07:43] VITALS: BP 151/73; PULSE 63
[2019-06-21] MEDS: Senna/Docusate Sodium 1 Tablet 2 TABLET PO (07:43)
[2019-06-21] MEDS: amLODIPine 5 MG Tablet PO (07:43)
[2019-06-21] MEDS: Famotidine 20 MG Tablet PO (07:43)
[2019-06-21] MEDS: Metoprolol Tartrate 25 MG Tablet PO ×2 (07:43→21:11)
[2019-06-21] MEDS: Aspirin E.C. 81 MG Tablet PO (07:44)
[2019-06-21 07:48] VITALS: BP 151/73; PULSE 63; RESP 16; TEMP 36.9; O2SAT 96
--- NOTE | 2019-06-21 09:37 | PCM.PN.NEU ---
Subjective: Team meeting today. Further details per OT/PT notes. All questions answered. Left foot x-ray completed on 06/20/19 due to c/o left foot pain, which showed no acute fx. Patient continues to tolerate therapies well and pain is controlled. - Physical Exam Vitals/I&O's: Vital Signs Temp Pulse Resp BP Pulse Ox 98.4 F 63 16 151/73 H 96 06/21/19 07:48 06/21/19 07:48 06/21/19 07:48 06/21/19 07:48 06/21/19 07:48 Oxygen Delivery Method Room Air Weight: 74.9 kg Body Mass Index (BMI) 28.3 Intake and Output for Last 24 Hours 06/19/19 06/20/19 06/21/19 23:59 23:59 23:59 Intake Total 620 / 620 360 / 360 Balance 620 / 620 360 / 360 General: Alert, Oriented x3, Cooperative HEENT: Atraumatic, PERRLA, EOMI Oral: Moist Mucosa Neck: Supple, No JVD Lungs: Clear to auscultation, Normal air movement Cardiovascular: Regular rate, Regular Rhythm Abdomen: Bowel Sounds Present, Soft, Non Tender Extremities: No clubbing, No cyanosis, No edema Skin: Incision - Left hip AG drsg intact, without surrounding redness or drng Neurological: Cranial nerves II-XII grossly intact, Deep Tendon Reflexes 2+/4 and Symmetrical, Motor Exam 5/5 strength throughout Psych/Mental Status: Normal Affect, Appropriate, Alert and oriented to time, place, person, mood and affect Current Medications Acetaminophen (Tylenol) 1,000 mg PO TID [facility] Last Admin: 06/21/19 06:10 Dose: 1,000 mg Documented by: Amlodipine Besylate (Norvasc) 5 mg PO DAILY [facility] Last Admin: 06/21/19 07:43 Dose: 5 mg Documented by: Aspirin (Ecotrin) 81 mg PO DAILY@0800 [facility] Last Admin: 06/21/19 07:44 Dose: 81 mg Documented by: Bisacodyl (Dulcolax) 10 mg RECTAL .PRN X 1 PRN PRN Reason: Constipation Famotidine (Pepcid) 20 mg PO DAILY [facility] Last Admin: 06/21/19 07:43 Dose: 20 mg Documented by: Magnesium Hydroxide (Milk Of Magnesia) 30 ml PO .PRN X 1 PRN PRN Reason: Constipation Metoprolol Tartrate (Lopressor (Beta Imani)) 25 mg PO BID [facility] Last Admin: 06/21/19 07:43 Dose: 25 mg Documented by: Oxycodone HCl (Oxyir) 5 mg PO Q4H PRN PRN PRN Reason: Moderate Pain (4-6/10) Last Admin: 06/20/19 21:20 Dose: 5 mg Documented by: Rivaroxaban (Xarelto) 10 mg PO DAILY@1700 [facility] Stop: 07/17/19 17:01 Last Admin: 06/20/19 17:15 Dose: 10 mg Documented by: Senna/Docusate Sodium (Senokot-S, Sheree-Colace) 2 tablet PO BID [facility] Last Admin: 06/21/19 07:43 Dose: 2 tablet Documented by: STROKE Vital Signs/Narrative: Vital Signs Temp Pulse Resp BP Pulse Ox 06/21/19 07:48 98.4 F 63 16 151/73 H 96 06/21/19 07:43 63 151/73 H Medical Necessity - Tobacco Use Smoking Status: Never smoker Tobacco Use: Non-smoker Assessment/Plan All Active Problems (Last Reviewed 06/16/19 @ 10:15 by Jayjay Valencia MD) Femoral fracture (Acute) Thyroid nodule (Acute) Sarcoma of vulva (Acute) Fatigue (Acute) SOB (shortness of breath) (Acute) Hypokalemia (Resolved) The patient is a 78 year old F with PMH of HTN, HLD, CAD, HI post stent placement, ischemic cardiomyopathy, HX of endometrial CA post total hysterectomy 2002, HX of colon CA post low anterior resection with chemotherapy 1998, HX of vulvar CA post partial vulvectomy 2012 with recent vulvar biopsy on 06/02/19, admitted to [facility] on 06/16/19 for greater of 3 hours of therapy daily with a goal of returning home at or near her prior level of independence. On 06/13/19, patient had fallen onto her left side and hit head without LOC. Patient was carrying wan and walked into the garage door, which was partially opened, which caused her fall. CT of brain showed no acute hemorrhage or infarct. Left pelvis and femur x-ray showed displaced intertrochanteric fracture of the left femur. On 06/13/19, Dr. Mayo performed a Gamma nail internal fixation left hip. Patient lives with spouse in a one level house with 3 steps to enter. Prior to hospitalization was independent with mobility, ADLs and driving. Plan - PT for mobility - OT for ADLs - Left hip fx post gamma nail internal fixation- replace AG drsg prn until mahesh are discontinued on 06/26/19, polar care as needed. o.k to shower - Left foot pain- left foot xray 06/20/19- no acute fx - HTN on norvasc, lopressor Hold if SBP <110 or HR <55 - HLD diet control 09/26/18 LDL 75 - CAD post HI with stent placement on asa, norvasc, lopressor Hold if SBP <110 or HR <55 - Ischemic cardiomyopathy - HX of vulvar CA with partial vulvectomy in 2012- On 06/02/[address] Philip at [facility] in [place], [place] no heavy lifting or straining >10-15 pounds. - HX of endometrial CA post total hysterectomy, bilateral salpingectomy, and left oophorectomy - radiation therapy 2002 - HX of Colon CA with anterior resection- chemotherapy 1998 - post op anemia 06/17 H/H 25.8/8.1 recheck H/H 27.0/8.4 - asymptomatic - GI/DVT prophylaxis - pepcid/xeralto x 30 days with last dose on 07/17/19, knee high nikki hose - Medical management per hospitalist- consult - Analgesics as needed - Bowel protocol - Fall precautions - F/U with PCP, Dr. Mayo, Dr. Philip
--- NOTE | 2019-06-21 10:24 | CASEMGMT ---
Social Work IDT met with patient and for Team Meeting. Discussed patient's progress in therapy. Pt has 50% WBS for leg and is working on managing that. Pt is walking 75 ft with FWW at min assist, has not completed steps yet - working on upper body strength. Pt is SBA to [facility] for ADLS with adaptive equipment. Pt will need FWW, 3-in-1 commode and tub bench at DC. Provided [employer] resources to . Pt gets mahesh removed 06/26. Explained Medicare approved 17 days with anticipated DC date 07/03. Will ReTeam next week to discuss progress. Will continue to follow. Natalya Castelan, [employer]
[2019-06-21] MEDS: oxyCODONE 5 MG Tablet PO ×2 (10:53→21:10)
[2019-06-21] MEDS: Rivaroxaban 10 MG Tablet PO (16:38)
[2019-06-21 18:41] VITALS: BP 159/70; PULSE 67; RESP 18; TEMP 36.8; O2SAT 93
[2019-06-21 21:11] VITALS: BP 159/70; PULSE 67
[2019-06-21 21:19] VITALS: PULSE 67; RESP 18; O2SAT 93
[2019-06-22] MEDS: Acetaminophen 500 MG Tablet 1000 MG PO ×3 (06:56→21:25)
[2019-06-22 07:04] VITALS: BP 152/76; PULSE 76; RESP 16; TEMP 36.6; O2SAT 99
[2019-06-22] MEDS: Famotidine 20 MG Tablet PO (07:43)
[2019-06-22 07:44] VITALS: BP 152/76; PULSE 76
[2019-06-22] MEDS: amLODIPine 5 MG Tablet PO (07:44)
[2019-06-22] MEDS: Metoprolol Tartrate 25 MG Tablet PO ×2 (07:44→21:25)
[2019-06-22] MEDS: Aspirin E.C. 81 MG Tablet PO (07:44)
--- NOTE | 2019-06-22 09:21 | PCM.PN.NEU ---
Subjective: Per nursing, no issues overnight. Patient continues to tolerate therapies well and pain is controlled. - Physical Exam Vitals/I&O's: Vital Signs Temp Pulse Resp BP Pulse Ox 97.9 F 76 16 152/76 H 99 06/22/19 07:04 06/22/19 07:44 06/22/19 07:04 06/22/19 07:44 06/22/19 07:04 Oxygen Delivery Method Room Air Weight: 74.9 kg Body Mass Index (BMI) 28.3 Intake and Output for Last 24 Hours 06/20/19 06/21/19 06/22/19 23:59 23:59 23:59 Intake Total 360 / 360 240 / 240 Balance 360 / 360 240 / 240 General: Alert, Oriented x3, Cooperative HEENT: Atraumatic, PERRLA, EOMI Oral: Moist Mucosa Neck: Supple, No JVD Lungs: Clear to auscultation, Normal air movement Cardiovascular: Regular rate, Regular Rhythm Abdomen: Bowel Sounds Present, Soft, Non Tender Extremities: No clubbing, No cyanosis, No edema Skin: Incision - left hip AG drsg intact without surrounding redness or drng Neurological: Cranial nerves II-XII grossly intact, Deep Tendon Reflexes 2+/4 and Symmetrical, Motor Exam 5/5 strength throughout Psych/Mental Status: Normal Affect, Appropriate, Alert and oriented to time, place, person, mood and affect Current Medications Acetaminophen (Tylenol) 1,000 mg PO TID [facility] Last Admin: 06/22/19 06:56 Dose: 1,000 mg Documented by: Amlodipine Besylate (Norvasc) 5 mg PO DAILY [facility] Last Admin: 06/22/19 07:44 Dose: 5 mg Documented by: Aspirin (Ecotrin) 81 mg PO DAILY@0800 [facility] Last Admin: 06/22/19 07:44 Dose: 81 mg Documented by: Bisacodyl (Dulcolax) 10 mg RECTAL .PRN X 1 PRN PRN Reason: Constipation Famotidine (Pepcid) 20 mg PO DAILY [facility] Last Admin: 06/22/19 07:43 Dose: 20 mg Documented by: Magnesium Hydroxide (Milk Of Magnesia) 30 ml PO .PRN X 1 PRN PRN Reason: Constipation Metoprolol Tartrate (Lopressor (Beta Imani)) 25 mg PO BID [facility] Last Admin: 06/22/19 07:44 Dose: 25 mg Documented by: Oxycodone HCl (Oxyir) 5 mg PO Q4H PRN PRN PRN Reason: Moderate Pain (4-6/10) Last Admin: 06/21/19 21:10 Dose: 5 mg Documented by: Rivaroxaban (Xarelto) 10 mg PO DAILY@1700 [facility] Stop: 07/17/19 17:01 Last Admin: 06/21/19 16:38 Dose: 10 mg Documented by: Senna/Docusate Sodium (Senokot-S, Sheree-Colace) 2 tablet PO BID [facility] Last Admin: 06/22/19 07:44 Dose: Not Given Documented by: STROKE Vital Signs/Narrative: Vital Signs Temp Pulse Resp BP Pulse Ox 06/22/19 07:44 76 152/76 H 06/22/19 07:04 97.9 F 76 16 152/76 H 99 Medical Necessity - Tobacco Use Smoking Status: Never smoker Tobacco Use: Non-smoker Assessment/Plan All Active Problems (Last Reviewed 06/16/19 @ 10:15 by Jayjay Valencia MD) Femoral fracture (Acute) Thyroid nodule (Acute) Sarcoma of vulva (Acute) Fatigue (Acute) SOB (shortness of breath) (Acute) Hypokalemia (Resolved) The patient is a 78 year old F with PMH of HTN, HLD, CAD, MD post stent placement, ischemic cardiomyopathy, HX of endometrial CA post total hysterectomy 2002, HX of colon CA post low anterior resection with chemotherapy 1998, HX of vulvar CA post partial vulvectomy 2012 with recent vulvar biopsy on 06/02/19, admitted to [facility] on 06/16/19 for greater of 3 hours of therapy daily with a goal of returning home at or near her prior level of independence. On 06/13/19, patient had fallen onto her left side and hit head without LOC. Patient was carrying wan and walked into the garage door, which was partially opened, which caused her fall. CT of brain showed no acute hemorrhage or infarct. Left pelvis and femur x-ray showed displaced intertrochanteric fracture of the left femur. On 06/13/19, Dr. Mayo performed a Gamma nail internal fixation left hip. Patient lives with spouse in a one level house with 3 steps to enter. Prior to hospitalization was independent with mobility, ADLs and driving. Plan - PT for mobility - OT for ADLs - Left hip fx post gamma nail internal fixation- replace AG drsg prn until mahesh are discontinued on 06/26/19, polar care as needed. o.k to shower - Left foot pain- left foot xray 06/20/19- no acute fx - HTN on norvasc, lopressor Hold if SBP <110 or HR <55 - HLD diet control 09/26/18 LDL 75 - CAD post MD with stent placement on asa, norvasc, lopressor Hold if SBP <110 or HR <55 - Ischemic cardiomyopathy - HX of vulvar CA with partial vulvectomy in 2012- On 06/02/[address] Philip at [facility] in [place], [place] no heavy lifting or straining >10-15 pounds. - HX of endometrial CA post total hysterectomy, bilateral salpingectomy, and left oophorectomy - radiation therapy 2002 - HX of Colon CA with anterior resection- chemotherapy 1998 - post op anemia 06/17 H/H 25.8/8.1 recheck H/H 27.0/8.4 - asymptomatic - GI/DVT prophylaxis - pepcid/xeralto x 30 days with last dose on 07/17/19, knee high nikki hose - Medical management per hospitalist- consult - Analgesics as needed - Bowel protocol - Fall precautions - F/U with PCP, Dr. Mayo, Dr. Philip
[2019-06-22] MEDS: oxyCODONE 5 MG Tablet PO ×2 (12:46→21:26)
[2019-06-22] MEDS: Rivaroxaban 10 MG Tablet PO (17:08)
[2019-06-22 21:13] VITALS: BP 158/64; PULSE 66; RESP 16; TEMP 36.7; O2SAT 96
[2019-06-22 21:25] VITALS: BP 158/64; PULSE 66
[2019-06-22 22:00] VITALS: PULSE 66; O2SAT 96
[2019-06-23] MEDS: oxyCODONE 5 MG Tablet PO ×4 (05:40→21:40)
[2019-06-23] MEDS: Acetaminophen 500 MG Tablet 1000 MG PO ×3 (05:41→21:39)
[2019-06-23 07:00] VITALS: BP 140/67; PULSE 62; RESP 17; TEMP 36.4; O2SAT 97
[2019-06-23 07:48] VITALS: PULSE 75
[2019-06-23] MEDS: amLODIPine 5 MG Tablet PO (07:48)
[2019-06-23] MEDS: Aspirin E.C. 81 MG Tablet PO (07:48)
[2019-06-23] MEDS: Famotidine 20 MG Tablet PO (07:48)
[2019-06-23] MEDS: Metoprolol Tartrate 25 MG Tablet PO ×2 (07:48→21:39)
--- NOTE | 2019-06-23 11:03 | PN.NEURO_ITS ---
Subjective: Per nursing, no issues overnight. Pain is well controlled and continues to tolerate therapies. - Physical Exam Vitals/I&O's: Vital Signs Temp Pulse Resp BP Pulse Ox 97.6 F L 75 17 140/67 H 97 06/23/19 07:00 06/23/19 07:48 06/23/19 07:00 06/23/19 07:00 06/23/19 07:00 Oxygen Delivery Method Room Air Weight: 73.4 kg Body Mass Index (BMI) 28.3 Intake and Output for Last 24 Hours 06/21/19 06/22/19 06/23/19 23:59 23:59 23:59 Intake Total 480 / 480 240 / 240 Balance 480 / 480 240 / 240 General: Alert, Oriented x3, Cooperative HEENT: Atraumatic, PERRLA, EOMI Oral: Moist Mucosa Neck: Supple, No JVD Lungs: Clear to auscultation, Normal air movement Cardiovascular: Regular rate, Regular Rhythm Abdomen: Bowel Sounds Present, Soft, Non Tender Skin: Incision - AG drsg intact to left hip, without surrounding redness or drng Neurological: Cranial nerves II-XII grossly intact, Deep Tendon Reflexes 2+/4 and Symmetrical, Motor Exam 5/5 strength throughout Psych/Mental Status: Normal Affect, Appropriate, Alert and oriented to time, place, person, mood and affect Current Medications Acetaminophen (Tylenol) 1,000 mg PO TID [facility] Last Admin: 06/23/19 05:41 Dose: 1,000 mg Documented by: Amlodipine Besylate (Norvasc) 5 mg PO DAILY [facility] Last Admin: 06/23/19 07:48 Dose: 5 mg Documented by: Aspirin (Ecotrin) 81 mg PO DAILY@0800 [facility] Last Admin: 06/23/19 07:48 Dose: 81 mg Documented by: Bisacodyl (Dulcolax) 10 mg RECTAL .PRN X 1 PRN PRN Reason: Constipation Famotidine (Pepcid) 20 mg PO DAILY [facility] Last Admin: 06/23/19 07:48 Dose: 20 mg Documented by: Magnesium Hydroxide (Milk Of Magnesia) 30 ml PO .PRN X 1 PRN PRN Reason: Constipation Metoprolol Tartrate (Lopressor (Beta Imani)) 25 mg PO BID [facility] Last Admin: 06/23/19 07:48 Dose: 25 mg Documented by: Oxycodone HCl (Oxyir) 5 mg PO Q4H PRN PRN PRN Reason: Moderate Pain (4-6/10) Last Admin: 06/23/19 10:43 Dose: 5 mg Documented by: Rivaroxaban (Xarelto) 10 mg PO DAILY@1700 [facility] Stop: 07/17/19 17:01 Last Admin: 06/22/19 17:08 Dose: 10 mg Documented by: Senna/Docusate Sodium (Senokot-S, Sheree-Colace) 2 tablet PO BID [facility] Last Admin: 06/23/19 07:49 Dose: Not Given Documented by: STROKE Vital Signs/Narrative: Vital Signs Pulse 06/23/19 07:48 75 Medical Necessity - Tobacco Use Smoking Status: Never smoker Tobacco Use: Non-smoker Assessment/Plan All Active Problems (Last Reviewed 06/16/19 @ 10:15 by Jayjay Valencia MD) Femoral fracture (Acute) Thyroid nodule (Acute) Sarcoma of vulva (Acute) Fatigue (Acute) SOB (shortness of breath) (Acute) Hypokalemia (Resolved) The patient is a 78 year old F with PMH of HTN, HLD, CAD, [place] post stent placement, ischemic cardiomyopathy, HX of endometrial CA post total hysterectomy 2002, HX of colon CA post low anterior resection with chemotherapy 1998, HX of vulvar CA post partial vulvectomy 2012 with recent vulvar biopsy on 06/02/19, admitted to [facility] on 06/16/19 for greater of 3 hours of therapy daily with a goal of returning home at or near her prior level of independence. On 06/13/19, patient had fallen onto her left side and hit head without LOC. Patient was carrying wan and walked into the garage door, which was partially opened, which caused her fall. CT of brain showed no acute hemorrhage or infarct. Left pelvis and femur x-ray showed displaced intertrochanteric fracture of the left femur. On 06/13/19, Dr. Mayo performed a Gamma nail internal fixation left hip. Patient lives with spouse in a one level house with 3 steps to enter. Prior to hospitalization was independent with mobility, ADLs and driving. Plan - PT for mobility - OT for ADLs - Left hip fx post gamma nail internal fixation- replace AG drsg prn until mahesh are discontinued on 06/26/19, polar care as needed. o.k to shower - Left foot pain- left foot xray 06/20/19- no acute fx - HTN on norvasc, lopressor Hold if SBP <110 or HR <55 - HLD diet control 09/26/18 LDL 75 - CAD post [place] with stent placement on asa, norvasc, lopressor Hold if SBP <110 or HR <55 - Ischemic cardiomyopathy - HX of vulvar CA with partial vulvectomy in 2012- On 06/02/[address] Philip at [facility] in [place], [place] no heavy lifting or straining >10- 15 pounds. - HX of endometrial CA post total hysterectomy, bilateral salpingectomy, and left oophorectomy - radiation therapy 2002 - HX of Colon CA with anterior resection- chemotherapy 1998 - post op anemia 24 H/H 25.8/8.1 recheck H/H 27.0/8.4 - asymptomatic - GI/DVT prophylaxis - pepcid/xeralto x 30 days with last dose on 07/17/19, knee high nikki hose - Medical management per hospitalist- consult - Analgesics as needed - Bowel protocol - Fall precautions - F/U with PCP, Dr. Mayo, Dr. Philip
[2019-06-23] MEDS: Rivaroxaban 10 MG Tablet PO (15:38)
[2019-06-23 19:18] VITALS: BP 134/60; PULSE 67; RESP 16; TEMP 36.7; O2SAT 98
[2019-06-23 21:39] VITALS: BP 144/63; PULSE 74
[2019-06-24] MEDS: oxyCODONE 5 MG Tablet PO ×5 (02:34→20:23)
[2019-06-24] MEDS: Acetaminophen 500 MG Tablet 1000 MG PO ×3 (06:33→22:01)
[2019-06-24 08:21] VITALS: PULSE 66
[2019-06-24] MEDS: Aspirin E.C. 81 MG Tablet PO (08:21)
[2019-06-24] MEDS: Famotidine 20 MG Tablet PO (08:21)
[2019-06-24] MEDS: amLODIPine 5 MG Tablet PO (08:21)
[2019-06-24] MEDS: Metoprolol Tartrate 25 MG Tablet PO ×2 (08:21→20:23)
[2019-06-24 08:30] VITALS: BP 145/66; PULSE 66; RESP 16; TEMP 36.3; O2SAT 95
[2019-06-24 08:43] VITALS: PULSE 66
--- NOTE | 2019-06-24 09:11 | PN.NEURO_ITS ---
Subjective: per nursing, no issues overnight. Pain is well controlled and continues to tolerate therapies. - Physical Exam Vitals/I&O's: Vital Signs Temp Pulse Resp BP Pulse Ox 97.4 F L 66 16 145/66 H 95 06/24/19 08:30 06/24/19 08:43 06/24/19 08:30 06/24/19 08:30 06/24/19 08:30 Oxygen Delivery Method Room Air Weight: 73.4 kg Body Mass Index (BMI) 28.3 Intake and Output for Last 24 Hours 06/22/19 06/23/19 06/24/19 23:59 23:59 23:59 Intake Total 480 / 480 720 / 720 Balance 480 / 480 720 / 720 General: Alert, Oriented x3, Cooperative HEENT: Atraumatic, PERRLA, EOMI Oral: Moist Mucosa Neck: Supple, No JVD Lungs: Clear to auscultation, Normal air movement Cardiovascular: Regular rate, Regular Rhythm Abdomen: Bowel Sounds Present, Soft, Non Tender Extremities: No clubbing, No cyanosis, No edema Skin: Incision - AG drsg intact wihtout surrounding redness or drng Neurological: Cranial nerves II-XII grossly intact, Deep Tendon Reflexes 2+/4 and Symmetrical, Motor Exam 5/5 strength throughout Psych/Mental Status: Normal Affect, Appropriate, Alert and oriented to time, place, person, mood and affect Current Medications Acetaminophen (Tylenol) 1,000 mg PO TID [facility] Last Admin: 06/24/19 06:33 Dose: 1,000 mg Documented by: Amlodipine Besylate (Norvasc) 5 mg PO DAILY [facility] Last Admin: 06/24/19 08:21 Dose: 5 mg Documented by: Aspirin (Ecotrin) 81 mg PO DAILY@0800 [facility] Last Admin: 06/24/19 08:21 Dose: 81 mg Documented by: Bisacodyl (Dulcolax) 10 mg RECTAL .PRN X 1 PRN PRN Reason: Constipation Famotidine (Pepcid) 20 mg PO DAILY [facility] Last Admin: 06/24/19 08:21 Dose: 20 mg Documented by: Magnesium Hydroxide (Milk Of Magnesia) 30 ml PO .PRN X 1 PRN PRN Reason: Constipation Metoprolol Tartrate (Lopressor (Beta Imani)) 25 mg PO BID [facility] Last Admin: 06/24/19 08:21 Dose: 25 mg Documented by: Oxycodone HCl (Oxyir) 5 mg PO Q4H PRN PRN PRN Reason: Moderate Pain (4-6/10) Last Admin: 06/24/19 06:34 Dose: 5 mg Documented by: Rivaroxaban (Xarelto) 10 mg PO DAILY@1700 [facility] Stop: 07/17/19 17:01 Last Admin: 06/23/19 15:38 Dose: 10 mg Documented by: Senna/Docusate Sodium (Senokot-S, Sheree-Colace) 2 tablet PO BID [facility] Last Admin: 06/24/19 08:21 Dose: Not Given Documented by: STROKE Vital Signs/Narrative: Vital Signs Temp Pulse Resp BP Pulse Ox 06/24/19 08:43 66 06/24/19 08:30 97.4 F L 66 16 145/66 H 95 06/24/19 08:21 66 Medical Necessity - Tobacco Use Smoking Status: Never smoker Tobacco Use: Non-smoker Assessment/Plan All Active Problems (Last Reviewed 06/16/19 @ 10:15 by Jayjay Valencia MD) Femoral fracture (Acute) Thyroid nodule (Acute) Sarcoma of vulva (Acute) Fatigue (Acute) SOB (shortness of breath) (Acute) Hypokalemia (Resolved) The patient is a 78 year old F with PMH of HTN, HLD, CAD, [place] post stent placement, ischemic cardiomyopathy, HX of endometrial CA post total hysterectomy 2002, HX of colon CA post low anterior resection with chemotherapy 1998, HX of vulvar CA post partial vulvectomy 2012 with recent vulvar biopsy on 06/02/19, admitted to [facility] on 06/16/19 for greater of 3 hours of therapy daily with a goal of returning home at or near her prior level of independence. On 06/13/19, patient had fallen onto her left side and hit head without LOC. Patient was carrying wan and walked into the garage door, which was partially opened, which caused her fall. CT of brain showed no acute hemorrhage or infarct. Left pelvis and femur x-ray showed displaced intertrochanteric fracture of the left femur. On 06/13/19, Dr. Mayo performed a Gamma nail internal fixation left hip. Patient lives with spouse in a one level house with 3 steps to enter. Prior to hospitalization was independent with mobility, ADLs and driving. Plan - PT for mobility - OT for ADLs - Left hip fx post gamma nail internal fixation- replace AG drsg prn until mahesh are discontinued on 06/26/19, polar care as needed. o.k to shower - Left foot pain- left foot xray 06/20/19- no acute fx - HTN on norvasc, lopressor Hold if SBP <110 or HR <55 - HLD diet control 09/26/18 LDL 75 - CAD post [place] with stent placement on asa, norvasc, lopressor Hold if SBP <110 or HR <55 - Ischemic cardiomyopathy - HX of vulvar CA with partial vulvectomy in 2012- On 06/02/[address] Philip at [facility] in [place], [place] no heavy lifting or straining >10- 15 pounds. - HX of endometrial CA post total hysterectomy, bilateral salpingectomy, and left oophorectomy - radiation therapy 2002 - HX of Colon CA with anterior resection- chemotherapy 1998 - post op anemia 06/17 H/H 25.8/8.1 recheck H/H 27.0/8.4 - asymptomatic - GI/DVT prophylaxis - pepcid/xeralto x 30 days with last dose on 07/17/19, knee high nikki hose - Medical management per hospitalist- consult - Analgesics as needed - Bowel protocol - Fall precautions - F/U with PCP, Dr. Mayo, Dr. Philip
[2019-06-24] MEDS: Rivaroxaban 10 MG Tablet PO (15:59)
[2019-06-24 18:44] VITALS: BP 151/72; PULSE 65; RESP 16; TEMP 36.8; O2SAT 94
[2019-06-24 20:23] VITALS: BP 127/53; PULSE 71
[2019-06-24] MEDS: Senna/Docusate Sodium 1 Tablet 2 TABLET PO (20:24)
--- NOTE | 2019-06-25 03:24 | NURSING ---
REVIEWED AND AGREE WITH SHAPING MACHINE TENDER'S FUNCTIONAL ASSESSMENT OF PT AND HANDOFF CHARTING.
[2019-06-25] MEDS: oxyCODONE 5 MG Tablet PO ×5 (03:45→22:29)
[2019-06-25] MEDS: Acetaminophen 500 MG Tablet 1000 MG PO ×3 (06:17→20:47)
[2019-06-25 08:02] VITALS: PULSE 64
[2019-06-25] MEDS: Famotidine 20 MG Tablet PO (08:02)
[2019-06-25] MEDS: amLODIPine 5 MG Tablet PO (08:02)
[2019-06-25] MEDS: Metoprolol Tartrate 25 MG Tablet PO ×2 (08:02→20:46)
[2019-06-25] MEDS: Aspirin E.C. 81 MG Tablet PO (08:03)
[2019-06-25 10:00] VITALS: BP 138/60; PULSE 64; RESP 18; TEMP 37; O2SAT 97
[2019-06-25] MEDS: Rivaroxaban 10 MG Tablet PO (17:05)
[2019-06-25 20:46] VITALS: BP 147/63; PULSE 65
[2019-06-25 22:00] VITALS: BP 154/64; PULSE 78; RESP 16; TEMP 36.7; O2SAT 95
--- NOTE | 2019-06-26 03:32 | NURSING ---
Reviewed and agree with LPNs handoff
[2019-06-26] MEDS: oxyCODONE 5 MG Tablet PO ×2 (05:30→17:20)
[2019-06-26] MEDS: Acetaminophen 500 MG Tablet 1000 MG PO ×3 (05:30→20:18)
[2019-06-26 07:30] VITALS: BP 154/59; PULSE 70; RESP 16; TEMP 36.6; O2SAT 97
[2019-06-26 07:53] VITALS: BP 154/59; PULSE 70
[2019-06-26] MEDS: Aspirin E.C. 81 MG Tablet PO (07:53)
[2019-06-26] MEDS: Metoprolol Tartrate 25 MG Tablet PO ×2 (07:53→20:17)
[2019-06-26] MEDS: Famotidine 20 MG Tablet PO (07:53)
[2019-06-26] MEDS: amLODIPine 5 MG Tablet PO (07:53)
[2019-06-26] MEDS: Rivaroxaban 10 MG Tablet PO (16:58)
[2019-06-26 20:14] VITALS: BP 143/59; PULSE 63; RESP 18; TEMP 36.9; O2SAT 97
[2019-06-26 20:17] VITALS: BP 143/59; PULSE 63
[2019-06-26] MEDS: Senna/Docusate Sodium 1 Tablet 2 TABLET PO (20:18)
[2019-06-26] MEDS: Menthol/Lanolin/Calamine/Znox 113 GM Tube 1 APPLIC TOPICAL (20:22)
[2019-06-27] MEDS: Acetaminophen 500 MG Tablet 1000 MG PO ×3 (06:26→20:23)
[2019-06-27 07:33] VITALS: BP 158/85; PULSE 62; RESP 16; TEMP 36.7; O2SAT 98
[2019-06-27 07:36] VITALS: BP 158/85; PULSE 62
[2019-06-27] MEDS: Famotidine 20 MG Tablet PO (07:36)
[2019-06-27] MEDS: Metoprolol Tartrate 25 MG Tablet PO ×2 (07:36→20:23)
[2019-06-27] MEDS: Aspirin E.C. 81 MG Tablet PO (07:36)
[2019-06-27] MEDS: amLODIPine 5 MG Tablet PO (07:36)
[2019-06-27] MEDS: Menthol/Lanolin/Calamine/Znox 113 GM Tube 1 APPLIC TOPICAL ×2 (07:38→20:24)
[2019-06-27] MEDS: oxyCODONE 5 MG Tablet PO ×2 (08:22→20:22)
--- NOTE | 2019-06-27 13:55 | NURSING ---
ambulated in [facility] with staff
[2019-06-27] MEDS: Rivaroxaban 10 MG Tablet PO (16:29)
[2019-06-27 20:12] VITALS: BP 148/70; PULSE 60; RESP 18; TEMP 36.6; O2SAT 97
[2019-06-27] MEDS: Senna/Docusate Sodium 1 Tablet 2 TABLET PO (20:22)
[2019-06-27 20:23] VITALS: PULSE 60
[2019-06-28] MEDS: oxyCODONE 5 MG Tablet PO ×2 (06:28→20:36)
[2019-06-28] MEDS: Acetaminophen 500 MG Tablet 1000 MG PO ×3 (06:28→20:31)
[2019-06-28 07:18] VITALS: BP 160/80; PULSE 70; RESP 18; TEMP 36.5; O2SAT 97
[2019-06-28] MEDS: Senna/Docusate Sodium 1 Tablet 2 TABLET PO ×2 (07:23→20:31)
[2019-06-28] MEDS: Famotidine 20 MG Tablet PO (07:23)
[2019-06-28] MEDS: Aspirin E.C. 81 MG Tablet PO (07:23)
[2019-06-28 07:24] VITALS: BP 160/80; PULSE 70
[2019-06-28] MEDS: amLODIPine 5 MG Tablet PO (07:24)
[2019-06-28] MEDS: Metoprolol Tartrate 25 MG Tablet PO ×2 (07:24→20:29)
[2019-06-28] MEDS: Menthol/Lanolin/Calamine/Znox 113 GM Tube 1 APPLIC TOPICAL ×2 (07:25→20:40)
--- NOTE | 2019-06-28 10:43 | CASEMGMT ---
Social Work IDT met with patient for Team Meeting. Discussed patient's progress in therapy. Pt is SBA edge of bed and transfers, walking 120 ft with PWBS at SBA, min assist to get back to bed to assist with her leg. Pt is distant supervision for toileting tasks, SBA for LE dressing using the adaptive equipment, min assist for bathing to assist with leg over the tub. Pt stood for 15 mins while baking. Pt gets mahesh removed 07/01. Pt is improving well and plan to discharge 07/03 home with . Will order FWW and 3-in-1 commode and to purchase tub bench. Pt will determine HHC or outpatient as the week progresses. Will continue to follow. Natalya Castelan, SUPERVISOR COMPOSING ROOM AIRCRAFT ENGINE CYLINDER MECHANIC
--- NOTE | 2019-06-28 12:44 | PN.NEURO_ITS ---
Subjective: No issues overnight. Case discussed with the nursing staff. Staffed in the team meeting today. All questions were answered. Further therapy details per PT/OT notes. - Physical Exam Vitals/I&O's: Vital Signs Temp Pulse Resp BP Pulse Ox 97.7 F L 70 18 160/80 H 97 06/28/19 07:18 06/28/19 07:24 06/28/19 07:18 06/28/19 07:24 06/28/19 07:18 Oxygen Delivery Method Room Air Weight: 73.4 kg Body Mass Index (BMI) 28.3 Intake and Output for Last 24 Hours 06/27/19 06/27/19 06/28/19 00:59 23:59 23:59 Intake Total 440 / 440 Balance 440 / 440 General: Alert HEENT: Normocephalic Neck: Supple Lungs: Normal air movement Cardiovascular: Normal S1, Normal S2 Abdomen: Bowel Sounds Present Extremities: No cyanosis Neurological: Cranial nerves II-XII grossly intact, Deep Tendon Reflexes 2+/4 and Symmetrical, Neuro grossly intact, Motor Exam 5/5 strength throughout, Muscle tone normal, Sensory exam intact to light touch and pain, Coordination normal, - - gait deferred Psych/Mental Status: Normal Affect Current Medications Acetaminophen (Tylenol) 1,000 mg PO TID [facility] Last Admin: 06/28/19 06:28 Dose: 1,000 mg Documented by: Amlodipine Besylate (Norvasc) 5 mg PO DAILY [facility] Last Admin: 06/28/19 07:24 Dose: 5 mg Documented by: Aspirin (Ecotrin) 81 mg PO DAILY@0800 [facility] Last Admin: 06/28/19 07:23 Dose: 81 mg Documented by: Bisacodyl (Dulcolax) 10 mg RECTAL .PRN X 1 PRN PRN Reason: Constipation Calamine/Phenol (Calmoseptine Ointment) 1 applic TOPICAL BID [facility]; Protocol Last Admin: 06/28/19 07:25 Dose: 1 applic Documented by: Famotidine (Pepcid) 20 mg PO DAILY [facility] Last Admin: 06/28/19 07:23 Dose: 20 mg Documented by: Magnesium Hydroxide (Milk Of Magnesia) 30 ml PO .PRN X 1 PRN PRN Reason: Constipation Metoprolol Tartrate (Lopressor (Beta Imani)) 25 mg PO BID [facility] Last Admin: 06/28/19 07:24 Dose: 25 mg Documented by: Oxycodone HCl (Oxyir) 5 mg PO Q4H PRN PRN PRN Reason: Moderate Pain (4-6/10) Last Admin: 06/28/19 06:28 Dose: 5 mg Documented by: Rivaroxaban (Xarelto) 10 mg PO DAILY@1700 [facility] Stop: 07/17/19 17:01 Last Admin: 06/27/19 16:29 Dose: 10 mg Documented by: Senna/Docusate Sodium (Senokot-S, Sheree-Colace) 2 tablet PO BID [facility] Last Admin: 06/28/19 07:23 Dose: 1 tablet Documented by: Medical Necessity - Tobacco Use Smoking Status: Never smoker Tobacco Use: Non-smoker Assessment/Plan All Active Problems (Last Reviewed 06/16/19 @ 10:15 by Jayjay Valencia MD) Femoral fracture (Acute) Thyroid nodule (Acute) Sarcoma of vulva (Acute) Fatigue (Acute) SOB (shortness of breath) (Acute) Hypokalemia (Resolved) The patient is a 78 year old F with PMH of HTN, HLD, CAD, S/P stent, ischemic cardiomyopathy, HX of endometrial CA post total hysterectomy 2002, HX of colon CA post low anterior resection with chemotherapy 1998, HX of vulvar CA post partial vulvectomy 2012 with recent vulvar biopsy on 06/02/19, admitted to [facility] on 06/16/19 for greater of 3 hours of therapy daily with a goal of returning home at or near her prior level of independence. On 06/13/19, patient had fallen onto her left side and hit head without LOC. Patient was carrying wan and walked into the garage door, which was partially opened, which caused her fall. CT of brain showed no acute hemorrhage or infarct. Left pelvis and femur x-ray showed displaced intertrochanteric fracture of the left femur. On 06/13/19, Dr. Mayo performed a Gamma nail internal fixation left hip. Plan - PT for mobility - OT for ADLs - Left hip fx post gamma nail internal fixation- replace AG drsg prn until mahesh are discontinued on 07/01/19, polar care as needed. - Left foot pain- left foot xray 06/20/19- no acute fx - HTN on norvasc, lopressor Hold if SBP <110 or HR <55 - HLD diet control 09/26/18 LDL 75 - CAD- on asa, norvasc, lopressor Hold if SBP <110 or HR <55 - Ischemic cardiomyopathy - HX of vulvar CA with partial vulvectomy in 2012- On 06/02/[address] Philip at [facility] in [place], [place] no heavy lifting or straining >10- 15 pounds. - HX of endometrial CA post total hysterectomy, bilateral salpingectomy, and left oophorectomy - radiation therapy 2002 - HX of Colon CA with anterior resection- chemotherapy 1998 - post op anemia 06/18 H/H 27/8.4 recheck H/H 27.0/8.4 - asymptomatic - GI/DVT prophylaxis - pepcid/xeralto x 30 days with last dose on 07/17/19, knee high nikki hose - Fall precautions - Medical management per hospitalist- consult - Analgesics as needed - Bowel protocol - Fall precautions - F/U with PCP, Dr. Mayo, Dr. Philip
--- NOTE | 2019-06-28 15:28 | CHAPLAIN ---
Type of Pastoral Visit ___ Initial Visit _x__ Follow-up Visit ___ On-call Visit ___ General Patient Visit ___ Spiritual Assessment ___ Family Conference ___ Bereavement ___ Rapid Response ___ Code Blue ___ Other (describe below) Pastoral Care Referral From _x__ Patient ___ Family ___ Nurse ___ Physician ___ Failure Analysis Technician ___ Mathematical Engineer ___ Other (describe below) Sacrament/Intervention _x__ Active listening ___ Anointing ___ Anabaptism ___ Bereavement ___ Communion _x__ Viviane exploration ___ _x__ Life review _x__ Prayer ___ Reconciliation ___ Sacrament of Sick ___ Supportive presence ___ Wedding ___ Other (describe below) Pastoral Comments
[2019-06-28] MEDS: Rivaroxaban 10 MG Tablet PO (17:49)
[2019-06-28 18:51] VITALS: BP 132/76; PULSE 64; RESP 16; TEMP 36.5; O2SAT 99
[2019-06-28 20:29] VITALS: BP 132/76; PULSE 64
[2019-06-29] MEDS: Acetaminophen 500 MG Tablet 1000 MG PO ×3 (06:08→20:21)
[2019-06-29 07:45] VITALS: BP 160/77; PULSE 65; RESP 17; TEMP 36.7; O2SAT 97
[2019-06-29 07:56] VITALS: BP 160/77; PULSE 65
[2019-06-29] MEDS: Aspirin E.C. 81 MG Tablet PO (07:56)
[2019-06-29] MEDS: Senna/Docusate Sodium 1 Tablet 2 TABLET PO (07:56)
[2019-06-29] MEDS: Famotidine 20 MG Tablet PO (07:56)
[2019-06-29] MEDS: amLODIPine 5 MG Tablet PO (07:56)
[2019-06-29] MEDS: Metoprolol Tartrate 25 MG Tablet PO ×2 (07:56→20:21)
[2019-06-29] MEDS: Menthol/Lanolin/Calamine/Znox 113 GM Tube 1 APPLIC TOPICAL ×2 (07:58→20:23)
[2019-06-29] MEDS: oxyCODONE 5 MG Tablet PO ×2 (08:02→20:32)
--- NOTE | 2019-06-29 11:18 | PN_ITS ---
Subjective: Patient seen and examined. She had no complaints. Review of systems otherwise negative. Vitals/I&O's: Vital Signs Temp Pulse Resp BP Pulse Ox 98.1 F 65 17 160/77 H 91 06/29/19 08:14 06/29/19 08:14 06/29/19 08:14 06/29/19 08:14 06/29/19 08:14 Oxygen Delivery Method Room Air Weight: 161 lb 13.109 oz Body Mass Index (BMI) 28.3 Intake and Output for Last 24 Hours 06/27/19 06/28/19 06/29/19 23:59 23:59 23:59 Intake Total 900 / 900 300 / 300 Balance 900 / 900 300 / 300 General: Alert, Oriented x3, Cooperative, No apparent distress HEENT: Atraumatic, PERRLA, EOMI, Normocephalic Oral: Moist Mucosa Neck: Supple, No JVD, Negative Carotid Bruits Lungs: Clear to auscultation, Normal air movement, No rhonchi, No wheeze Cardiovascular: Regular rate, Regular Rhythm, Normal S1, Normal S2, No murmurs Abdomen: Bowel Sounds Present, Soft, Non Tender, Non-Distended, No Hepato- splenomegaly Extremities: No clubbing, No cyanosis, No edema, Capillary Refill Less than 3 Seconds Skin: No rashes, No breakdown Musculoskeletal: No Tenderness to Palpation of Joints or Extremities Lymphatic: No Cervical, Supraclavicular, or Inguinal Adenopathy Neurological: Cranial nerves II-XII grossly intact, Neuro grossly intact Psych/Mental Status: Normal Affect, Appropriate, Alert and oriented to time, place, person, mood and affect Current Medications Acetaminophen (Tylenol) 1,000 mg PO TID [facility] Last Admin: 06/29/19 06:08 Dose: 1,000 mg Documented by: Amlodipine Besylate (Norvasc) 5 mg PO DAILY [facility] Last Admin: 06/29/19 07:56 Dose: 5 mg Documented by: Aspirin (Ecotrin) 81 mg PO DAILY@0800 [facility] Last Admin: 06/29/19 07:56 Dose: 81 mg Documented by: Bisacodyl (Dulcolax) 10 mg RECTAL .PRN X 1 PRN PRN Reason: Constipation Calamine/Phenol (Calmoseptine Ointment) 1 applic TOPICAL BID [facility]; Protocol Last Admin: 06/29/19 07:58 Dose: 1 applic Documented by: Famotidine (Pepcid) 20 mg PO DAILY [facility] Last Admin: 06/29/19 07:56 Dose: 20 mg Documented by: Magnesium Hydroxide (Milk Of Magnesia) 30 ml PO .PRN X 1 PRN PRN Reason: Constipation Metoprolol Tartrate (Lopressor (Beta Imani)) 25 mg PO BID [facility] Last Admin: 06/29/19 07:56 Dose: 25 mg Documented by: Oxycodone HCl (Oxyir) 5 mg PO Q4H PRN PRN PRN Reason: Moderate Pain (4-6/10) Last Admin: 06/29/19 08:02 Dose: 5 mg Documented by: Rivaroxaban (Xarelto) 10 mg PO DAILY@1700 [facility] Stop: 07/17/19 17:01 Last Admin: 06/28/19 17:49 Dose: 10 mg Documented by: Senna/Docusate Sodium (Senokot-S, Sheree-Colace) 2 tablet PO BID [facility] Last Admin: 06/29/19 07:56 Dose: 1 tablet Documented by: STROKE Vital Signs/Narrative: Vital Signs Temp Pulse Resp BP Pulse Ox 06/29/19 08:14 98.1 F 65 17 160/77 H 91 06/29/19 07:56 65 160/77 H 06/29/19 07:45 98.1 F 65 17 160/77 H 97 Medical Necessity - Tobacco Use Smoking Status: Never smoker Tobacco Use: Non-smoker Assessment/Plan All Active Problems (Last Reviewed 06/16/19 @ 10:15 by Jayjay Valencia MD) Femoral fracture (Acute) Thyroid nodule (Acute) Sarcoma of vulva (Acute) Fatigue (Acute) SOB (shortness of breath) (Acute) Hypokalemia (Resolved) 1. Debility due to left intertrochanteric femoral fracture * s/p left hip internal fixation on 06/14/19 * PT/OT on board; tolerating therapy well. * incentive spirometry * 2. Anemia due to acute blood loss from surgery: stable. on parenteral iron 3. CAD s/p stents: on aspirin and metoprolol 4.Hypertension: fairly controlled. On amlodipine and metoprolol 5. History of vulval ca s/o partial vulvectomy in 2013: stable 6. History of endometrial ca * Status post total abdominal hysterectomy, bilateral salpingo-ectomy and left oophorectomy and adjuvant radiation therapy. This was in 2002. Has remained stable. 7. History of colon cancer: Status post low anterior resection and chemotherapy in 1998. Stable. DVT prophylaxis: Xarelto Code Visit Inpatient E&M: 37541 Subs Hosp L2
--- NOTE | 2019-06-29 12:55 | PN.NEURO_ITS ---
- Physical Exam Vitals/I&O's: Vital Signs Temp Pulse Resp BP Pulse Ox 98.1 F 65 17 160/77 H 91 06/29/19 08:14 06/29/19 08:14 06/29/19 08:14 06/29/19 08:14 06/29/19 08:14 Oxygen Delivery Method Room Air Weight: 73.4 kg Body Mass Index (BMI) 28.3 Intake and Output for Last 24 Hours 06/27/19 06/28/19 06/29/19 23:59 23:59 23:59 Intake Total 900 / 900 300 / 300 Balance 900 / 900 300 / 300 General: Alert HEENT: Normocephalic Neck: Supple Lungs: Normal air movement Cardiovascular: Normal S1, Normal S2 Abdomen: Bowel Sounds Present Extremities: No cyanosis Neurological: Cranial nerves II-XII grossly intact, Deep Tendon Reflexes 2+/4 and Symmetrical, Neuro grossly intact, Motor Exam 5/5 strength throughout, Muscle tone normal, Sensory exam intact to light touch and pain, Coordination normal Psych/Mental Status: Normal Affect Current Medications Acetaminophen (Tylenol) 1,000 mg PO TID [facility] Last Admin: 06/29/19 06:08 Dose: 1,000 mg Documented by: Amlodipine Besylate (Norvasc) 5 mg PO DAILY [facility] Last Admin: 06/29/19 07:56 Dose: 5 mg Documented by: Aspirin (Ecotrin) 81 mg PO DAILY@0800 [facility] Last Admin: 06/29/19 07:56 Dose: 81 mg Documented by: Bisacodyl (Dulcolax) 10 mg RECTAL .PRN X 1 PRN PRN Reason: Constipation Calamine/Phenol (Calmoseptine Ointment) 1 applic TOPICAL BID [facility]; Protocol Last Admin: 06/29/19 07:58 Dose: 1 applic Documented by: Famotidine (Pepcid) 20 mg PO DAILY [facility] Last Admin: 06/29/19 07:56 Dose: 20 mg Documented by: Magnesium Hydroxide (Milk Of Magnesia) 30 ml PO .PRN X 1 PRN PRN Reason: Constipation Metoprolol Tartrate (Lopressor (Beta Imani)) 25 mg PO BID [facility] Last Admin: 06/29/19 07:56 Dose: 25 mg Documented by: Oxycodone HCl (Oxyir) 5 mg PO Q4H PRN PRN PRN Reason: Moderate Pain (4-6/10) Last Admin: 06/29/19 08:02 Dose: 5 mg Documented by: Rivaroxaban (Xarelto) 10 mg PO DAILY@1700 [facility] Stop: 07/17/19 17:01 Last Admin: 06/28/19 17:49 Dose: 10 mg Documented by: Senna/Docusate Sodium (Senokot-S, Sheree-Colace) 2 tablet PO BID [facility] Last Admin: 06/29/19 07:56 Dose: 1 tablet Documented by: Medical Necessity - Tobacco Use Smoking Status: Never smoker Tobacco Use: Non-smoker Assessment/Plan All Active Problems (Last Reviewed 06/16/19 @ 10:15 by Jayjay Valencia MD) Femoral fracture (Acute) Thyroid nodule (Acute) Sarcoma of vulva (Acute) Fatigue (Acute) SOB (shortness of breath) (Acute) Hypokalemia (Resolved) The patient is a 78 year old F with PMH of HTN, HLD, CAD, S/P stent, ischemic cardiomyopathy, HX of endometrial CA post total hysterectomy 2002, HX of colon CA post low anterior resection with chemotherapy 1998, HX of vulvar CA post partial vulvectomy 2012 with recent vulvar biopsy on 06/02/19, admitted to [facility] on 06/16/19 for greater of 3 hours of therapy daily with a goal of returning home at or near her prior level of independence. On 06/13/19, patient had fallen onto her left side and hit head without LOC. Patient was carrying wan and walked into the garage door, which was partially opened, which caused her fall. CT of brain showed no acute hemorrhage or infarct. Left pelvis and femur x-ray showed displaced intertrochanteric fracture of the left femur. On 06/13/19, Dr. Mayo performed a Gamma nail internal fixation left hip. Plan - PT for mobility - OT for ADLs - Left hip fx post gamma nail internal fixation- replace AG drsg prn until mahesh are discontinued on 07/01/19, polar care as needed. - Left foot pain- left foot xray 06/20/19- no acute fx - HTN on norvasc, lopressor Hold if SBP <110 or HR <55 - HLD diet control 09/26/18 LDL 75 - CAD- on asa, norvasc, lopressor - Ischemic cardiomyopathy - HX of vulvar CA with partial vulvectomy in 2012- On 06/02/[address] Philip at [facility] in [place], [place] no heavy lifting or straining >10- 15 pounds. - HX of endometrial CA post total hysterectomy, bilateral salpingectomy, and left oophorectomy - radiation therapy 2002 - HX of Colon CA with anterior resection- chemotherapy 1998 - post op anemia 06/18 H/H 27/8.4 recheck H/H 27.0/8.4 - asymptomatic - GI/DVT prophylaxis - pepcid/xeralto x 30 days with last dose on 07/17/19, knee high nikki hose - Fall precautions - Medical management per hospitalist- consult - Analgesics as needed - Bowel protocol - Fall precautions - F/U with PCP, Dr. Mayo, Dr. Philip
[2019-06-29] MEDS: Rivaroxaban 10 MG Tablet PO (17:38)
[2019-06-29 19:53] VITALS: BP 145/59; PULSE 66; RESP 16; TEMP 36.7; O2SAT 97
[2019-06-29 20:21] VITALS: BP 145/59; PULSE 66
[2019-06-30] MEDS: Acetaminophen 500 MG Tablet 1000 MG PO ×3 (05:44→20:48)
[2019-06-30] MEDS: Famotidine 20 MG Tablet PO (07:37)
[2019-06-30] MEDS: Aspirin E.C. 81 MG Tablet PO (07:37)
[2019-06-30 07:38] VITALS: PULSE 77
[2019-06-30] MEDS: Metoprolol Tartrate 25 MG Tablet PO ×2 (07:38→20:47)
[2019-06-30] MEDS: amLODIPine 5 MG Tablet PO (07:38)
[2019-06-30] MEDS: Menthol/Lanolin/Calamine/Znox 113 GM Tube 1 APPLIC TOPICAL (07:40)
[2019-06-30 09:34] VITALS: BP 156/60; PULSE 61; RESP 16; TEMP 36.8; O2SAT 95
--- NOTE | 2019-06-30 13:54 | PCM.PN.NEU ---
Subjective: No issues overnight. Care discussed with the nursing staff. - Physical Exam Vitals/I&O's: Vital Signs Temp Pulse Resp BP Pulse Ox 98.2 F 61 16 156/60 H 95 06/30/19 09:34 06/30/19 09:34 06/30/19 09:34 06/30/19 09:34 06/30/19 09:34 Oxygen Delivery Method Room Air Weight: 72 kg Body Mass Index (BMI) 28.3 Intake and Output for Last 24 Hours 06/28/19 06/29/19 06/30/19 23:59 23:59 23:59 Intake Total 900 / 900 820 / 820 420 / 420 Balance 900 / 900 820 / 820 420 / 420 General: Alert HEENT: Normocephalic Neck: Supple Lungs: Normal air movement Cardiovascular: Normal S1, Normal S2 Abdomen: Bowel Sounds Present Extremities: No cyanosis Neurological: Cranial nerves II-XII grossly intact, Deep Tendon Reflexes 2+/4 and Symmetrical, Neuro grossly intact, Motor Exam 5/5 strength throughout, Muscle tone normal, Sensory exam intact to light touch and pain, Coordination normal Psych/Mental Status: Normal Affect Current Medications Acetaminophen (Tylenol) 1,000 mg PO TID [facility] Last Admin: 06/30/19 13:48 Dose: 1,000 mg Documented by: Amlodipine Besylate (Norvasc) 5 mg PO DAILY [facility] Last Admin: 06/30/19 07:38 Dose: 5 mg Documented by: Aspirin (Ecotrin) 81 mg PO DAILY@0800 [facility] Last Admin: 06/30/19 07:37 Dose: 81 mg Documented by: Bisacodyl (Dulcolax) 10 mg RECTAL .PRN X 1 PRN PRN Reason: Constipation Calamine/Phenol (Calmoseptine Ointment) 1 applic TOPICAL BID [facility]; Protocol Last Admin: 06/30/19 07:40 Dose: 1 applic Documented by: Famotidine (Pepcid) 20 mg PO DAILY [facility] Last Admin: 06/30/19 07:37 Dose: 20 mg Documented by: Magnesium Hydroxide (Milk Of Magnesia) 30 ml PO .PRN X 1 PRN PRN Reason: Constipation Metoprolol Tartrate (Lopressor (Beta Imani)) 25 mg PO BID [facility] Last Admin: 06/30/19 07:38 Dose: 25 mg Documented by: Oxycodone HCl (Oxyir) 5 mg PO Q4H PRN PRN PRN Reason: Moderate Pain (4-6/10) Last Admin: 06/29/19 20:32 Dose: 5 mg Documented by: Rivaroxaban (Xarelto) 10 mg PO DAILY@1700 [facility] Stop: 07/17/19 17:01 Last Admin: 06/29/19 17:38 Dose: 10 mg Documented by: Senna/Docusate Sodium (Senokot-S, Sheree-Colace) 2 tablet PO BID [facility] Last Admin: 06/30/19 07:41 Dose: Not Given Documented by: Medical Necessity - Tobacco Use Smoking Status: Never smoker Tobacco Use: Non-smoker Assessment/Plan All Active Problems (Last Reviewed 06/16/19 @ 10:15 by Jayjay Valencia MD) Femoral fracture (Acute) Thyroid nodule (Acute) Sarcoma of vulva (Acute) Fatigue (Acute) SOB (shortness of breath) (Acute) Hypokalemia (Resolved) The patient is a 78 year old F with PMH of HTN, HLD, CAD, S/P stent, ischemic cardiomyopathy, HX of endometrial CA post total hysterectomy 2002, HX of colon CA post low anterior resection with chemotherapy 1998, HX of vulvar CA post partial vulvectomy 2012 with recent vulvar biopsy on 06/02/19, admitted to [facility] on 06/16/19 for greater of 3 hours of therapy daily with a goal of returning home at or near her prior level of independence. On 06/13/19, patient had fallen onto her left side and hit head without LOC. Patient was carrying wan and walked into the garage door, which was partially opened, which caused her fall. CT of brain showed no acute hemorrhage or infarct. Left pelvis and femur x-ray showed displaced intertrochanteric fracture of the left femur. On 06/13/19, Dr. Mayo performed a Gamma nail internal fixation left hip. Plan - PT for mobility - OT for ADLs - Left hip fx post gamma nail internal fixation- replace AG drsg prn until mahesh are discontinued on 07/01/19, polar care as needed. - Left foot pain- left foot xray 06/20/19- no acute fx - HTN on norvasc, lopressor Hold if SBP <110 or HR <55 - HLD diet control 09/26/18 LDL 75 - CAD- on asa, norvasc, lopressor - Ischemic cardiomyopathy - HX of vulvar CA with partial vulvectomy in 2012- On 06/02/[address] Philip at [facility] in [place], [place] no heavy lifting or straining >10-15 pounds. - HX of endometrial CA post total hysterectomy, bilateral salpingectomy, and left oophorectomy - radiation therapy 2002 - HX of Colon CA with anterior resection- chemotherapy 1998 - post op anemia 06/18 H/H 27/8.4 recheck H/H 27.0/8.4 - asymptomatic - GI/DVT prophylaxis - pepcid/xeralto x 30 days with last dose on 07/17/19, knee high nikki hose - Fall precautions - Medical management per hospitalist- consult - Analgesics as needed - Bowel protocol - Fall precautions - F/U with PCP, Dr. Mayo, Dr. Philip
[2019-06-30] MEDS: Rivaroxaban 10 MG Tablet PO (16:45)
--- NOTE | 2019-06-30 19:02 | NURSING ---
Patient refused flu shot when offered.
[2019-06-30 20:45] VITALS: BP 161/68; PULSE 65; RESP 16; TEMP 36.5; O2SAT 96
[2019-06-30 20:47] VITALS: BP 161/68; PULSE 65
[2019-06-30] MEDS: Senna/Docusate Sodium 1 Tablet 2 TABLET PO (20:47)
--- NOTE | 2019-06-30 20:50 | NURSING ---
when attempting to administer hs application of faith, pt refused and stated that it garner her buttocks. will continue to monitor for continued irritation.
[2019-07-01] MEDS: oxyCODONE 5 MG Tablet PO ×3 (02:45→20:46)
--- NOTE | 2019-07-01 03:10 | NURSING ---
2 silverlon mepilex dressings removed at this time. cleansed with normal saline, pat to dry. old, dry drainage noted to incisions. scant amount of old, green tinged drainage noted to 2 mahesh. 22 mahesh removed and 11 steri-strips added to incisions for reinforcement. pt tolerated procedure well.
[2019-07-01] MEDS: Acetaminophen 500 MG Tablet 1000 MG PO ×3 (06:18→20:46)
[2019-07-01 07:01] VITALS: BP 147/58; PULSE 56; RESP 16; TEMP 36.7; O2SAT 96
[2019-07-01] MEDS: Aspirin E.C. 81 MG Tablet PO (07:51)
[2019-07-01] MEDS: Famotidine 20 MG Tablet PO (07:51)
[2019-07-01 07:52] VITALS: BP 147/58; PULSE 56
[2019-07-01] MEDS: Metoprolol Tartrate 25 MG Tablet PO ×2 (07:52→20:45)
[2019-07-01] MEDS: amLODIPine 10 MG Tablet PO (07:52)
[2019-07-01] MEDS: Menthol/Lanolin/Calamine/Znox 113 GM Tube 1 APPLIC TOPICAL ×2 (07:53→20:49)
--- NOTE | 2019-07-01 12:50 | PN_ITS ---
Subjective: Patient seen and examined. She has no active complaints. Review of systems otherwise negative. Vitals/I&O's: Vital Signs Temp Pulse Resp BP Pulse Ox 98.0 F 56 L 16 147/58 H 96 07/01/19 07:01 07/01/19 07:52 07/01/19 07:01 07/01/19 07:52 07/01/19 07:01 Oxygen Delivery Method Room Air Weight: 158 lb 11.725 oz Body Mass Index (BMI) 28.3 Intake and Output for Last 24 Hours 06/29/19 06/30/19 07/01/19 23:59 23:59 23:59 Intake Total 820 / 820 420 / 420 Balance 820 / 820 420 / 420 General: Alert, Oriented x3, Cooperative, No apparent distress HEENT: Atraumatic, PERRLA, EOMI, Normocephalic Oral: Moist Mucosa Neck: Supple, No JVD, Negative Carotid Bruits Lungs: Clear to auscultation, Normal air movement, No rhonchi, No wheeze Cardiovascular: Regular rate, Regular Rhythm, Normal S1, Normal S2, No murmurs Abdomen: Bowel Sounds Present, Soft, Non Tender, Non-Distended, No Hepato- splenomegaly Extremities: No clubbing, No cyanosis, No edema, Capillary Refill Less than 3 Seconds Skin: No rashes, No breakdown, left hip incisional scar is healing well. No erythema or discharge. Musculoskeletal: No Tenderness to Palpation of Joints or Extremities Lymphatic: No Cervical, Supraclavicular, or Inguinal Adenopathy Neurological: Cranial nerves II-XII grossly intact, Neuro grossly intact Psych/Mental Status: Normal Affect, Appropriate, Alert and oriented to time, place, person, mood and affect Current Medications Acetaminophen (Tylenol) 1,000 mg PO TID [facility] Last Admin: 07/01/19 06:18 Dose: 1,000 mg Documented by: Amlodipine Besylate (Norvasc) 10 mg PO DAILY [facility] Last Admin: 07/01/19 07:52 Dose: 10 mg Documented by: Aspirin (Ecotrin) 81 mg PO DAILY@0800 [facility] Last Admin: 07/01/19 07:51 Dose: 81 mg Documented by: Bisacodyl (Dulcolax) 10 mg RECTAL .PRN X 1 PRN PRN Reason: Constipation Calamine/Phenol (Calmoseptine Ointment) 1 applic TOPICAL BID [facility]; Protocol Last Admin: 07/01/19 07:53 Dose: 1 applic Documented by: Famotidine (Pepcid) 20 mg PO DAILY [facility] Last Admin: 07/01/19 07:51 Dose: 20 mg Documented by: Magnesium Hydroxide (Milk Of Magnesia) 30 ml PO .PRN X 1 PRN PRN Reason: Constipation Metoprolol Tartrate (Lopressor (Beta Imani)) 25 mg PO BID [facility] Last Admin: 07/01/19 07:52 Dose: 25 mg Documented by: Oxycodone HCl (Oxyir) 5 mg PO Q4H PRN PRN PRN Reason: Moderate Pain (4-6/10) Last Admin: 07/01/19 02:45 Dose: 5 mg Documented by: Rivaroxaban (Xarelto) 10 mg PO DAILY@1700 [facility] Stop: 07/17/19 17:01 Last Admin: 06/30/19 16:45 Dose: 10 mg Documented by: Senna/Docusate Sodium (Senokot-S, Sheree-Colace) 2 tablet PO BID [facility] Last Admin: 07/01/19 07:51 Dose: Not Given Documented by: Medical Necessity - Tobacco Use Smoking Status: Never smoker Tobacco Use: Non-smoker Assessment/Plan All Active Problems (Last Reviewed 06/16/19 @ 10:15 by Jayjay Valencia MD) Femoral fracture (Acute) Thyroid nodule (Acute) Sarcoma of vulva (Acute) Fatigue (Acute) SOB (shortness of breath) (Acute) Hypokalemia (Resolved) 1. Debility due to left intertrochanteric femoral fracture * s/p left hip internal fixation on 06/14/19 * PT/OT on board; tolerating therapy well. * incentive spirometry * 2. Anemia due to acute blood loss from surgery: stable. on parenteral iron 3. CAD s/p stents: on aspirin and metoprolol 4.Hypertension: fairly controlled. On amlodipine and metoprolol 5. History of vulval ca s/o partial vulvectomy in 2013: stable 6. History of endometrial ca * Status post total abdominal hysterectomy, bilateral salpingo-ectomy and left oophorectomy and adjuvant radiation therapy. This was in 2002. Has remained stable. 7. History of colon cancer: Status post low anterior resection and chemotherapy in 1998. Stable. DVT prophylaxis: Xarelto Disposition: for likely dc home on Friday Code Visit Inpatient E&M: 23616 Subs Hosp L2
--- NOTE | 2019-07-01 13:05 | PN.NEURO_ITS ---
Subjective: No issues overnight. Care discussed with the nursing staff. - Physical Exam Vitals/I&O's: Vital Signs Temp Pulse Resp BP Pulse Ox 98.0 F 56 L 16 147/58 H 96 07/01/19 07:01 07/01/19 07:52 07/01/19 07:01 07/01/19 07:52 07/01/19 07:01 Oxygen Delivery Method Room Air Weight: 72 kg Body Mass Index (BMI) 28.3 Intake and Output for Last 24 Hours 06/29/19 06/30/19 07/01/19 23:59 23:59 23:59 Intake Total 820 / 820 420 / 420 Balance 820 / 820 420 / 420 General: Alert HEENT: Normocephalic Neck: Supple Lungs: Normal air movement Cardiovascular: Normal S1, Normal S2 Abdomen: Bowel Sounds Present Extremities: No cyanosis Neurological: Cranial nerves II-XII grossly intact, Deep Tendon Reflexes 2+/4 and Symmetrical, Neuro grossly intact, Motor Exam 5/5 strength throughout, Muscle tone normal, Sensory exam intact to light touch and pain, Coordination normal Psych/Mental Status: Normal Affect Current Medications Acetaminophen (Tylenol) 1,000 mg PO TID [facility] Last Admin: 07/01/19 12:55 Dose: 1,000 mg Documented by: Amlodipine Besylate (Norvasc) 10 mg PO DAILY [facility] Last Admin: 07/01/19 07:52 Dose: 10 mg Documented by: Aspirin (Ecotrin) 81 mg PO DAILY@0800 [facility] Last Admin: 07/01/19 07:51 Dose: 81 mg Documented by: Bisacodyl (Dulcolax) 10 mg RECTAL .PRN X 1 PRN PRN Reason: Constipation Calamine/Phenol (Calmoseptine Ointment) 1 applic TOPICAL BID [facility]; Protocol Last Admin: 07/01/19 07:53 Dose: 1 applic Documented by: Famotidine (Pepcid) 20 mg PO DAILY [facility] Last Admin: 07/01/19 07:51 Dose: 20 mg Documented by: Magnesium Hydroxide (Milk Of Magnesia) 30 ml PO .PRN X 1 PRN PRN Reason: Constipation Metoprolol Tartrate (Lopressor (Beta Imani)) 25 mg PO BID [facility] Last Admin: 07/01/19 07:52 Dose: 25 mg Documented by: Oxycodone HCl (Oxyir) 5 mg PO Q4H PRN PRN PRN Reason: Moderate Pain (4-6/10) Last Admin: 07/01/19 12:56 Dose: 5 mg Documented by: Rivaroxaban (Xarelto) 10 mg PO DAILY@1700 [facility] Stop: 07/17/19 17:01 Last Admin: 06/30/19 16:45 Dose: 10 mg Documented by: Senna/Docusate Sodium (Senokot-S, Sheree-Colace) 2 tablet PO BID [facility] Last Admin: 07/01/19 07:51 Dose: Not Given Documented by: Medical Necessity - Tobacco Use Smoking Status: Never smoker Tobacco Use: Non-smoker Assessment/Plan All Active Problems (Last Reviewed 06/16/19 @ 10:15 by Jayjay Valencia MD) Femoral fracture (Acute) Thyroid nodule (Acute) Sarcoma of vulva (Acute) Fatigue (Acute) SOB (shortness of breath) (Acute) Hypokalemia (Resolved) The patient is a 78 year old F with PMH of HTN, HLD, CAD, S/P stent, ischemic cardiomyopathy, HX of endometrial CA post total hysterectomy 2002, HX of colon CA post low anterior resection with chemotherapy 1998, HX of vulvar CA post partial vulvectomy 2012 with recent vulvar biopsy on 06/02/19, admitted to [facility] on 06/16/19 for greater of 3 hours of therapy daily with a goal of returning home at or near her prior level of independence. On 06/13/19, patient had fallen onto her left side and hit head without LOC. Patient was carrying wan and walked into the garage door, which was partially opened, which caused her fall. CT of brain showed no acute hemorrhage or infarct. Left pelvis and femur x-ray showed displaced intertrochanteric fracture of the left femur. On 06/13/19, Dr. Mayo performed a Gamma nail internal fixation left hip. Plan - PT for mobility - OT for ADLs - Left hip fx post gamma nail internal fixation- replace AG drsg prn until mahesh are discontinued on 07/01/19, polar care as needed. - Left foot pain- left foot xray 06/20/19- no acute fx - HTN on norvasc, lopressor Hold if SBP <110 or HR <55 - HLD diet control 09/26/18 LDL 75 - CAD- on asa, norvasc, lopressor - Ischemic cardiomyopathy - HX of vulvar CA with partial vulvectomy in 2012- On 06/02/[address] Philip at [facility] in [place], [place] no heavy lifting or straining >10- 15 pounds. - HX of endometrial CA post total hysterectomy, bilateral salpingectomy, and left oophorectomy - radiation therapy 2002 - HX of Colon CA with anterior resection- chemotherapy 1998 - post op anemia 06/18 H/H 27/8.4 recheck H/H 27.0/8.4 - asymptomatic - GI/DVT prophylaxis - pepcid/xeralto x 30 days with last dose on 07/17/19, knee high nikki hose - Fall precautions - Medical management per hospitalist- consult - Analgesics as needed - Bowel protocol - Fall precautions - F/U with PCP, Dr. Mayo, Dr. Philip
--- NOTE | 2019-07-01 13:20 | PCM.RU.DC ---
Rehab Discharge Summary DATE OF ADMISSION: 06/16/19 DATE OF DISCHARGE: 07/03/19 - Rehab Diagnosis Debility post left intertrochanteric fracture femur status post internal fixation left hip. Subjective: No issues overnight. Care discussed with the nursing staff. - Physical Exam Vitals/I&O's: Vital Signs Temp Pulse Resp BP Pulse Ox 98.0 F 56 L 16 147/58 H 96 07/01/19 07:01 07/01/19 07:52 07/01/19 07:01 07/01/19 07:52 07/01/19 07:01 Oxygen Delivery Method Room Air Weight: 72 kg Body Mass Index (BMI) 28.3 Intake and Output for Last 24 Hours 06/29/19 06/30/19 07/01/19 23:59 23:59 23:59 Intake Total 820 / 820 420 / 420 440 / 440 Balance 820 / 820 420 / 420 440 / 440 General: Alert HEENT: Normocephalic Neck: Supple Lungs: Normal air movement Cardiovascular: Normal S1, Normal S2 Abdomen: Bowel Sounds Present Extremities: No cyanosis Neurological: Cranial nerves II-XII grossly intact, Deep Tendon Reflexes 2+/4 and Symmetrical, Neuro grossly intact, Motor Exam 5/5 strength throughout, Muscle tone normal, Sensory exam intact to light touch and pain, Coordination normal Psych/Mental Status: Normal Affect Current Medications Acetaminophen (Tylenol) 1,000 mg PO TID [facility] Last Admin: 07/01/19 12:55 Dose: 1,000 mg Documented by: Amlodipine Besylate (Norvasc) 10 mg PO DAILY [facility] Last Admin: 07/01/19 07:52 Dose: 10 mg Documented by: Aspirin (Ecotrin) 81 mg PO DAILY@0800 [facility] Last Admin: 07/01/19 07:51 Dose: 81 mg Documented by: Bisacodyl (Dulcolax) 10 mg RECTAL .PRN X 1 PRN PRN Reason: Constipation Calamine/Phenol (Calmoseptine Ointment) 1 applic TOPICAL BID [facility]; Protocol Last Admin: 07/01/19 07:53 Dose: 1 applic Documented by: Famotidine (Pepcid) 20 mg PO DAILY [facility] Last Admin: 07/01/19 07:51 Dose: 20 mg Documented by: Magnesium Hydroxide (Milk Of Magnesia) 30 ml PO .PRN X 1 PRN PRN Reason: Constipation Metoprolol Tartrate (Lopressor (Beta Imani)) 25 mg PO BID [facility] Last Admin: 07/01/19 07:52 Dose: 25 mg Documented by: Oxycodone HCl (Oxyir) 5 mg PO Q4H PRN PRN PRN Reason: Moderate Pain (4-6/10) Last Admin: 07/01/19 12:56 Dose: 5 mg Documented by: Rivaroxaban (Xarelto) 10 mg PO DAILY@1700 [facility] Stop: 07/17/19 17:01 Last Admin: 06/30/19 16:45 Dose: 10 mg Documented by: Senna/Docusate Sodium (Senokot-S, Sheree-Colace) 2 tablet PO BID [facility] Last Admin: 07/01/19 07:51 Dose: Not Given Documented by: Discharge Diet: - - Cardiac/low-cholesterol Discharge Activity: May Not Drive, - - Per orthopedic recommendations Weight Bearing Status: - - 50% weightbearing with walker per orthopedic recommendation Call your doctor if your incision/area has: Continuous Slow Oozing, Sudden Increased Bleeding, Increased Pain/ Swelling, Increased Redness, Foul Smelling Discharge, Swelling at the incision site Call your doctor if you observe: Fever of 101 or Higher, Coldness, Increased Pain, Numbness or Tingling, Change in Color, Inability to urinate, Inability to have a bowel movement, Using more than one pad per hour, Shortness of breath, Dizziness, Fainting spells, Swelling in the ankles, Chest pain, Prolonged hiccoughing, Increased palpitations (irregular heartbeat), Calf discomfort, Uncontrolled pain Home Medications: Medications to take at Discharge Aspirin E.C. [Ecotrin] 81 mg PO DAILY 10/26/18 Metoprolol Tartrate 25 mg PO BID 10/26/18 Amlodipine [Norvasc] 10 mg PO DAILY tab 07/01/19 Famotidine [Pepcid] 20 mg PO DAILY tab 07/01/19 Rivaroxaban [Xarelto] 10 mg PO DAILY@1700 tab 07/01/19 Oxycodone [Oxyir] 5 mg PO Q4H PRN PRN 7 Days #20 tablet 07/02/19 Primary Care Physician: Dominic Solis DO [Primary Care Provider] - Please follow up with your Primary Care Physician in: Follow-up in 1 to 2 weeks Please Follow Up With: Dr Mayo When: Follow up in 1 to 2 weeks Please Follow Up With: Dr Alonzo When: Follow-up in 1 to 2 weeks Please Follow Up With: Dr Solis-PCP When: Aloe up in 1 to 2 weeks Rehab Course 79 year old F with PMH of HTN, HLD, CAD, S/P stent, ischemic cardiomyopathy, HX of endometrial CA post total hysterectomy 2002, HX of colon CA post low anterior resection with chemotherapy 1998, HX of vulvar CA post partial vulvectomy 2012 with recent vulvar biopsy on 06/02/19, admitted to [facility] on 06/16/19 with debility s/p fall with left femur fracture s/p gamma nail internal fixation left hip by Dr. Mayo on 06/14/19, for greater of 3 hours of therapy daily with a goal of returning home at or near her prior level of independence. On 06/13/19, patient had fallen onto her left side and hit head without LOC. Patient was carrying wan and walked into the garage door, which was partially opened, which caused her fall. CT of brain showed no acute hemorrhage or infarct. Left pelvis and femur x-ray showed displaced intertrochanteric fracture of the left femur. On 06/13/19, Dr. Mayo performed a Gamma nail internal fixation left hip. Patient tolerated procedure well and was later transferred on 06/16/2019 to inpatient rehab unit. Patient had an uncomplicated rehab course. Patient tolerated therapies well. Hospitalist consult was obtained and recommendations followed. Per hospitalist and orthopedics recommendation patient was on Rivaroxaban 10 mg p.o. once daily for DVT prophylaxis and to continue to take it till 07/17/2019. Follow-up with PCP, orthopedics Dr. Mayo and Dr. Philip as outpatient. Meaningful Use Info Meaningful Use Diagnoses (Choose all that apply): None applicable
--- NOTE | 2019-07-01 16:00 | NURSING ---
Dr. Nguyen observed incision to left hip. NO drainage, no redness, no odor, no pain. Steri strips in place. also observed at this time.
--- NOTE | 2019-07-01 16:23 | CASEMGMT ---
Social Work Spoke with pt and about choice of HHC from list. Both chose [facility]. Referral made for PT/OT. Natalya Castelan, [employer]IT DEPARTMENT CLERK
[2019-07-01] MEDS: Rivaroxaban 10 MG Tablet PO (16:36)
[2019-07-01 20:41] VITALS: BP 150/77; PULSE 61; RESP 16; TEMP 36.6; O2SAT 97
[2019-07-01 20:45] VITALS: BP 150/77; PULSE 61
[2019-07-01] MEDS: Senna/Docusate Sodium 1 Tablet 2 TABLET PO (20:45)
--- NOTE | 2019-07-02 03:31 | NURSING ---
REVIEWED AND AGREE WITH [employer] SETTER'S FUNCTIONAL ASSESSMENT OF PT AND HANDOFF CHARTING.
[2019-07-02] MEDS: Acetaminophen 500 MG Tablet 1000 MG PO ×3 (06:42→20:13)
[2019-07-02 07:33] VITALS: BP 128/70; PULSE 56; RESP 16; TEMP 36.4; O2SAT 96
[2019-07-02 08:16] VITALS: BP 128/70; PULSE 56
[2019-07-02] MEDS: amLODIPine 10 MG Tablet PO (08:16)
[2019-07-02] MEDS: Metoprolol Tartrate 25 MG Tablet PO ×2 (08:16→20:13)
[2019-07-02] MEDS: Famotidine 20 MG Tablet PO (08:16)
[2019-07-02] MEDS: Aspirin E.C. 81 MG Tablet PO (08:17)
[2019-07-02] MEDS: oxyCODONE 5 MG Tablet PO (08:19)
[2019-07-02] MEDS: Menthol/Lanolin/Calamine/Znox 113 GM Tube 1 APPLIC TOPICAL ×2 (11:15→20:13)
--- NOTE | 2019-07-02 13:32 | DCINST_ITS ---
You will use the following diet at home:: Cardiac, Other - Low-cholesterol Your food should be the consistency of: Regular Discharge Activity: May Not Drive, - - Per orthopedic recommendations Weight Bearing Status: - - 50% weightbearing with walker per orthopedic recommendation Call your doctor if your incision/area has: Continuous Slow Oozing, Sudden Increased Bleeding, Increased Pain/ Swelling, Increased Redness, Foul Smelling Discharge, Swelling at the incision site Call your doctor if you observe: Fever of 101 or Higher, Coldness, Increased Pain, Numbness or Tingling, Change in Color, Inability to urinate, Inability to have a bowel movement, Using more than one pad per hour, Shortness of breath, Dizziness, Fainting spells, Swelling in the ankles, Chest pain, Prolonged hiccoughing, Increased palpitations (irregular heartbeat), Calf discomfort, Uncontrolled pain Allergies/Adverse Reactions: Allergies clopidogrel [From Plavix] Adverse Reaction (Severe, Verified 06/13/19 16:35) hives ragweed pollen Adverse Reaction (Severe, Verified 06/13/19 16:35) Other cough lisinopril Adverse Reaction (Mild, Verified 06/13/19 16:35) Other COUGH Medications to take at Discharge Aspirin E.C. [Ecotrin] 81 mg PO DAILY 10/26/18 Metoprolol Tartrate 25 mg PO BID 10/26/18 Amlodipine [Norvasc] 10 mg PO DAILY tab 07/01/19 Famotidine [Pepcid] 20 mg PO DAILY tab 07/01/19 Rivaroxaban [Xarelto] 10 mg PO DAILY@1700 tab 07/01/19 Oxycodone [Oxyir] 5 mg PO Q4H PRN PRN 7 Days #20 tablet 07/02/19 Primary Care Physician: Dominic Solis DO [Primary Care Provider] - Please follow up with your Primary Care Physician in: Follow-up in 1 to 2 weeks Test Results: Test results from this visit will be discussed in further detail at your follow- up appointment, if applicable. Please Follow Up With: Dr Mayo When: Follow up in 1 to 2 weeks Please Follow Up With: Dr Alonzo When: Follow-up in 1 to 2 weeks Please Follow Up With: Dr Solis-PCP When: Aloe up in 1 to 2 weeks
[2019-07-02] MEDS: Rivaroxaban 10 MG Tablet PO (17:00)
[2019-07-02 19:33] VITALS: BP 147/69; PULSE 71; RESP 16; TEMP 36.7; O2SAT 98
[2019-07-02] MEDS: Senna/Docusate Sodium 1 Tablet 2 TABLET PO (20:12)
[2019-07-02 20:13] VITALS: PULSE 71
[2019-07-03] MEDS: Acetaminophen 500 MG Tablet 1000 MG PO (05:24)
[2019-07-03 07:00] VITALS: BP 155/64; PULSE 58; RESP 16; TEMP 36.8; O2SAT 99
[2019-07-03] MEDS: Famotidine 20 MG Tablet PO (08:28)
[2019-07-03] MEDS: amLODIPine 10 MG Tablet PO (08:28)
[2019-07-03 08:29] VITALS: PULSE 78
[2019-07-03] MEDS: Metoprolol Tartrate 25 MG Tablet PO (08:29)
[2019-07-03] MEDS: Aspirin E.C. 81 MG Tablet PO (08:29)
[2019-07-03 11:30] VITALS: BP 155/64; PULSE 58; RESP 16; TEMP 36.8; O2SAT 99
--- NOTE | 2019-07-03 11:30 | NURSING ---
Patient and verbalized understanding to discharge instructions, wound care, appts they need to make. Dr. Mayo called this nurse and changed her xarelto dose.
--- NOTE | 2019-07-03 11:34 | PCM.PN.HOSP ---
Subjective: Patient seen and examined. She had no complaints. She has been discharged today. Review of systems otherwise negative. Vitals/I&O's: Vital Signs Temp Pulse Resp BP Pulse Ox 98.2 F 78 16 155/64 H 99 07/03/19 07:00 07/03/19 08:29 07/03/19 07:00 07/03/19 07:00 07/03/19 07:00 Oxygen Delivery Method Room Air Weight: 158 lb 11.725 oz Body Mass Index (BMI) 28.3 Intake and Output for Last 24 Hours 07/01/19 07/02/19 07/03/19 23:59 23:59 23:59 Intake Total 440 / 440 720 / 720 240 / 240 Balance 440 / 440 720 / 720 240 / 240 General: Alert, Oriented x3, Cooperative, No apparent distress HEENT: Atraumatic, PERRLA, EOMI, Normocephalic Oral: Moist Mucosa Neck: Supple, No JVD, Negative Carotid Bruits Lungs: Clear to auscultation, Normal air movement, No rhonchi, No wheeze Cardiovascular: Regular rate, Regular Rhythm, Normal S1, Normal S2, No murmurs Abdomen: Bowel Sounds Present, Soft, Non Tender, Non-Distended, No Hepato-splenomegaly Extremities: No clubbing, No cyanosis, No edema, Capillary Refill Less than 3 Seconds Skin: No rashes, No breakdown, left hip incisional scar is healing well. No erythema or discharge. Musculoskeletal: No Tenderness to Palpation of Joints or Extremities Lymphatic: No Cervical, Supraclavicular, or Inguinal Adenopathy Neurological: Cranial nerves II-XII grossly intact, Neuro grossly intact Psych/Mental Status: Normal Affect, Appropriate, Alert and oriented to time, place, person, mood and affect Current Medications Acetaminophen (Tylenol) 1,000 mg PO TID [facility] Last Admin: 07/03/19 05:24 Dose: 1,000 mg Documented by: Amlodipine Besylate (Norvasc) 10 mg PO DAILY [facility] Last Admin: 07/03/19 08:28 Dose: 10 mg Documented by: Aspirin (Ecotrin) 81 mg PO DAILY@0800 [facility] Last Admin: 07/03/19 08:29 Dose: 81 mg Documented by: Bisacodyl (Dulcolax) 10 mg RECTAL .PRN X 1 PRN PRN Reason: Constipation Calamine/Phenol (Calmoseptine Ointment) 1 applic TOPICAL BID [facility]; Protocol Last Admin: 07/03/19 08:30 Dose: Not Given Documented by: Famotidine (Pepcid) 20 mg PO DAILY [facility] Last Admin: 07/03/19 08:28 Dose: 20 mg Documented by: Magnesium Hydroxide (Milk Of Magnesia) 30 ml PO .PRN X 1 PRN PRN Reason: Constipation Metoprolol Tartrate (Lopressor (Beta Imani)) 25 mg PO BID [facility] Last Admin: 07/03/19 08:29 Dose: 25 mg Documented by: Oxycodone HCl (Oxyir) 5 mg PO Q4H PRN PRN PRN Reason: Moderate Pain (4-6/10) Last Admin: 07/02/19 08:19 Dose: 5 mg Documented by: Rivaroxaban (Xarelto) 10 mg PO DAILY@1700 [facility] Stop: 07/17/19 17:01 Last Admin: 07/02/19 17:00 Dose: 10 mg Documented by: Senna/Docusate Sodium (Senokot-S, Sheree-Colace) 2 tablet PO BID [facility] Last Admin: 07/03/19 08:30 Dose: Not Given Documented by: STROKE Vital Signs/Narrative: Vital Signs Pulse 07/03/19 08:29 78 Medical Necessity - Tobacco Use Smoking Status: Never smoker Tobacco Use: Non-smoker Assessment/Plan All Active Problems (Last Reviewed 06/16/19 @ 10:15 by Jayjay Valencia MD) Femoral fracture (Acute) Thyroid nodule (Acute) Sarcoma of vulva (Acute) Fatigue (Acute) SOB (shortness of breath) (Acute) Hypokalemia (Resolved) 1. Debility due to left intertrochanteric femoral fracture s/p left hip internal fixation on 06/14/19 PT/OT on board; tolerating therapy well. incentive spirometry 2. Anemia due to acute blood loss from surgery: stable. on parenteral iron 3. CAD s/p stents: on aspirin and metoprolol 4.Hypertension: fairly controlled. On amlodipine and metoprolol 5. History of vulval ca s/o partial vulvectomy in 2013: stable 6. History of endometrial ca Status post total abdominal hysterectomy, bilateral salpingo-ectomy and left oophorectomy and adjuvant radiation therapy. This was in 2002. Has remained stable. 7. History of colon cancer: Status post low anterior resection and chemotherapy in 1998. Stable. DVT prophylaxis: On Xarelto. 10 mg of Xarelto dose is not covered by her insurance. Per nurse, this was discussed with patient's orthopedic surgeon, Dr Mayo, who put patient on p.o. Xarelto 20 mg daily for 14 days as DVT prophylaxis, as this is covered by her insurance. Risk of bleeding discussed with patient. Disposition:for DC home today Code Visit Inpatient E&M: 71283 Subs Hosp L2
== END 2019-07-03 11:30 | disposition home health service (06) | DRG 560 ==
PROVIDERS: Nurse Practitioner Family; Admitting Provider Psychiatry & Neurology Neurology; Family Provider Family Medicine; PCP Family Medicine; Referring Provider Psychiatry & Neurology Neurology; Visit Provider Student in an Organized Health Care Education/Training Program
DX: S72.142D Displaced intertrochanteric fracture of left femur, subsequent encounter for closed fracture with routine healing (principal); D62 Acute posthemorrhagic anemia; W01.0XXD Fall on same level from slipping, tripping and stumbling without subsequent striking against object, subsequent encounter; I10 Essential (primary) hypertension; I25.10 Atherosclerotic heart disease of native coronary artery without angina pectoris; E78.5 Hyperlipidemia, unspecified; I25.2 Old myocardial infarction; I25.5 Ischemic cardiomyopathy; M79.672 Pain in left foot; Z95.5 Presence of coronary angioplasty implant and graft; Z85.44 Personal history of malignant neoplasm of other female genital organs
CPT/HCPCS: 36415; 73630; 80048; 85014; 85018; 85025; 97110; 97116; 97162; 97166; 97530; 97535; 97802; 97803

== ENCOUNTER → 2019-07-26 07:07 | Outpatient (CLI) | payer MEDICARE, BC, SELFPAY ==
--- NOTE | 2019-07-26 07:21 | MRI_ITS ---
STUDY: MR PELVIS WITH T WITHOUT CONTRAST REASON FOR EXAM: Female, 79 years old. treatment planning/vaginal ca new diagnosis, hx uterine ca, colon ca TECHNIQUE: Standardized fat and water weighted pulse sequences were obtained in all 3 orthogonal planes, pre-and post contrast administration. IV Dotarem 13 was administered for the contrast portion of the examination. COMPARISON: CT abdomen and pelvis August 23, 2018 FINDINGS: In the left fornix of the vagina there is soft tissue fullness which I suspect relates to the patient''s history of vaginal cancer. The patient has had a prior hysterectomy and history of uterine cancer. For instance refer to image #26 series 4. This fullness is also seen on sagittal image #23 series 6. The fornix in this region has an AP diameter of approximately 2 cm. The fullness is seen along the length of approximately 2.6 cm as seen on this image. There appears in intact fat plane posterior to the vagina. Anterior to the vagina of the fat plane central to the vagina posterior to the urinary bladder is lost, refer to axial image #26 series 3. The area where I cannot identify fat between these 2 structures has a length of approximately 1.3 cm. This may represent adherent area or potentially invasive area of tumor. I also note that small bowel loops are seen extending to the mesial rectal fossa superior to the vaginal cuff, for instance image 20. Series 3 in these loops have an angulated appearance. This has a differential between adhesion versus invasion but I am more suspicious that this represents adhesion since I do not see a defined focus of soft tissue to suggest an implant in this area. There is some minimal stranding seen in association with the peritoneal reflection of the mesial rectal fascia on the left, refer to image #16 series 3. This may represent adhesion or perhaps some very minimal fluid. There has been prior anastomosis in association with the rectosigmoid colon in this vicinity. There is no evidence of pelvic sidewall lymphadenopathy. I do not see evident peritoneal implants. There is no evidence of bowel obstruction. Left hip arthroplasty present. There is degenerative spondylosis in the visualized spine. There is no evidence of bony infiltration. There is mild edema seen in association with the gluteus muscles on the left breast noted on axial imaging, for instance image #18 series 4. I believe this is real despite the fact that there is inhomogeneous fat saturation more inferiorly but the etiology is uncertain. MRI/Pelvis W/WO Contrast IMPRESSION: There does appear fullness in the vaginal fornix on the left as described. I do not see evident invasion to the rectum. There is a loss of fat plane between the vagina and the posterior border of the urinary bladder centrally. Additionally superiorly there are loops of bowel that are angulated that extend to this area of abnormal tissue but there is no defined soft tissue mass. This may represent adhesion. This is intimately associated with an area of a prior rectosigmoid anastomosis. I do not see evidence of lymphadenopathy or distant spread of disease. See above. Electronically Signed: Rae Ridley MD at 8:49 EST , Service support ,
== END ==
PROVIDERS: Family Provider Family Medicine; PCP Family Medicine
DX: C52 Malignant neoplasm of vagina (principal)
CPT/HCPCS: 72197; A9575

== ENCOUNTER → 2019-08-06 11:42 | Outpatient (CLI) | payer MEDICARE, BC, SELFPAY ==
[2019-08-06 14:44] LABS: Erythrocyte Sedimentation Rate 5 mm/hr (0-30)
[2019-08-06 14:47] LABS: Absolute Lymphocyte Count 1.34 X10^3/uL (0.83-4.51); Basophil# 0.06 X10^3/uL; Basophil% 0.9 % (0-1); Eosinophil# 0.31 X10^3/uL; Eosinophils% 4.9 % (0-5); Hematocrit 43.6 % (37-47); Hemoglobin 13.5 g/dL (12.0-15.0); Lymphocyte # 1.34 X10^3/ul (4.0); Lymphocyte % 21.2 % (19-41); Mean Corpuscular Hgb 29.3 pg (27.0-32.0); Mean Corpuscular Volume 94.8 fL (81-99); Mean Platelet Vol. 10.4 fl (6.2-12.0); Monocyte# 0.56 X10^3/uL; Monocyte% 8.8 % (0-10); NRBC Flagged by Analyzer 0 % (0-5); Neutrophil # 4.04 X10^3/uL (2.7-7.7); Neutrophil % 63.9 % (47-70); Platelet Count 260 K/mm3 (150-450); RBC Distribution Width CV 14.3 % (11.6-14.6); RBC Distribution Width SD 49.9 fl (35.1-43.9); White Blood Count 6.3 K/mm3 (4.4-11.0)
== END ==
PROVIDERS: Family Provider Family Medicine; PCP Family Medicine; Referring Provider Orthopaedic Surgery; Visit Provider Orthopaedic Surgery
DX: S72.142A Displaced intertrochanteric fracture of left femur, initial encounter for closed fracture (principal)
CPT/HCPCS: 36415; 85025; 85652; 86140

== ENCOUNTER → 2019-08-26 10:39 | Outpatient (CLI) | payer MEDICARE, BC, SELFPAY ==
--- NOTE | 2019-08-26 10:54 | MRI_ITS ---
STUDY: MRI LUMBAR SPINE WITHOUT CONTRAST REASON FOR EXAM: Female, 79 years old. lumbar pain, bilat leg pain; hx ca colon, uterus,vagina TECHNIQUE: Standardized fat and water weighted pulse sequences were obtained in the sagittal and axial planes. COMPARISON: CT of abdomen and pelvis dated August 23, 2018. FINDINGS: An old compression deformity of the L3 vertebral body is reidentified. No acute fractures or marrow edema or new compression deformities are present. Normal lumbar lordosis. There is no substantial scoliosis. Normal conus medullaris that terminates at the T12-L1 level. L1-2: Normal endplates. Normal disc height and morphology. Normal bilateral facet joints. Normal central canal and bilateral lateral recesses. Normal bilateral intervertebral neural foramina. L2-3: Mild to moderate disc space narrowing is present resulting in a diffuse disc bulge and prominent midline disc extrusion. There is slight retrolisthesis of L2 on L3 of no more than 2 mm. Normal bilateral facet joints. Mild central canal stenosis is present. Normal bilateral lateral recesses. Normal bilateral intervertebral neural foramina. L3-4: Normal endplates. Mild to moderate disc space narrowing is present and associated with mild diffuse disc bulging. Slight retrolisthesis of L3 on L4 of less than 2 mm unchanged from the prior study. The right facet joint is mildly hypertrophied. Normal central canal and bilateral lateral recesses. Normal bilateral intervertebral neural foramina. L4-5: Normal endplates. Normal disc height and morphology. The facet joints are mildly hypertrophied and degenerated. Normal central canal and bilateral lateral recesses. Normal bilateral intervertebral neural foramina. L5-S1: The disc spaces moderately narrowed. No posterior disc herniation or bulging. A small anterior disc osteophyte complex is present. Normal bilateral facet joints. Normal central canal and bilateral lateral recesses. Normal bilateral intervertebral neural foramina. Normal visualized sacral ala. Normal visualized paraspinous soft tissue structures. MRI/Spine Lumbar (Routine) IMPRESSION: 1. Multilevel degenerative changes, as described above. 2. Old L3 compression deformity. 3. Mild central canal stenosis at L2-L3 secondary to a prominent disc extrusion Electronically Signed: Nasim Spaulding MD at 17:29 EST , Service support ,
== END ==
PROVIDERS: Family Provider Family Medicine; PCP Family Medicine; Referring Provider Orthopaedic Surgery; Visit Provider Orthopaedic Surgery
DX: M54.5 Low back pain (principal); S72.142A Displaced intertrochanteric fracture of left femur, initial encounter for closed fracture
CPT/HCPCS: 72148

== ENCOUNTER 2019-09-04 14:34 | Emergency (ER) | payer MEDICARE, BC, SELFPAY ==
[2019-09-04 14:35] VITALS: BP 186/96; PULSE 75; RESP 14; TEMP 36.7; O2SAT 96; BMI 25.5
--- NOTE | 2019-09-04 14:56 | ED.DCSUM_ITS ---
- ER Visit Summary Date of Service: 09/04/19 Chief Complaint: Back pain History of Present Illness: The patient is a 79 F who has had back pain for a month. She states that she fell in May and had a left femur fracture. This was repaired. Now she is having back pain. It is worse with movement. Her orthopedic surgeon put her on tramadol and Tylenol but she states is not helping. He did an MRI on August 26. She is not sure what the results are. She denies any new falls or trauma. No bowel or bladder incontinence. No numbness or tingling in her legs. Physical Examination: Vital signs reviewed. HEENT exam unremarkable. Heart is regular rate and rhythm without murmurs. Lungs are clear to auscultation. Abdomen is soft and nontender. Extremities reveal no edema. Skin exam normal. Neurologic exam normal. Test Results: None performed Emergency Department Course and Treatment: Patient was given morphine subcutaneously for pain. MRI that was performed last week shows degenerative changes with an old L3 compression fracture. At this point I see no acute causes for her pain. She states that her orthopedist is referring her to a pain management doctor. She has tramadol at home. I will give her Lidoderm patches to see if this will help. She will follow-up next week. Treatment Plan: [] Disposition: Discharge Impression: Lumbar back pain This note was generated with [employer] dictation software. It may contain incorrect words, spelling, and punctuation that were not noted in review of the chart prior to signing ED Disposition - Plan for ED Patient: Referrals: Dominic Solis DO [Primary Care Provider] -
[2019-09-04] MEDS: Morphine 4 MG/ML Syringe SC (15:00)
--- NOTE | 2019-09-04 16:17 | ED.DEP ---
ED Disposition - Plan for ED Patient: Disposition: Home or Assisted Living Instructions: BACK PAIN (Acute or Chronic) Prescriptions: Lidocaine [Lidoderm Patch] 1 patch TOPICAL DAILY #10 patch Transmission Status: Pending to [facility]/pharmacy #[id number] Referrals: Dominic Solis DO [Primary Care Provider] -
[2019-09-04 16:33] VITALS: BP 151/99; PULSE 98; RESP 16; O2SAT 97
== END 2019-09-04 16:34 | disposition home or self-care (01) ==
PROVIDERS: Emergency Provider Emergency Medicine; Family Provider Family Medicine; PCP Family Medicine
DX: M54.5 Low back pain (principal); I25.10 Atherosclerotic heart disease of native coronary artery without angina pectoris; I10 Essential (primary) hypertension; Z79.82 Long term (current) use of aspirin; Z79.899 Other long term (current) drug therapy
CPT/HCPCS: 96372; 99282

== ENCOUNTER 2019-09-12 10:26 | Emergency (ER) | payer MEDICARE, BC, SELFPAY ==
[2019-09-06 11:22] VITALS: BMI 25.4
[2019-09-12 10:26] VITALS: BP 195/82; PULSE 50; RESP 20; TEMP 36.6; O2SAT 96; BMI 25.7
--- NOTE | 2019-09-12 11:06 | ED.VIS.BACK ---
History of Present Illness <MatiasramyaalexandreaBennettthuan - Last Filed: 09/12/19 12:00> Informant: Patient, Significant Other Onset: Yesterday Context: Gradual Onset Chronic pain exacerbated by: walking up stairs at home. no fall Injury: Repetitive Motion Timing: Continuous Quality: Sharp Location: Lumbar, Buttock, Right Leg, Left Leg Current Severity: 10/10 Maximum Severity: 10/10 Worsened by: improves with: Movement, Ambulation, Bending Relieved by: Nothing Associated Symptoms: Radiation to Right Leg, Radiation to Left Leg Narrative: 79-year-old female presents to the emergency department with low back pain with her . Patient has been dealing with chronic back pain since May nearly 3 months ago. She has had 2 MRIs including one 2 weeks ago that showed an old L3 compression fracture with mild disc bulging. No signs of cauda equina syndrome. She has been seen by orthopedics and has been referred to pain management. She has had continued pain not removed with tramadol or with oxycodone. She denies any new inciting injury or trauma she has had continued pain mostly with walking up and down her stairs at home. Pain radiates into both thighs but she does not have any numbness tingling or weakness she has not lost control of her bowel or bladder function and she has not had any difficulty urinating or constipation. She is not having abdominal pain. She has an appointment pain management on Friday in 3 days. Prior similar symptoms: Yes, With Prior Back Pain Recent Illness/Hospitalization: Yes <Reece Souza - Last Filed: 09/12/19 12:07> Chief Complaint: Lower Extremity Injury Past Medical History - Family History Paternal Family History: Family History (Last Updated 04/07/19 @ 11:15 by Disha Yuan) Father Heart disease Mother Heart disease Brother Heart disease Lung cancer Sister Heart disease Sister Lung cancer Maternal Family History: Family History (Last Updated 04/07/19 @ 11:15 by Disha Yuan) Father Heart disease Mother Heart disease Brother Heart disease Lung cancer Sister Heart disease Sister Lung cancer <KarlaLoganmarily - Last Filed: 09/12/19 12:00> Prior records reviewed: Yes Past Medical History: - - Hypertension Surgical History: cholecystectomy, colectomy, herniorrhaphy, hysterectomy, - - CAD s/p stent Lives: With Family Smoking Status: Never smoker Alcohol: None Drugs: None - Family History Paternal Family History: Family History (Last Updated 04/07/19 @ 11:15 by Disha Yuan) Father Heart disease Mother Heart disease Brother Heart disease Lung cancer Sister Heart disease Sister Lung cancer Family History: Reports: No pertinent history Maternal Family History: Family History (Last Updated 04/07/19 @ 11:15 by Disha Yuan) Father Heart disease Mother Heart disease Brother Heart disease Lung cancer Sister Heart disease Sister Lung cancer Family History: Reports: Heart Disease <Reece Souza - Last Filed: 09/12/19 12:07> - Allergies and Home Meds Allergies/Adverse Reactions: Allergies clopidogrel [From Plavix] Adverse Reaction (Severe, Verified 09/12/19 10:28) hives ragweed pollen Adverse Reaction (Severe, Verified 09/12/19 10:28) Other cough lisinopril Adverse Reaction (Mild, Verified 09/12/19 10:28) Other COUGH Primary Care Physician: Dominic Solis DO [Primary Care Provider] - Review of Systems All systems negative except as indicated General: Denies: Chills, Fever Eyes: Denies: Visual changes - bilaterally, Blurred Vision - bilaterally ENT: Denies: Rhinorrhea, Sore throat Cardiovascular: Denies: Chest pain, Palpitations Respiratory: Denies: Dyspnea, Cough Gastrointestinal: Denies: Abdominal pain, Nausea, Vomiting, Diarrhea Genitourinary: Denies: Dysuria, Hematuria, Frequency Musculoskeletal: Reports: Back pain. Denies: Myalgias, Arthralgias, Neck pain, Swelling, Extremity Pain Skin: Denies: Rash, Abscess, Abrasions, Wounds Neurological: Denies: Headache, Weakness, Parasthesia, Numbness Psych: Denies: Depression, Anxiety <Reece Souza - Last Filed: 09/12/19 12:07> Physical Exam Vital Signs/Narrative: Vital Signs Temp Pulse Resp BP Pulse Ox 09/12/19 10:26 97.9 F 50 L 20 H 195/82 H 96 <Giancarlo Acosta - Last Filed: 09/12/19 12:00> Vital Signs/Narrative: Vital Signs Temp Pulse Resp BP Pulse Ox 09/12/19 10:26 97.9 F 50 L 20 H 195/82 H 96 Inital Vital Signs reviewed: Yes General: Well nourished, Well developed Head: Normocephalic, Atraumatic Eyes: Perrl, EOMI ENT: Moist mucous membranes Neck: Supple, Nontender Cardiovascular: Regular rate, Regular rhythm Respiratory: No distress, CTA bilaterally, Chest nontender Abdomen: Soft, Nontender, Nondistended, Normal bowel sounds, No masses Back: Paraspinal Tenderness, Positive SLR - Right, Positive SLR - Left. Negative for: Spinal tenderness, CVA tenderness Extremeties: Nontender, No edema Skin: Normal color, No rash Neuro: Alert, Oriented, Normal Strength, Normal Sensation, Normal Reflexes Psychological: Normal affect <Reece Souza - Last Filed: 09/12/19 12:07> Diagnostic/Tx/Re-eval - Medical Decision Making With Reece the PA agree with history as above she has chronic lumbar back pain for months she scheduled to see [facility] for some type of pelvic tumor next week also scheduled for pain management appointment as all outpatient pain management regimens have had limited success she is currently on Percocet no numbness weakness paresthesias that are new no trouble walking no signs of cauda equina recent MRI that showed L3 disc protrusion but no signs of cauda equina or central cord syndrome exam shows no neurologic abnormalities abdomen soft nontender vague diffuse back discomfort moving lower extremities slight difficulty The and the patient expressing frustration over the fact she is had this pain for months and that nothing definitive from their perspective has been done about this, she does have again ongoing this week appoint with pain management and the visit to the [facility] as above they are comfortable with discharge home will follow-up as above <Giancarlo Acosta - Last Filed: 09/12/19 12:00> ED Disposition <Giancarlo Acosta - Last Filed: 09/12/19 12:00> <Reece Souza - Last Filed: 09/12/19 12:07> - Plan for ED Patient: Disposition: Home or Assisted Living Diagnosis: Chronic low back pain with bilateral sciatica Instructions: BACK PAIN w/ SCIATICA Referrals: Dominic Solis DO [Primary Care Provider] -
[2019-09-12] MEDS: morphine 10 MG/ML Syringe SC (11:30)
[2019-09-12 12:47] VITALS: BP 169/70; PULSE 67; RESP 18; O2SAT 96
== END 2019-09-12 12:47 | disposition home or self-care (01) ==
PROVIDERS: Emergency Provider Physician Assistant Medical; PCP Family Medicine
DX: M54.41 Lumbago with sciatica, right side (principal); M54.42 Lumbago with sciatica, left side; G89.29 Other chronic pain; I10 Essential (primary) hypertension
CPT/HCPCS: 96372; 99282

== ENCOUNTER → 2019-09-17 06:55 | Outpatient (CLI) | payer MEDICARE, BC, SELFPAY ==
[2019-09-12 10:26] VITALS: BMI 25.7
[2019-09-17 07:26] LABS: Absolute Lymphocyte Count 0.95 X10^3/uL (0.83-4.51); Absolute Neutrophil Count 4.6 X10^3/uL (2.0-7.7); Basophil# 0.05 X10^3/uL; Basophil% 0.8 % (0-1); Eosinophil# 0.09 X10^3/uL; Eosinophils% 1.4 % (0-5); Hematocrit 41.1 % (37-47); Hemoglobin 13.4 g/dL (12.0-15.0); Lymphocyte # 0.95 X10^3/ul (4.0); Lymphocyte % 15.2 % (19-41); Mean Corp Hgb Conc 32.6 g/dL (32-36); Mean Corpuscular Hgb 28.3 pg (27.0-32.0); Mean Corpuscular Volume 86.9 fL (81-99); Mean Platelet Vol. 10.2 fl (6.2-12.0); Monocyte# 0.48 X10^3/uL; Monocyte% 7.7 % (0-10); NRBC Flagged by Analyzer 0 % (0-5); Neutrophil # 4.64 X10^3/uL (2.7-7.7); Neutrophil % 74.6 % (47-70); Platelet Count 270 K/mm3 (150-450); RBC Distribution Width CV 13.8 % (11.6-14.6); RBC Distribution Width SD 44.3 fl (35.1-43.9); Red Blood Count 4.73 M/mm3 (4.2-5.4); White Blood Count 6.2 K/mm3 (4.4-11.0)
[2019-09-17 08:01] LABS: ALB/GLOB Ratio 0.9 RATIO (0.9-2.4); AST(SGOT) 16 U/L (15-37); Alanine Aminotransfer ALT/SGPT 21 U/L (13-56); Albumin, Serum 3.3 g/dL (3.2-5.0); Alkaline Phosphatase 84 U/L (45-117); Anion Gap 8 (5-15); BUN 16 mg/dL (7-18); BUN/Creat Ratio 15.2 RATIO (10-20); Calcium,Total 9.4 mg/dL (8.5-10.1); Chloride 108 mmol/L (98-107); Creatinine, Serum 1.05 mg/dL (0.55-1.02); EST Glomerular Filtration Rate 54 mL/min (>60); Est Glom Filt Rate - Afr Amer 65 mL/min (>60); Globulin 3.7 g/dL (2.2-4.2); Glucose 108 mg/dL (74-106); Potassium 2.6 mmol/L (3.5-5.1); Sodium Level 143 mmol/L (136-145)
== END ==
LOC: LAB 07:05
PROVIDERS: PCP Family Medicine
DX: C52 Malignant neoplasm of vagina (principal); C54.1 Malignant neoplasm of endometrium
CPT/HCPCS: 36415; 80053; 85025

== ENCOUNTER 2019-09-17 13:31 | Emergency (ER) | payer MEDICARE, BC, SELFPAY ==
[2019-09-17 13:32] VITALS: BP 136/95; PULSE 79; RESP 19; TEMP 36.2; O2SAT 99; BMI 24.3
--- NOTE | 2019-09-17 14:42 | EKG12_ITS ---
Test Reason : LOW POTASSIUM Blood Pressure : / mmHG Vent. Rate : 068 BPM Atrial Rate : 068 BPM P-R Int : 134 ms QRS Dur : 086 ms QT Int : 394 ms P-R-T Axes : -10 -31 154 degrees QTc Int : 418 ms Normal sinus rhythm Left axis deviation Left ventricular hypertrophy with repolarization abnormality Abnormal ECG Confirmed by MARY ANN MENDES, YOAN ([id number]), desk editor JANETT DODGE ([id number]) on 09/20/2019 12:13:42 PM Referred By: RUBI Confirmed By:YOAN REESE MD
[2019-09-17] MEDS: Potassium Chloride 10mEq/100mL 10 MEQ/100 ML IV.SOLN. 100 MEQ IV BOLUS ×2 (15:31→16:39)
[2019-09-17 16:21] VITALS: PULSE 71; RESP 22; O2SAT 96
--- NOTE | 2019-09-17 16:49 | ED.VIS.GEN ---
History of Present Illness Chief Complaint: Abn Labs Detail of Chief Complaint: Low potassium Informant: Patient Narrative: Patient presents with reported low potassium. She states she is following with [facility] secondary to cancer and is scheduled to start treatment next week. She had labs drawn this morning and states she received a phone call from her doctors stating that her potassium was low at 2.6. Patient denies any symptoms currently. She states that she has a history of low potassium but is not compliant with her potassium replacement. - Past Medical History (1) Femoral fracture Status: Resolved (2) [place] of vulva Status: Chronic (3) Thyroid nodule Status: Chronic (4) Atherosclerotic heart disease of [place] coronary artery without angina pectoris Status: Chronic (5) Essential hypertension Status: Chronic (6) History of colon cancer Status: Chronic (7) History of endometrial cancer Status: Chronic (8) Hyperlipidemia Status: Chronic (9) Ischemic cardiomyopathy Status: Chronic (10) Patent foramen ovale Status: Chronic (11) Presence of stent in coronary artery Status: Chronic Comment: PTCA/LOPEZ to LAD 04/25/17 Past Medical History - Allergies and Home Meds Allergies/Adverse Reactions: Allergies clopidogrel [From Plavix] Adverse Reaction (Severe, Verified 09/17/19 13:31) hives ragweed pollen Adverse Reaction (Severe, Verified 09/17/19 13:31) Other cough lisinopril Adverse Reaction (Mild, Verified 09/17/19 13:31) Other COUGH Primary Care Physician: Dominic Solis DO [Primary Care Provider] - Prior records reviewed: Yes Surgical History: cholecystectomy, colectomy, herniorrhaphy, hysterectomy, - - CAD s/p stent Lives: Spouse/ Significant Other Smoking Status: Never smoker - Family History Paternal Family History: Family History (Last Updated 04/07/19 @ 11:15 by Disha Yuan) Father Heart disease Mother Heart disease Brother Heart disease Lung cancer Sister Heart disease Sister Lung cancer Family History: Reports: No pertinent history Maternal Family History: Family History (Last Updated 04/07/19 @ 11:15 by Disha Yuan) Father Heart disease Mother Heart disease Brother Heart disease Lung cancer Sister Heart disease Sister Lung cancer Family History: Reports: Heart Disease Review of Systems General: Denies: Chills, Fever Eyes: Denies: Visual changes - bilaterally ENT: Denies: Bilateral ear pain Cardiovascular: Denies: Chest pain, Palpitations Respiratory: Denies: Dyspnea, Cough Gastrointestinal: Denies: Abdominal pain, Nausea, Vomiting, Diarrhea Genitourinary: Denies: Dysuria Musculoskeletal: Reports: Back pain - Chronic back pain, unchanged from baseline Skin: Denies: Rash Neurological: Denies: Headache Hematologic: Denies: Easy bruising Allergy: Denies: Uticaria Physical Exam Vital Signs/Narrative: Vital Signs Temp Pulse Resp BP Pulse Ox 09/17/19 16:21 71 22 H 96 09/17/19 13:32 97.1 F L 79 19 H 136/95 H 99 Inital Vital Signs reviewed: Yes General: Well nourished, Well developed Head: Normocephalic ENT: Moist mucous membranes Neck: Supple Cardiovascular: Regular rate, Regular rhythm Respiratory: No distress, CTA bilaterally Abdomen: Soft, Nontender Extremities: Nontender Skin: Normal color Neurological: Alert, Oriented x3 Psychological: Normal affect Diagnostic/Tx/Re-eval - EKG Initial EKG Interpretation: Sinus Rhythm - Sinus at 68 with no acute ischemia. LVH changes noted. - Medical Decision Making Patient's labs from this morning are reviewed. Potassium is 2.6. Patient is given 40 mEq of potassium orally and 20 mEq IV. She be written for potassium replacement. We will ensure she has repeat potassium levels drawn next week. ED Disposition - Plan for ED Patient: Disposition: Home or Assisted Living Diagnosis: Hypokalemia Instructions: Hypokalemia Prescriptions: Potassium Chloride [K-Dur] 20 meq PO TID #14 tablet Referrals: Dominic Solis DO [Primary Care Provider] -
[2019-09-17 18:00] VITALS: RESP 18
== END 2019-09-17 18:01 | disposition home or self-care (01) ==
PROVIDERS: Emergency Provider Emergency Medicine; PCP Family Medicine
DX: E87.6 Hypokalemia (principal); C51.9 Malignant neoplasm of vulva, unspecified; I25.10 Atherosclerotic heart disease of native coronary artery without angina pectoris; I10 Essential (primary) hypertension; E78.5 Hyperlipidemia, unspecified; C52 Malignant neoplasm of vagina; C54.1 Malignant neoplasm of endometrium; Z85.038 Personal history of other malignant neoplasm of large intestine; Z85.42 Personal history of malignant neoplasm of other parts of uterus; Z95.5 Presence of coronary angioplasty implant and graft; Z79.82 Long term (current) use of aspirin; Z79.899 Other long term (current) drug therapy
CPT/HCPCS: 93005; 96365; 96366; 99284; J7030; A4216

== ENCOUNTER → 2019-09-20 | Outpatient (CLI) | payer MEDICARE, BC, SELFPAY ==
[2019-09-17 13:32] VITALS: BMI 24.3
[2019-09-20 10:39] LABS: Anion Gap 8 (5-15); BUN 19 mg/dL (7-18); BUN/Creat Ratio 20.7 RATIO (10-20); Calcium,Total 9.3 mg/dL (8.5-10.1); Chloride 110 mmol/L (98-107); Creatinine, Serum 0.92 mg/dL (0.55-1.02); EST Glomerular Filtration Rate 63 mL/min (>60); Est Glom Filt Rate - Afr Amer 76 mL/min (>60); Glucose 98 mg/dL (74-106); Potassium 3.6 mmol/L (3.5-5.1); Sodium Level 141 mmol/L (136-145)
== END | disposition home or self-care (01) ==
PROVIDERS: PCP Family Medicine; Referring Provider Emergency Medicine; Visit Provider Emergency Medicine
DX: E87.6 Hypokalemia (principal)
CPT/HCPCS: 36415; 80048

== ENCOUNTER 2019-11-23 20:46 | Inpatient (IN) | payer MEDICARE, BC, SELFPAY ==
[2019-11-23 20:50] VITALS: BP 151/90; PULSE 86; RESP 18; TEMP 36.3; O2SAT 99; BMI 20.5
--- NOTE | 2019-11-23 20:55 | EKG12_ITS ---
Test Reason : Blood Pressure : / mmHG Vent. Rate : 082 BPM Atrial Rate : 082 BPM P-R Int : 126 ms QRS Dur : 092 ms QT Int : 462 ms P-R-T Axes : 019 -30 011 degrees QTc Int : 539 ms Normal sinus rhythm Left axis deviation Nonspecific ST and T wave abnormality Abnormal ECG Confirmed by LEON MENDES, KEN ([id number]), editor managing director ANA ZAMORANO ([id number]) on 11/30/2019 1:58:45 PM Referred By: KEY Confirmed By:JUSTIN QUINTERO MD
--- NOTE | 2019-11-23 20:55 | CT_ITS ---
HISTORY: ALTERED MENTAL STATUS,FOUNF ON FLOOR TODAY,LAST SEEN WELL AT 1730 YESTERDAYHX:HTN,COLON AND UTERINE CANCER ADDITIONAL HISTORY: None provided. COMPARISON: 06/13/2019 TECHNIQUE: Axial, coronal and sagittal CT images were obtained of the brain without intravenous contrast. Number of images including paperwork: 229. A radiation dose optimization technique was used for this scan. FINDINGS: BRAIN: No acute hemorrhage or mass. No definite acute infarct; MRI more sensitive. Encephalomalacia is now present in the left frontal lobe. VENTRICULAR SYSTEM: No hydrocephalus. PARANASAL SINUSES AND MASTOIDS: No air-fluid level in the imaged extent. ORBITS: Unremarkable imaged extent. SKELETON AND SOFT TISSUES: Calvarium intact. ASPECTS score: Not applicable. CT/Brain/Head without Contrast IMPRESSION: No acute intracranial abnormality. Individualized dose optimization techniques were used for this CT. at 2216 Reported and signed by: Chloé Luevano MD Electronically Signed: Chloé Luevano MD at 22:16 EDT Tel , Service support ,
--- NOTE | 2019-11-23 20:58 | ED.DCSUM_ITS ---
History of Present Illness Chief Complaint: Alt LOC Informant: Family Onset: - - Known last seen well last evening Context: - - Unknown Timing: Continuous Quality: Patient with altered mental status Location: Found on floor at home Current Severity: Moderate Maximum Severity: Moderate Worsened by: Unknown Relieved by: Unknown Associated Symptoms: Unknown Narrative: Patient is an elderly woman with history of colon and endometrial cancer who was last seen last evening around 1700. She was found on the floor. There was incontinence of urine and stool. Patient clothes are saturated with urine and stool. Her stool is watery. Son was unaware what CODE STATUS meant. He has never discussed this with his mom. He requested that everything be done. Prior similar symptoms: No Recent Illness/Hospitalization: No - Past Medical History (1) Essential hypertension Status: Chronic (2) History of colon cancer Status: Chronic (3) History of endometrial cancer Status: Chronic (4) Hyperlipidemia Status: Chronic (5) Ischemic cardiomyopathy Status: Chronic (6) Patent foramen ovale Status: Chronic Past Medical History - Allergies and Home Meds Allergies/Adverse Reactions: Allergies clopidogrel [From Plavix] Adverse Reaction (Severe, Verified 11/23/19 21:08) hives ragweed pollen Adverse Reaction (Severe, Verified 11/23/19 21:08) Other cough lisinopril Adverse Reaction (Mild, Verified 11/23/19 21:08) Other COUGH Primary Care Physician: Dominic Solis DO [Primary Care Provider] - Prior records reviewed: Yes Surgical History: cholecystectomy, colectomy, herniorrhaphy, hysterectomy, - - CAD s/p stent Lives: Alone Smoking Status: Never smoker Alcohol: None Drugs: None - Family History Paternal Family History: Family History (Last Updated 04/07/19 @ 11:15 by Disha Yuan) Father Heart disease Mother Heart disease Brother Heart disease Lung cancer Sister Heart disease Sister Lung cancer Family History: Reports: No pertinent history Maternal Family History: Family History (Last Updated 04/07/19 @ 11:15 by Disha Yuan) Father Heart disease Mother Heart disease Brother Heart disease Lung cancer Sister Heart disease Sister Lung cancer Family History: Reports: Heart Disease Review of Systems ROS: Unable to Obtain Physical Exam Inital Vital Signs reviewed: Yes General: Well developed, Cachectic, - - Bocanegra is agitated and pushing staff away from her Head: Normocephalic, Atraumatic Eyes: Perrl, EOMI. Negative for: Pale conjunctiva, Scleral icterus ENT: No rhinorrhea, TM's clear, Dry mucous membranes Neck: Supple, Nontender, No lymphadenopathy Cardiovascular: Regular rate, Regular rhythm, No murmurs, Normal S1, Normal S2 Respiratory: No distress, CTA bilaterally Abdomen: Soft, Nontender, Nondistended, Normal bowel sounds Back: Nontender, Normal Inspection Extremities: Nontender, No edema Skin: Normal color, No rash, Trauma. Negative for: Cyanosis, Diaphoresis, Pallor, Rash Neurological: Cranial nerves II-XII grossly intact. Negative for: Alert, Oriented x3 Psychological: - - Determine Diagnostic/Tx/Re-eval Impressions Brain CT 11/23/19 20:55 IMPRESSION: No acute intracranial abnormality. Individualized dose optimization techniques were used for this CT. at 2216 Reported and signed by: Chloé Luevano MD Electronically Signed: Chloé Luevano MD at 22:16 EDT Tel , Service support , 11/23/19 20:55 Brain/Head without Contrast [CT] Stat Laboratory Results 11/23/19 11/23/19 11/23/19 21:00 21:00 21:00 WBC 14.8 H RBC 4.04 L Hgb 11.6 L Hct 35.9 L MCV 88.9 MCH 28.7 MCHC 32.3 RDW Std Deviation 49.3 H RDW Coeff of Sam 15.3 H Plt Count 359 MPV 9.5 Immature Gran % (Auto) 0.500 Neut % (Auto) 91.2 H Lymph % (Auto) 5.1 L [place] % (Auto) 3.1 Eos % (Auto) 0.0 Baso % (Auto) 0.1 Absolute Neuts (auto) 13.5 H Absolute Lymphs (auto) 0.76 L Nucleated RBC % 0 PT 14.6 INR 1.2 APTT 31.0 Sodium 136 Potassium 2.0 L* Chloride 92 L Carbon Dioxide 32.0 Anion Gap 12 BUN 11 Creatinine 0.86 Estim Creat Clear Calc 47.44 Est GFR (MDRD) Af Amer 82 Est GFR (MDRD) Non-Af 68 BUN/Creatinine Ratio 12.8 Glucose 122 H Lactic Acid Calcium 8.4 L Total Bilirubin 1.90 H AST 28 ALT 12 L Alkaline Phosphatase 88 Total Creatine Kinase Troponin I 1.240 H* Total Protein 6.8 Albumin 2.7 L Globulin 4.1 Albumin/Globulin Ratio 0.7 L Urine Color Urine Clarity Urine pH Ur Specific Reliance Urine Protein Urine Glucose (UA) Urine Ketones Urine Occult Blood Urine Nitrite Urine Bilirubin Urine Urobilinogen Ur Leukocyte Esterase Urine RBC Urine WBC Ur Squamous Epith Cells Urine Bacteria Urine Mucus 11/23/19 11/23/19 11/23/19 21:00 21:00 21:10 WBC RBC Hgb Hct MCV MCH MCHC RDW Std Deviation RDW Coeff of Sam Plt Count MPV Immature Gran % (Auto) Neut % (Auto) Lymph % (Auto) [place] % (Auto) Eos % (Auto) Baso % (Auto) Absolute Neuts (auto) Absolute Lymphs (auto) Nucleated RBC % PT INR APTT Sodium Potassium Chloride Carbon Dioxide Anion Gap BUN Creatinine Estim Creat Clear Calc Est GFR (MDRD) Af Amer Est GFR (MDRD) Non-Af BUN/Creatinine Ratio Glucose Lactic Acid 2.5 H* Calcium Total Bilirubin AST ALT Alkaline Phosphatase Total Creatine Kinase 216 H Troponin I Total Protein Albumin Globulin Albumin/Globulin Ratio Urine Color Yellow Urine Clarity Clear Urine pH 6.0 Ur Specific Reliance 1.010 Urine Protein Negative Urine Glucose (UA) 100 H Urine Ketones 50 H Urine Occult Blood 25 H Urine Nitrite Negative Urine Bilirubin Negative Urine Urobilinogen 1 H Ur Leukocyte Esterase Negative Urine RBC 0-5 SEEN Urine WBC 0 SEEN Ur Squamous Epith Cells 0-5 SEEN Urine Bacteria 0 SEEN Urine Mucus RARE White count is elevated which may be a stress reaction. There is no obvious source of infection. Urine is unremarkable. CT of the head reveals no acute changes. Potassium is 2.0. She received IV potassium. Lactate is elevated 2.5. Uncertain etiology. Troponin is elevated, 1.24. CPK is 214. This is not consistent with rhabdomyolysis. Will page hospitalist for admission. - Rhythm Strip Rhythm Strip: Sinus Rhythm Rate: 78 Ectopy: None - EKG Initial EKG Interpretation: Sinus Rhythm - Normal sinus rhythm rate of 82. MN interval is 126 ms. QRS duration 92 ms. QT duration 462 ms. Willard to left. There is nonspecific changes with may represent artifact because patient was not cooperative. - Medical Decision Making Presents with altered mental status need to rule out intracranial process versus infectious. Because patient was on floor and there is pressure sores and bruising one needs to rule out rhabdomyolysis. Troponin was obtained to rule out cardiac ischemia. Layne was placed to obtain urine and rule out urinary tract infection. - Critical Care Time Critical care time (excluding procedures): 30-74 minutes, Discussing w/Patient &/or Family/Undertaker Helper, Discussing w/Consultants, Arranging Admission or Transfer - CC time 31 ED Disposition - Plan for ED Patient: Disposition: Acute Care Hospital [facility] Diagnosis: Altered mental status, Lactic acidosis, Hypokalemia, Elevated troponin I level Referrals: Dominic Solis DO [Primary Care Provider] -
[2019-11-23] MEDS: 0.9% Normal Saline 1,000 ML 1000 ML IV (21:04)
[2019-11-23 21:13] LABS: Absolute Lymphocyte Count 0.76 X10^3/uL (0.83-4.51); Absolute Neutrophil Count 13.5 X10^3/uL (2.0-7.7); Basophil# 0.02 X10^3/uL; Basophil% 0.1 % (0-1); Hematocrit 35.9 % (37-47); Hemoglobin 11.6 g/dL (12.0-15.0); Lymphocyte # 0.76 X10^3/ul (4.0); Lymphocyte % 5.1 % (19-41); Mean Corp Hgb Conc 32.3 g/dL (32-36); Mean Corpuscular Hgb 28.7 pg (27.0-32.0); Mean Corpuscular Volume 88.9 fL (81-99); Mean Platelet Vol. 9.5 fl (6.2-12.0); Monocyte# 0.46 X10^3/uL; Monocyte% 3.1 % (0-10); NRBC Flagged by Analyzer 0 % (0-5); Neutrophil # 13.45 X10^3/uL (2.7-7.7); Neutrophil % 91.2 % (47-70); Platelet Count 359 K/mm3 (150-450); RBC Distribution Width CV 15.3 % (11.6-14.6); RBC Distribution Width SD 49.3 fl (35.1-43.9); Red Blood Count 4.04 M/mm3 (4.2-5.4); White Blood Count 14.8 K/mm3 (4.4-11.0)
[2019-11-23 21:23] LABS: Bacteria 0 SEEN /hpf (None Seen); White Blood Cells 0 SEEN /hpf (0-5)
[2019-11-23 21:24] LABS: International Normalized Ratio 1.2; Prothrombin Time (Protime)PT. 14.6 SECONDS (11.7-14.9)
[2019-11-23 21:25] LABS: Color, Urine Yellow (Yellow); Glucose, Dipstick 100 mg/dl (Normal); Ketone-Dipstick 50 mg/dl (Negative); Leukocyte Esterase-Dipstick Negative /ul (Negative); Nitrite-Dipstick Negative (Negative); Occult Blood-Urine 25 /ul (Negative); Protein-Dipstick Negative (Negative); Urine Bilirubin Dipstick Negative (Negative); Urine Clarity Clear (Clear); Urine Urobilinogen 1 mg/dl (Normal)
[2019-11-23 21:31] LABS: CPK Total, Creatine Kinase 216 U/L (26-192)
[2019-11-23 21:37] LABS: ALB/GLOB Ratio 0.7 RATIO (0.9-2.4); AST(SGOT) 28 U/L (15-37); Alanine Aminotransfer ALT/SGPT 12 U/L (13-56); Albumin, Serum 2.7 g/dL (3.2-5.0); Alkaline Phosphatase 88 U/L (45-117); Anion Gap 12 (5-15); BUN 11 mg/dL (7-18); BUN/Creat Ratio 12.8 RATIO (10-20); Calcium,Total 8.4 mg/dL (8.5-10.1); Chloride 92 mmol/L (98-107); Creatinine, Serum 0.86 mg/dL (0.55-1.02); EST Glomerular Filtration Rate 68 mL/min (>60); Est Glom Filt Rate - Afr Amer 82 mL/min (>60); Estimated Creatinine Clearance 47.44 ml/min; Globulin 4.1 g/dL (2.2-4.2); Glucose 122 mg/dL (74-106); Protein, Total 6.8 g/dL (6.4-8.2); Sodium Level 136 mmol/L (136-145)
[2019-11-23 21:38] LABS: Lactic Acid 2.5 mmol/L (0.4-1.9)
--- NOTE | 2019-11-23 21:44 | ED.RN ---
notified lactic acid 4.5
[2019-11-23 21:50] VITALS: BP 125/103; PULSE 73; RESP 18; O2SAT 99
[2019-11-23 21:50] LABS: Squamous Epithelial Cells - UA 0-5 SEEN /hpf (5-10)
[2019-11-23 21:51] LABS: Mucous, Urine RARE /hpf (<or=2+); Red Blood Cells-Urine 0-5 SEEN /hpf (0-5)
[2019-11-23 21:59] VITALS: BP 125/81; PULSE 69; RESP 18; TEMP 36.4; O2SAT 97
[2019-11-23] MEDS: Potassium Chloride 10mEq/100mL 10 MEQ/100 ML IV.SOLN. 100 MEQ IV BOLUS (22:34)
--- NOTE | 2019-11-23 22:50 | PCM.HP.STD ---
Problem List (1) Acute encephalopathy Status: Acute (2) Femoral fracture Status: Resolved Qualifiers: Encounter type: initial encounter Femur location: intertrochanteric Fracture type: closed Fracture alignment: displaced Laterality: left Qualified Code(s): S72.142A - Displaced intertrochanteric fracture of left femur, initial encounter for closed fracture (3) Altered mental status Status: Acute (4) Lactic acidosis Status: Acute (5) Hypokalemia Status: Acute (6) Elevated troponin I level Status: Acute (7) Presence of stent in coronary artery Status: Chronic Comment: PTCA/LOPEZ to LAD 04/25/17 (8) Essential hypertension Status: Chronic (9) Thyroid nodule Status: Chronic (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 transplanted heart: [place] heart Qualified Code(s): I25.10 - Atherosclerotic heart disease of [place] coronary artery without angina pectoris (16) Ischemic cardiomyopathy Status: Chronic (17) History of endometrial cancer Status: Chronic (18) History of colon cancer Status: Chronic (19) Hypokalemia Status: Acute History of Present Illness Date of Admission: 11/23/19 Chief Complaint: altered mental status The patient is a 79 year old F with a significant history of ischemic cardiomyopathy; endometrial cancer; colon cancer and CAD status post stents who presents emergency department with altered mental status. Last time patient was known well was about 24 hours prior to presentation. Because her son and taoist was not hearing from her a visit was paid to patient's home. The police was called. Patient was found to be confused and lying in her urine and stool. At emergency department patient was found to have loose stools. At emergency department potassium was low. Lactic acid was elevated. Troponin was elevated. Emergent department doctor discussed the case with cardiology who will follow on consult. Past Medical History Past Medical History (Chronic Problems): Chronic Problems (Last Reviewed 11/23/19 @ 23:[address] Yonatan Loomis MD) Presence of stent in coronary artery (Chronic ~04/25/17) PTCA/LOPEZ to LAD 04/25/17 Essential hypertension (Chronic) Thyroid nodule (Chronic) Sarcoma of vulva (Chronic) Patent foramen ovale (Chronic) Hyperlipidemia (Chronic) Atherosclerotic heart disease of [place] coronary artery without angina pectoris (Chronic) Ischemic cardiomyopathy (Chronic) History of endometrial cancer (Chronic) History of colon cancer (Chronic) Medical History: Medical History (Last Reviewed 11/23/19 @ 23:[address] Yonatan Loomis MD) Presence of stent in coronary artery (Chronic) Onset Date: ~04/25/17 Z95.5 PTCA/LOPEZ to LAD 04/25/17 Essential hypertension (Chronic) I10 Patent foramen ovale (Chronic) Q21.1 Hyperlipidemia (Chronic) E78.5 Atherosclerotic heart disease of [place] coronary artery without angina pectoris (Chronic) I25.10 Ischemic cardiomyopathy (Chronic) I25.5 History of endometrial cancer (Chronic) Z85.42 History of colon cancer (Chronic) Z85.038 Colon cancer C18.[address] elevation myocardial infarction I21.3 H/O small bowel obstruction Z87.19 Hypokalemia (Resolved) E87.6 Allergies clopidogrel [From Plavix] Adverse Reaction (Severe, Verified 11/23/19 21:08) hives ragweed pollen Adverse Reaction (Severe, Verified 11/23/19 21:08) Other cough lisinopril Adverse Reaction (Mild, Verified 11/23/19 21:08) Other COUGH Home Medications: Ambulatory Orders Medication Instructions Recorded Aspirin E.C. [Ecotrin] 81 mg PO DAILY 10/26/18 amlodipine 10 mg tablet 10 mg PO DAILY #90 tab 08/04/19 losartan 50 mg tablet 50 mg PO DAILY #30 tab 09/06/19 metoprolol tartrate 25 mg tablet 25 mg PO BID tab 09/06/19 Potassium Chloride [K-Dur] 20 meq PO TID #14 tab 09/17/19 Surgical History: Surgical History (Last Reviewed 11/23/19 @ 23:[address] 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 Yonatan Loomis MD) Father Heart disease Mother Heart disease Brother Heart disease Lung cancer Sister Heart disease Sister Lung cancer Maternal Family History: Family History (Last Reviewed 11/23/19 @ 23:[address] Yonatan Loomis MD) Father Heart disease Mother Heart disease Brother Heart disease Lung cancer Sister Heart disease Sister Lung cancer History Items: Heart Disease Review of Systems Unable to obtain accurate/complete ROS d/t: Encephalopathy. Information obtained from son is as in HPI. VTE Information - Inpt Only VTE Present on Admission: No VTE Mechan Device Prophylaxis: None VTE Pharm Prophylaxis ordered?: Yes Patient Problems: Active and Suspected Problems (Last Reviewed 11/23/19 @ 23:[address] Yonatan Loomis MD) Altered mental status (Acute) Lactic acidosis (Acute) Hypokalemia (Acute) Elevated troponin I level (Acute) Acute encephalopathy (Acute) Hypokalemia (Acute) - Physical Exam Vitals/I&O's: Vital Signs Temp Pulse Resp BP Pulse Ox 97.6 F L 69 18 125/81 H 97 11/23/19 21:59 11/23/19 21:59 11/23/19 21:59 11/23/19 21:59 11/23/19 21:59 Oxygen Delivery Method Room Air Weight: 57.6 kg Body Mass Index (BMI) 20.5 Intake and Output for Last 24 Hours 11/21/19 11/22/19 11/23/19 23:59 23:59 23:59 Intake Total 1000 / 1000 Balance 1000 / 1000 General: Alert, Confused HEENT: Atraumatic, Normocephalic Neck: Supple, Trachea Midline Lungs: Clear to auscultation, Normal air movement Cardiovascular: Regular rate, Normal S1, Normal S2, No murmurs Abdomen: Bowel Sounds Present, Soft, Non Tender Extremities: No edema, Capillary Refill Less than 3 Seconds Skin: - - Ecchymosis to dorsum of bilateral hands; skin tear to dorsum of left hand Musculoskeletal: No Tenderness to Palpation of Joints or Extremities Neurological: - - Patient is confused and not following commands. Psych/Mental Status: Agitated Laboratory Results 11/23/19 21:00: WBC 14.8 H, RBC 4.04 L, Hgb 11.6 L, Hct 35.9 L, MCV 88.9, MCH 28.7, MCHC 32.3, RDW Std Deviation 49.3 H, RDW Coeff of Sam 15.3 H, Plt Count 359, MPV 9.5, Immature Gran % (Auto) 0.500, Neut % (Auto) 91.2 H, Lymph % (Auto) 5.1 L, [place] % (Auto) 3.1, Eos % (Auto) 0.0, Baso % (Auto) 0.1, Absolute Neuts (auto) 13.5 H, Absolute Lymphs (auto) 0.76 L, Nucleated RBC % 0 11/23/19 21:00: PT 14.6, INR 1.2, APTT 31.0 11/23/19 21:00: Sodium 136, Potassium 2.0 L*, Chloride 92 L, Carbon Dioxide 32.0, Anion Gap 12, BUN 11, Creatinine 0.86, Estim Creat Clear Calc 47.44, Est GFR (MDRD) Af Amer 82, Est GFR (MDRD) Non-Af 68, BUN/Creatinine Ratio 12.8, Glucose 122 H, Calcium 8.4 L, Total Bilirubin 1.90 H, AST 28, ALT 12 L, Alkaline Phosphatase 88, Troponin I 1.240 H*, Total Protein 6.8, Albumin 2.7 L, Globulin 4.1, Albumin/Globulin Ratio 0.7 L 11/23/19 21:00: Lactic Acid 2.5 H* 11/23/19 21:00: Total Creatine Kinase 216 H 11/23/19 21:10: Urine Color Yellow, Urine Clarity Clear, Urine pH 6.0, Ur Specific [place] 1.010, Urine Protein Negative, Urine Glucose (UA) 100 H, Urine Ketones 50 H, Urine Occult Blood 25 H, Urine Nitrite Negative, Urine Bilirubin Negative, Urine Urobilinogen 1 H, Ur Leukocyte Esterase Negative, Urine RBC 0-5 SEEN, Urine WBC 0 SEEN, Ur Squamous Epith Cells 0-5 SEEN, Urine Bacteria 0 SEEN, Urine Mucus RARE Current Medications Potassium Chloride () 10 meq in 100 mls @ 100 mls/hr IV BOLUS Q1H AMANDEEP Stop: 11/24/19 00:14 Last Admin: 11/23/19 22:34 Dose: 100 mls/hr Documented by: Assessment/Plan All Active Problems (Last Reviewed 11/23/19 @ 23:[address] Yonatan Loomis MD) Femoral fracture (Resolved) Altered mental status (Acute) Lactic acidosis (Acute) Hypokalemia (Acute) Elevated troponin I level (Acute) Acute encephalopathy (Acute) Hypokalemia (Acute) Hypokalemia (Resolved) The patient is a 79 year old F with a significant history of endometrial cancer; colon cancer; and CAD status post stents who presents emergency department with altered mental status; and found to have loose stools; hypokalemia; lactic acidosis; and elevated troponin consistent with acute encephalopathy with unknown etiology. Acute encephalopathy with unknown etiology Because of diarrhea will get stool studies. Will start patient empirically on cefepime and Flagyl. Will hydrate with normal saline and potassium. Also will give additional potassium placement IV. Patient was given potassium IV at emergency department. Trend lactic acid. Will get vitamin B12 level; TSH and MRI of brain. Importantly a CT of the head was unremarkable. Trend CBC and BMP. Diarrhea Management as above. Hypokalemia Potassium replacement as above Trend BMP. Elevated troponin: Upon presentation troponin was 1.24. From 04/25/2017 to 04/26/2017 troponin was severely elevated with a highest troponin level of 62.5. Patient had STEMI at that time. Patient had drug-eluting stent to LAD at that time Trend troponin Consult cardiology. DVT prophylaxis Subcutaneous Lovenox. Inpatient E&M: 00649 Init Hosp L3
[2019-11-23 23:09] VITALS: BP 170/74; PULSE 87; RESP 18; TEMP 36.6; O2SAT 94
[2019-11-23 23:31] VITALS: BP 147/64; PULSE 80; RESP 18; TEMP 36.3; O2SAT 96
[2019-11-23 23:48] VITALS: BMI 19.5
[2019-11-23 23:50] VITALS: BP 169/84; PULSE 82; RESP 20; TEMP 36.6; O2SAT 100
[2019-11-24] VITALS (9 sets, daily range): BP systolic 106–130; BP diastolic 44–71; PULSE 63–83; RESP 16–18; TEMP 36.5–36.7; O2SAT 96–99; BMI 19.5
[2019-11-24] MEDS: Potassium Chloride 10mEq/100mL 10 MEQ/100 ML IV.SOLN. 100 MEQ IV BOLUS ×5 (00:20→04:26)
[2019-11-24 01:09] LABS: Reflex Lactate? Y
[2019-11-24] MEDS: metroNIDAZOLE 500 MG/100 ML BAG 100 MG IV ×4 (01:11→21:09)
[2019-11-24 01:18] LABS: Lactic Acid 1.7 mmol/L (0.4-1.9)
[2019-11-24 01:19] LABS: Vitamin B12 456 pg/mL (211-911)
[2019-11-24 03:33] LABS: Absolute Lymphocyte Count 0.94 X10^3/uL (0.83-4.51); Absolute Neutrophil Count 14.4 X10^3/uL (2.0-7.7); Basophil# 0.03 X10^3/uL; Basophil% 0.2 % (0-1); Hematocrit 32.1 % (37-47); Hemoglobin 10.4 g/dL (12.0-15.0); Lymphocyte # 0.94 X10^3/ul (4.0); Lymphocyte % 5.8 % (19-41); Mean Corp Hgb Conc 32.4 g/dL (32-36); Mean Corpuscular Hgb 28.7 pg (27.0-32.0); Mean Corpuscular Volume 88.4 fL (81-99); Mean Platelet Vol. 9.5 fl (6.2-12.0); Monocyte# 0.68 X10^3/uL; Monocyte% 4.2 % (0-10); NRBC Flagged by Analyzer 0 % (0-5); Neutrophil # 14.36 X10^3/uL (2.7-7.7); Neutrophil % 89.2 % (47-70); Platelet Count 335 K/mm3 (150-450); RBC Distribution Width CV 15.4 % (11.6-14.6); RBC Distribution Width SD 49.8 fl (35.1-43.9); Red Blood Count 3.63 M/mm3 (4.2-5.4); White Blood Count 16.1 K/mm3 (4.4-11.0)
[2019-11-24 03:54] LABS: Anion Gap 10 (5-15); BUN 9 mg/dL (7-18); BUN/Creat Ratio 13.2 RATIO (10-20); Calcium,Total 7.9 mg/dL (8.5-10.1); Chloride 99 mmol/L (98-107); Creatinine, Serum 0.68 mg/dL (0.55-1.02); EST Glomerular Filtration Rate 88 mL/min (>60); Est Glom Filt Rate - Afr Amer 107 mL/min (>60); Estimated Creatinine Clearance 39.03 ml/min; Glucose 111 mg/dL (74-106); Phosphorus 0.8 mg/dL (2.5-4.9); Potassium 2.3 mmol/L (3.5-5.1); Sodium Level 139 mmol/L (136-145)
[2019-11-24] MEDS: Potassium Chloride 40 MEQ in 0.9% Normal Saline 1,000 ML 100 MEQ IV (04:25)
[2019-11-24] MEDS: 0.9% Saline Lock 10 ML Syringe IV ×2 (04:55→09:50)
--- NOTE | 2019-11-24 05:10 | NURSING ---
Two nurses tried 3 sticks to get new IV in pt. with no success. Will wait for instructional supervisor or dayshift nurse.
[2019-11-24] MEDS: Magnesium Sulfate 4gm/100mL 4 GM/100 ML IV.SOLN. IV (06:10)
--- NOTE | 2019-11-24 07:30 | MRI_ITS ---
STUDY: MRI BRAIN WITH AND WITHOUT CONTRAST REASON FOR EXAM: Female, 79 years old. ACUTE ENCEPHALOPATHY -- pt found unresponsive, f/u CT, attn: left frontal lobe TECHNIQUE: Standardized multiplanar fat and water weighted pulse sequences were obtained. doteram 10 ml iv was administered for the contrast portion of the examination. COMPARISON: CT 11/23/2019 FINDINGS: There is mild cerebral atrophy with widening of the extra-axial spaces and ventricular dilatation. There are a limited number of small white matter hyperintensities, distributed throughout the deep white matter tracts of the cerebral hemispheres, consistent with mild chronic white matter ischemic changes. There is no evidence for recent intracranial ischemia or other cause of cytotoxic edema on diffusion weighted imaging (DWI). Normal T2* images of the brain without demonstrated susceptibility artifact. There is no demonstrated hemosiderin stain. Normal bilateral basal ganglia. Normal thalami. There is no extra-axial fluid accumulation. Normal flow voids within the major intracranial circulation suggesting patency by spin echo criteria. Normal venous enhancement. 8mm round ring-enhancing lesion with a large amount of surrounding vasogenic edema within the anterior left parietal lobe. Differential diagnosis includes metastasis or primary brain neoplasm mainly glioblastoma multiforme. Other possibilities include brain abscess, demyelination (multiple sclerosis), or radiation necrosis. Normal sella turcica, pituitary gland, infundibular stalk, optic chiasm and hypothalamus. Normal tectal plate and pineal gland. Normal midbrain, karen and medulla. Normal cerebellum. Normal basal cisterns. Normal bilateral temporal bones. Normal bilateral internal auditory canals. No demonstrated orbital abnormality, within the constraints of a routine brain study. Normal visualized paranasal sinuses. Normal calvarium and skull base. Normal visualized soft tissue structures. Normal visualized upper cervical spine. MRI/Brain W/WO Contrast IMPRESSION: 8mm round ring-enhancing lesion with a large amount of surrounding vasogenic edema in the anterior left parietal lobe. Differential diagnosis includes metastasis or glioblastoma multiforme or less likely abscess, demyelination (multiple sclerosis), radiation necrosis. Electronically Signed: Aric Cast MD at 10:08 EDT Tel , Service support ,
--- NOTE | 2019-11-24 09:25 | RAD_ITS ---
STUDY: X-RAY CHEST REASON FOR EXAM: Female, 79 years old. ELEVATED TROPONINS, ACUTE ENCEPHALOPATHY TECHNIQUE: PA and lateral views of the chest. COMPARISON: 06/13/2019 FINDINGS: Interval development of innumerable round nodules of varying sizes throughout both lungs consistent with metastatic disease. There is no demonstrated pleural abnormality. Normal size heart. Normal mediastinum and jaye. Normal visualized pulmonary arteries. Normal visualized aortic arch and descending thoracic aorta. Normal visualized thoracic spine. Normal visualized ribs, clavicles, and shoulders. There is no demonstrated abnormality of the visualized soft tissue structures of the upper abdomen. RAD/Chest PA and Lateral IMPRESSION: Interval development of bilateral metastatic lung nodules. Correlation with CT the chest, abdomen, and pelvis with contrast would be useful. Mammography may also be useful. PET/CT may be required. Electronically Signed: Aric Cast MD at 10:13 EDT Tel , Service support ,
[2019-11-24] MEDS: Enoxaparin 40 MG/0.4 ML Syringe SC (09:50)
--- NOTE | 2019-11-24 10:55 | PN_ITS ---
Patient Problems: Active and Suspected Problems (Last Reviewed 11/23/19 @ 23:[address] Yonatan Loomis MD) Altered mental status (Acute) Lactic acidosis (Acute) Hypokalemia (Acute) Elevated troponin I level (Acute) Acute encephalopathy (Acute) Hypokalemia (Acute) Reason for Visit: encephalopathy Subjective: Denies any complaints. Vitals/I&O's: Vital Signs Temp Pulse Resp BP Pulse Ox 36.5 C L 63 16 130/70 H 98 11/24/19 10:00 11/24/19 10:00 11/24/19 10:00 11/24/19 10:00 11/24/19 10:00 Oxygen Delivery Method Room Air Weight: 55.1 kg Body Mass Index (BMI) 19.5 Intake and Output for Last 24 Hours 11/22/19 11/23/19 11/24/19 23:59 23:59 23:59 Intake Total 1100 / 1100 1177.71 / 1177.71 Output Total 850 / 850 1125 / 1125 Balance 250 / 250 52.71 / 52.71 General: Cooperative, No apparent distress, Confused HEENT: Atraumatic, PERRLA, Normocephalic Oral: Moist Mucosa, No Gingival or Mucosal Lesions/ Ulcerations Neck: No Nodes, Trachea Midline Lungs: Clear to auscultation, Normal air movement, No rhonchi, No wheeze, No rales Cardiovascular: Regular rate, Regular Rhythm, Normal S1, Normal S2, No murmurs Abdomen: Bowel Sounds Present, Soft, Non Tender, Non-Distended Microbiology Past 72 Hours 11/23/19 00:51 Stool Enteric Bacteriology - Final 11/23/19 23:05 Stool C. difficile DNA Amplification - Final 11/23/19 23:05 Stool Stool Lactoferrin - Final Laboratory Results 11/23/19 21:00: WBC 14.8 H, RBC 4.04 L, Hgb 11.6 L, Hct 35.9 L, MCV 88.9, MCH 28.7, MCHC 32.3, RDW Std Deviation 49.3 H, RDW Coeff of Sam 15.3 H, Plt Count 359, MPV 9.5, Immature Gran % (Auto) 0.500, Neut % (Auto) 91.2 H, Lymph % (Auto) 5.1 L, [place] % (Auto) 3.1, Eos % (Auto) 0.0, Baso % (Auto) 0.1, Absolute Neuts (auto) 13.5 H, Absolute Lymphs (auto) 0.76 L, Nucleated RBC % 0 11/23/19 21:00: PT 14.6, INR 1.2, APTT 31.0 11/23/19 21:00: Sodium 136, Potassium 2.0 L*, Chloride 92 L, Carbon Dioxide 32.0, Anion Gap 12, BUN 11, Creatinine 0.86, Estim Creat Clear Calc 47.44, Est GFR (MDRD) Af Amer 82, Est GFR (MDRD) Non-Af 68, BUN/Creatinine Ratio 12.8, Glucose 122 H, Calcium 8.4 L, Total Bilirubin 1.90 H, AST 28, ALT 12 L, Alkaline Phosphatase 88, Troponin I 1.240 H*, Total Protein 6.8, Albumin 2.7 L, Globulin 4.1, Albumin/Globulin Ratio 0.7 L 11/23/19 21:00: Lactic Acid 2.5 H* 11/23/19 21:00: Total Creatine Kinase 216 H 11/23/19 21:00: TSH 0.70 11/23/19 21:00: Vitamin B12 456 11/23/19 21:10: Urine Color Yellow, Urine Clarity Clear, Urine pH 6.0, Ur Specific [place] 1.010, Urine Protein Negative, Urine Glucose (UA) 100 H, Urine Ketones 50 H, Urine Occult Blood 25 H, Urine Nitrite Negative, Urine Bilirubin Negative, Urine Urobilinogen 1 H, Ur Leukocyte Esterase Negative, Urine RBC 0-5 SEEN, Urine WBC 0 SEEN, Ur Squamous Epith Cells 0-5 SEEN, Urine Bacteria 0 SEEN, Urine Mucus RARE 11/24/19 00:40: Troponin I 1.060 H* 11/24/19 00:40: Lactic Acid Cancelled 11/24/19 00:40: Lactic Acid 1.7 11/24/19 03:19: WBC 16.1 H, RBC 3.63 L, Hgb 10.4 L, Hct 32.1 L, MCV 88.4, MCH 28.7, MCHC 32.4, RDW Std Deviation 49.8 H, RDW Coeff of Sam 15.4 H, Plt Count 335, MPV 9.5, Immature Gran % (Auto) 0.600, Neut % (Auto) 89.2 H, Lymph % (Auto) 5.8 L, [place] % (Auto) 4.2, Eos % (Auto) 0.0, Baso % (Auto) 0.2, Absolute Neuts (auto) 14.4 H, Absolute Lymphs (auto) 0.94, Nucleated RBC % 0 11/24/19 03:19: Sodium 139, Potassium 2.3 L*, Chloride 99, Carbon Dioxide 30.0, Anion Gap 10, BUN 9, Creatinine 0.68, Estim Creat Clear Calc 39.03, Est GFR (MDRD) Af Amer 107, Est GFR (MDRD) Non-Af 88, BUN/Creatinine Ratio 13.2, Glucose 111 H, Calcium 7.9 L, Phosphorus 0.8 L*, Magnesium 1.0 L 11/24/19 03:19: Troponin I 1.410 H* Current Medications Dexamethasone (Decadron) 4 mg PO Q6H AMANDEEP Dextrose (D50w Syringe) 0 gm IV X1 PRN; Protocol PRN Reason: Hypoglycemia Enoxaparin Sodium (Lovenox) 40 mg SC DAILY [facility] Last Admin: 11/24/19 09:50 Dose: 40 mg Documented by: Glucagon () 1 mg IM .X1 PRN PRN Reason: Hypoglycemia Metronidazole (Flagyl) 500 mg in 100 mls @ 100 mls/hr IV Q8 AMANDEEP Last Infusion: 11/24/19 07:01 Dose: Infused Documented by: Cefepime HCl 2 gm/ Sodium (Chloride) 100 mls @ 200 mls/hr IV Q12 AMANDEEP Last Infusion: 11/24/19 01:14 Dose: Infused Documented by: Sodium Chloride () 250 mls @ 15 mls/hr IV .[id number] PRN PRN Reason: Saline Flush Last Infusion: 11/24/19 08:19 Dose: 0 mls/hr Documented by: Sodium Chloride () 250 mls @ 15 mls/hr IV .[id number] PRN PRN Reason: Additional IVPB Infusion Potassium Phosphate 40 mm/ (Dextrose/Sodium Chloride) 1,013.3333 mls @ 62.5 mls/hr IV .[id number] [facility] Stop: 11/24/19 22:02 Last Infusion: 11/24/19 09:50 Dose: 62.5 mls/hr Documented by: Lorazepam (Ativan) 1 mg IV X1 PRN PRN Reason: enroute for MRI if agitated Sodium Chloride () 10 - 40 ml IV UD PRN PRN Reason: SALINE FLUSH Last Admin: 11/24/19 09:50 Dose: 10 ml Documented by: STROKE Vital Signs/Narrative: Vital Signs Temp Pulse Resp BP Pulse Ox 11/24/19 10:00 36.5 C L 63 16 130/70 H 98 11/24/19 07:00 69 Medical Necessity - Tobacco Use Smoking Status: Former smoker Tobacco Use: Non-smoker Assessment/Plan All Active Problems (Last Reviewed 11/23/19 @ 23:[address] Yonatan Loomis MD) Femoral fracture (Resolved) Altered mental status (Acute) Lactic acidosis (Acute) Hypokalemia (Acute) Elevated troponin I level (Acute) Acute encephalopathy (Acute) Hypokalemia (Acute) Hypokalemia (Resolved) 1. 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 * Personally reviewed the images that shows 8 mm lesion in the left anterior left parietal lobe. Given the findings on the chest x-ray, I feel that brain lesion is likely metastatic lesion rather than a primary lesion. I told the patient's son, Jimi Saenz, that she would not tolerate treatment. * Discussed with Dr. Morataya and reviewed images with him. He feels that the patient's prognosis is poor and life expectancy is 6 months or less. He does not advise chemotherapy. He does advise Decadron for the brain lesion as it has vasogenic edema. He recommended Decadron 4 mg 4 times daily and then upon discharge to hospice then that would be continued at twice daily. Indefinitely. 2. Non-STEMI: [place] to be a type II, demand event. Discussed with cardiology and given the underlying cancer, no additional cardiology work-up will be performed. I have discontinued the cardiology consult. 3. Electrolyte derangements * Hypokalemia, hypomagnesemia, hypophosphatemia * Continue with replacements for now. 4. VTE prophylaxis with enoxaparin Advanced care planning: Spent an additional 30 minutes discussing with the patient's son about the cancer, prognosis, treatments. I recommended hospice rather than pursuing with aggressive medical treatment. I spoke with him before spoke with oncology. I also suggested patient make an patient DNR Comfort Care arrest at the minimum. He states that he is not willing to do so at this time until he speaks with his sister. Inpatient E&M: 00256 Init Hosp L3 Procedures: 92502 Advncd Care Plan 30 Min
[2019-11-24] MEDS: dexAMETHasone 4 MG Tablet PO ×3 (11:57→22:59)
[2019-11-24 12:47] LABS: Anion Gap 10 (5-15); BUN 9 mg/dL (7-18); BUN/Creat Ratio 15.5 RATIO (10-20); Calcium,Total 7.8 mg/dL (8.5-10.1); Chloride 101 mmol/L (98-107); Creatinine, Serum 0.58 mg/dL (0.55-1.02); EST Glomerular Filtration Rate 106 mL/min (>60); Est Glom Filt Rate - Afr Amer 128 mL/min (>60); Estimated Creatinine Clearance 39.03 ml/min; Glucose 114 mg/dL (74-106); Potassium 2.2 mmol/L (3.5-5.1); Sodium Level 139 mmol/L (136-145)
[2019-11-25] MEDS: metroNIDAZOLE 500 MG/100 ML BAG 100 MG IV ×3 (05:10→21:03)
[2019-11-25] MEDS: dexAMETHasone 4 MG Tablet PO ×4 (05:10→23:22)
[2019-11-25 08:30] VITALS: BP 132/71; PULSE 61; RESP 17; TEMP 36.6; O2SAT 95
[2019-11-25] MEDS: Enoxaparin 40 MG/0.4 ML Syringe SC (08:30)
[2019-11-25] MEDS: Potassium Chloride 40 MEQ in 0.9% Normal Saline 1,000 ML 75 MEQ IV (08:30)
[2019-11-25 08:52] LABS: Anion Gap 11 (5-15); BUN 14 mg/dL (7-18); BUN/Creat Ratio 16.7 RATIO (10-20); Calcium,Total 7.6 mg/dL (8.5-10.1); Chloride 103 mmol/L (98-107); Creatinine, Serum 0.84 mg/dL (0.55-1.02); EST Glomerular Filtration Rate 69 mL/min (>60); Est Glom Filt Rate - Afr Amer 84 mL/min (>60); Estimated Creatinine Clearance 46.46 ml/min; Glucose 175 mg/dL (74-106); Phosphorus 3.2 mg/dL (2.5-4.9); Sodium Level 140 mmol/L (136-145)
--- NOTE | 2019-11-25 10:36 | CASEMGMT ---
SW spoke with physician and he spoke with son regarding Hospice. He was in agreement with a referral being made. SW called patient's son and he was in agreement with [facility]. He was made aware they will be calling him to set up a time to meet. SW called Hospice with referral and also faxed information. RN and charge gang weigher updated. Lacy JIMENEZ MSW
--- NOTE | 2019-11-25 10:39 | PN_ITS ---
Patient Problems: Active and Suspected Problems (Last Reviewed 11/23/19 @ 23:[address] Yonatan Loomis MD) Altered mental status (Acute) Lactic acidosis (Acute) Hypokalemia (Acute) Elevated troponin I level (Acute) Acute encephalopathy (Acute) Hypokalemia (Acute) Reason for Visit: encephalopathy Subjective: No recollection of being confused. Keeps wondering aloud why there is no research being done into her cancer. Vitals/I&O's: Vital Signs Temp Pulse Resp BP Pulse Ox 36.6 C 74 18 110/51 L 96 11/24/19 21:08 11/24/19 21:08 11/24/19 21:08 11/24/19 21:08 11/24/19 21:08 Oxygen Delivery Method Room Air Weight: 55.1 kg Body Mass Index (BMI) 19.5 Intake and Output for Last 24 Hours 11/23/19 11/24/19 11/25/19 23:59 23:59 23:59 Intake Total 1100 / 1100 2912.80 / 2912.80 Output Total 850 / 850 1560 / 1560 Balance 250 / 250 1352.80 / 1352.80 General: Alert, Oriented x3, Cooperative, - - Still confused and perseverates on research for cancer despite being explained that cancer research is constantly ongoing HEENT: Atraumatic, Normocephalic Neck: No Nodes, Thyroid Normal Size and Texture Lungs: Clear to auscultation, Normal air movement, No rhonchi, No wheeze Cardiovascular: Regular rate, Regular Rhythm, Normal S1, Normal S2 Abdomen: Bowel Sounds Present, Soft, Non Tender, Non-Distended, No Hepato- splenomegaly Extremities: No edema, No Calf Tenderness Skin: No rashes, No breakdown Psych/Mental Status: Normal Affect, Appropriate Microbiology Past 72 Hours 11/23/19 00:51 Stool Enteric Bacteriology - Final 11/23/19 23:05 Stool C. difficile DNA Amplification - Final 11/23/19 23:05 Stool Stool Lactoferrin - Final Laboratory Results 11/24/19 11:45: Sodium 139, Potassium 2.2 L*, Chloride 101, Carbon Dioxide 28.0, Anion Gap 10, BUN 9, Creatinine 0.58, Estim Creat Clear Calc 39.03, Est GFR (MDRD) Af Amer 128, Est GFR (MDRD) Non-Af 106, BUN/Creatinine Ratio 15.5, Glucose 114 H, Calcium 7.8 L 11/25/19 04:02: WBC Pending, RBC Pending, Hgb Pending, Hct Pending, MCV Pending, MCH Pending, MCHC Pending, RDW Std Deviation Pending, RDW Coeff of Sam Pending, Plt Count Pending, Neut % (Auto) Pending, Absolute Neuts (auto) Pending 11/25/19 04:02: Sodium 140, Potassium 3.0 L, Chloride 103, Carbon Dioxide 26.0, Anion Gap 11, BUN 14, Creatinine 0.84, Estim Creat Clear Calc 46.46, Est GFR (MDRD) Af Amer 84, Est GFR (MDRD) Non-Af 69, BUN/Creatinine Ratio 16.7, Glucose 175 H, Calcium 7.6 L, Phosphorus 3.2 Current Medications Dexamethasone (Decadron) 4 mg PO Q6 [facility] Last Admin: 11/24/19 22:59 Dose: 4 mg Documented by: Dextrose (D50w Syringe) 0 gm IV X1 PRN; Protocol PRN Reason: Hypoglycemia Enoxaparin Sodium (Lovenox) 40 mg SC DAILY [facility] Last Admin: 11/24/19 09:50 Dose: 40 mg Documented by: Glucagon () 1 mg IM .X1 PRN PRN Reason: Hypoglycemia Metronidazole (Flagyl) 500 mg in 100 mls @ 100 mls/hr IV Q8 [facility] Last Infusion: 11/24/19 22:59 Dose: Infused Documented by: Cefepime HCl 2 gm/ Sodium (Chloride) 100 mls @ 200 mls/hr IV Q12 [facility] Last Infusion: 11/24/19 23:58 Dose: Infused Documented by: Sodium Chloride () 250 mls @ 15 mls/hr IV .[id number] PRN PRN Reason: Saline Flush Last Infusion: 11/24/19 23:05 Dose: 0 mls/hr Documented by: Sodium Chloride () 250 mls @ 15 mls/hr IV .[id number] PRN PRN Reason: Additional IVPB Infusion Potassium Chloride 40 meq/ (Sodium Chloride) 1,020 mls @ 75 mls/hr IV .[id number] [facility] Stop: 11/25/19 21:05 Lorazepam (Ativan) 1 mg IV X1 PRN PRN Reason: enroute for MRI if agitated Nutritional Formula (Lactose Free) (Ensure Enlive) 120 ml PO 4X/DAY [facility] Last Admin: 11/24/19 21:10 Dose: Not Given Documented by: Sodium Chloride () 10 - 40 ml IV UD PRN PRN Reason: SALINE FLUSH Last Admin: 11/24/19 09:50 Dose: 10 ml Documented by: Medical Necessity - Tobacco Use Smoking Status: Former smoker Tobacco Use: Non-smoker Assessment/Plan All Active Problems (Last Reviewed 11/23/19 @ 23:[address] Yonatan Loomis MD) Femoral fracture (Resolved) Altered mental status (Acute) Lactic acidosis (Acute) Hypokalemia (Acute) Elevated troponin I level (Acute) Acute encephalopathy (Acute) Hypokalemia (Acute) Hypokalemia (Resolved) 1. 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 * Patient has had other cancer previously, including colon and uterine. Certainly this could be a possibility but I would suspect prior be another etiology. * Personally reviewed the images that shows 8 mm lesion in the left anterior left parietal lobe. Given the findings on the chest x-ray, I feel that brain lesion is likely metastatic lesion rather than a primary lesion. I told the patient's son, Jimi Saenz, that she would not tolerate treatment. * Discussed with Dr. Morataya November 23 and reviewed images with him. He feels that the patient's prognosis is poor and life expectancy is 6 months or less. He does not advise chemotherapy. He does advise Decadron for the brain lesion as it has vasogenic edema. He recommended Decadron 4 mg 4 times daily and then upon discharge to hospice then that would be continued at twice daily. Indefinitely. 2. Non-STEMI: [place] to be a type II, demand event. Discussed with cardiology and given the underlying cancer, no additional cardiology work-up will be performed. I have discontinued the cardiology consult. 3. Electrolyte derangements * Hypokalemia, hypomagnesemia, hypophosphatemia * Continue with replacements for now. 4. VTE prophylaxis with enoxaparin Advanced care planning: Spent an additional 30 minutes discussing with the patient's son, Jimi, he stated that he spoke with his sister and are willing to speak with hospice. He is not ready to make a decision on CODE STATUS yet though he understands after my description that CPR and intubation would essentially be futile as she has rapidly advancing cancer and her survival from such an events would fall back on the backdrop of underlying rapidly advancing malignancy. I told him that he will discuss with hospice and come to a conclusion about what he would want to do but he just does not seem to be ready to make that decision just yet. And patient though she is much better right now still too confused to make an adequate informed decision about CODE STATUS. Inpatient E&M: 43162 Subs Hosp L2 Procedures: 25892 Advncd Care Plan 30 Min
[2019-11-25 11:51] LABS: Absolute Lymphocyte Count 0.61 X10^3/uL (0.83-4.51); Absolute Neutrophil Count 18.4 X10^3/uL (2.0-7.7); Basophil# 0.02 X10^3/uL; Basophil% 0.1 % (0-1); Hematocrit 29.3 % (37-47); Hemoglobin 9.5 g/dL (12.0-15.0); Lymphocyte # 0.61 X10^3/ul (4.0); Lymphocyte % 3.1 % (19-41); Mean Corp Hgb Conc 32.4 g/dL (32-36); Mean Corpuscular Hgb 28.8 pg (27.0-32.0); Mean Corpuscular Volume 88.8 fL (81-99); Mean Platelet Vol. 9.9 fl (6.2-12.0); Monocyte# 0.19 X10^3/uL; NRBC Flagged by Analyzer 0 % (0-5); Neutrophil # 18.42 X10^3/uL (2.7-7.7); Neutrophil % 94.8 % (47-70); POSITIVE MORPHOLOGY YES; Platelet Count 329 K/mm3 (150-450); RBC Distribution Width SD 52.2 fl (35.1-43.9); White Blood Count 19.4 K/mm3 (4.4-11.0)
--- NOTE | 2019-11-25 11:51 | CASEMGMT ---
RICKIE received a call from Nicky at Hospice. She is meeting with patient's son at noon today at Hospice. She will update RICKIE after her meeting. Lacy JIMENEZ MSW
[2019-11-25 12:08] VITALS: PULSE 71
[2019-11-25 12:55] LABS: Differential Indicated SCAN CRITERIA MET
[2019-11-25 12:57] LABS: Differential Comment SCANNED
--- NOTE | 2019-11-25 14:03 | CASEMGMT ---
RICKIE received a call fro Nicky at Hospice. She said patient's son did not sign papers for Hospice. She also mentioned maybe RICKIE could help with completing a medicaid application. She said patient's son will be calling RICKIE. RICKIE did receive a message to call patient's son. RICKIE called Jimi, patient's son. He said he is thinking patient will need to go to a long term. He will not be able to manage her care at home on his own and Hospice is not available for caregiving. He does not know patient's finances and will need to try and talk with her. RICKIE told him that she can go to a long term on her Medicare while he figures out the finances. He will call his mom and then talk with RICKIE. RICKIE gave him this SW's direct number. RN, charge rn, and physician updated. Lacy JIMENEZ MSW
[2019-11-25 14:46] VITALS: BP 129/72; PULSE 65; RESP 15; TEMP 36.6; O2SAT 96
[2019-11-25 15:31] VITALS: PULSE 67
[2019-11-25 19:02] VITALS: PULSE 71
[2019-11-25 21:00] VITALS: BP 138/65; PULSE 66; RESP 16; TEMP 36.6; O2SAT 97
[2019-11-25] MEDS: MELATONIN 3 MG TABLET PO (23:22)
[2019-11-26 03:00] VITALS: BP 132/65; PULSE 67; PULSE 68; RESP 18; TEMP 36.5; O2SAT 94
[2019-11-26] MEDS: dexAMETHasone 4 MG Tablet PO ×2 (05:12→11:43)
[2019-11-26] MEDS: metroNIDAZOLE 500 MG/100 ML BAG 100 MG IV (05:12)
[2019-11-26] MEDS: 0.9% Saline Lock 10 ML Syringe IV (05:12)
[2019-11-26 05:45] LABS: Absolute Lymphocyte Count 0.63 X10^3/uL (0.83-4.51); Absolute Neutrophil Count 19.6 X10^3/uL (2.0-7.7); Basophil# 0.02 X10^3/uL; Basophil% 0.1 % (0-1); Hematocrit 27.5 % (37-47); Hemoglobin 8.8 g/dL (12.0-15.0); Lymphocyte # 0.63 X10^3/ul (4.0); Mean Corpuscular Hgb 28.7 pg (27.0-32.0); Mean Corpuscular Volume 89.6 fL (81-99); Mean Platelet Vol. 10.1 fl (6.2-12.0); Monocyte% 1.4 % (0-10); NRBC Flagged by Analyzer 0 % (0-5); Neutrophil # 19.58 X10^3/uL (2.7-7.7); Neutrophil % 93.9 % (47-70); Platelet Count 315 K/mm3 (150-450); RBC Distribution Width SD 55.4 fl (35.1-43.9); Red Blood Count 3.07 M/mm3 (4.2-5.4); White Blood Count 20.9 K/mm3 (4.4-11.0)
[2019-11-26 05:53] LABS: Anion Gap 8 (5-15); BUN 20 mg/dL (7-18); BUN/Creat Ratio 24.5 RATIO (10-20); Calcium,Total 8.3 mg/dL (8.5-10.1); Chloride 111 mmol/L (98-107); Creatinine, Serum 0.82 mg/dL (0.55-1.02); EST Glomerular Filtration Rate 72 mL/min (>60); Est Glom Filt Rate - Afr Amer 87 mL/min (>60); Glucose 167 mg/dL (74-106); Magnesium 1.7 mg/dL (1.6-2.6); Potassium 3.5 mmol/L (3.5-5.1); Sodium Level 145 mmol/L (136-145)
[2019-11-26 07:00] VITALS: PULSE 57
[2019-11-26] MEDS: Enoxaparin 40 MG/0.4 ML Syringe SC (08:26)
--- NOTE | 2019-11-26 08:39 | PCM.TXEXTCAR ---
- Diet 11/24/19 10:58 Diet: Regular Diet Type of Dietary Supplement:: Ensure Clear Is pt able to select menu?: No - Routine Orders/Code Status Routine Lab Work: BMP - every Friday Code Status: Full Code - Therapies Physical Therapy: Eval and Treat Occupational Therapy: Eval and Treat - Allergies/Procedures Done in Hospital Allergies/Adverse Reactions: Allergies clopidogrel [From Plavix] Adverse Reaction (Severe, Verified 11/23/19 21:08) hives ragweed pollen Adverse Reaction (Severe, Verified 11/23/19 21:08) Other cough lisinopril Adverse Reaction (Mild, Verified 11/23/19 21:08) Other COUGH Procedures: None - Type of Care/Length of Stay Estimated LOS: Convalescent Care Less Than 30 days Type of Care Needed: Skilled Rehab Potential: Fair Prognosis: Poor - Additional Orders/Day of Discharge Day of Discharge: 11/26/19 - Dietary and Speech Recommendations Dietitian Recommendations/Changes: Rec continue Regular diet. - Follow Up Care Primary Care Physician: Dominic Solis DO [Primary Care Provider] - Within 2 Weeks Please Follow Up With: Berry Garcia MD - [facility] oncology When: as needed
--- NOTE | 2019-11-26 08:49 | PCM.DC.SUM ---
Discharge Date and Diagnosis - Problem List Patient Problems: Active and Suspected Problems (Last Reviewed 11/23/19 @ 23:[address] Yonatan Loomis MD) Altered mental status (Acute) Lactic acidosis (Acute) Hypokalemia (Acute) Elevated troponin I level (Acute) Acute encephalopathy (Acute) Hypokalemia (Acute) Date of Admission: 11/23/19 Date of Discharge: 11/26/19 - Primary Discharge Diagnosis Active and Suspected Problems (Last Reviewed 11/23/19 @ 23:[address] Yonatan Loomis MD) 1. 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 Patient has had other cancer previously, including colon and uterine. Certainly this could be a possibility but I would suspect prior be another etiology. Personally reviewed the images that shows 8 mm lesion in the left anterior left parietal lobe. Given the findings on the chest x-ray, I feel that brain lesion is likely metastatic lesion rather than a primary lesion. I told the patient's son, Jimi Saenz, that she would not tolerate treatment. Discussed with Dr. Morataya November 23 and reviewed images with him. He feels that the patient's prognosis is poor and life expectancy is 6 months or less. He does not advise chemotherapy. He does advise Decadron for the brain lesion as it has vasogenic edema. He recommended Decadron 4 mg 4 times daily and then upon discharge to hospice then that would be continued at twice daily. Indefinitely. Reviewed records from [facility]. She was to have an inguinal biopsy. Hospice previously mentioned last month. 2. Non-STEMI: [place] to be a type II, demand event. Discussed with cardiology and given the underlying cancer, no additional cardiology work-up will be performed. I have discontinued the cardiology consult. 3. Electrolyte derangements Hypokalemia, hypomagnesemia, hypophosphatemia Continue with replacements for now. 4. Encephalopathy: metabolic: 2/2 brain mass with vasogenic edema and electrolyte derangements. - Secondary Discharge Diagnosis Chronic Problems (Last Reviewed 11/23/19 @ 23:[address] Yonatan Loomis MD) Presence of stent in coronary artery (Chronic ~04/25/17) PTCA/LOPEZ to LAD 04/25/17 Essential hypertension (Chronic) Thyroid nodule (Chronic) Sarcoma of vulva (Chronic) Patent foramen ovale (Chronic) Hyperlipidemia (Chronic) Atherosclerotic heart disease of [place] coronary artery without angina pectoris (Chronic) Ischemic cardiomyopathy (Chronic) History of endometrial cancer (Chronic) History of colon cancer (Chronic) Hospital Course and Treatment Imaging Results: Clinical Impression(s) from Imaging Studies Brain CT 11/23/19 20:55 IMPRESSION: No acute intracranial abnormality. Individualized dose optimization techniques were used for this CT. at 2216 Reported and signed by: Chloé Luevano MD Electronically Signed: Chloé Luevano MD at 22:16 EDT Tel , Service support , Brain MRI 11/24/19 07:30 IMPRESSION: 8mm round ring-enhancing lesion with a large amount of surrounding vasogenic edema in the anterior left parietal lobe. Differential diagnosis includes metastasis or glioblastoma multiforme or less likely abscess, demyelination (multiple sclerosis), radiation necrosis. Electronically Signed: Aric Cast MD at 10:08 EDT Tel , Service support , Chest X-Ray 11/24/19 09:25 IMPRESSION: Interval development of bilateral metastatic lung nodules. Correlation with CT the chest, abdomen, and pelvis with contrast would be useful. Mammography may also be useful. PET/CT may be required. Electronically Signed: Aric Cast MD at 10:13 EDT Tel , Service support , Operations: None, - - exploratory laparotomy with extensive lysis of adhesions and resection of small bowel with impacted enteroliths Summary of Care Provided: The patient is a 79 year old F presents after being found down and confused. Brought to the hospital and was found to have many electrolyte derangements, including hypokalemia, hypophosphatemia and hypomagnesemia. Those were replaced and improved. Given the confusion, patient had a CAT scan and then an MRI. The MRI showed a left parietal mass with vasogenic edema. Patient had a chest x-ray as well given the fact that she had elevated cardiac markers. Chest x-ray had what was described by oncology as cannonball lesions. And oncology had recommend hospice for the patient. Had extensive conversation with the patient's son about her condition and that her overall recovery is going to be poor and that she is hospice appropriate. Hospice actually met with patient and spoke with the patient's son and he wants her to go to a senior living facility. [] Patient Problems: Active and Suspected Problems (Last Reviewed 11/23/19 @ 23:[address] Yonatan Loomis MD) Altered mental status (Acute) Lactic acidosis (Acute) Hypokalemia (Acute) Elevated troponin I level (Acute) Acute encephalopathy (Acute) Hypokalemia (Acute) - Physical Exam Vitals/I&O's: Vital Signs Temp Pulse Resp BP Pulse Ox 36.5 C L 57 L 18 132/65 H 94 11/26/19 03:00 11/26/19 07:00 11/26/19 03:00 11/26/19 03:00 11/26/19 03:00 Oxygen Delivery Method Room Air Weight: 55.1 kg Body Mass Index (BMI) 19.5 Intake and Output for Last 24 Hours 11/24/19 11/25/19 11/26/19 23:59 23:59 23:59 Intake Total 2912.80 / 2912.80 2821.8733 / 2821.8733 150 / 150 Output Total 1560 / 1560 425 / 425 300 / 300 Balance 1352.80 / 1352.80 2396.8733 / 2396.8733 -150 / -150 General: Alert, No apparent distress HEENT: Atraumatic, Normocephalic Psych/Mental Status: Normal Affect, Appropriate Microbiology Past 72 Hours 11/23/19 21:00 Blood Culture (Wb) - Anticubital Right Blood Culture - Preliminary No growth in 48 hours. 11/23/19 21:10 Blood Culture (Wb) - Right Wrist Blood Culture - Preliminary No growth in 48 hours. 11/23/19 00:51 Stool Enteric Bacteriology - Final 11/23/19 23:05 Stool C. difficile DNA Amplification - Final 11/23/19 23:05 Stool Stool Lactoferrin - Final Laboratory Results 11/25/19 04:02: WBC 19.4 H, RBC 3.30 L, Hgb 9.5 L, Hct 29.3 L, MCV 88.8, MCH 28.8, MCHC 32.4, RDW Std Deviation 52.2 H, RDW Coeff of Sam 16.0 H, Plt Count 329, MPV 9.9, Immature Gran % (Auto) 1.000 H, Neut % (Auto) 94.8 H, Lymph % (Auto) 3.1 L, Cotton % (Auto) 1.0, Eos % (Auto) 0.0, Baso % (Auto) 0.1, Absolute Neuts (auto) 18.4 H, Absolute Lymphs (auto) 0.61 L, Nucleated RBC % 0, Differential Comment SCANNED 11/25/19 04:02: Sodium 140, Potassium 3.0 L, Chloride 103, Carbon Dioxide 26.0, Anion Gap 11, BUN 14, Creatinine 0.84, Estim Creat Clear Calc 46.46, Est GFR (MDRD) Af Amer 84, Est GFR (MDRD) Non-Af 69, BUN/Creatinine Ratio 16.7, Glucose 175 H, Calcium 7.6 L, Phosphorus 3.2 11/26/19 05:14: WBC 20.9 H, RBC 3.07 L, Hgb 8.8 L, Hct 27.5 L, MCV 89.6, MCH 28.7, MCHC 32.0, RDW Std Deviation 55.4 H, RDW Coeff of Sam 17.0 H, Plt Count 315, MPV 10.1, Immature Gran % (Auto) 1.600 H, Neut % (Auto) 93.9 H, Lymph % (Auto) 3.0 L, Cotton % (Auto) 1.4, Eos % (Auto) 0.0, Baso % (Auto) 0.1, Absolute Neuts (auto) 19.6 H, Absolute Lymphs (auto) 0.63 L, Nucleated RBC % 0 11/26/19 05:14: Sodium 145, Potassium 3.5, Chloride 111 H, Carbon Dioxide 26.0, Anion Gap 8, BUN 20 H, Creatinine 0.82, Estim Creat Clear Calc 47.60, Est GFR (MDRD) Af Amer 87, Est GFR (MDRD) Non-Af 72, BUN/Creatinine Ratio 24.5 H, Glucose 167 H, Calcium 8.3 L, Magnesium 1.7 Current Medications Dexamethasone (Decadron) 4 mg PO Q6 [facility] Last Admin: 11/26/19 05:12 Dose: 4 mg Documented by: Dextrose (D50w Syringe) 0 gm IV X1 PRN; Protocol PRN Reason: Hypoglycemia Enoxaparin Sodium (Lovenox) 40 mg SC DAILY [facility] Last Admin: 11/26/19 08:26 Dose: 40 mg Documented by: Glucagon () 1 mg IM .X1 PRN PRN Reason: Hypoglycemia Metronidazole (Flagyl) 500 mg in 100 mls @ 100 mls/hr IV Q8 [facility] Last Infusion: 11/26/19 06:12 Dose: Infused Documented by: Cefepime HCl 2 gm/ Sodium (Chloride) 100 mls @ 200 mls/hr IV Q12 [facility] Last Admin: 11/26/19 08:27 Dose: 200 mls/hr Documented by: Sodium Chloride () 250 mls @ 15 mls/hr IV .[id number] PRN PRN Reason: Saline Flush Last Infusion: 11/24/19 23:05 Dose: 0 mls/hr Documented by: Sodium Chloride () 250 mls @ 15 mls/hr IV .[id number] PRN PRN Reason: Additional IVPB Infusion Lorazepam (Ativan) 1 mg IV X1 PRN PRN Reason: enroute for MRI if agitated Melatonin (Melatonin) 3 mg PO QHS PRN PRN Reason: INSOMNIA Last Admin: 11/25/19 23:22 Dose: 3 mg Documented by: Nutritional Formula (Lactose Free) (Ensure Enlive) 120 ml PO 4X/DAY [facility] Last Admin: 11/26/19 08:26 Dose: 120 ml Documented by: Sodium Chloride () 10 - 40 ml IV UD PRN PRN Reason: SALINE FLUSH Last Admin: 11/26/19 05:12 Dose: 10 ml Documented by: Discharge Diet: No Restrictions Discharge Activity: Return to Normal Activity Home Medications: Medications to take at Discharge amlodipine 10 mg tablet 10 mg PO DAILY #90 tab 08/04/19 metoprolol tartrate 25 mg tablet 25 mg PO BID tab 09/06/19 Dexamethasone [Decadron] 4 mg PO BID tab 11/26/19 Potassium Chloride [K-Dur] 20 meq PO BID #14 tab 11/26/19 Primary Care Physician: Dominic Solis DO [Primary Care Provider] - Within 2 Weeks Please Follow Up With: Berry Garcia MD - [facility] When: as needed Disposition: Care Home facility Minutes spent on discharge:: 32 Patient Condition:: Poor Medical Necessity - Tobacco Use Smoking Status: Former smoker Tobacco Use: Non-smoker Meaningful Use Info Meaningful Use Diagnoses (Choose all that apply): None applicable Inpatient E&M: 33511 Disch Hosp
[2019-11-26 09:00] VITALS: BP 139/75; PULSE 67; RESP 16; TEMP 36.8; O2SAT 95
--- NOTE | 2019-11-26 10:58 | DCINST_ITS ---
- Discharge Diagnoses Current Active Problems: Current Active and Chronic Problems (Last Reviewed 11/23/19 @ 23:[address] Yonatan Loomis MD) Altered mental status (Acute) Lactic acidosis (Acute) Hypokalemia (Acute) Elevated troponin I level (Acute) Acute encephalopathy (Acute) Hypokalemia (Acute) You will use the following diet at home:: No restrictions Your food should be the consistency of: Regular Your liquids should be the consistency of: Regular/Thin Discharge Activity: Return to Normal Activity Allergies/Adverse Reactions: Allergies clopidogrel [From Plavix] Adverse Reaction (Severe, Verified 11/23/19 21:08) hives ragweed pollen Adverse Reaction (Severe, Verified 11/23/19 21:08) Other cough lisinopril Adverse Reaction (Mild, Verified 11/23/19 21:08) Other COUGH Medications to take at Discharge amlodipine 10 mg tablet 10 mg PO DAILY #90 tab 08/04/19 metoprolol tartrate 25 mg tablet 25 mg PO BID tab 09/06/19 Dexamethasone [Decadron] 4 mg PO BID tab 11/26/19 Potassium Chloride [K-Dur] 20 meq PO BID #14 tab 11/26/19 Primary Care Physician: Dominic Solis DO [Primary Care Provider] - (as needed) Test Results: Test results from this visit will be discussed in further detail at your follow- up appointment, if applicable. Please Follow Up With: Berry Garcia MD - [facility] oncology When: as needed Proposed Discharge Date: 11/26/19
--- NOTE | 2019-11-26 11:07 | CASEMGMT ---
Social Work SW met with pt in room and introduced self and role. Pt alert and oriented. SW asked pt if she was aware what the physicians found. Pt stating yes, I have cancer all over my body and I am dying. SW offered emotional support. SW discussed discharge plan with her and pt states she has talked to her son Jimi and they have decided that pt will go to his home at discharge and she would like to discharge home today. Pt gave SW permission to call son and verify d/c plans. Phone call to Jimi who confirmed he will be bringing pt to his home and will provide 24 hour care. SW then inquired about Hospice and explained the benefits of having hospice on board. Son Jimi states understanding and that he would like to sign up for hospice and permission given to call hospice. Phone call to Priscila at [facility] and informed that pt son is not interested in signing up for hospice services for pt. Priscila to call Jimi. Return call from Jimi who states he spoke with pt and with [facility]. Jimi will pick pt up today at 1pm and pt at this time does not want son to sign up for Hospice until pt gets home and they are able to talk about it face to face. Received call from Priscila at [facility] and she confirmed the same. RN notified that pt will be picked up at 1pm today. Physician notified of discharge plan. Plan: Home with son providing 24 hour care. AP[place]INAR [place]
== END 2019-11-26 13:00 | disposition hospice, home (50) | DRG 54 ==
LOC: ED 22:35 → PCU 23:32
PROVIDERS: Admitting Provider Hospitalist; Emergency Provider Emergency Medicine; PCP Family Medicine
DX: C79.31 Secondary malignant neoplasm of brain (principal); G93.41 Metabolic encephalopathy; G93.6 Cerebral edema; I21.A1 Myocardial infarction type 2; E87.2 Acidosis; E87.6 Hypokalemia; E83.42 Hypomagnesemia; E83.39 Other disorders of phosphorus metabolism; R91.8 Other nonspecific abnormal finding of lung field; Z85.038 Personal history of other malignant neoplasm of large intestine; Z85.42 Personal history of malignant neoplasm of other parts of uterus; I10 Essential (primary) hypertension; E78.5 Hyperlipidemia, unspecified; I25.5 Ischemic cardiomyopathy; Z95.5 Presence of coronary angioplasty implant and graft; E04.1 Nontoxic single thyroid nodule; I25.10 Atherosclerotic heart disease of native coronary artery without angina pectoris; Z79.82 Long term (current) use of aspirin; Z79.899 Other long term (current) drug therapy; Z87.891 Personal history of nicotine dependence; R19.7 Diarrhea, unspecified; I25.2 Old myocardial infarction
CPT/HCPCS: 36415; 51702; 70450; 70553; 71046; 80048; 80053; 81001; 82550; 82607; 83605; 83630; 83735; 84100; 84443; 84484; 85025; 85610; 85730; 87040; 87177; 87209; 87493; 87506; 93005; 97116; 97162; 97166; 97530; 99285; A9575; J7030; J7050; A4216; J7799

== ENCOUNTER → 2019-12-10 | Outpatient (CLI) | payer MEDICARE, BC, SELFPAY ==
[2019-11-24 00:41] VITALS: BMI 19.5
== END | disposition home or self-care (01) ==
LOC: LAB.FUTURE 13:07
PROVIDERS: PCP Family Medicine; Referring Provider Family Medicine; Visit Provider Family Medicine
DX: R19.7 Diarrhea, unspecified (principal)
CPT/HCPCS: 83630; 87493